=== PATIENT | female | born 1940 | race Caucasian/White ===

== ENCOUNTER 2018-01-23 18:17 | Emergency (ER) | payer MEDICARE, SELFPAY ==
[2018-01-23 18:18] VITALS: BP 194/76; PULSE 96; RESP 20; TEMP 37; O2SAT 97; BMI 32.9
--- NOTE | 2018-01-23 19:03 | CT_ITS ---
STUDY: CT ABDOMEN AND PELVIS WITH CONTRAST REASON FOR EXAM: Female, 77 years old. Right lower quadrant pain, previous appendectomy and right inguinal hernia repair. RADIATION DOSAGE (If Supplied By Facility): CTDIvol = ( 19.92 ) mGy, DLP = ( 1127.44 ) mGycm TECHNIQUE: Transaxial images were obtained from the dome of the diaphragm to the symphysis pubis without oral contrast. 100ml ml of Isovue 300 contrast was administered. Sagittal and coronal images were reconstructed. Individualized dose optimization techniques were used for this CT. COMPARISON: None. FINDINGS: The visualized lung bases are unremarkable. The visualized portions of the heart are within normal limits. Normal liver. Normal gallbladder and extrahepatic biliary system. Normal spleen. Normal pancreas. Normal bilateral adrenal glands. Normal right kidney. Normal left kidney. There is a large hiatal hernia composed mostly of the fundus of the stomach. Paracentral to right quadrant areas of bowel dilatation with overall hyperemic appearance. Findings are most concerning for ileus Clinical setting with early small bowel obstruction not completely excluded. Normal colon. There is non-visualization of the appendix. There is diffuse atherosclerotic calcification of the abdominal aorta, without a demonstrated aneurysm. Normal inferior vena cava. Normal retroperitoneum. Normal urinary bladder. There is atrophy of the uterus. There is a small anterior lower abdominal wall defect containing mesenteric fat with small fluid collection with defect measuring approximately 11 mm as seen on series 2 image 86. Normal osseous structures. CT/Abdomen/Pelvis W IV Cont ONLY IMPRESSION: 1. Lower mid to right abdominal small bowel areas of dilated fluid-filled lumen most concerning for ileus in the appropriate clinical setting. Early small bowel obstruction is not completely excluded recommend continued clinical follow-up with serial abdominal exam as clinically warranted. No evidence of fluid collection or abscess. 2. Small lower midline abdominal wall hernia containing mesenteric fat with small fluid collection as above. 3. Large hiatal hernia. Electronically Signed: Elvis Gonzalez DO at 20:59 EDT , Service support ,
--- NOTE | 2018-01-23 19:09 | ED.DCSUM_ITS ---
- ER Visit Summary Date of Service: 01/23/18 Chief Complaint: Right lower quadrant abdominal pain History of Present Illness: The patient is a 77 F history of hypertension. Prior appendectomy to prior right ankle. She also had a tubal ligation years ago. He states about 2 hours ago around 4 PM she started having upper and right lower quadrant abdominal pain. Since moderate pain. And now is resolved. She is associated nausea. Denies any vomiting. No diarrhea. No fever. No dysuria. States she has not had pain like this before. When the pain came on she did not notice any bulge or hernia in her right lower quadrant. She has had no trouble urinating. Or moving her bowels. She has been eating and drinking normally. She denies any recent abdominal trauma. She has never had a kidney stone. Currently states she is pain-free. She denies any back pain. Physical Examination: Well appearing older female. Vital signs are stable afebrile. She is accompanied by her . H EENT exam unremarkable. Neck nontender. Lungs clear to auscultation bilaterally. Heart regular rhythm no murmur. Abdomen is soft and nontender. Nondistended normal bowel sounds. She has absolutely no upper quadrant abdominal tenderness currently she has no right lower quadrant tenderness. She is well-healed prior surgical incisions one being a prior appendectomy. I do not appreciate any hernia or masses. I do not appreciate a pulsatile mass. She is a strong right femoral pulse. She is moving all 4 extremities. Neurovascular intact. Without edema or cords. Neurologically she is awake and alert. Back exam is nontender. Test Results: CBC normal with a white count 8. Normal H&H no bands. BMP normal. Liver enzymes normal. Lipase normal. UA positive nitrites, 5-10 white cells and 3+ bacteria for that reason a urine culture was sent and she will be treated for UTI. Multiple repeat abdominal exams her abdomen remains completely benign. She has no right lower quadrant tenderness and no peritoneal signs. Emergency Department Course and Treatment: Patient will undergo examination for abdominal pain. Including a CT of her abdomen and pelvis with IV contrast. Treatment Plan: Patient will be treated for possible UTI. She was started on Keflex 500 4 times daily for 7 days. A urine culture was sent. Her primary care physician Dr. Resendiz in follow-up the urine culture results and determine if she needs to continue the antibiotics or not at that time. This was all discussed with the patient and her at bedside. Her repeat exam at 2148 she is doing well abdomen is completely benign and nontender. Disposition: dc Impression: Acute right lower quadrant abdominal pain of uncertain etiology UTI with urine culture pending This note was generated with [employer] dictation software. It may contain incorrect words, spelling, and punctuation that were not noted in review of the chart prior to signing ED Disposition - Plan for ED Patient: Chief Complaint: Abd Pain Referrals: Maria Elena Resendiz MD [Primary Care Provider] -
[2018-01-23 19:36] LABS: Basophil# 0.02 X10^3/uL; Basophil% 0.2 % (0-1); Eosinophil# 0.24 X10^3/uL; Eosinophils% 2.8 % (0-5); Hemoglobin 13.7 g/dl (12.0-15.0); Lymphocyte % 17.2 % (19-41); Mean Corp Hgb Conc 33.4 g/gl (32-36); Mean Corpuscular Hgb 31.2 pg (27.0-32.0); Mean Corpuscular Volume 93.4 fL (81-99); Mean Platelet Vol. 9.5 fl (6.2-12.0); Monocyte% 10.3 % (0-10); Neutrophil # 6.03 X10^3/uL (2.7-7.7); Neutrophil % 69.3 % (47-70); Platelet Count 251 K/mm3 (150-450); RBC Distribution Width CV 13.3 % (11.6-14.6); RBC Distribution Width SD 45.2 fl (35.1-43.9); Red Blood Count 4.39 M/mm3 (4.2-5.4); White Blood Count 8.7 K/mm3 (4.4-11.0)
[2018-01-23 19:39] LABS: POSITIVE COUNT NO; POSITIVE DIFFERENTIAL NO; POSITIVE MORPHOLOGY NO
[2018-01-23 19:59] LABS: AST(SGOT) 43 U/L (15-37); Alanine Aminotransfer ALT/SGPT 31 U/L (13-56); Albumin, Serum 3.7 g/dL (3.2-5.0); Alkaline Phosphatase 89 U/L (45-117); Anion Gap 9 (5-15); BUN 13 mg/dL (7-18); BUN/Creat Ratio 18.8 RATIO (10-20); Bilirubin, Direct 0.09 mg/dL (0.00-0.30); Calcium,Total 8.8 mg/dL (8.5-10.1); Chloride 105 mmol/L (98-107); Creatinine, Serum 0.69 mg/dL (0.55-1.02); EST Glomerular Filtration Rate 88 mL/min (>60); Est Glom Filt Rate - Afr Amer 106 mL/min (>60); Estimated Creatinine Clearance 39.59 ml/min; Globulin 3.5 g/dL (2.2-4.2); Glucose 88 mg/dL (74-106); Lipase 184 U/L (73-393); Potassium 4.7 mmol/L (3.5-5.1); Protein, Total 7.2 g/dL (6.4-8.2); Sodium Level 138 mmol/L (136-145)
[2018-01-23 20:17] VITALS: BP 168/114; PULSE 80; RESP 18; O2SAT 100
[2018-01-23 20:34] LABS: Mucous, Urine 0 SEEN /hpf (<or=2+); Squamous Epithelial Cells - UA 0 SEEN /hpf (5-10)
[2018-01-23 20:44] LABS: Color, Urine Yellow (Yellow); Glucose, Dipstick Normal (Normal); Ketone-Dipstick Negative (Negative); Leukocyte Esterase-Dipstick 100 /ul (Negative); Nitrite-Dipstick Positive (Negative); Occult Blood-Urine 10 /ul (Negative); Protein-Dipstick Negative (Negative); Specific Gravity, Urine 1.015 (1.002-1.030); Urine Bilirubin Dipstick Negative (Negative); Urine Clarity Cloudy (Clear); Urine Urobilinogen Normal (Normal)
[2018-01-23 21:02] LABS: Bacteria 3+ /hpf (None Seen); White Blood Cells 5-10 SEEN /hpf (0-5)
[2018-01-23 21:03] LABS: Red Blood Cells-Urine 0-5 SEEN /hpf (0-5)
--- NOTE | 2018-01-23 21:52 | ED.DEP ---
ED Disposition - Plan for ED Patient: Disposition: Home or Assisted Living Chief Complaint: Abd Pain Instructions: ED Abdominal Pain Unkn Cause, ED UTI Cystitis Female Prescriptions: Cephalexin [Keflex] 500 mg PO Q6 #30 cap Referrals: Maria Elena Resendiz MD [Primary Care Provider] - As soon as possible Additional Instructions: Stop the Zithromax antibiotic. Next Start the Keflex 1 pill 4 times a day. We will treat you for a possible urinary tract infection. We sent a urine culture today and that will be back Thursday. If the urine culture is negative antibiotics can be stopped. Follow-up your primary care physician and get these results.
[2018-01-23] MEDS: Cephalexin 250 MG Capsule 500 MG PO (22:08)
[2018-01-23 22:13] VITALS: RESP 18
== END 2018-01-23 22:13 | disposition home or self-care (01) ==
PROVIDERS: Emergency Provider Emergency Medicine; Family Provider Internal Medicine; PCP Internal Medicine
DX: N39.0 Urinary tract infection, site not specified (principal); R10.31 Right lower quadrant pain; I10 Essential (primary) hypertension; Z79.899 Other long term (current) drug therapy
CPT/HCPCS: 74177; 80048; 80076; 81001; 83690; 85025; 87086; 87088; 87186; 99285; Q9967; A4216

== ENCOUNTER 2019-01-27 16:35 | Emergency (ER) | payer MEDICARE, SELFPAY ==
[2018-12-17 09:36] VITALS: BMI 33.1
[2019-01-27 16:37] VITALS: BP 168/102; PULSE 97; RESP 15; TEMP 35.7; O2SAT 100; BMI 37.0
--- NOTE | 2019-01-27 16:54 | EKG12_ITS ---
Test Reason : ABDOMINAL PAIN Blood Pressure : / mmHG Vent. Rate : 086 BPM Atrial Rate : 086 BPM P-R Int : 168 ms QRS Dur : 088 ms QT Int : 402 ms P-R-T Axes : 055 029 033 degrees QTc Int : 481 ms Poor data quality, interpretation may be adversely affected Normal sinus rhythm Normal ECG Confirmed by LEI CORREA, OLLIE ([id number]), magazine editor STEPHANY GLOVER ([id number]) on 01/31/2019 1:39:41 PM Referred By: WERNER Confirmed By:OLLIE ODOM MD
--- NOTE | 2019-01-27 16:55 | ED.DCSUM_ITS ---
- ER Visit Summary Date of Service: 01/27/19 Chief Complaint: Abdominal pain History of Present Illness: The patient is a 78 F who presents with abdominal pain that began approximately 6 hours prior to arrival. Patient states the pain is over the diaphragm area. Patient describes the pain as sharp. Patient states pain is worse when she lays down. Patient admits to some nausea and vomiting. Patient states her emesis is stomach contents. Patient denies any hematemesis or coffee-ground emesis. Patient denies any diarrhea, melena, or hematochezia. Patient denies any radiation of the pain. She denies any urinary complaints. Physical Examination: Vital signs are stable. Patient is afebrile. Patient is in no acute distress. Oral mucosa is pink and moist. Neck is supple. Trachea is midline. There is no JVD noted. Heart was regular rate and rhythm. Lungs are clear and equal bilaterally. Abdomen is soft. Bowel sounds are normal. There is epigastric tenderness. There is no rebound or guarding noted. Cranial nerves II through XII are intact. There are no focal motor or sensory deficits noted. Test Results: EKG showed normal sinus rhythm with a rate of 86. There are no acute ST or T wave changes. This was unchanged compared to previous EKG dated 12/09/2017. CBC and comprehensive metabolic profile were obtained and were essentially within normal limits. Urinalysis does not show any evidence of urinary tract infection. Troponin was normal. Emergency Department Course and Treatment: Patient was given IV fluids, Zofran, and morphine. Patient felt better on reevaluation. Patient was advised of her test results. Patient states she is unable to tolerate Prilosec because it gives her diarrhea. Patient states her primary care physician also tried another acid medication which also cause diarrhea. Patient was instructed to follow-up with her primary care physician in 3 to 5 days. Patient understood and was agreeable with the plan. All questions were answered. Disposition: Discharge home Impression: Epigastric abdominal pain This note was generated with [employer] dictation software. It may contain incorrect words, spelling, and punctuation that were not noted in review of the chart prior to signing ED Disposition - Plan for ED Patient: Disposition: Home or Assisted Living Diagnosis: Epigastric abdominal pain of unknown etiology Instructions: ABDOMINAL PAIN, Unknown Cause, (Female) Referrals: Maria Elena Resendiz MD [Primary Care Provider] - 3-5 Days
[2019-01-27] MEDS: Morphine 4 MG/ML Syringe IV (17:04)
[2019-01-27] MEDS: Ondansetron 4 MG/2 ML Vial IV (17:05)
[2019-01-27 17:20] LABS: Absolute Lymphocyte Count 1.28 X10^3/ul (0.83-4.51); Absolute Neutrophil Count 8.3 X10^3/uL (2.0-7.7); Basophil# 0.02 X10^3/uL; Basophil% 0.2 % (0-1); Eosinophil# 0.03 X10^3/uL; Eosinophils% 0.3 % (0-5); Hematocrit 42.2 % (37-47); Hemoglobin 14.4 g/dl (12.0-15.0); Lymphocyte # 1.28 X10^3/ul (4.0); Lymphocyte % 12.4 % (19-41); Mean Corp Hgb Conc 34.1 g/gl (32-36); Mean Corpuscular Hgb 31.5 pg (27.0-32.0); Mean Corpuscular Volume 92.3 fL (81-99); Mean Platelet Vol. 9.3 fl (6.2-12.0); Monocyte# 0.67 X10^3/uL; Monocyte% 6.5 % (0-10); Neutrophil % 80.4 % (47-70); Platelet Count 291 K/mm3 (150-450); RBC Distribution Width SD 43.6 fl (35.1-43.9); Red Blood Count 4.57 M/mm3 (4.2-5.4); White Blood Count 10.3 K/mm3 (4.4-11.0)
[2019-01-27 17:25] LABS: POSITIVE COUNT NO; POSITIVE DIFFERENTIAL NO; POSITIVE MORPHOLOGY NO
[2019-01-27 17:35] LABS: ALB/GLOB Ratio 1.1 RATIO (0.9-2.4); AST(SGOT) 16 U/L (15-37); Alanine Aminotransfer ALT/SGPT 21 U/L (13-56); Albumin, Serum 3.9 g/dL (3.2-5.0); Alkaline Phosphatase 98 U/L (45-117); Anion Gap 6 (5-15); BUN 8 mg/dL (7-18); BUN/Creat Ratio 12.4 RATIO (10-20); Calcium,Total 9.2 mg/dL (8.5-10.1); Chloride 105 mmol/L (98-107); Creatinine, Serum 0.65 mg/dL (0.55-1.02); EST Glomerular Filtration Rate 94 mL/min (>60); Est Glom Filt Rate - Afr Amer 114 mL/min (>60); Estimated Creatinine Clearance 33.84 ml/min; Globulin 3.4 g/dL (2.2-4.2); Glucose 121 mg/dL (74-106); Lipase 93 U/L (73-393); Potassium 3.7 mmol/L (3.5-5.1); Protein, Total 7.3 g/dL (6.4-8.2); Sodium Level 135 mmol/L (136-145)
[2019-01-27 18:16] VITALS: BP 148/82; PULSE 79; RESP 15
[2019-01-27 18:19] LABS: Bacteria 0 SEEN /hpf (None Seen); Mucous, Urine 0 SEEN /hpf (<or=2+); Squamous Epithelial Cells - UA 0 SEEN /hpf (5-10); White Blood Cells 0 SEEN /hpf (0-5)
[2019-01-27 18:20] LABS: Color, Urine Yellow (Yellow); Glucose, Dipstick Normal (Normal); Ketone-Dipstick 50 mg/dl (Negative); Leukocyte Esterase-Dipstick Negative /ul (Negative); Nitrite-Dipstick Negative (Negative); Occult Blood-Urine 10 /ul (Negative); Protein-Dipstick Negative (Negative); Specific Gravity, Urine 1.015 (1.002-1.030); Urine Bilirubin Dipstick Negative (Negative); Urine Clarity Sl. Cloudy (Clear); Urine Urobilinogen Normal (Normal)
[2019-01-27 18:57] LABS: Amorphous Sediment 1+; Red Blood Cells-Urine 0-5 SEEN /hpf (0-5)
[2019-01-27 20:05] VITALS: BP 148/77; PULSE 78; RESP 18; O2SAT 94
== END 2019-01-27 20:06 | disposition home or self-care (01) ==
PROVIDERS: Emergency Provider Emergency Medicine; Family Provider Internal Medicine; PCP Internal Medicine
DX: R10.13 Epigastric pain (principal); E03.9 Hypothyroidism, unspecified; Z79.899 Other long term (current) drug therapy
CPT/HCPCS: 80053; 81001; 83690; 84484; 85025; 93005; 96374; 96375; 99283; A4216; J2405

== ENCOUNTER → 2019-06-08 | Outpatient (CLI) | payer MEDICARE, SELFPAY ==
[2019-05-23 11:53] VITALS: BMI 37.0
--- NOTE | 2019-06-08 06:51 | CT_ITS ---
STUDY: CT ABDOMEN AND PELVIS WITH CONTRAST REASON FOR EXAM: Female, 79 years old. Evaluate for left lower quadrant hernia. RADIATION DOSAGE (If Supplied By Facility): CTDIvol = ( 16.51 ) mGy, DLP = ( 1125.38 ) mGycm TECHNIQUE: Transaxial images were obtained from the dome of the diaphragm to the symphysis pubis with oral contrast. 100 ml of Isovue 300 contrast was administered. Sagittal and coronal images were reconstructed. Individualized dose optimization techniques were used for this CT. COMPARISON: 01/23/2018 FINDINGS: The visualized lung bases are clear. The visualized portions of the heart and pericardium are within normal limits. There are no calcified gallstones present. The liver is within normal limits. There are no suspicious hepatic lesions. The spleen is normal in size. The pancreas is within normal limits. The adrenal glands are within normal limits. There are no renal or ureteral stones. There is no hydronephrosis. There are no focal renal lesions. There is a stable large hiatal hernia. There is no bowel obstruction or inflammation. The appendix is not visualized, but there are no findings to suggest acute appendicitis. There is a new small right inguinal hernia which contains nonobstructed bowel. There are stable postsurgical changes from a left inguinal hernia repair. There is a stable small fat and fluid hernia in the pelvis to the left of midline. The aorta is normal in caliber. There are stable atherosclerotic calcifications in the aorta. There is no abdominal or pelvic free air, free fluid, fluid collection or lymphadenopathy. There are no destructive osseous lesions. CT/Abdomen/Pelvis WITH Contrast IMPRESSION: Stable postsurgical changes from a left inguinal hernia repair. Stable small fat and fluid hernia in the pelvis to the left of midline. New small right inguinal hernia which contains nonobstructed bowel. No bowel obstruction or inflammation. Stable large hiatal hernia. Electronically Signed: Jose Diggs, at 17:03 EST Tel , Service support ,
[2019-06-08 07:06] LABS: CREATININE FINGERSTICK 0.7 mg/dL (0.55-1.02); EGFR FINGERSTICK > 60.0000 mL/min (>60)
== END | disposition home or self-care (01) ==
LOC: CT 06:49
PROVIDERS: Family Provider Internal Medicine; PCP Internal Medicine; Referring Provider Obstetrics & Gynecology; Visit Provider Obstetrics & Gynecology
DX: K46.9 Unspecified abdominal hernia without obstruction or gangrene (principal)
CPT/HCPCS: 74177; Q9967

== ENCOUNTER → 2020-03-22 | Outpatient (CLI) | payer MEDICARE, SELFPAY ==
[2019-12-20 07:42] VITALS: BMI 35.2
--- NOTE | 2020-03-22 08:52 | STRESSREP ---
Stress Test Report Pharmacologic myocardial perfusion stress test. 79-year-old lady with a history of heart murmur. Myocardial perfusion protocol. Resting EKG demonstrates sinus bradycardia with a rate of 56 bpm normal intervals are noted resting blood pressure 142/80 mmHg. 0.4 mg of regadenoson was infused per usual protocol followed by Intravenous saline flush injection continuous EKG monitoring was performed. The maximum heart rate attained was 103 bpm which was 72% of maximum predicted heart rate the maximum workload was 1 metabolic equivalent. At rest there were no ST or T wave changes noted to suggest abnormal flow reserve at peak infusion nonspecific ST-T wave changes were noted. The resting blood pressure was 142/80 with a final blood pressure 126/74. Myocardial perfusion protocol. 11.8 mCi of technetium 99m sestamibi was injected at rest. 0.4 mg of regadenoson was infused per usual protocol. At peak infusion 34.3 mCi of technetium 99m sestamibi was injected stress images were obtained stress and rest images were reconstructed and compared in the short axis vertical long horizontal long axis. Gated images were also obtained Perfusion SPECT analysis: Review of the stress images demonstrate normal uptake of tracer noted in all areas of the myocardium the resting images similar demonstrate normal uptake of tracer noted in all areas of the myocardium. No areas of reversibility are noted suggest ischemia no previous infarct is noted. Gated SPECT analysis: The gated ejection fraction is 85%. Conclusion: Normal pharmacologic myocardial perfusion stress test. Preserved ejection fraction.
== END | disposition home or self-care (01) ==
LOC: CVS 06:35
PROVIDERS: PCP Internal Medicine; Referring Provider Internal Medicine; Visit Provider Internal Medicine
DX: R07.89 Other chest pain (principal)
CPT/HCPCS: 78452; 93017; A9500; A4216; J2785

== ENCOUNTER → 2020-07-05 10:56 | Outpatient (CLI) | payer MEDICARE, SELFPAY ==
[2020-06-27 09:44] VITALS: BMI 31.6
--- NOTE | 2020-07-05 10:57 | ECHOD_ITS ---
Reason For Study: MURMUR Procedure This was a 2D Doppler, Color Flow transthoracic echocardiogram. The study was technically difficult. Exam performed in department. Left Ventricle Normal LV size. Mild concentric left ventricular hypertrophy. Left ventricular systolic function is normal. The estimated ejection fraction is 65 %. Stage 1 diastolic dysfunction. No regional wall motion abnormalities noted. Right Ventricle Normal RV size. Normal systolic function. Atria Normal left atrium. Normal right atrium. Mitral Valve There is mild mitral annular calcification. Mild (1+) eccentric mitral valve insufficiency. Tricuspid Valve Normal tricuspid valve. Mild tricuspid valve insufficiency. Pulmonary artery systolic pressure is 20 mmHg. Aortic Valve Trisinus/trileaflet aortic valve. Mild focal aortic valve calcification. Peak aortic valve gradient 30 mmHg. Mean aortic valve gradient 18 mmHg. Mild aortic stenosis. Calculated aortic valve area (continuity equation) is 1.6 cm2. Mild (1+) aortic valve insufficiency. Pulmonic Valve Normal pulmonic valve. Great Vessels Normal aortic root. The pulmonary artery is normal size. Inferior vena cava collapse with respiration. Pericardium/Pleural No pericardial effusion. MMode/2D Measurements & Calculations LVIDd: 4.3 cm IVSd: 1.2 cm LVOT diam: 2.0 cm LVIDs: 2.8 cm LVPWd: 1.2 cm LVOT area: 3.0 cm2 FS: 34.2 % Ao root diam: 3.4 cm LAV(MOD-bp): 37.0 ml Aortic Valve Planimetry: 1.8 cm2 LAV(MOD-bp) Indexed: 19.8 ml/m2 LAV(MOD-sp2): 40.1 ml LAV(MOD-sp4): 29.7 ml LA dimension(2D): 3.5 cm LA A4 area: 13.1 cm2 RA A4 area: 9.8 cm2 Time Measurements MV dec time: 0.27 sec Doppler Measurements & Calculations MV E max ryland: 103.5 cm/sec Lat Peak E' Ryland: 3.2 cm/sec Med Peak E' Ryland: 3.2 cm/sec MV A max ryland: 123.5 cm/sec E/E' lat: 32.1 E/E' med: 32.1 MV E/A: 0.84 MV V2 max: 126.9 cm/sec Ao V2 max: 273.3 cm/sec AI max ryland: 292.7 cm/sec MV max P.4 mmHg Ao max P.9 mmHg AI max P.1 mmHg MV V2 mean: 71.9 cm/sec Ao V2 mean: 199.4 cm/sec AI dec slope: 214.3 cm/sec2 MV mean P.4 mmHg Ao mean P.4 mmHg AI P1/2t: 400.1 msec MV V2 VTI: 34.4 cm Ao V2 VTI: 60.5 cm MVA(VTI): 3.2 cm2 LES(I,D): 1.8 cm2 LES(V,D): 1.6 cm2 LV V1 max: 145.1 cm/sec SV(LVOT): 109.1 ml TR max ryland: 210.7 cm/sec LV V1 max P.9 mmHg TR max P.8 mmHg LV V1 mean P.7 mmHg LV V1 mean: 114.9 cm/sec LV V1 VTI: 35.9 cm MV P1/2t-pr_phl: 66.8 msec Interpretation Summary Normal LV size. Mild concentric left ventricular hypertrophy. Left ventricular systolic function is normal. The estimated ejection fraction is 65 %. Stage 1 diastolic dysfunction. Mild aortic stenosis. Mild (1+) aortic valve insufficiency. Ordering Physician: Leanna oCoper Referring Physician: REAGAN ARELLANO Performed By: Lety Castro, LEXI, RVT
== END ==
PROVIDERS: PCP Internal Medicine; Referring Provider Physician Assistant Medical; Visit Provider Physician Assistant Medical
DX: I35.0 Nonrheumatic aortic (valve) stenosis (principal)
CPT/HCPCS: 93306

== ENCOUNTER 2021-09-14 11:19 | Emergency (ER) | payer MEDICARE, SELFPAY ==
[2021-09-14 11:20] VITALS: BP 183/93; PULSE 84; RESP 18; TEMP 35.9; O2SAT 99
--- NOTE | 2021-09-14 11:56 | RAD_ITS ---
STUDY: X-RAY - UNILATERAL RIBS ( LEFT ) WITH CHEST REASON FOR EXAM: Female, 81 years old. Left hip pain. TECHNIQUE - RIBS: 4 view(s) of the ribs. TECHNIQUE - CHEST: Single frontal view of the chest. COMPARISON: None. FINDINGS - RIBS: No demonstrated acute rib fracture. FINDINGS - CHEST: No focal infiltrate is seen. There is no demonstrated pleural abnormality. Normal size heart. Normal mediastinum and corwin. Normal visualized pulmonary arteries. There are slightly calcifications of the aortic arch. No demonstrated acute osseous changes. There is no demonstrated abnormality of the visualized soft tissue structures of the upper abdomen. RAD/Ribs Uni Min 3V w/PA Chest IMPRESSION: RIBS: No demonstrated acute rib fracture. CHEST: No active pulmonary disease. Electronically Signed: Shekhar Sampson, at 12:34 EST ,
--- NOTE | 2021-09-14 11:58 | EKG12_ITS ---
Test Reason : FLANK PAIN Blood Pressure : / mmHG Vent. Rate : 071 BPM Atrial Rate : 071 BPM P-R Int : 174 ms QRS Dur : 078 ms QT Int : 404 ms P-R-T Axes : 037 022 050 degrees QTc Int : 439 ms Normal sinus rhythm Normal ECG Confirmed by DORIS CORREA, CLIFFORD ([id number]), story editor STEPHANY GLOVER ([id number]) on 09/18/2021 12:35:15 P M Referred By: ELEAZAR Confirmed By:DEBORAH GEORGE MD
--- NOTE | 2021-09-14 11:58 | CT_ITS ---
STUDY: CT ABDOMEN AND PELVIS WITHOUT CONTRAST REASON FOR EXAM: Female, 81 years old. Flank pain RADIATION DOSAGE (If Supplied By Facility): CTDIvol = ( 13.20 ) mGy, DLP = ( 587.69 ) mGycm TECHNIQUE: Transaxial images were obtained from the dome of the diaphragm to the symphysis pubis without oral contrast, and without intravenous contrast. Sagittal and coronal images were reconstructed. Individualized dose optimization techniques were used for this CT. COMPARISON: 06/08/2019 FINDINGS: The visualized lung bases are unremarkable. Normal heart size. Calcifications of the aortic root and Borderline liver size. Normal gallbladder and extrahepatic biliary system. Normal spleen. Normal pancreas. Normal bilateral adrenal glands. Normal right kidney. Normal left kidney. Large hiatal hernia which could be paraesophageal. Normal small intestine. Fecal retention. Colonic diverticulosis without evidence of acute diverticulitis. The appendix is visualized and appears normal. Normal abdominal aorta. Normal inferior vena cava. Normal retroperitoneum. Normal urinary bladder. Normal abdominal wall. There are diffuse degenerative changes of the visualized lumbar spine. CT/Abdomen/Pelvis without Cont IMPRESSION: 1. Large hiatal hernia which could be paraesophageal unchanged prior exam. 2. No evidence of urinary tract stones or hydronephrosis. 3. Diverticulosis without evidence for acute diverticulitis. 4. No focal acute inflammatory process. Electronically Signed: Shekhar Sampson, at 13:04 [facility] ,
--- NOTE | 2021-09-14 12:18 | EX.ED.DYSGE1 ---
HPI History of Present Illness Chief Complaint: Flank Pain Informant: patient Narrative Narrative: Patient is an 81-year-old female with history of hyperlipidemia, hypertension and aortic stenosis presenting with left back and flank pain. It radiates around to her abdomen. She is never anything like this before. She noticed it last night and tried taking aspirin with no relief. She states it is worse when she moves or rolled over on her side. When she woke up initially she did not have any pain but then she started moving again and had pain again. Denies any associated nausea or vomiting. Denies any issues with her bowels or symptoms. Denies any new trauma. Denies any rash. No new physical activities. Denies any history of kidney stones. No fever or chills reported. [facility] Medical History (Updated 09/14/21 @ 14:[address] Destiny Forte, ) Anemia Asymmetric septal hypertrophy Diverticulosis Essential hypertension Glaucoma Hyperlipidemia Hypothyroidism Lichen sclerosus Non-rheumatic aortic stenosis Obesity Osteopenia Home Medications cholecalciferol (vitamin D3) 125 mcg (5,000 unit) capsule 125 mcg PO DAILY 12/20/19 [History Last Taken Unknown] fluticasone propionate 50 mcg/actuation nasal spray,suspension spray INTRANASAL 12/20/19 [History Last Taken Unknown] latanoprost 0.005 % eye drops OPHTHALMIC 12/20/19 [History Last Taken Unknown] pravastatin 40 mg tablet 40 mg PO QHS #90 tab 06/27/20 [Rx Last Taken Unknown] bupropion HCl 75 mg tablet tablet PO 04/18/21 [History Last Taken Unknown] levothyroxine 25 mcg tablet 75 mcg PO .QOD tab 04/18/21 [History Last Taken Unknown] levothyroxine 50 mcg tablet 50 mcg PO .qod tab 04/18/21 [History Last Taken Unknown] irbesartan 150 mg tablet 150 mg PO DAILY #90 tab 08/06/21 [Rx Last Taken Unknown] cephalexin 500 mg PO Q6 #28 cap 09/14/21 [Rx Last Taken Unknown] Allergy/AdvReac Type Severity Reaction Status Date / Time codeine Allergy PT UNSURE Verified 09/14/21 12:30 OF REACTION losartan AdvReac Unknown Verified 09/14/21 11:22 quinapril [From Accupril] AdvReac Unknown Verified 09/14/21 11:22 Sulfa (Sulfonamide AdvReac unknown Verified 09/14/21 11:22 Antibiotics) Family History Mother Heart disease Father Heart disease Myocardial infarction from [place] age 67 Other CVA (cerebral vascular accident) Surgical History History of appendectomy History of inguinal hernia repair History of tubal ligation left foot surgery Social History Smoking Status: Never smoker alcohol intake: current details: social substance use type: does not use caffeine: Yes what type of physical activity do you participate in: walking seatbelt use: always do you feel safe at home: Yes additional social history: Antwon Moran are retired ROS ROS ED Constitutional Constitutional ED: Denies chills or fever(s) ENT ENT ED: Denies sore throat Cardiovascular Cardiovascular: Denies chest pain Respiratory/Chest Respiratory/Chest: Denies cough or dyspnea Gastrointestinal Gastrointestinal: Reports abdominal pain; Denies constipation, diarrhea, nausea or vomiting Genitourinary Genitourinary ED: Denies dysuria, hematuria or urinary frequency Musculoskeletal Musculoskeletal: Reports back pain; Denies arthralgias or myalgias Integumentary Denies rash Neurologic Neurologic: Denies headache(s) or weakness Psychiatric Psychiatric: Denies depression EXAM Physical Exam Const Vital Signs: 09/14/21 11:20 09/14/21 13:43 Temperature 96.7 F L Temperature Source Temporal Pulse Rate 84 88 Respiratory Rate 18 17 Blood Pressure 183/93 H Blood Pressure Mean 123 Pulse Ox 99 98 Oxygen Delivery Method Room Air Room Air Positive well nourished and well developed General Appearance ED: well developed HEENT Reports moist mucous membranes Negative for tenderness Eyes PERRL and EOMs intact bilaterally Neck supple and no JVD Chest Wall inspection of chest normal and palpation of chest normal Chest Narrative: Mild tenderness in the area of the left lower ribs around the mid axillary line however it is not significantly reproducible. Resp normal respiratory effort and clear to auscultation bilaterally Cardio regular rate and regular rhythm Heart Sounds: murmur systolic GI normal to inspection, nondistended, normoactive bowel sounds and non-tender Palpation: soft Back/Spine no CVA tenderness Extremity normal to inspection General Extremety ED: Negative for edema or tenderness General Extremity: Negative for edema Neuro oriented x3 and CN's II-XII intact bilaterally Sensorium / Orientation: alert Motor Exam: strength 5/5 throughout Psych mental status grossly normal Skin no rashes or lesions noted and no wounds MDM MDM MDM Narrative Medical decision making narrative: Patient is evaluated with about 24 hours of left flank pain radiating around. Patient is hemodynamically stable. She is hypertensive. Differential includes renal pathology including renal colic, pleuritic pain, referred cardiac pain, rib injury and muscle skeletal pain. Work-up is remarkable for urinary tract infection with 25-50 white blood cells and 2+ bacteria. Kidney function is normal and her white blood cell count is normal. CT without contrast does not show any kidney stones. I am concerned that her pain is early pyelonephritis. Patient is started on Keflex and is given a dose of Toradol in the ER. She is counseled on return precautions. She verbalizes agreement understand this plan. Discharged home in stable condition. Lab Data Attestation: I reviewed the patient's lab results. Labs: Laboratory Results - last 24 hr 09/14/21 09/14/21 09/14/21 11:30 11:40 11:40 WBC 7.6 RBC 4.57 Hgb 14.4 Hct 43.7 MCV 95.6 MCH 31.5 MCHC 33.0 RDW Std Deviation 45.6 H RDW Coeff of Ezekiel 12.8 Plt Count 295 MPV 9.4 Immature Gran % (Auto) 0.400 Neut % (Auto) 65.2 Lymph % (Auto) 19.6 [place] % (Auto) 11.3 H Eos % (Auto) 3.0 Baso % (Auto) 0.5 Absolute Neuts (auto) 4.9 Absolute Lymphs (auto) 1.49 Nucleated RBC % 0 Sodium 139 Potassium 3.8 Chloride 106 Carbon Dioxide 27.0 Anion Gap 6 BUN 11 Creatinine 0.60 Estim Creat Clear Calc 38.75 Est GFR (MDRD) Af Amer 123 Est GFR (MDRD) Non-Af 102 BUN/Creatinine Ratio 18.3 Glucose 78 Calcium 8.6 Total Bilirubin 0.60 AST 19 ALT 21 Alkaline Phosphatase 105 Troponin I High Sens 4 Total Protein 7.2 Albumin 3.7 Globulin 3.5 Albumin/Globulin Ratio 1.1 Lipase 164 Urine Color Yellow Urine Clarity Clear Urine pH 5.0 Ur Specific [place] 1.010 Urine Protein Negative Urine Glucose (UA) Normal Urine Ketones Negative Urine Occult Blood 10 H Urine Nitrite Negative Urine Bilirubin Negative Urine Urobilinogen Normal Ur Leukocyte Esterase 500 H Urine RBC 0 SEEN Urine WBC 25-50 SEEN Ur Squamous Epith Cells 0 SEEN Urine Bacteria 2+ Urine Mucus 0 SEEN Radiography Diagnostic Testing: Clinical Impression(s) from Imaging Studies Ribs w/Chest X-Ray 09/14/21 11:56 IMPRESSION: RIBS: No demonstrated acute rib fracture. CHEST: No active pulmonary disease. Electronically Signed: Shekhar Sampson, at 12:34 EST , Abdomen/Pelvis CT 09/14/21 11:58 IMPRESSION: 1. Large hiatal hernia which could be paraesophageal unchanged prior exam. 2. No evidence of urinary tract stones or hydronephrosis. 3. Diverticulosis without evidence for acute diverticulitis. 4. No focal acute inflammatory process. Electronically Signed: Shekhar Sampson, at 13:04 EST , Rhythm Strip Rhythm Strip: Sinus Rhythm Rate: 71 Ectopy: None EKG Initial EKG: Attestation: I personally reviewed and interpreted this EKG as follows: Interpretation: Sinus Rhythm Comments: Normal sinus rhythm at a rate of 71 Normal axis Normal intervals Normal ST segments Discharge Plan Triage Chief Complaint: Flank Pain ED Provider: eDstiny Forte Dx/Rx/DC Orders Clinical Impression: Pyelonephritis of left kidney, Acute left flank pain Instructions: ED Pyelonephritis, Female (Adult) Prescriptions: New cephalexin 500 mg capsule 500 mg PO Q6 Qty: 28 RF: 0 No Action levothyroxine [Synthroid] 50 mcg tablet 50 mcg PO .qod RF: 0 cholecalciferol (vitamin D3) 125 mcg (5,000 unit) capsule 125 mcg PO DAILY RF: 0 fluticasone propionate 50 mcg/actuation spray,suspension INTRANASAL RF: 0 latanoprost 0.005 % drops OPHTHALMIC RF: 0 pravastatin 40 mg tablet 40 mg PO QHS Qty: 90 RF: 3 bupropion HCl 75 mg tablet PO RF: 0 levothyroxine 25 mcg tablet 75 mcg PO .QOD RF: 0 irbesartan 150 mg tablet 150 mg PO DAILY Qty: 90 RF: 3 Primary Care Provider: Maria Elena Resendiz Referrals: Maria Elena Resendiz MD [Primary Care Provider] - Activity Restrictions/Additional Instructions: Return to the emergency room if you develop worsening pain, fever or nausea or vomiting. Return if you are not getting better especially after 48 hours. Disposition Disposition: Home, Self Care Discharge Date/Time: 09/14/21 14:09
[2021-09-14 12:24] LABS: ALB/GLOB Ratio 1.1 RATIO (0.9-2.4); AST(SGOT) 19 U/L (15-37); Alanine Aminotransfer ALT/SGPT 21 U/L (13-56); Albumin, Serum 3.7 g/dL (3.2-5.0); Alkaline Phosphatase 105 U/L (45-117); Anion Gap 6 (5-15); BUN 11 mg/dL (7-18); BUN/Creat Ratio 18.3 RATIO (10-20); Calcium,Total 8.6 mg/dL (8.5-10.1); Chloride 106 mmol/L (98-107); EST Glomerular Filtration Rate 102 mL/min (>60); Est Glom Filt Rate - Afr Amer 123 mL/min (>60); Estimated Creatinine Clearance 38.75 ml/min; Globulin 3.5 g/dL (2.2-4.2); Glucose 78 mg/dL (74-106); Lipase 164 U/L (73-393); Potassium 3.8 mmol/L (3.5-5.1); Protein, Total 7.2 g/dL (6.4-8.2); Sodium Level 139 mmol/L (136-145); Troponin-I HS 4 pg/mL (3.0-54.0)
[2021-09-14] MEDS: Ketorolac 15 MG/ML Vial IV (12:30)
[2021-09-14 12:40] LABS: Mucous, Urine 0 SEEN /hpf (<or=2+); Red Blood Cells-Urine 0 SEEN /hpf (0-5); Squamous Epithelial Cells - UA 0 SEEN /hpf (5-10)
[2021-09-14 12:41] LABS: Color, Urine Yellow (Yellow); Glucose, Dipstick Normal (Normal); Ketone-Dipstick Negative (Negative); Leukocyte Esterase-Dipstick 500 /ul (Negative); Nitrite-Dipstick Negative (Negative); Occult Blood-Urine 10 /ul (Negative); Protein-Dipstick Negative (Negative); Urine Bilirubin Dipstick Negative (Negative); Urine Clarity Clear (Clear); Urine Urobilinogen Normal (Normal)
[2021-09-14 12:59] LABS: Bacteria 2+ /hpf (None Seen); White Blood Cells 25-50 SEEN /hpf (0-5)
[2021-09-14 13:12] LABS: Absolute Lymphocyte Count 1.49 X10^3/uL (0.83-4.51); Absolute Neutrophil Count 4.9 X10^3/uL (2.0-7.7); Basophil# 0.04 X10^3/uL; Basophil% 0.5 % (0-1); Eosinophil# 0.23 X10^3/uL; Hematocrit 43.7 % (37-47); Hemoglobin 14.4 g/dL (12.0-15.0); Lymphocyte # 1.49 X10^3/ul (0.83-4.51); Lymphocyte % 19.6 % (19-41); Mean Corpuscular Hgb 31.5 pg (27.0-32.0); Mean Corpuscular Volume 95.6 fL (81-99); Mean Platelet Vol. 9.4 fl (6.2-12.0); Monocyte# 0.86 X10^3/uL; Monocyte% 11.3 % (0-10); NRBC Flagged by Analyzer 0 % (0-5); Neutrophil # 4.94 X10^3/uL (2.7-7.7); Neutrophil % 65.2 % (47-70); Platelet Count 295 K/mm3 (150-450); RBC Distribution Width CV 12.8 % (11.6-14.6); RBC Distribution Width SD 45.6 fl (35.1-43.9); Red Blood Count 4.57 M/mm3 (4.2-5.4); White Blood Count 7.6 K/mm3 (4.4-11.0)
[2021-09-14] MEDS: Cephalexin 250 MG Capsule 500 MG PO (13:42)
[2021-09-14 13:43] VITALS: PULSE 88; RESP 17; O2SAT 98
== END 2021-09-14 14:09 | disposition home or self-care (01) ==
PROVIDERS: Emergency Provider Emergency Medicine; PCP Internal Medicine; Visit Provider Emergency Medicine
DX: N12 Tubulo-interstitial nephritis, not specified as acute or chronic (principal); R10.9 Unspecified abdominal pain; I10 Essential (primary) hypertension; E78.5 Hyperlipidemia, unspecified; D64.9 Anemia, unspecified; Z79.899 Other long term (current) drug therapy
CPT/HCPCS: 71101; 74176; 80048; 80053; 81001; 83690; 84484; 85025; 87077; 87086; 87088; 87186; 93005; 96374; 99285; A4216

== ENCOUNTER → 2022-04-14 | Outpatient (CLI) | payer MEDICARE, SELFPAY ==
--- NOTE | 2022-04-14 13:35 | ECHOCS_ITS ---
Version 2 Reason For Study: MURMUR Procedure This was a 2D Doppler, Color Flow transthoracic echocardiogram. The study was technically limited. Contrast injection was performed. Exam performed in department. Left Ventricle Normal LV size. Moderate eccentric left ventricular hypertrophy. Left ventricular systolic function is normal. The estimated ejection fraction is 65 %. No regional wall motion abnormalities noted. Right Ventricle Normal RV size. Normal systolic function. Atria Normal left atrium. Normal right atrium. Mitral Valve Normal mitral valve. Tricuspid Valve Normal tricuspid valve. Mild tricuspid valve insufficiency. Aortic Valve Trisinus/trileaflet aortic valve. Mild focal aortic valve calcification. Pulmonic Valve The pulmonic valve is not well visualized. Great Vessels Normal aortic root. The pulmonary artery is normal size. Normal inferior vena cava. Pericardium/Pleural No pericardial effusion. Medication 22 gauge I.V. with prn adaptor inserted into left arm. Diluted definity 1ml given slow IV push to enhance endocardial definition. MMode/2D Measurements & Calculations LVIDd: 4.1 cm IVSd: 1.2 cm LVOT diam: 2.0 cm LVIDs: 2.1 cm LVPWd: 1.5 cm RVDd: 2.7 cm FS: 49.5 % LVOT area: 3.3 cm2 Ao root diam: 3.1 cm LAV(MOD-sp4): 82.2 ml LVAd ap4: 24.6 cm2 LVLd ap4: 7.4 cm EDV(MOD-sp4): 65.2 ml EDV(sp4-el): 69.4 ml LVAs ap4: 11.0 cm2 LVLs ap4: 5.4 cm ESV(MOD-sp4): 20.9 ml ESV(sp4-el): 19.0 ml EF(MOD-sp4): 67.9 % EF(sp4-el): 72.6 % SV(MOD-sp4): 44.3 ml SV(sp4-el): 50.4 ml LA A4 area: 23.7 cm2 LA dimension(2D): 4.1 cm RA A4 area: 15.0 cm2 Time Measurements MV dec time: 0.23 sec Doppler Measurements & Calculations MV E max ryland: 93.2 cm/sec Lat Peak E' Ryland: 3.9 cm/sec Med Peak E' Ryland: 3.2 cm/sec MV A max ryland: 116.6 cm/sec E/E' lat: 24.0 E/E' med: 29.1 MV E/A: 0.80 MV V2 max: 119.6 cm/sec MV dec slope: 412.6 cm/sec2 Ao V2 max: 305.1 cm/sec MV max P.7 mmHg Ao max P.4 mmHg MV V2 mean: 69.0 cm/sec Ao V2 mean: 223.7 cm/sec MV mean P.2 mmHg Ao mean P.0 mmHg MV V2 VTI: 37.9 cm Ao V2 VTI: 71.8 cm MVA(VTI): 3.1 cm2 LES(I,D): 1.6 cm2 LES(V,D): 1.5 cm2 AI max ryland: 387.2 cm/sec LV V1 max: 141.7 cm/sec SV(LVOT): 117.0 ml AI max P.0 mmHg LV V1 max P.0 mmHg LV V1 mean P.0 mmHg AI dec slope: 338.9 cm/sec2 LV V1 mean: 104.2 cm/sec AI P1/2t: 334.6 msec LV V1 VTI: 35.6 cm PA V2 max: 131.5 cm/sec TR max ryland: 213.1 cm/sec PA V2 mean: 78.3 cm/sec TR max P.2 mmHg ECHO/Echo Complete W/ Contrast Interpretation Summary Normal LV size. Left ventricular systolic function is normal. The estimated ejection fraction is 65 %. Mild tricuspid valve insufficiency. Moderate eccentric left ventricular hypertrophy. Contrast injection was performed. Ordering Physician: Lazaro Campos Referring Physician: Lazaro Campos Performed By: Ilana Villarreal RCS
== END | disposition home or self-care (01) ==
LOC: CVS 13:35
PROVIDERS: PCP Internal Medicine; Referring Provider Internal Medicine Cardiovascular Disease; Visit Provider Internal Medicine Cardiovascular Disease
DX: R01.1 Cardiac murmur, unspecified (principal); I42.2 Other hypertrophic cardiomyopathy
CPT/HCPCS: 93306; Q9957; C8929

== ENCOUNTER 2022-08-21 17:56 | Emergency (ER) | payer MEDICARE, SELFPAY ==
[2022-08-21 17:58] VITALS: PULSE 91; RESP 16; TEMP 35.9; O2SAT 98; BMI 26.4
--- NOTE | 2022-08-21 18:56 | ED.VIS.GI ---
HPI HPI - GI History of Present Illness Chief Complaint: Abd Pain Informant: patient Abdominal Pain/Flank Pain Onset: Today and Hours (4-5) Context: Gradual Onset Timing: Continuous Quality: Sharp Location: Diffuse Worsened by: Nothing Relieved by: Nothing Nausea/Vomiting/Emesis GI Symptom: Negative for Nausea or Vomiting Diarrhea/Melena/Hematochezia GI Symptom: Negative for Diarrhea, Melena or Hematochezia Associated Symptoms Associated Symptoms: Negative for Dysuria, Frequency or Hematuria Narrative Narrative: Patient presents with abdominal pain that is being getting worse over the last 4 to 5 hours. Patient states it came on gradually. Patient states the pain started over the epigastric area but is now diffuse across her abdomen. Patient states it is starting to ease up since she arrived here in the emergency department. Patient describes her pain as sharp. Patient states nothing makes it worse and nothing makes it better. Patient denies any nausea or vomiting. Patient denies any diarrhea, melena, or hematochezia. Patient denies any dysuria or hematuria. Patient denies any fevers or chills. Prior similar symptoms: Yes (With prior urinary tract infection) PFSH PFSH Medical History Anemia Asymmetric septal hypertrophy Diverticulosis Essential hypertension Glaucoma Hyperlipidemia Hypothyroidism Lichen sclerosus LVH (left ventricular hypertrophy) Non-rheumatic aortic stenosis Obesity Osteopenia Home Medications cholecalciferol (vitamin D3) 125 mcg (5,000 unit) capsule 125 mcg PO DAILY 12/20/19 [History Last Taken Unknown] fluticasone propionate 50 mcg/actuation nasal spray,suspension spray intranasal 12/20/19 [History Last Taken Unknown] latanoprost 0.005 % eye drops ophthalmic (eye) 12/20/19 [History Last Taken Unknown] pravastatin 40 mg tablet 40 mg PO QHS #90 tabs 06/27/20 [Rx Last Taken Unknown] bupropion HCl 75 mg tablet tablet PO 04/18/21 [History Last Taken Unknown] irbesartan 150 mg tablet 150 mg PO DAILY #90 tabs 08/06/21 [Rx Last Taken Unknown] spironolactone 25 mg tablet 25 mg PO DAILY 02/03/22 [History Last Taken Unknown] clobetasol 0.05 % topical ointment 1 applic topical QHS #30 grams 07/10/22 [Rx Last Taken Unknown] levothyroxine 50 mcg tablet 50 mcg PO DAILY 07/10/22 [History Last Taken Unknown] cephalexin 500 mg capsule 500 mg PO Q6 #12 CAPSULES 08/21/22 [Rx Last Taken Unknown] Allergy/AdvReac Type Severity Reaction Status Date / Time codeine Allergy PT UNSURE Verified 08/21/22 17:58 OF REACTION losartan AdvReac Unknown Verified 08/21/22 17:58 quinapril [From Accupril] AdvReac Unknown Verified 08/21/22 17:58 Sulfa (Sulfonamide AdvReac unknown Verified 08/21/22 17:58 Antibiotics) Family History Mother Heart disease Father Heart disease Myocardial infarction from [place] age 67 Other CVA (cerebral vascular accident) Surgical History History of appendectomy History of inguinal hernia repair History of tubal ligation left foot surgery Social History Smoking Status: Never smoker alcohol intake: current details: social substance use type: does not use caffeine: Yes what type of physical activity do you participate in: walking seatbelt use: always do you feel safe at home: Yes additional social history: Derek- Luisa are retired ROS ROS ED Constitutional Constitutional ED: Denies chills or fever(s) Eyes Eyes: Denies blurry vision or change in vision ENT ENT ED: Reports rhinorrhea; Denies sore throat Cardiovascular Cardiovascular: Denies chest pain or palpitations Respiratory/Chest Respiratory/Chest: Denies cough or dyspnea Gastrointestinal Gastrointestinal: Reports abdominal pain; Denies nausea or vomiting Genitourinary Genitourinary ED: Denies dysuria or hematuria Musculoskeletal Musculoskeletal: Reports neck pain; Denies back pain Integumentary Denies abscess or rash Neurologic Neurologic: Denies headache(s) or weakness Allergic/Immunologic Allergic/Immunologic ED: Denies mouth swelling or urticaria EXAM Physical Exam Const Vital Signs: 08/21/22 17:58 Temperature 96.6 F L Temperature Source Temporal Pulse Rate 91 Respiratory Rate 16 Pulse Ox 98 Oxygen Delivery Method Room Air Positive well nourished and well developed General Appearance ED: well developed and NAD HEENT Reports moist mucous membranes Neck supple and no JVD Resp normal respiratory effort and clear to auscultation bilaterally Cardio regular rate, regular rhythm and no murmurs GI normal to inspection, nondistended, normoactive bowel sounds Palpation: soft and tender epigastric, LLQ, RLQ, LUQ, RUQ, periumbilical and suprapubic; Negative for guarding or rebound tenderness present Extremity normal to inspection General Extremety ED: Negative for edema or tenderness General Extremity: Negative for edema Neuro oriented x3, CN's II-XII intact bilaterally and no sensory deficits noted Sensorium / Orientation: alert Motor Exam: strength 5/5 throughout Psych mental status grossly normal Skin no rashes or lesions noted MDM MDM MDM Narrative Medical decision making narrative: Patient was given IV fluids, morphine, and Zofran. Differential diagnosis includes gastroenteritis, pancreatitis, peptic ulcer disease, gastritis, enteritis, bowel obstruction, bowel perforation, and urinary tract infection. CT scan of the abdomen pelvis will be obtained to assess for bowel obstruction, enteritis, pancreatitis, and bowel perforation. CBC will be obtained to assess for leukocytosis and anemia. Comprehensive metabolic profile will be obtained to assess for electrolyte abnormality, renal function, hepatic function. Urinalysis will be obtained to assess for urinary tract infection and hematuria. Lipase will be obtained to assess for pancreatitis. Lab Data Attestation: I reviewed the patient's lab results. Lab results narrative: CBC was reviewed and was within normal limits. Comprehensive metabolic profile was reviewed and was within normal limits. Lipase was reviewed and was normal. Urinalysis was reviewed and showed a leukocyte esterases of 500 with greater than 100 white blood cells and 3+ bacteria. Urine culture was ordered. Labs: Laboratory Results - last 24 hr 08/21/22 08/21/22 08/21/22 19:10 19:10 20:00 WBC 8.5 RBC 4.16 L Hgb 13.1 Hct 39.6 MCV 95.2 MCH 31.5 MCHC 33.1 RDW Std Deviation 46.0 H RDW Coeff of Ezekiel 13.1 Plt Count 285 MPV 9.0 Immature Gran % (Auto) 0.400 Neut % (Auto) 65.6 Lymph % (Auto) 19.3 [place] % (Auto) 11.2 H Eos % (Auto) 3.1 Baso % (Auto) 0.4 Absolute Neuts (auto) 5.6 Absolute Lymphs (auto) 1.64 Nucleated RBC % 0 Sodium 140 Potassium 4.0 Chloride 104 Carbon Dioxide 28.0 Anion Gap 8 BUN 13 Creatinine 0.66 Estim Creat Clear Calc 38.10 Est GFR (MDRD) Af Amer 111 Est GFR (MDRD) Non-Af 92 BUN/Creatinine Ratio 19.8 Glucose 115 H Calcium 8.8 Total Bilirubin 0.50 AST 19 ALT 23 Alkaline Phosphatase 105 Total Protein 6.9 Albumin 3.6 Globulin 3.3 Albumin/Globulin Ratio 1.1 Lipase 198 Urine Color Yellow Urine Clarity Cloudy Urine pH 7.0 Ur Specific [place] 1.010 Urine Protein 15 H Urine Glucose (UA) NEGATIVE Urine Ketones Negative Urine Occult Blood 10 Urine Nitrite Negative Urine Bilirubin Negative Urine Urobilinogen Normal Ur Leukocyte Esterase 500 H Urine RBC 0 SEEN Urine WBC >100 SEEN Ur Squamous Epith Cells 0 SEEN Urine Bacteria 3+ Urine Mucus 0 SEEN Radiography Diagnostic Testing: Clinical Impression(s) from Imaging Studies Abdomen/Pelvis CT 08/21/22 19:01 IMPRESSION: Findings suspicious for cystitis. Right inguinal hernia containing small bowel loops without strangulation or obstruction. Electronically Signed: Amador Stevens MD at 21:26 EST Reading Location ID and State: [facility] / [place] Tel , Service support , CT scan of the abdomen and pelvis was reviewed. On my independent review, there is no evidence of obstruction or perforation. There are no masses. There is no acute abnormality. Radiologist also interpreted the CT scan and noted findings suspicious for cystitis. There is also a right inguinal hernia containing small bowel loops but no strangulation or obstruction. Treatment and Re-Evaluation Narrative: Patient is feeling better on reevaluation. Patient was advised of her findings. Patient has no right inguinal pain. Patient states she has had 2 right inguinal herniorrhaphies in the past. Patient was given a dose of Keflex here. Patient was given a prescription for Keflex. Patient was instructed to drink plenty of fluids. Patient was instructed to follow-up with her primary care physician in 5 to 7 days. Patient understood and was agreeable with the plan. All questions were answered. Discharge Plan Triage Chief Complaint: Abd Pain ED Provider: Christiano Medley Dx/Rx/DC Orders Clinical Impression: Urinary tract infection, Abdominal pain, Inguinal hernia, right Instructions: ED Cystitis Female Adult Prescriptions: New cephalexin [cephalexin] 500 mg capsule 500 mg PO Q6 Qty: 12 0RF No Action cholecalciferol (vitamin D3) 125 mcg (5,000 unit) capsule 125 mcg PO DAILY fluticasone propionate 50 mcg/actuation spray,suspension INTRANASAL latanoprost 0.005 % drops OPHTHALMIC pravastatin 40 mg tablet 40 mg PO QHS Qty: 90 3RF bupropion HCl 75 mg tablet PO levothyroxine 50 mcg tablet 50 mcg PO DAILY clobetasol 0.05 % ointment 1 applic topical QHS Qty: 30 3RF Rx Instructions: apply thin layer; massage gently into affected area nightly x 6 weeks then 1-2x weekly irbesartan 150 mg tablet 150 mg PO DAILY Qty: 90 3RF spironolactone 25 mg tablet 25 mg PO DAILY Primary Care Provider: Maria Elena Resendiz Referrals: Maria Elena Resendiz MD [Primary Care Provider] - 5-7 Days Disposition Disposition: Home, Self Care
--- NOTE | 2022-08-21 19:01 | CT_ITS ---
INDICATION: Abdominal pain, history of appendectomy and hernia repair EXAMINATION: CT ABDOMEN AND PELVIS WITH CONTRAST - CT Abdomen And Pelvis W/ Contrast Injection TECHNIQUE: Helically acquired images were obtained of the abdomen and pelvis following IV contrast. A radiation dose optimization technique was used for this scan. IV Contrast dosage and agent: 100 cc [id number] Oral contrast: None. COMPARISON: 09/14/2021 FINDINGS: LOWER CHEST: Lung bases are clear. No cardiomegaly or pericardial effusion. Moderate retrocardiac hiatal hernia. LIVER: Homogeneous. No focal mass. GALLBLADDER AND BILIARY TREE: No calcified gallstones. No gallbladder distension or wall edema. No intra- or extrahepatic biliary ductal dilation. PANCREAS: No focal cystic or solid mass. SPLEEN: Normal size without focal cystic or solid mass. ADRENAL GLANDS: No nodules. KIDNEYS AND URETERS: Normal renal size and position. No hydronephrosis. PERITONEUM: No ascites or free air. BOWEL: No evidence of acute appendicitis. No stomach or bowel distension. No focal inflammatory change. LYMPH NODES: No enlarged mesenteric or retroperitoneal lymph nodes. VESSELS: Aorta is non-dilated. URINARY BLADDER: Mild wall thickening with adjacent fat stranding. REPRODUCTIVE ORGANS: No pelvic masses. ABDOMINAL WALL: Right inguinal hernia containing small bowel loops without strangulation or proximal obstruction. BONES: No acute or aggressive abnormality. CT/Abdomen/Pelvis WITH Contrast IMPRESSION: Findings suspicious for cystitis. Right inguinal hernia containing small bowel loops without strangulation or obstruction. Electronically Signed: Amador Stevens MD at 21:26 EST ,
[2022-08-21] MEDS: Morphine 4 MG/ML Syringe IV (19:10)
[2022-08-21] MEDS: Ondansetron 4 MG/2 ML Vial IV (19:10)
[2022-08-21] MEDS: 0.9% Normal Saline 1,000 ML 1000 ML IV (19:11)
[2022-08-21 19:22] LABS: Absolute Lymphocyte Count 1.64 X10^3/uL (0.83-4.51); Absolute Neutrophil Count 5.6 X10^3/uL (2.0-7.7); Basophil# 0.03 X10^3/uL; Basophil% 0.4 % (0-1); Eosinophil# 0.26 X10^3/uL; Eosinophils% 3.1 % (0-5); Hematocrit 39.6 % (37-47); Hemoglobin 13.1 g/dL (12.0-15.0); Lymphocyte # 1.64 X10^3/ul (0.83-4.51); Lymphocyte % 19.3 % (19-41); Mean Corp Hgb Conc 33.1 g/dL (32-36); Mean Corpuscular Hgb 31.5 pg (27.0-32.0); Mean Corpuscular Volume 95.2 fL (81-99); Monocyte# 0.95 X10^3/uL; Monocyte% 11.2 % (0-10); NRBC Flagged by Analyzer 0 % (0-5); Neutrophil % 65.6 % (47-70); Platelet Count 285 K/mm3 (150-450); RBC Distribution Width CV 13.1 % (11.6-14.6); Red Blood Count 4.16 M/mm3 (4.2-5.4); White Blood Count 8.5 K/mm3 (4.4-11.0)
[2022-08-21 19:46] LABS: ALB/GLOB Ratio 1.1 RATIO (0.9-2.4); AST(SGOT) 19 U/L (15-37); Alanine Aminotransfer ALT/SGPT 23 U/L (13-56); Albumin, Serum 3.6 g/dL (3.2-5.0); Alkaline Phosphatase 105 U/L (45-117); Anion Gap 8 (5-15); BUN 13 mg/dL (7-18); BUN/Creat Ratio 19.8 RATIO (10-20); Calcium,Total 8.8 mg/dL (8.5-10.1); Chloride 104 mmol/L (98-107); Creatinine, Serum 0.66 mg/dL (0.55-1.02); EST Glomerular Filtration Rate 92 mL/min (>60); Est Glom Filt Rate - Afr Amer 111 mL/min (>60); Globulin 3.3 g/dL (2.2-4.2); Glucose 115 mg/dL (74-106); Lipase 198 U/L (73-393); Protein, Total 6.9 g/dL (6.4-8.2); Sodium Level 140 mmol/L (136-145)
[2022-08-21 20:05] LABS: Mucous, Urine 0 SEEN /hpf (<or=2+); Red Blood Cells-Urine 0 SEEN /hpf (0-5); Squamous Epithelial Cells - UA 0 SEEN /hpf (5-10)
[2022-08-21 20:20] LABS: Bacteria 3+ /hpf (None Seen); White Blood Cells >100 SEEN /hpf (0-5)
[2022-08-21 20:21] LABS: Color, Urine Yellow (Yellow); Urine Clarity Cloudy (Clear)
[2022-08-21 20:22] LABS: Glucose, Dipstick NEGATIVE (Normal); Ketone-Dipstick Negative (Negative); Leukocyte Esterase-Dipstick 500 /ul (Negative); Nitrite-Dipstick Negative (Negative); Occult Blood-Urine 10 /ul (Negative); Protein-Dipstick 15 mg/dl (Negative); Urine Bilirubin Dipstick Negative (Negative); Urine Urobilinogen Normal (Normal)
[2022-08-21] MEDS: Cephalexin 500 MG Capsule PO (21:54)
== END 2022-08-21 22:01 | disposition home or self-care (01) ==
PROVIDERS: Emergency Provider Emergency Medicine; PCP Internal Medicine; Visit Provider Emergency Medicine
DX: N39.0 Urinary tract infection, site not specified (principal); I10 Essential (primary) hypertension; E78.5 Hyperlipidemia, unspecified; K40.90 Unilateral inguinal hernia, without obstruction or gangrene, not specified as recurrent; R10.9 Unspecified abdominal pain
CPT/HCPCS: 74177; 80053; 81001; 83690; 85025; 87077; 87086; 87088; 87186; 96361; 96374; 96375; 99283; J7030; Q9967; A4216; J2405

== ENCOUNTER 2022-12-15 12:00 | Outpatient (RCR) | payer MEDICARE, SELFPAY ==
--- NOTE | 2022-10-07 09:23 | HP.PTEVAL_ITS ---
Patient's Visit Information FRANCIS CROFT is a 82 year old F referred to Physical Therapy by Dr. Yadi Barr MD with a diagnosis of MIXED INCONTINENCE. Date of Evaluation: 10/07/22 Physical Therapist: Carol Grullon PT, Cert MDT - Visit Plan Frequency: 1x/Week Duration: 8-10 WKS Plan: PELVIC FLOOR, HIP AND CORE STRENGTHENING. HIP FLEXABILITY. EDUCATION IN PELVIC FLOOR ANATOMY AND PHYSIOLOGY. INSTRUCTION IN URGE AND FREQUENCEY INCONTINENCE BEHAVIORAL MODIFICATIONS. HEP. 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 Disability: NO. Present symptoms: I LEAK CONSTANTLY. PATIENT REPORTS NEEDING TO CHANGE HER PAD EVERY 2 TO 2.5 HOURS. STATES SHE DOES MAKE IT TO THE BATHROOM IN TIME SOMETIMES. Present since: YEARS. Pain Scale: WORST 7/10, LEAST 0/10. PRESSURE TYPE PAIN IN THE PELVIC AREA INTERMITTENTLY. SOMETIMES DAILY. Currently: 0/10. Is it getting better, worse or staying the same: STAYING THE SAME. Commenced as a result of: NO APPARENT REASON. Symptoms at onset: ABLE TO USE LIGHT PADS AND JUST WITH COUGHING/SNEEZING. Worse: NO KNOWN CAUSES. Better: NOTHING. Disturbed sleep: GETTING UP TO URINATE AT NIGHT 1-2 TIMES. Previous history/Previous treatment: UNREMARKABLE. Treatment this episode: PRESCRIBED GEMTESA BUT HASN'T STARTED IT YET. STATES HER FELL YESTERDAY AND SHE HAD TO CALL THE [facility] TO HELP GET HIM UP. Coughing/sneezing/straining: POSITIVE FOR URINE LEAKING. Gait: R HIP JOINT STIFFNESS CAUSES LIMP. How long can you delay the need to urinate: 1-2 MINUTES. Prolapse (Falling out feeling): NO. Frequency of Urination: EVERY 45 MINUTES TO 2.5 HOURS TO CHANGE PAD AND URINATE. Ability to stop urine flow: UNSURE. Ability to initiate urine stream: YES. Dyspareunia: N/A. Bowel Incontinence: YES - PATIENT REPORTS IT DEPENDS ON WHAT SHE EATS. STATES IT OCCURES ONCE EVERY TWO WEEKS OR LESS AND THAT DR. BARR IS AWARE. Accidents: NO. Unexplained weight loss: NO. Imaging: US AT HOSPITAL ABOUT 2-3 WKS AGO AND DX'D WITH UTI. TOOK ANTIBIOTICS AND ABDOMINAL PAIN RESOLVED. PMH/Recent major surgery: HYPOTHYROIDISM. HTN. OTHER: PATIENT DRIVES AND DROVE HERSELF HERE TODAY. 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 - Objective Sitting/Standing Posture: INCREASED KYPHOSIS. DECREASED LORDOSIS. VERY FORWARD HEAD. ROUNDED SHOULDERS. SCOLIOSIS. Active Correction of posture: NE - ONLY ABLE TO MINIMALLY CORRECT. Other Observations: INDEP GAIT INTO PT WITHOUT ANY ASSISTIVE DEVICES OR LOSS OF BALANCE BUT EXCESSIVE TRUNK FLEXION, HEAD DOWN AND SLOW CADANCE. Sensory deficit: JLUIS LE LIGHT TOUCH SENSATION GROSSLY INTACT AND SYMMETRICAL. ROM deficit: TIGHT JLUIS HIPS ALL PLANES. Motor deficit: JLUIS LE'S GROSSLY 5/5 WITH MMT'ING EXCEPT HIPS 4-/5. Dural Signs: NEGATIVE JLUIS LE'S. Lumbar mvmt loss: flex - NIL. ext - KATHRIN. R SG - KATHRIN. L SG - KATHRIN. PATIENT DENIES PAIN WITH LUMBAR ROM TESTING ALL PLANES. Core strength: POOR. Palpation: NO INTERNAL PELVIC EXAM DUE TO RECENT INFECTION. FUNCTIONAL SCREEN: Incontinence Impact Questionnaire Score: 4. Urogenital Distress Inventory Score: 12. TREATMENT: PELVIC FLOOR ANATOMY EDUCATION. INITIATED HEP WITH KEGEL QUICK FLICKS X 5, 3 TIMES A DAY. PATIENT COMMUNICATED A GOOD UNDERSTANDING OF INSTRUCTIONS AFTER GIVEN. - Goals Goal 1:: DECREASE TYPE OF PAD OR PROTECTION FROM HEAVY TO LIGHT Goal Time Frame: 8-12 Weeks Goal 2:: DECREASE PAD USAGE TO 3X/DAY Goal Time Frame: 8-12 Weeks Goal 3:: PATIENT WILL SUCCESSFULLY DELAY VOIDING FOR 10 MINUTES WHEN URGENCY OCCURS Goal Time Frame: 8-12 Weeks Goal 4:: NORMALIZE VOIDING FREQUENCEY TO EVERY 2.5 TO 3 HOURS. Goal Time Frame: 8-12 Weeks Goal 5:: DECREASE C/O PELVIC PAIN Goal Time Frame: 8-12 Weeks Goal 6:: PATIENT WILL BE INDEP WITH A HEP/HOME INSTRUCTIONS FOR CONTINUED IMPROVEMENT ONCE FORMAL PHYSICAL THERAPY CONCLUDES. - Anticipated Interventions Patient/Client Instruction: Educate patient on: Condition, Plan of Care, Risk Factors For the Purpose of:: To improve self management Therapeutic Exercise to Include: Strength training, Endurance training, Body mechanics, Postural training, Flexibilty training, Neuromotor development For the Purpose of:: To decrease pain, To increase ROM, To improve muscle performance and motor function, To increase tolerance to activity/condition/position, To improve ability of physical actions for home/community/work/leisure Thank you for the opportunity to evaluate your patient. For Medicare and Medicare HMO plans, please review the plan of care and approve it. It will need to be FAXED BACK to us at [phone] for Medicare purposes. For Medicare only, by signing this I certify the plan of care. Please let me know if there are questions or concerns regarding this plan of care. Physician Signature: Date:
--- NOTE | 2023-02-23 15:21 | HP.PT.NRP ---
Patient Information Patient Information: FRANCIS CROFT was seen in my office for initial evaluation on 10/07/22. The following Plan of Care was established for this patient: POC Established Initial Frequency: 1x/Week Initial Duration: 8-10 WKS Anticipated Interventions Patient/Client Instruction: Educate patient on: Condition, Plan of Care and Risk Factors For the Purpose of:: To improve self management Therapeutic Exercise to Include: Strength training, Endurance training, Body mechanics, Postural training, Flexibilty training and Neuromotor development For the Purpose of:: To decrease pain, To increase ROM, To improve muscle performance and motor function, To increase tolerance to activity/condition/position and To improve ability of physical actions for home/community/work/leisure Last Seen Last Seen: This patient was last seen in our office 12/15/22. Pertinent comments regarding their Physical therapy will appear below: This patient has not returned to Physical Therapy and is appropriate to return to MD for further follow-up as needed. At this point I will be discontinuing this patient from physical therapy. I would be happy to see this patient again in the future if found appropriate by the physician. Thank you! Carol Grullon, PT, Cert MDT
== END 2022-12-15 19:00 | disposition home or self-care (01) ==
LOC: PT 12:00
PROVIDERS: PCP Internal Medicine; Visit Provider Urology
DX: N39.46 Mixed incontinence (principal)
CPT/HCPCS: 97162; 97530; J2405

== ENCOUNTER 2022-12-28 18:54 | Inpatient (IN) | payer MEDICARE, SELFPAY ==
[2022-12-28 18:55] VITALS: BP 149/102; PULSE 96; RESP 16; TEMP 36.6; O2SAT 100; BMI 30.5
[2022-12-28 19:30] LABS: Bacteria 0 SEEN /hpf (None Seen); Mucous, Urine 0 SEEN /hpf (<or=2+); Red Blood Cells-Urine 0 SEEN /hpf (0-5); White Blood Cells 0 SEEN /hpf (0-5)
[2022-12-28 19:54] LABS: Color, Urine Yellow (Yellow); Glucose, Dipstick Normal (Normal); Ketone-Dipstick Negative (Negative); Leukocyte Esterase-Dipstick 25 /ul (Negative); Nitrite-Dipstick Negative (Negative); Occult Blood-Urine 10 /ul (Negative); Protein-Dipstick Negative (Negative); Urine Bilirubin Dipstick Negative (Negative); Urine Clarity Clear (Clear); Urine Urobilinogen Normal (Normal)
[2022-12-28 20:07] LABS: Squamous Epithelial Cells - UA 0-5 SEEN /hpf (5-10)
--- NOTE | 2022-12-28 20:22 | EKG12_ITS ---
Test Reason : DYSRHYTMIA Blood Pressure : / mmHG Vent. Rate : 089 BPM Atrial Rate : 089 BPM P-R Int : 180 ms QRS Dur : 072 ms QT Int : 372 ms P-R-T Axes : 045 003 026 degrees QTc Int : 452 ms Normal sinus rhythm Normal ECG Confirmed by SAV CORREA, SAIMA ([id number]), videotape editor STEPHANY GLOVER ([id number]) on 12/30/2022 8:50:18 AM Referred By: ELEAZAR Confirmed By:SAIMA ANG MD
--- NOTE | 2022-12-28 20:23 | CT_ITS ---
STUDY: CT ABDOMEN AND PELVIS WITH CONTRAST REASON FOR EXAM: Female, 82 years old. abd pain, acute RADIATION DOSAGE (If Supplied By Facility): CTDIvol = ( 14.62 ) mGy, DLP = ( 1139.92 ) mGycm low TECHNIQUE: Transaxial images were obtained from the dome of the diaphragm to the symphysis pubis without oral contrast. IV 100mL Isovue-300 was administered. Sagittal and coronal images were reconstructed. Individualized dose optimization techniques were used for this CT. COMPARISON: 08/21/2022 FINDINGS: The visualized lung bases are unremarkable. The visualized portions of the heart are within normal limits. Normal liver. Normal gallbladder and extrahepatic biliary system. Normal spleen. Normal pancreas. Normal bilateral adrenal glands. Normal right kidney. Normal left kidney. Evaluation of the GI tract is limited by absence of oral contrast. There is a moderate fluid-filled hiatal hernia Cannot exclude distal stomach wall thickening. Fluid distended small bowel are seen down to the right lower quadrant small bowel obstruction. The cause of obstruction appears to be a right inguinal hernia which has increased in size since previous exam and now contains several loops of bowel and fluid. Large bowel shows fecal retention and diverticulosis but normal caliber. Diverticulosis without definite diverticulitis. Appendix is not clearly seen. There is diffuse atherosclerotic calcification of the abdominal aorta, without a demonstrated aneurysm. Normal inferior vena cava. Normal retroperitoneum. Normal urinary bladder. There is atrophy of the uterus. Moderate right inguinal hernia containing bowel loops and fluid as above. No changes in the left lower quadrant related to previous inguinal hernia repair. There are diffuse degenerative changes of the visualized lumbar spine. CT/Abdomen/Pelvis W IV Cont ONLY IMPRESSION: Small bowel obstruction related to moderate size right inguinal hernia. Moderate sized fluid-filled hiatal hernia. Electronically Signed: Vidal Saleem MD at 21:54 EDT ,
[2022-12-28] MEDS: Morphine 4 MG/ML Syringe IV (20:38)
[2022-12-28] MEDS: Ondansetron 4 MG/2 ML Vial IV (20:38)
[2022-12-28] MEDS: 0.9% Normal Saline 1,000 ML 125 ML IV (20:38)
[2022-12-28 20:43] LABS: Absolute Lymphocyte Count 1.25 X10^3/uL (0.83-4.51); Absolute Neutrophil Count 9.6 X10^3/uL (2.0-7.7); Basophil# 0.04 X10^3/uL; Basophil% 0.3 % (0-1); Eosinophil# 0.17 X10^3/uL; Eosinophils% 1.4 % (0-5); Hematocrit 41.1 % (37-47); Hemoglobin 13.8 g/dL (12.0-15.0); Lymphocyte # 1.25 X10^3/ul (0.83-4.51); Lymphocyte % 10.3 % (19-41); Mean Corp Hgb Conc 33.6 g/dL (32-36); Mean Corpuscular Hgb 32.1 pg (27.0-32.0); Mean Corpuscular Volume 95.6 fL (81-99); Mean Platelet Vol. 9.1 fl (6.2-12.0); Monocyte# 0.99 X10^3/uL; Monocyte% 8.2 % (0-10); NRBC Flagged by Analyzer 0 % (0-5); Neutrophil % 79.2 % (47-70); Platelet Count 288 K/mm3 (150-450); RBC Distribution Width CV 13.2 % (11.6-14.6); RBC Distribution Width SD 46.6 fl (35.1-43.9); White Blood Count 12.1 K/mm3 (4.4-11.0)
[2022-12-28 21:02] LABS: ALB/GLOB Ratio 1.2 RATIO (0.9-2.4); AST(SGOT) 17 U/L (15-37); Alanine Aminotransfer ALT/SGPT 20 U/L (13-56); Albumin, Serum 3.7 g/dL (3.2-5.0); Alkaline Phosphatase 90 U/L (45-117); Anion Gap 7 (5-15); BUN 11 mg/dL (7-18); BUN/Creat Ratio 19.1 RATIO (10-20); Calcium,Total 9.2 mg/dL (8.5-10.1); Chloride 105 mmol/L (98-107); Creatinine, Serum 0.58 mg/dL (0.55-1.02); EST Glomerular Filtration Rate 107 mL/min (>60); Est Glom Filt Rate - Afr Amer 129 mL/min (>60); Globulin 3.2 g/dL (2.2-4.2); Glucose 115 mg/dL (74-106); Lipase 39 U/L (13-75); Potassium 3.7 mmol/L (3.5-5.1); Protein, Total 6.9 g/dL (6.4-8.2); Sodium Level 138 mmol/L (136-145)
[2022-12-28 21:07] LABS: Lactic Acid 1.1 mmol/L (0.4-1.9)
[2022-12-28 21:35] VITALS: BP 157/63; PULSE 88; RESP 18; O2SAT 98
[2022-12-28 23:03] VITALS: BP 140/55; PULSE 97; RESP 18; TEMP 36.7; O2SAT 97
[2022-12-29] MEDS: 0.9% Normal Saline 1,000 ML 75 ML IV ×2 (00:10→13:32)
[2022-12-29 00:11] VITALS: BP 150/70; PULSE 90; RESP 18; TEMP 36.8; O2SAT 99
--- NOTE | 2022-12-29 01:55 | EX.ED.DYSGE1 ---
HPI History of Present Illness Chief Complaint: Complaint Informant: patient Narrative Narrative: Patient is a 82-year-old female with history of prior appendectomy, ventral hernia repair, hypertension, hyperlipidemia and UTIs presenting for concern of urinary tract infection. Patient states earlier today she developed what she describes as a [id number] sensation of her diaphragm. She initially she thought it was indigestion but the pain was intermittent. She ate tea and toast and the pain worsened around 3 PM. It became more severe at 5:30 PM and patient was going to go to an urgent care but they were all closed for the day. She started to have some worsening lower abdominal pain. She states the last time she felt like this was a urinary tract infection. Patient is not wanting any other work-up besides urinalysis stating it is always just a UTI. She denies any dysuria or hematuria but notes she has had some increased urge incontinence over the past few days. She is currently in pelvic floor physical therapy and sees Dr. Juárez for urge continence. Patient does have some associated nausea but no vomiting. She has had dry heaves. No report of any fevers. No other complaints at this time. [facility] Medical History Anemia Asymmetric septal hypertrophy Diverticulosis Essential hypertension Glaucoma Hyperlipidemia Hypothyroidism Lichen sclerosus LVH (left ventricular hypertrophy) Non-rheumatic aortic stenosis Obesity Osteopenia Home Medications cholecalciferol (vitamin D3) 125 mcg (5,000 unit) capsule 125 mcg PO DAILY 12/20/19 [History Last Taken Unknown] fluticasone propionate 50 mcg/actuation nasal spray,suspension 1 spray intranasal DAILY 12/20/19 [History Last Taken Unknown] latanoprost 0.005 % eye drops 1 drp ophthalmic (eye) QHS 12/20/19 [History Last Taken Unknown] pravastatin 40 mg tablet 40 mg PO QHS #90 tabs 06/27/20 [Rx Last Taken Unknown] bupropion HCl 75 mg tablet 1 tablet PO DAILY 04/18/21 [History Last Taken Unknown] spironolactone 25 mg tablet 25 mg PO DAILY 02/03/22 [History Last Taken Unknown] levothyroxine 50 mcg tablet 88 mcg PO DAILY 07/10/22 [History Last Taken Unknown] irbesartan 150 mg tablet 150 mg PO DAILY #90 tabs 11/27/22 [Rx Last Taken Unknown] fesoterodine 4 mg tablet,extended release 24 hr 4 mg PO DAILY 12/28/22 [History Last Taken Unknown] Allergy/AdvReac Type Severity Reaction Status Date / Time codeine Allergy PT UNSURE Verified 12/28/22 18:57 OF REACTION losartan AdvReac Unknown Verified 12/28/22 18:57 quinapril [From Accupril] AdvReac Unknown Verified 12/28/22 18:57 Sulfa (Sulfonamide AdvReac unknown Verified 12/28/22 18:57 Antibiotics) Family History Mother Heart disease Father Heart disease Myocardial infarction from [place] age 67 Other CVA (cerebral vascular accident) Surgical History History of appendectomy History of inguinal hernia repair History of tubal ligation left foot surgery Social History Smoking Status: Former smoker quit date: 07/27/84 pack-years: 48 alcohol intake: current details: social substance use type: does not use caffeine: Yes what type of physical activity do you participate in: walking seatbelt use: always do you feel safe at home: Yes additional social history: Antwon Moran are retired ROS ROS ED Constitutional Constitutional ED: Denies chills or fever(s) Cardiovascular Cardiovascular: Denies chest pain or palpitations Respiratory/Chest Respiratory/Chest: Denies cough or dyspnea Gastrointestinal Gastrointestinal: Reports abdominal pain and nausea; Denies constipation, diarrhea or vomiting Genitourinary Genitourinary ED: Reports urinary frequency; Denies dysuria or hematuria Musculoskeletal Musculoskeletal: Denies arthralgias or myalgias Integumentary Denies rash Neurologic Neurologic: Denies headache(s) or weakness Psychiatric Psychiatric: Denies anxiety Hematologic/Lymphatic Hematologic/Lymphatic: Denies easy bleeding or easy bruising EXAM Physical Exam Const Vital Signs: 12/28/22 18:55 12/28/22 21:35 12/28/22 23:03 Temperature 98 F 98.0 F Temperature Source Temporal Oral Pulse Rate 96 88 97 Respiratory Rate 16 18 18 Blood Pressure 149/102 H 157/63 H 140/55 H Blood Pressure Mean 117 94 83 Pulse Ox 100 98 97 Oxygen Delivery Method Room Air Room Air Room Air Positive well nourished and well developed Constitutional Narrative: Uncomfortable appearing General Appearance ED: well developed HEENT Reports moist mucous membranes Eyes PERRL and EOMs intact bilaterally Neck supple Chest Wall inspection of chest normal and palpation of chest normal Resp normal respiratory effort and clear to auscultation bilaterally Cardio regular rate, regular rhythm and no murmurs GI GI Narrative: Tenderness palpation, most pronounced in the right lower quadrant. No CVA tenderness. Mild suprapubic tenderness. Mild fullness in the right lower quadrant. Palpation: soft; Negative for guarding Back/Spine no CVA tenderness Extremity normal to inspection Neuro oriented x3 Sensorium / Orientation: alert Motor Exam: Negative for general weakness Psych mental status grossly normal Skin no rashes or lesions noted and no wounds MDM MDM MDM Narrative Medical decision making narrative: Patient is evaluated for abdominal pain. She initially is quite insistent that is just a urinary tract infection however her physical exam is not terribly consistent with a benign UTI and she is a bit of pain out of proportion for a urinary tract infection. Physical exam not really consistent with pyelonephritis. Initial urinalysis is obtained alone because patient does not want further work-up. I did discuss with patient that urinalysis is not really consistent with urinary tract infection and her pain is worsening so she now is agreeable to further work-up. She is found to have a leukocytosis with a white blood cell count of 12.1, CMP is largely normal and her lactate is normal. CT of the abdomen and pelvis show small bowel obstruction related to moderate-sized right inguinal hernia and moderate-sized fluid-filled hiatal hernia. CT is reviewed by myself and I went in and reevaluated the patient. As she did receive IV morphine, Zofran and maintenance fluids in the ER and does have improvement of her symptoms. I cannot appreciate the hernia on physical exam which is her right lower quadrant where she previously was tender. There is no overlying erythema. Steady and firm pressure is applied and then there is an audible pop and the hernia reduces. On repeat exam patient's abdomen is soft and her tenderness has improved. I consulted surgery, Dr. Mason as a CT does show an obstruction associate with this hernia. As the hernia is now reduced I am concerned the patient requires further monitoring to make sure that the obstruction is also resolved. In addition she does have a leukocytosis. Its possible this is reactive so to the hernia we will defer antibiotics at this time. Patient will be admitted to the medicine service. 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 Lab Data Attestation: I reviewed the patient's lab results. Labs: Laboratory Results - last 24 hr 12/28/22 12/28/22 12/28/22 19:23 20:34 20:34 WBC 12.1 H RBC 4.30 Hgb 13.8 Hct 41.1 MCV 95.6 MCH 32.1 H MCHC 33.6 RDW Std Deviation 46.6 H RDW Coeff of Ezekiel 13.2 Plt Count 288 MPV 9.1 Immature Gran % (Auto) 0.600 Neut % (Auto) 79.2 H Lymph % (Auto) 10.3 L [place] % (Auto) 8.2 Eos % (Auto) 1.4 Baso % (Auto) 0.3 Absolute Neuts (auto) 9.6 H Absolute Lymphs (auto) 1.25 Nucleated RBC % 0 Sodium 138 Potassium 3.7 Chloride 105 Carbon Dioxide 26.0 Anion Gap 7 BUN 11 Creatinine 0.58 Estim Creat Clear Calc 34.90 Est GFR (MDRD) Af Amer 129 Est GFR (MDRD) Non-Af 107 BUN/Creatinine Ratio 19.1 Glucose 115 H Lactic Acid Calcium 9.2 Total Bilirubin 0.60 AST 17 ALT 20 Alkaline Phosphatase 90 Total Protein 6.9 Albumin 3.7 Globulin 3.2 Albumin/Globulin Ratio 1.2 Lipase 39 Urine Color Yellow Urine Clarity Clear Urine pH 5.0 Ur Specific [place] 1.020 Urine Protein Negative Urine Glucose (UA) Normal Urine Ketones Negative Urine Occult Blood 10 H Urine Nitrite Negative Urine Bilirubin Negative Urine Urobilinogen Normal Ur Leukocyte Esterase 25 H Urine RBC 0 SEEN Urine WBC 0 SEEN Ur Squamous Epith Cells 0-5 SEEN Urine Bacteria 0 SEEN Urine Mucus 0 SEEN 12/28/22 20:34 WBC RBC Hgb Hct MCV MCH MCHC RDW Std Deviation RDW Coeff of Ezekiel Plt Count MPV Immature Gran % (Auto) Neut % (Auto) Lymph % (Auto) [place] % (Auto) Eos % (Auto) Baso % (Auto) Absolute Neuts (auto) Absolute Lymphs (auto) Nucleated RBC % Sodium Potassium Chloride Carbon Dioxide Anion Gap BUN Creatinine Estim Creat Clear Calc Est GFR (MDRD) Af Amer Est GFR (MDRD) Non-Af BUN/Creatinine Ratio Glucose Lactic Acid 1.1 Calcium Total Bilirubin AST ALT Alkaline Phosphatase Total Protein Albumin Globulin Albumin/Globulin Ratio Lipase Urine Color Urine Clarity Urine pH Ur Specific [place] Urine Protein Urine Glucose (UA) Urine Ketones Urine Occult Blood Urine Nitrite Urine Bilirubin Urine Urobilinogen Ur Leukocyte Esterase Urine RBC Urine WBC Ur Squamous Epith Cells Urine Bacteria Urine Mucus Radiography Diagnostic Testing: Clinical Impression(s) from Imaging Studies Abdomen/Pelvis CT 12/28/22 20:23 IMPRESSION: Small bowel obstruction related to moderate size right inguinal hernia. Moderate sized fluid-filled hiatal hernia. Electronically Signed: Vidal Saleem MD at 21:54 EDT , Discharge Plan Dx/Rx/DC Orders Clinical Impression: Strangulated inguinal hernia, SBO (small bowel obstruction), Leukocytosis Disposition Disposition: Acute Care Hospital [facility] Discharge Date/Time: 12/28/22 23:53
--- NOTE | 2022-12-29 02:43 | PCM.HP.STD ---
HPI - General General Date of Admission: 12/28/22 Date of Service: 12/29/22 Chief Complaint: Acute onset abdominal pain and associated nausea HPI Narrative FRANCIS CROFT, is a 82 F, with past medical history of nonrheumatic aortic stenosis, septal hypertrophy, essential hypertension, and hyperlipidemia, who presents with complaints of acute onset abdominal pain associated nausea starting yesterday. Patient states that she began with upper abdominal discomfort that began moving inferiorly throughout the day and intensified in strength. It became localized to the right lower quadrant and was associated with dry heaves and inability to tolerate anything orally. She initially reported to emergency medicine that she was concern for urologic issue, but upon completion of CT imaging of the abdomen pelvis patient was found to have a right inguinal hernia containing bowel and this also was serving as a focus for a small bowel obstruction. Prior to this CT imaging even being read by radiology, emergency medicine was able to manually reduce patient's hernia which patient states was met with a audible pop. I was asked to advise on patient with these findings. I recommended admission to observation with p.o. challenge?recommendation which patient was amenable to. Patient states that since the reduction of her hernia she has had much less abdominal discomfort but states that the area is shot tube machine tender. She is not sure whether she has passed any flatus as of yet, but denies any nausea in response to trialing some apple juice earlier this evening. Patient has a history of open appendectomy at the age of 12 as well as left inguinal hernia repair x2 in or about . This procedure was done here by Dr. Hargrove. [facility] Medical History Anemia Asymmetric septal hypertrophy Diverticulosis Essential hypertension Glaucoma Hyperlipidemia Hypothyroidism Lichen sclerosus LVH (left ventricular hypertrophy) Non-rheumatic aortic stenosis Obesity Osteopenia Home Medications cholecalciferol (vitamin D3) 125 mcg (5,000 unit) capsule 125 mcg PO DAILY 12/20/19 [History Last Taken Unknown] fluticasone propionate 50 mcg/actuation nasal spray,suspension 1 spray intranasal DAILY 12/20/19 [History Last Taken Unknown] latanoprost 0.005 % eye drops 1 drp ophthalmic (eye) QHS 12/20/19 [History Last Taken Unknown] pravastatin 40 mg tablet 40 mg PO QHS #90 tabs 06/27/20 [Rx Last Taken Unknown] bupropion HCl 75 mg tablet 1 tablet PO DAILY 04/18/21 [History Last Taken Unknown] spironolactone 25 mg tablet 25 mg PO DAILY 02/03/22 [History Last Taken Unknown] levothyroxine 50 mcg tablet 88 mcg PO DAILY 07/10/22 [History Last Taken Unknown] irbesartan 150 mg tablet 150 mg PO DAILY #90 tabs 11/27/22 [Rx Last Taken Unknown] fesoterodine 4 mg tablet,extended release 24 hr 4 mg PO DAILY 12/28/22 [History Last Taken Unknown] Allergy/AdvReac Type Severity Reaction Status Date / Time codeine Allergy PT UNSURE Verified 12/28/22 18:57 OF REACTION losartan AdvReac Unknown Verified 12/28/22 18:57 quinapril [From Accupril] AdvReac Unknown Verified 12/28/22 18:57 Sulfa (Sulfonamide AdvReac unknown Verified 12/28/22 18:57 Antibiotics) Family History Mother Heart disease Father Heart disease Myocardial infarction from [place] age 67 Other CVA (cerebral vascular accident) Surgical History History of appendectomy History of inguinal hernia repair History of tubal ligation left foot surgery Social History Smoking Status: Former smoker quit date: 07/27/84 pack-years: 48 alcohol intake: current details: social substance use type: does not use caffeine: Yes what type of physical activity do you participate in: walking seatbelt use: always do you feel safe at home: Yes additional social history: Antwon Moran are retired ROS Gastrointestinal Gastrointestinal: Reports abdominal pain and nausea Vital Signs Vital Signs Vital Signs: 12/28/22 18:55 12/28/22 21:35 12/28/22 23:03 Temperature 98 F 98.0 F Temperature Source Temporal Oral Pulse Rate 96 88 97 Respiratory Rate 16 18 18 Respiratory Effort Respiratory Depth Respiratory Pattern Blood Pressure 149/102 H 157/63 H 140/55 H Blood Pressure Mean 117 94 83 Blood Pressure Source Blood Pressure Position Blood Pressure Location Pulse Ox 100 98 97 Oxygen Delivery Method Room Air Room Air Room Air 12/29/22 00:11 12/29/22 00:10 Temperature 98.3 F Temperature Source Oral Pulse Rate 90 Respiratory Rate 18 Respiratory Effort Normal Non-Labored Respiratory Depth Normal Respiratory Pattern Normal Blood Pressure 150/70 H Blood Pressure Mean 96 Blood Pressure Source Monitor Blood Pressure Position Semi-Fowlers Blood Pressure Location Left Arm Pulse Ox 99 Oxygen Delivery Method Room Air Room Air Weight Weight: 164 lb 7.437 oz Body Mass Index (BMI) 30.0 Physical Exam Const alert, oriented x3, no apparent distress and well nourished General Appearance: cooperative Resp normal respiratory effort GI GI Narrative: Nondistended, soft, tender to palpation in right lower quadrant. Unable to palpate the patient's hernia defect I do not find any herniated bowel with concentrated exam in this area. Skin Skin Narrative: No overlying erythema to the right lower quadrant Results Lab / Micro Data Result Diagrams: 12/28/22 20:34 12/28/22 20:34 Labs: Laboratory Results - last 24 hr 12/28/22 19:23: Urine Color Yellow, Urine Clarity Clear, Urine pH 5.0, Ur Specific [place] 1.020, Urine Protein Negative, Urine Glucose (UA) Normal, Urine Ketones Negative, Urine Occult Blood 10 H, Urine Nitrite Negative, Urine Bilirubin Negative, Urine Urobilinogen Normal, Ur Leukocyte Esterase 25 H, Urine RBC 0 SEEN, Urine WBC 0 SEEN, Ur Squamous Epith Cells 0-5 SEEN, Urine Bacteria 0 SEEN, Urine Mucus 0 SEEN 12/28/22 20:34: WBC 12.1 H, RBC 4.30, Hgb 13.8, Hct 41.1, MCV 95.6, MCH 32.1 H, MCHC 33.6, RDW Std Deviation 46.6 H, RDW Coeff of Ezekiel 13.2, Plt Count 288, MPV 9.1, Immature Gran % (Auto) 0.600, Neut % (Auto) 79.2 H, Lymph % (Auto) 10.3 L, [place] % (Auto) 8.2, Eos % (Auto) 1.4, Baso % (Auto) 0.3, Absolute Neuts (auto) 9.6 H, Absolute Lymphs (auto) 1.25, Nucleated RBC % 0 12/28/22 20:34: Sodium 138, Potassium 3.7, Chloride 105, Carbon Dioxide 26.0, Anion Gap 7, BUN 11, Creatinine 0.58, Estim Creat Clear Calc 34.90, Est GFR (MDRD) Af Amer 129, Est GFR (MDRD) Non-Af 107, BUN/Creatinine Ratio 19.1, Glucose 115 H, Calcium 9.2, Total Bilirubin 0.60, AST 17, ALT 20, Alkaline Phosphatase 90, Total Protein 6.9, Albumin 3.7, Globulin 3.2, Albumin/Globulin Ratio 1.2, Lipase 39 12/28/22 20:34: Lactic Acid 1.1 Radiology Impression Abdomen/Pelvis CT 12/28/22 20:23 IMPRESSION: Small bowel obstruction related to moderate size right inguinal hernia. Moderate sized fluid-filled hiatal hernia. Electronically Signed: Vidal Saleem MD at 21:54 EDT , Assessment & Plan Assessment/Plan (1) Incarcerated right inguinal hernia: PLAN: This is an 82-year-old female, with past medical history as given in her HPI, who presents with less than 24-hour history of acute onset abdominal pain that localized to the right lower quadrant and was associated with nausea. ED work-up consistent with incarcerated right inguinal hernia also serving as a focus of a small bowel obstruction. Emergency medicine was successful with hernia reduction on exam, however, I advised that patient should be admitted for observation to prove tolerance of oral intake given her concurrent small bowel obstruction. Patient is seen on the floor and doing better. She denies any significant abdominal discomfort and reports tolerance of liquids. However, she denies any clear passage of flatus. I do not feel any bowel contents with her exam. Therefore, I recommend ongoing observation and reevaluation later today. If she is having bowel function at that time I would consider discharge to home with quick turnaround follow-up as an outpatient to schedule right inguinal hernia repair. 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 (2) SBO (small bowel obstruction): Charges/Coding Visit Charges Inpatient E&M: 55924 Init Hosp L2
[2022-12-29] MEDS: Levothyroxine 88 MCG Tablet PO (04:02)
[2022-12-29] MEDS: Ondansetron 4 MG/2 ML Vial IV (04:02)
[2022-12-29] MEDS: 0.9% Saline Lock 10 ML Syringe IV (04:02)
[2022-12-29 04:04] VITALS: BP 147/60; PULSE 74; RESP 18; TEMP 36.5; O2SAT 95
[2022-12-29 06:33] LABS: Absolute Lymphocyte Count 1.68 X10^3/uL (0.83-4.51); Basophil# 0.03 X10^3/uL; Basophil% 0.4 % (0-1); Eosinophils% 2.6 % (0-5); Hematocrit 37.3 % (37-47); Hemoglobin 12.3 g/dL (12.0-15.0); Lymphocyte # 1.68 X10^3/ul (0.83-4.51); Lymphocyte % 21.6 % (19-41); Mean Corpuscular Hgb 31.7 pg (27.0-32.0); Mean Corpuscular Volume 96.1 fL (81-99); Mean Platelet Vol. 9.1 fl (6.2-12.0); Monocyte# 0.88 X10^3/uL; Monocyte% 11.3 % (0-10); NRBC Flagged by Analyzer 0 % (0-5); Neutrophil # 4.98 X10^3/uL (2.7-7.7); Neutrophil % 63.8 % (47-70); Platelet Count 240 K/mm3 (150-450); RBC Distribution Width CV 13.3 % (11.6-14.6); Red Blood Count 3.88 M/mm3 (4.2-5.4); White Blood Count 7.8 K/mm3 (4.4-11.0)
[2022-12-29 07:02] LABS: Anion Gap 3 (5-15); BUN 8 mg/dL (7-18); BUN/Creat Ratio 17.7 RATIO (10-20); Calcium,Total 8.1 mg/dL (8.5-10.1); Chloride 111 mmol/L (98-107); Creatinine, Serum 0.45 mg/dL (0.55-1.02); EST Glomerular Filtration Rate 141 mL/min (>60); Est Glom Filt Rate - Afr Amer 171 mL/min (>60); Glucose 92 mg/dL (74-106); Potassium 3.6 mmol/L (3.5-5.1); Sodium Level 138 mmol/L (136-145)
[2022-12-29 08:18] VITALS: BP 128/46; PULSE 69; RESP 16; TEMP 36.5; O2SAT 99
[2022-12-29] MEDS: Spironolactone 25 MG Tablet PO (09:49)
[2022-12-29] MEDS: Losartan Potassium 50 MG Tablet PO (09:49)
[2022-12-29] MEDS: Fluticasone 0.05% 1 SPRAY NASAL.SRY NASAL (09:50)
--- NOTE | 2022-12-29 11:10 | PCM.PN.SRG ---
Subjective Subjective Patient seen and examined during AM rounds. She is denying any nausea in response to her liquids and reports flatus. However, she still states that she has some abdominal discomfort and denies a bowel movement. Objective Data Objective Data Vital Signs: Vital Signs Temp Pulse Resp BP Pulse Ox O2 Del Method 97.7 F L 69 16 128/46 H 99 Room Air 12/29/22 08:18 12/29/22 08:18 12/29/22 08:18 12/29/22 08:18 12/29/22 08:18 12/29/22 08:18 Oxygen Delivery Method Room Air Weight: 164 lb 7.437 oz Body Mass Index (BMI) 30.0 Intake & Output: Intake and Output for Last 24 Hours 12/27/22 12/28/22 12/29/22 23:59 23:59 23:59 Intake Total 529.17 / 529.17 Balance 529.17 / 529.17 Lab / Micro Data Result Diagrams: 12/29/22 05:50 12/29/22 05:50 Labs: Laboratory Results - last 24 hr 12/28/22 19:23: Urine Color Yellow, Urine Clarity Clear, Urine pH 5.0, Ur Specific [place] 1.020, Urine Protein Negative, Urine Glucose (UA) Normal, Urine Ketones Negative, Urine Occult Blood 10 H, Urine Nitrite Negative, Urine Bilirubin Negative, Urine Urobilinogen Normal, Ur Leukocyte Esterase 25 H, Urine RBC 0 SEEN, Urine WBC 0 SEEN, Ur Squamous Epith Cells 0-5 SEEN, Urine Bacteria 0 SEEN, Urine Mucus 0 SEEN 12/28/22 20:34: WBC 12.1 H, RBC 4.30, Hgb 13.8, Hct 41.1, MCV 95.6, MCH 32.1 H, MCHC 33.6, RDW Std Deviation 46.6 H, RDW Coeff of Ezekiel 13.2, Plt Count 288, MPV 9.1, Immature Gran % (Auto) 0.600, Neut % (Auto) 79.2 H, Lymph % (Auto) 10.3 L, [place] % (Auto) 8.2, Eos % (Auto) 1.4, Baso % (Auto) 0.3, Absolute Neuts (auto) 9.6 H, Absolute Lymphs (auto) 1.25, Nucleated RBC % 0 12/28/22 20:34: Sodium 138, Potassium 3.7, Chloride 105, Carbon Dioxide 26.0, Anion Gap 7, BUN 11, Creatinine 0.58, Estim Creat Clear Calc 34.90, Est GFR (MDRD) Af Amer 129, Est GFR (MDRD) Non-Af 107, BUN/Creatinine Ratio 19.1, Glucose 115 H, Calcium 9.2, Total Bilirubin 0.60, AST 17, ALT 20, Alkaline Phosphatase 90, Total Protein 6.9, Albumin 3.7, Globulin 3.2, Albumin/Globulin Ratio 1.2, Lipase 39 12/28/22 20:34: Lactic Acid 1.1 12/29/22 05:50: WBC 7.8, RBC 3.88 L, Hgb 12.3, Hct 37.3, MCV 96.1, MCH 31.7, MCHC 33.0, RDW Std Deviation 47.0 H, RDW Coeff of Ezekiel 13.3, Plt Count 240, MPV 9.1, Immature Gran % (Auto) 0.300, Neut % (Auto) 63.8, Lymph % (Auto) 21.6, [place] % (Auto) 11.3 H, Eos % (Auto) 2.6, Baso % (Auto) 0.4, Absolute Neuts (auto) 5.0, Absolute Lymphs (auto) 1.68, Nucleated RBC % 0 12/29/22 05:50: Sodium 138, Potassium 3.6, Chloride 111 H, Carbon Dioxide 24.0, Anion Gap 3 L, BUN 8, Creatinine 0.45 L, Estim Creat Clear Calc 34.90, Est GFR (MDRD) Af Amer 171, Est GFR (MDRD) Non-Af 141, BUN/Creatinine Ratio 17.7, Glucose 92, Calcium 8.1 L Micro: Microbiology 12/28/22 19:23 Urine, Clean Catch Urine Culture - Preliminary Mixed Gram Positive Organisms Radiography Diagnostic Testing: Radiology Impression Abdomen/Pelvis CT 12/28/22 20:23 IMPRESSION: Small bowel obstruction related to moderate size right inguinal hernia. Moderate sized fluid-filled hiatal hernia. Electronically Signed: Vidal Saleem MD at 21:54 EDT , Physical Exam Const oriented x3 and no apparent distress Resp normal respiratory effort GI GI Narrative: Minimally distended, tender to palpation particularly of the right upper and lower abdominal quadrants. I do not feel any hernia contents at this time. Assessment & Plan Assessment/Plan (1) Incarcerated right inguinal hernia: PLAN: This is an 82year-old female who was admitted via the emergency department yesterday for incarcerated right inguinal hernia that was the source of the small bowel obstruction. She reports return of bowel function with flatus today. She also reports some improvement in her abdominal tenderness and denies any nausea in response to her diet. Given these positive improvements we will continue her on a liquid diet until she is able to have a bowel movement. I have also discussed with her the need to plan for an urgent repair of her right inguinal hernia to mitigate her risk for future problems. She states that she is prepared to have a hernia repair this admission and, therefore, arrangements have been made to complete this repair on 12/31/2022. ? Decrease IV fluid support ? Continue liquid diet until patient having bowel movement ? Consent for surgery Charges/Coding Visit Charges Inpatient E&M: 40223 Subs Hosp L2
--- NOTE | 2022-12-29 12:47 | CASEMGMT ---
Social work SW received message that pt would like to speak to SW. Sw met with pt and introduced self and role of SW. Pt states she will be staying in the hospital for surgery and is concerned for her at home alone. Pt inquiring about short term respite stay at [facility]. SW explained that insurance does not pay for this and pt will need orders from PCP and be private pay at facility. Pt then declining further information stating her sons were out of town and are returning today and they can care for pt. Pts grandson and neighbor are currently providing assistance to spouse and pt feels he is safe. No further SW needs at this time. NISREEN Carter
--- NOTE | 2022-12-29 13:05 | CASEMGMT ---
BASIL BAKER Assessment: Face to Face with pt for initial transition planning/care coordination assessment. RN SAMUEL introduced self and role at [facility], pt voices understanding and consents to assessment. Pt is A/O x4 and answers all questions appropriately at this time. Pt sitting on edge of bed in no distress. Care providers, pharmacy, and demographics verified/updated. Admitting Dx: small bowel obstruction PCP:Astrid Specialists: Andres, cardio; matthew Juárez [facility]erred [facility]acy: [facility] Insurance: [employer] Prescription Benefit: yes LNOK: Derek Vitael, ; Derek Vitale Jr, son Living Arrangements: Pt lives with in a split level home with 3 steps to enter through the garage with no rail. Pt reports she is I in ADL's and denies concerns at home. Transportation: Pt drives self and denies concerns with transportation. DME/HHC/SNF: Pt has grab bars in the bathroom for her , states she doesn't need them. Does not use AD. Pt denies hx of HHC or SNF stays. Pt states no concerns with going home at time of dc. Pt states no further concerns/needs. CM to follow. Advised pt to ask CM if any further question/concerns/needs arise, voices understanding. Pt Goal: Home Plan: Home
[2022-12-29 13:36] VITALS: BP 154/78; PULSE 88; RESP 16; TEMP 36.4; O2SAT 98
--- NOTE | 2022-12-29 14:51 | CHAPLAIN ---
Type of Pastoral Visit _x__ Initial Visit ___ Follow-up Visit ___ On-call Visit ___ General Patient Visit ___ Spiritual Assessment ___ Family Conference ___ Bereavement ___ Rapid Response ___ Code Blue ___ Other (describe below) Pastoral Care Referral From _x__ Patient ___ Family ___ Nurse ___ Physician ___ Collet Gluer ___ Solar [employer] Practitioner ___ Other (describe below) Sacrament/Intervention _x__ Active listening ___ Anointing ___ Jain ___ Bereavement ___ Communion ___ Deborah exploration ___ ___ Life review _x__ Prayer ___ Reconciliation ___ Sacrament of Sick ___ Supportive presence ___ Wedding ___ Other (describe below) Pastoral Comments patient and a family member were in room and offered support; both welcomed the same; prayer and time to listen given; pt concern is for her who is chronically ill at home
[2022-12-29 20:52] VITALS: BP 148/52; PULSE 71; RESP 18; TEMP 36.6; O2SAT 96
[2022-12-29] MEDS: 0.9% Normal Saline 1,000 ML 50 ML IV (21:01)
[2022-12-29] MEDS: Latanoprost 0.005% 1 Bottle 1 DRP OPHTHALMIC (21:01)
[2022-12-29] MEDS: Pravastatin 40 MG Tablet PO (21:01)
[2022-12-29] MEDS: Acetaminophen 325 MG Tablet 650 MG PO (21:03)
[2022-12-30 03:30] VITALS: BP 143/48; PULSE 70; RESP 18; TEMP 36.4; O2SAT 94
[2022-12-30] MEDS: Levothyroxine 88 MCG Tablet PO (04:01)
--- NOTE | 2022-12-30 06:22 | RAD_ITS ---
INDICATION: SBO EXAMINATION/TECHNIQUE: X-RAY - XR Abdomen 1 View COMPARISON: CT abdomen and pelvis 12/28/2022. FINDINGS: Portable supine view. The bowel gas pattern is nonspecific. Stool and air in the colon to the rectum. No dilated air filled small bowel. Sensitivity for free air limited on supine view. Minimal opacity in the left lung base. RAD/Abdomen Single View (Portable) IMPRESSION: Nonspecific bowel gas pattern. Minimal left basilar opacity possibly atelectasis or infiltrate. Follow-up with chest x-ray may be helpful. Electronically Signed: Lety Orr MD at 7:39 EDT ,
[2022-12-30 06:50] LABS: Absolute Lymphocyte Count 1.55 X10^3/uL (0.83-4.51); Absolute Neutrophil Count 2.9 X10^3/uL (2.0-7.7); Basophil# 0.04 X10^3/uL; Basophil% 0.7 % (0-1); Eosinophil# 0.36 X10^3/uL; Eosinophils% 6.7 % (0-5); Hematocrit 41.9 % (37-47); Hemoglobin 13.6 g/dL (12.0-15.0); Lymphocyte # 1.55 X10^3/ul (0.83-4.51); Mean Corp Hgb Conc 32.5 g/dL (32-36); Mean Corpuscular Hgb 31.9 pg (27.0-32.0); Mean Corpuscular Volume 98.4 fL (81-99); Mean Platelet Vol. 9.4 fl (6.2-12.0); Monocyte% 9.3 % (0-10); NRBC Flagged by Analyzer 0 % (0-5); Neutrophil # 2.89 X10^3/uL (2.7-7.7); Neutrophil % 54.1 % (47-70); Platelet Count 267 K/mm3 (150-450); RBC Distribution Width CV 13.3 % (11.6-14.6); RBC Distribution Width SD 48.7 fl (35.1-43.9); Red Blood Count 4.26 M/mm3 (4.2-5.4); White Blood Count 5.4 K/mm3 (4.4-11.0)
[2022-12-30] MEDS: Ceftriaxone 1 GM/50 ML BAG IV (06:59)
[2022-12-30 07:29] LABS: Anion Gap 4 (5-15); BUN 6 mg/dL (7-18); BUN/Creat Ratio 11.9 RATIO (10-20); Calcium,Total 8.7 mg/dL (8.5-10.1); Chloride 111 mmol/L (98-107); EST Glomerular Filtration Rate 125 mL/min (>60); Est Glom Filt Rate - Afr Amer 151 mL/min (>60); Glucose 86 mg/dL (74-106); Magnesium 2.2 mg/dL (1.6-2.6); Potassium 3.8 mmol/L (3.5-5.1); Sodium Level 140 mmol/L (136-145)
[2022-12-30 07:35] LABS: Phosphorus 3.5 mg/dL (2.5-4.9)
[2022-12-30] MEDS: Losartan Potassium 50 MG Tablet PO (09:19)
[2022-12-30] MEDS: Fluticasone 0.05% 1 SPRAY NASAL.SRY NASAL (09:19)
[2022-12-30] MEDS: Spironolactone 25 MG Tablet PO (09:20)
--- NOTE | 2022-12-30 09:42 | PCM.PN.SRG ---
Subjective Subjective Seen and examined during AM rounds. She is found sitting on the bed in a chair. She states that she is still feeling better but has some persistent abdominal tenderness. She confirms that she is still passing flatus and has not been belching as much. She has not yet had a bowel movement. She expresses that she is starving. Nursing notified me early this morning that patient had multiple organisms show in her urine culture on intake. Antibiotics were ordered given her plans for mesh placement tomorrow during operation. Objective Data Objective Data Vital Signs: Vital Signs Temp Pulse Resp BP Pulse Ox O2 Del Method 97.5 F L 70 18 143/48 H 94 Room Air 12/30/22 03:30 12/30/22 03:30 12/30/22 03:30 12/30/22 03:30 12/30/22 03:30 12/30/22 03:30 Oxygen Delivery Method Room Air Weight: 164 lb 7.437 oz Body Mass Index (BMI) 30.0 Intake & Output: Intake and Output for Last 24 Hours 12/28/22 12/29/22 12/30/22 23:59 23:59 23:59 Intake Total 2090.42 / 2090.42 50 / 50 Balance 2090.42 / 2090.42 50 / 50 Lab / Micro Data Result Diagrams: 12/30/22 06:05 12/30/22 06:05 Labs: Laboratory Results - last 24 hr 12/30/22 06:05: WBC 5.4, RBC 4.26, Hgb 13.6, Hct 41.9, MCV 98.4, MCH 31.9, MCHC 32.5, RDW Std Deviation 48.7 H, RDW Coeff of Ezekiel 13.3, Plt Count 267, MPV 9.4, Immature Gran % (Auto) 0.200, Neut % (Auto) 54.1, Lymph % (Auto) 29.0, [place] % (Auto) 9.3, Eos % (Auto) 6.7 H, Baso % (Auto) 0.7, Absolute Neuts (auto) 2.9, Absolute Lymphs (auto) 1.55, Nucleated RBC % 0 12/30/22 06:05: Sodium 140, Potassium 3.8, Chloride 111 H, Carbon Dioxide 25.0, Anion Gap 4 L, BUN 6 L, Creatinine 0.50 L, Estim Creat Clear Calc 34.90, Est GFR (MDRD) Af Amer 151, Est GFR (MDRD) Non-Af 125, BUN/Creatinine Ratio 11.9, Glucose 86, Calcium 8.7, Magnesium 2.2 12/30/22 06:05: Phosphorus 3.5 Micro: Microbiology 12/28/22 19:23 Urine, Clean Catch Urine Culture - Final Mixed Gram Positive Organisms Radiography Diagnostic Testing: Radiology Impression KUB X-Ray 12/30/22 06:22 IMPRESSION: Nonspecific bowel gas pattern. Minimal left basilar opacity possibly atelectasis or infiltrate. Follow-up with chest x-ray may be helpful. Electronically Signed: Lety Orr MD at 7:39 EDT , Physical Exam Const oriented x3 and no apparent distress Resp normal respiratory effort GI GI Narrative: Nondistended, mild tenderness to palpation in the epigastrium and right upper quadrant, however, patient's abdomen is soft Assessment & Plan Assessment/Plan (1) Incarcerated right inguinal hernia: PLAN: This is an 82year-old female who was admitted via the emergency department 12/28/2022 for incarcerated right inguinal hernia that was the source of the small bowel obstruction. She continues to report return of bowel function with flatus but no bowel movement. She also reports further improvement in her abdominal tenderness and denies any nausea in response to her liquid diet. KUB was ordered given some reports from nursing of patient belching, but she has a nonobstructive bowel gas pattern with this imaging. Given these positive improvements and patient's reports of a strong appetite we will advance to a regular diet today then revert to n.p.o. status at midnight in anticipation of surgery. Details of the operation were reviewed and patient denies any further questions. Surgery is scheduled for tomorrow, 12/31/2022 at noon. ? Advance to regular diet ? N.p.o. at midnight ? Consent for surgery Charges/Coding Visit Charges Inpatient E&M: 10697 Subs Hosp L2
[2022-12-30 10:43] VITALS: BP 148/84; PULSE 92; RESP 16; TEMP 36.6; O2SAT 98
[2022-12-30 14:37] VITALS: BP 127/46; PULSE 75; RESP 16; TEMP 36.8; O2SAT 97
[2022-12-30] MEDS: 0.9% Normal Saline 1,000 ML 50 ML IV (16:15)
[2022-12-30 21:15] VITALS: BP 122/61; PULSE 77; RESP 18; TEMP 36.5; O2SAT 97
[2022-12-30] MEDS: Pravastatin 40 MG Tablet PO (21:40)
[2022-12-30] MEDS: Latanoprost 0.005% 1 Bottle 1 DRP OPHTHALMIC (21:40)
[2022-12-31] VITALS (14 sets, daily range): BP systolic 99–147; BP diastolic 43–79; PULSE 52–88; RESP 12–18; TEMP 36–37.1; O2SAT 91–97
--- NOTE | 2022-12-31 05:00 | RAD_ITS ---
EXAM: XR CHEST, 1 VIEW CLINICAL INDICATION: preop TECHNIQUE: Frontal view of the chest. COMPARISON: September 14, [address] including the lung bases. 2022 showing moderate hiatal hernia and mild atelectasis in the lung bases. There was small bowel obstruction and intrapelvic ascites on CT due to right inguinal hernia containing bowel. FINDINGS: LUNGS AND PLEURAL SPACES: Mild streaky left retrocardiac opacities are similar to prior exam, possibly minimal scarring or atelectasis. Mildly prominent interstitial markings appear largely chronic. Slight chronic blunting of the left lateral costophrenic angle. No pneumothorax. No effusion. HEART: Unremarkable. Cardiac silhouette not enlarged. MEDIASTINUM: Central airways and mediastinal contour are unremarkable. BONES/JOINTS: Mild dextroscoliosis of the midthoracic spine. SOFT TISSUES: Unremarkable. VASCULATURE: Mild peripheral calcification of the aortic arch is again noted. RAD/Chest 1 View (Portable) IMPRESSION: Stable chest. Mild atelectasis in the lung bases and chronic lung changes. Moderate hiatal hernia, better seen on prior exam. Electronically Signed: Holly Talbert MD at 6:04 EDT ,
--- NOTE | 2022-12-31 05:00 | EKG12_ITS ---
Test Reason : PRE OP Blood Pressure : / mmHG Vent. Rate : 071 BPM Atrial Rate : 071 BPM P-R Int : 194 ms QRS Dur : 076 ms QT Int : 410 ms P-R-T Axes : 050 021 035 degrees QTc Int : 445 ms Normal sinus rhythm Normal ECG When compared with ECG of 28-DEC-2022 20:29, No significant change was found Confirmed by SAV CORREA, SAIMA ([id number]), story editor STEPHANY GLOVER ([id number]) on 01/02/2023 8:15:22 AM Referred By: ARMANDO Confirmed By:SAIMA ANG MD
[2022-12-31 06:08] LABS: Absolute Lymphocyte Count 1.56 X10^3/uL (0.83-4.51); Absolute Neutrophil Count 3.3 X10^3/uL (2.0-7.7); Basophil# 0.03 X10^3/uL; Basophil% 0.5 % (0-1); Eosinophils% 5.1 % (0-5); Hematocrit 35.5 % (37-47); Hemoglobin 11.7 g/dL (12.0-15.0); Lymphocyte # 1.56 X10^3/ul (0.83-4.51); Lymphocyte % 26.4 % (19-41); Mean Corpuscular Hgb 31.6 pg (27.0-32.0); Mean Corpuscular Volume 95.9 fL (81-99); Mean Platelet Vol. 9.2 fl (6.2-12.0); Monocyte% 11.8 % (0-10); NRBC Flagged by Analyzer 0 % (0-5); Neutrophil % 55.9 % (47-70); Platelet Count 234 K/mm3 (150-450); White Blood Count 5.9 K/mm3 (4.4-11.0)
[2022-12-31 06:49] LABS: Anion Gap 5 (5-15); BUN 9 mg/dL (7-18); BUN/Creat Ratio 18.1 RATIO (10-20); Calcium,Total 8.4 mg/dL (8.5-10.1); Chloride 111 mmol/L (98-107); EST Glomerular Filtration Rate 126 mL/min (>60); Est Glom Filt Rate - Afr Amer 153 mL/min (>60); Glucose 90 mg/dL (74-106); Potassium 3.5 mmol/L (3.5-5.1); Sodium Level 140 mmol/L (136-145)
--- NOTE | 2022-12-31 10:10 | PCM.PN.SRG ---
Subjective Subjective Patient seen and examined during AM rounds. She is found sitting out of bed in a chair. She denies any acute events overnight and reports ongoing improvements of her abdominal discomfort. She confirms tolerance of her diet through yesterday with ongoing flatus but no bowel movements. She also confirms that she has remained n.p.o. since midnight in anticipation of today's surgery. Objective Data Objective Data Vital Signs: Vital Signs Temp Pulse Resp BP Pulse Ox O2 Del Method 98 F 69 18 101/47 L 97 Room Air 12/31/22 09:30 12/31/22 09:30 12/31/22 09:30 12/31/22 09:30 12/31/22 09:30 12/31/22 09:30 Oxygen Delivery Method Room Air Weight: 164 lb 7.437 oz Body Mass Index (BMI) 30.0 Intake & Output: Intake and Output for Last 24 Hours 12/29/22 12/30/22 12/31/22 23:59 23:59 23:59 Intake Total 2090.42 / 2090.42 1011.67 / 1011.67 Balance 209.42 / 0.42 1011.67 / 1011.67 Lab / Micro Data Result Diagrams: 12/31/22 05:40 12/31/22 05:40 Labs: Laboratory Results - last 24 hr 12/31/22 05:40: WBC 5.9, RBC 3.70 L, Hgb 11.7 L, Hct 35.5 L, MCV 95.9, MCH 31.6, MCHC 33.0, RDW Std Deviation 46.0 H, RDW Coeff of Ezekiel 13.0, Plt Count 234, MPV 9.2, Immature Gran % (Auto) 0.300, Neut % (Auto) 55.9, Lymph % (Auto) 26.4, Warren % (Auto) 11.8 H, Eos % (Auto) 5.1 H, Baso % (Auto) 0.5, Absolute Neuts (auto) 3.3, Absolute Lymphs (auto) 1.56, Nucleated RBC % 0 12/31/22 05:40: Sodium 140, Potassium 3.5, Chloride 111 H, Carbon Dioxide 24.0, Anion Gap 5, BUN 9, Creatinine 0.50 L, Estim Creat Clear Calc 34.90, Est GFR (MDRD) Af Amer 153, Est GFR (MDRD) Non-Af 126, BUN/Creatinine Ratio 18.1, Glucose 90, Calcium 8.4 L, TSH 4.10 H Micro: Microbiology 12/28/22 19:23 Urine, Clean Catch Urine Culture - Final Mixed Gram Positive Organisms Radiography Diagnostic Testing: Radiology Impression Chest X-Ray 12/31/22 05:00 IMPRESSION: Stable chest. Mild atelectasis in the lung bases and chronic lung changes. Moderate hiatal hernia, better seen on prior exam. Electronically Signed: Holly Talbert MD at 6:04 EDT , Physical Exam Const oriented x3 and no apparent distress Resp normal respiratory effort GI GI Narrative: Mild distention, soft, largely nontender to palpation x4 quadrants Assessment & Plan Assessment/Plan (1) Incarcerated right inguinal hernia: PLAN: This is an 82year-old female who was admitted via the emergency department 12/28/2022 for incarcerated right inguinal hernia that was the source of the small bowel obstruction. She continues to report return of bowel function with flatus but no bowel movement. She also reports further improvement in her abdominal tenderness and denies any intolerance of her regular diet yesterday. She has remained n.p.o. in anticipation of surgery today. Procedure and post procedure expectations were reviewed. Patient has no further questions. ? Proceed to the OR for right inguinal hernia repair with mesh via robot assisted approach
[2022-12-31] MEDS: Lactated Ringers 1,000 ML 15 ML IV ×2 (11:08→16:43)
[2022-12-31] MEDS: Cefazolin 2 GM in 0.9% Normal Saline 100 ML IV (12:15)
[2022-12-31] MEDS: Bupivacaine Mpf 0.5% 30 ML VIAL (15:00)
--- NOTE | 2022-12-31 15:04 | OP.PCM_ITS ---
Report of Operation Date of Procedure: 12/31/22 Pre-Operative Diagnosis: Previously incarcerated right inguinal hernia with bow el causing small bowel obstruction Post-Operative Diagnosis: Right indirect inguinal hernia containing bowel Surgery/Procedure Performed:: Robot-assisted transabdominal preperitoneal inguinal hernia repair with mesh Description of Surgical Findings:: Right indirect inguinal hernia containing bowel Surgeon: Fred Mason Type of Anesthesia: General/Supplemental Anesthesiologist: Etienne Cabrera Specimen's removed: None Estimated Blood Loss (mL): 20 Description of Procedure: After appropriate identification the preoperative holding area the patient was brought to the operating room where she was positioned supine on the operating table. Preoperative antibiotics were completed and the patient was administered a general anesthetic. Patient's abdomen was then prepped and draped in usual sterile fashion. Formal timeout followed to confirm patient and procedure. Procedure was begun with open Salgado entry patient's prior epigastric port site scar. A finger sweep confirmed peritoneal entry and no adhesions, however, I was able to feel a ventral mesh just inferiorly curled against the anterior abdominal wall. A Salgado trocar was inserted and pneumoperitoneum was established at a set point pressure of 15 mmHg. From this vantage point a right paramedian incision was made through patient's prior right upper quadrant scar and a 8 mm robotic trocar was placed under laparoscopic visualization. Follow- up laparoscopic investigation revealed no inadvertent injury to the viscera below. A second port was placed a hand's breath left of our index port under laparoscopic visualization in the left upper quadrant. Then a robotic port was nested within the Salgado port. The anterior abdominal wall was visualized and we could see a loop of small bowel entering the patient's anterior abdominal wall. With slight pressures externally this bowel reduced back into the peritoneum. Patient was positioned in slight Trendelenburg and I performed a local block of the ilioinguinal nerve using 7 mL local anesthetic under laparoscopic visualization. The robot was docked in standard fashion. In this positioning I could visualize a indirect abdominal wall defect. Robotically, a peritoneal flap was created on the right extending from the medial umbilical ligament to the level of the ASIS (external) and was bluntly dissected to expose the medial parietal compartment and lateral visceral compartments. Medially I could visualize the pubic tubercle and James's ligament while laterally I extended the flap dissection down to the level of the ASIS and internally down to the level of the psoas muscle. The hernia sac was identified and from the cord structures deeply with selective use of monopolar energy. A medium cord lipoma was identified and removed with monopolar energy. Beyond this, I did not visualize a direct or femoral defect. It was apparent that the patient's round ligament would put the mesh at risk for curling inferiorly so this was divided after placement of Weck clips proximally and distally outside of the inguinal canal. The peritoneal flap was inspected to ensure that cord was appropriately parietalized and there was no pulling of the cord structures or the viscera deeply over the psoas using the pull test. Once satisfied, a Bard 3D max, size large, mid weight mesh was placed into the ab domen along with suture. It was positioned within the preperitoneal pocket so that there was good medial and inferior overlap. It was then tacked to the James's ligament, the adminiculum of the linea alba just superior to the pubic tubercle, and laterally in a partial-thickness bite of the abdominal wall using a 3-0 Vicryl suture. The peritoneal flap was then closed with a running 3-0 V- Loc suture taking care to conceal the barbs of the suture beneath the peritoneum. As this closure proceeded, I hung the hernia sac vertically in front of several inadvertent peritoneal rents. Once the flap closure was complete, I undertook repair of peritoneal defects with 3-0 Vicryl. With the peritoneal defects closed, sutures were systematically removed from the peritoneum and the pneumoperitoneum was evacuated before removing the trocars. The port sites were closed at the skin with running 4-0 Monocryl in a subcuticular fashion. Steri-Strips and OpSite's were used as dressings. Patient was then awoken from anesthetic and transferred to PACU for ongoing recovery. Grafts/Implants Used: 3D max MID anatomic mesh lot [id number] reference [id number] Complications None Admit VTE Documentation VTE Mechan Device Prophylaxis: SCD's
[2022-12-31 15:50] LABS: Allen Test Positive; Base Excess -3 mmol/L (-2 to +2); Bicarbonate 22.9 mmol/L (22-26); Blood Gas Specimen Type ART; O2 Delivery Device Cannula; PO2 63 mmHG (75-100); SITE L Radial; SO2 91 % (95-99); Total Carbon Dioxide 24 mmol/L; pCO2 41.1 mmHg (35-45); pH 7.36 (7.35-7.45)
[2022-12-31] MEDS: Ipratropium/Albuterol Sulfate 3 ML AMPUL.NEB INHALATION (15:54)
[2022-12-31 16:18] LABS: Bedside Glucose 118 mg/dL (74-106)
[2022-12-31] MEDS: Latanoprost 0.005% 1 Bottle 1 DRP OPHTHALMIC (20:43)
[2022-12-31] MEDS: traMADol 50 MG Tablet PO (21:25)
[2022-12-31] MEDS: Ondansetron 4 MG/2 ML Vial IV (21:25)
[2022-12-31] MEDS: 0.9% Normal Saline 1,000 ML 50 ML IV (22:28)
[2023-01-01] VITALS (8 sets, daily range): BP systolic 117–144; BP diastolic 58–71; PULSE 73–88; RESP 14–20; TEMP 36.5–37.2; O2SAT 85–95
[2023-01-01] MEDS: Levothyroxine 88 MCG Tablet PO (05:39)
[2023-01-01] MEDS: traMADol 50 MG Tablet PO (07:52)
[2023-01-01] MEDS: Polyethylene Glycol 3350 17 GM PACKET PO (09:38)
[2023-01-01] MEDS: Losartan Potassium 50 MG Tablet PO (09:38)
[2023-01-01] MEDS: Spironolactone 25 MG Tablet PO (09:39)
[2023-01-01] MEDS: Fluticasone 0.05% 1 SPRAY NASAL.SRY NASAL (09:40)
--- NOTE | 2023-01-01 10:47 | DCINST_ITS ---
Discharge Instructions Diet Discharge Diet: No restrictions Activity Discharge Activity: May Not Drive (May not drive while taking narcotic pain medications) and May Shower (May begin showering 48hours postop. Please avoid baths or submerging surgical incisions before skin is completely healed.) May shower in (days): 2 May resume sexual activity in: 2 weeks Ice area for (Minutes): 20 Lifting Restrictions: Limit lifting to <10lbs for 5 weeks following surgery Dressing / Incision Call your doctor if your incision/area has: Sudden Increased Bleeding, Increased Pain/ Swelling, Increased Redness, Foul Smelling Discharge and Swelling at the incision site Call your doctor if you observe: Fever of 101 or Higher, Inability to urinate, Inability to have a bowel movement and Uncontrolled pain Suture Line Care: Avoid Pulling/Pushing Remove Dressing in: 2 days (Please leave steri strips (medical tape) in place until they fall off spontaneously or are removed at your follow-up appointment) Cleanse incision/area with: Keep Dressing Clean & Dry Follow Up Care Please Follow Up With: Fred Mason MD When: 2 weeks postop Test Results: Test results from this visit will be discussed in further detail at your follow- up appointment, if applicable. Discharge Plan Admission Admit Date/Time: 12/29/22 12:40 Primary Reason for Your Visit: Bowel obstruction and Incarcerated hernia Attending Provider: Fred Mason Primary Care Provider: Maria Elena Resendiz Discharge Orders/Prescriptions Prescriptions: New tramadol 50 mg Tablet 50 mg PO Q6H PRN PRN (Reason: Pain Score 4-10) 3 Days Qty: 10 0RF Continued cholecalciferol (vitamin D3) 125 mcg (5,000 unit) capsule 125 mcg PO DAILY fluticasone propionate 50 mcg/actuation spray,suspension 1 spray INTRANASAL DAILY latanoprost 0.005 % drops 1 drp OPHTHALMIC QHS pravastatin 40 mg tablet 40 mg PO QHS Qty: 90 3RF bupropion HCl 75 mg tablet 1 tablet PO DAILY levothyroxine 50 mcg tablet 88 mcg PO DAILY fesoterodine 4 mg tablet extended release 24 hr 4 mg PO DAILY Label Comments: TAKE 1 TABLET BY MOUTH ONCE DAILY spironolactone 25 mg tablet 25 mg PO DAILY irbesartan 150 mg tablet 150 mg PO DAILY Qty: 90 3RF Referrals / Follow Up: Maria Elena Resendiz MD [Primary Care Provider] - Disposition Disposition (needs filled in before D/C Order can be placed): Home, Self Care
--- NOTE | 2023-01-01 10:55 | PCM.DC.SUM ---
Providers Date of Admission: 12/29/22 Primary Care Physician: Dr. Maria Elena Resendiz MD Reason For Visit: SMALL BOWEL OBSTRUCTION Diagnosis Discharge Diagnosis (1) Incarcerated right inguinal hernia: Status: Acute Code(s): K40.30 - Unilateral inguinal hernia, with obstruction, without gangrene, not specified as recurrent Plan: This is an 82year-old female who was admitted via the emergency department 12/28/2022 for incarcerated right inguinal hernia that was the source of the small bowel obstruction. She continues to report return of bowel function with flatus but no bowel movement. She also reports further improvement in her abdominal tenderness and denies any intolerance of her regular diet yesterday. She has remained n.p.o. in anticipation of surgery today. Procedure and post procedure expectations were reviewed. Patient has no further questions. ? Proceed to the OR for right inguinal hernia repair with mesh via robot assisted approach Medications at Discharge Home Medications cholecalciferol (vitamin D3) 125 mcg (5,000 unit) capsule 125 mcg PO DAILY 12/20/19 fluticasone propionate 50 mcg/actuation nasal spray,suspension 1 spray intranasal DAILY 12/20/19 latanoprost 0.005 % eye drops 1 drp ophthalmic (eye) QHS 12/20/19 pravastatin 40 mg tablet 40 mg PO QHS #90 tabs 06/27/20 bupropion HCl 75 mg tablet 1 tablet PO DAILY 04/18/21 spironolactone 25 mg tablet 25 mg PO DAILY 02/03/22 levothyroxine 50 mcg tablet 88 mcg PO DAILY 07/10/22 irbesartan 150 mg tablet 150 mg PO DAILY #90 tabs 11/27/22 fesoterodine 4 mg tablet,extended release 24 hr 4 mg PO DAILY 12/28/22 tramadol 50 mg tablet 50 mg PO Q6H PRN PRN Pain Score 4-10 3 days #10 tabs 01/01/23 Hospital Course Operations - (Robot-assisted right inguinal hernia repair with mesh) Summary of Care Provided Hospital Course: Patient is an 82-year-old female who presented to [facility] ER on the evening of 12/28/2022 with signs and symptoms of a small bowel obstruction. CT imaging obtained during this visit showed small bowel within a right inguinal hernia. Emergency medicine was able to reduce patient's small bowel and she had some relief of her discomfort, but had not shown any evidence of return of bowel function to that point. Therefore, she was admitted to the general surgery service for observation. Given her previously incarcerated small bowel I discussed same admission hernia repair with patient and she accepted this recommendation. Therefore, she was taken for robot-assisted right inguinal hernia repair with mesh placement on 12/31/2022. This procedure proceeded in uncomplicated fashion and patient was returned to the floor for ongoing monitoring. Postoperative day 1 patient appeared relatively comfortable, but when working with therapy was found to be mildly unsteady and also exhibited a need for supplemental oxygenation. Admission to the transitional care unit was briefly explored, but we opted to hold patient's discharge postoperative day 1 and reevaluate morning of postoperative day 2. Patient did experience significant improvement in her wellbeing and no longer required her supplemental oxygen by postoperative day 2. With these improvements, she stated she was comfortable with discharge to home and confirmed that there was familial support once discharged. Therefore discharge was granted after reviewing postoperative lifting restrictions and expectations for outpatient follow-up. It is noted that patient did not have a bowel movement during her stay, but had daily flatus and tolerance of a diet. She was kept on prokinetic agents throughout her stay and was encouraged to continue these upon discharge home. Physical Exam Const alert, oriented x3 and no apparent distress Resp normal respiratory effort GI GI Narrative: Mildly distended, operative dressings discontinued and beneath these Steri-Strips remain intact with well approximated wounds and no signs of erythema or drainage. Patient has minimal but appropriate tenderness to palpation both across her upper abdomen and in the right lower quadrant. Weight / BMI Weight Weight: 164 lb 7.437 oz Body Mass Index (BMI) 30.0 ABG / Lab / Microbiology Data Result Diagrams: 12/31/22 05:40 12/31/22 05:40 Laboratory: Laboratory Results - last 24 hr 12/31/22 16:00: POC Glucose 118 H Microbiology: Microbiology 12/28/22 19:23 Urine, Clean Catch Urine Culture - Final Mixed Gram Positive Organisms ABG: ABG 12/31/22 15:46 Specimen Type ART Sample Site L Radial pH 7.36 Bicarbonate Actual 22.9 Total CO2 24 Base Excess -3 L O2 Saturation 91 L ABG pCO2 41.1 ABG pO2 63 L Maxim Test Positive O2 Delivery Device Cannula Liter Flow 5.0 D/C Instructions Discharge Diet: No restrictions May shower in (days): 2 May resume sexual activity in: 2 weeks Ice area for (Minutes): 20 Call your doctor if your incision/area has: Sudden Increased Bleeding, Increased Pain/ Swelling, Increased Redness, Foul Smelling Discharge and Swelling at the incision site Call your doctor if you observe: Fever of 101 or Higher, Inability to urinate, Inability to have a bowel movement and Uncontrolled pain Suture Line Care: Avoid Pulling/Pushing Cleanse incision/area with: Keep Dressing Clean & Dry Please Follow Up With: Fred Mason MD When: 2 weeks postop Meaningful Use Info Meaningful Use Diagnoses (Choose all that apply): None applicable Discharge Plan Admission Admit Date/Time: 12/29/22 12:40 Primary Reason for Your Visit: Bowel obstruction and Incarcerated hernia Attending Provider: Fred Mason Primary Care Provider: Maria Elena Resendiz Discharge Orders/Prescriptions Prescriptions: New tramadol 50 mg Tablet 50 mg PO Q6H PRN PRN (Reason: Pain Score 4-10) 3 Days Qty: 10 0RF Continued cholecalciferol (vitamin D3) 125 mcg (5,000 unit) capsule 125 mcg PO DAILY fluticasone propionate 50 mcg/actuation spray,suspension 1 spray INTRANASAL DAILY latanoprost 0.005 % drops 1 drp OPHTHALMIC QHS pravastatin 40 mg tablet 40 mg PO QHS Qty: 90 3RF bupropion HCl 75 mg tablet 1 tablet PO DAILY levothyroxine 50 mcg tablet 88 mcg PO DAILY fesoterodine 4 mg tablet extended release 24 hr 4 mg PO DAILY Label Comments: TAKE 1 TABLET BY MOUTH ONCE DAILY spironolactone 25 mg tablet 25 mg PO DAILY irbesartan 150 mg tablet 150 mg PO DAILY Qty: 90 3RF Referrals / Follow Up: Maria Elena Resendiz MD [Primary Care Provider] - Disposition Disposition (needs filled in before D/C Order can be placed): Home, Self Care Charges/Coding Visit Charges Inpatient E&M: 28149 Disch Hosp
--- NOTE | 2023-01-01 11:20 | CASEMGMT ---
Addendum entered by Milka Lopez 01/01/23 14:55: BASIL BAKER notified that pt may be denied for SNF. BASIL BAKER into pt room to make aware that this is a possibility and pt states she will call the insurance herself. Pt aware should this happen, we will re evaluate her plan and see how she is doing at that time. Pt and brother agreeable. Addendum entered by Milka Lopez 01/01/23 14:41: BASIL BAKER back into pt room, pt states my family is chewing me out for going home. Pt states she feels now she would like to go to a SNF. Patient was provided a list of SNF providers including quality and resource use data and consistent with the patient?s preferred geographic region, medical needs, and insurance network were [facility]. Updated [facility] and . Addendum entered by Milka Lopez 01/01/23 14:10: Spoke with therapy who does not feel pt should return home to her split level. BASIL BAKER into pt room, discussed the dc plan. Pt states her son Fred is caring for her currently and she can go there which is less steps. Pt declined information regarding SNF. Pt is in need of a FWW. Provided pt with a verbal local in network list of DME companies, pt chose [employer]. Discussed having therapy for pt. She states she goes to [facility] for therapy for urinary incontinence. She declines the need for therapy at this time. She wants to see how she does at home prior to agreeing to further therapy. She is aware that should she change her mind, she can notify her PCP. Pt gave her son's phone number and permission to speak with him. TC to pt son Fred, he confirms that pt can stay with him and her is also staying there. He states pt will not be caring for her even though she is staying there. He is aware that a FWW will be obtained for pt. He is also aware that pt declined therapy but should she change her mind, she can contact her PCP. Pt son verbalizes understanding. Original Note: BASIL BAKER into pt room, pt sitting up in chair. Pt states she feels wobbly and weak. Pt is unsure if she will need therapy at home but is willing to work with therapy here for recommendations.
--- NOTE | 2023-01-01 15:52 | CASEMGMT ---
Addendum entered by Jasmin Willett 01/02/23 13:41: Social work SW canceled referral to TCU. JENNIFER Florentino Original Note: Social Work Referral was made to TCU, precert will be started and Adriana will let SW know if precert is attained. JENNIFER Florentino
--- NOTE | 2023-01-01 19:23 | PN.SURG_ITS ---
Subjective Subjective Patient was seen and examined during AM rounds. She reported some expected postoperative discomfort. She also reported an appetite despite ongoing reports of no bowel movement. She states her last bowel movement was Thursday. Later on in the day I heard from case management that patient would require a walker f or discharge home and then yet later worried that patient had requested possible evaluation for transitional care unit admission. Objective Data Objective Data Vital Signs: Vital Signs Temp Pulse Resp BP Pulse Ox O2 Del Method O2 Flow Rate 98.5 F 88 16 133/70 H 92 Room Air 2 01/01/23 15:50 01/01/23 15:50 01/01/23 15:50 01/01/23 15:50 01/01/23 15:50 01/01/23 15:50 01/01/23 07:10 Oxygen Flow Rate (L/min) 2 Oxygen Delivery Method Room Air Weight: 164 lb 7.437 oz Body Mass Index (BMI) 30.0 Intake & Output: Intake and Output for Last 24 Hours 12/30/22 12/31/22 01/01/23 23:59 23:59 23:59 Intake Total 1011.67 / 1011.67 2061.67 / 2061.67 1312.67 / 1312.67 Output Total 500 / 500 Balance 1011.67 / 1011.67 2061.67 / 1961.67 812.67 / 812.67 Lab / Micro Data Result Diagrams: 12/31/22 05:40 12/31/22 05:40 Micro: Microbiology 12/28/22 19:23 Urine, Clean Catch Urine Culture - Final Mixed Gram Positive Organisms Physical Exam Const oriented x3 Constitutional Narrative: Mild distress from abdominal discomfort Resp Resp Narrative: Mildly shallow respirations GI GI Narrative: Mildly distended, operative dressings with minimal strikethrough across the upper abdomen. Tenderness primarily present in the right lower quadrant over the site of patient's prior hernia. Patient's abdomen is otherwise soft. Assessment & Plan Assessment/Plan (1) Incarcerated right inguinal hernia: PLAN: This is an 82year-old female who was admitted via the emergency department 12/28/2022 for incarcerated right inguinal hernia that was the source of the small bowel obstruction. She is now postoperative day 1 from robot-assisted right inguinal hernia repair with mesh. Overall she is recovering as expected with some postoperative discomfort. She continues to report return of bowel function with flatus but no bowel movement. Patient has been on scheduled MiraLAX since yesterday but we will add lactulose x1. Originally sought to discharge patient to family members home, however, discharge was held on the account of hesitancy from patient and family and wanting to consider possible TCU admission. Based on PT evaluation and my own observation, I am not sure this is indicated. We have resolved to reevaluate the situation tomorrow. Charges/Coding Visit Charges Inpatient E&M: 43034 Subs Hosp L2
[2023-01-01] MEDS: Lactulose 20 GM/30 ML UDC 10 GM PO (20:49)
[2023-01-01] MEDS: Latanoprost 0.005% 1 Bottle 1 DRP OPHTHALMIC (20:50)
[2023-01-01] MEDS: Pravastatin 40 MG Tablet PO (20:50)
[2023-01-01] MEDS: Ondansetron 4 MG/2 ML Vial IV (20:53)
[2023-01-01] MEDS: Acetaminophen 325 MG Tablet 650 MG PO (20:53)
[2023-01-02 03:15] VITALS: BP 153/71; PULSE 75; RESP 17; TEMP 36.7; O2SAT 95
[2023-01-02] MEDS: Levothyroxine 88 MCG Tablet PO (06:18)
[2023-01-02 07:23] VITALS: O2SAT 95
--- NOTE | 2023-01-02 08:53 | CASEMGMT ---
Spoke with who states pt would like to go home. RN CM into pt room, pt states that she is going to go to her home alone with help from her brothers. Pt states she feels much better today and feels she can do the steps at home and she will stay on the lower level. Pt denies need for therapy. Provided FWW to her and she signed consignment form. Faxed referral to [facility] at this time via [facility]. Pt denies further needs.
[2023-01-02] MEDS: Losartan Potassium 50 MG Tablet PO (09:44)
[2023-01-02] MEDS: Spironolactone 25 MG Tablet PO (09:44)
[2023-01-02] MEDS: Polyethylene Glycol 3350 17 GM PACKET PO (09:44)
[2023-01-02] MEDS: Fluticasone 0.05% 1 SPRAY NASAL.SRY NASAL (09:44)
[2023-01-02 09:57] VITALS: BP 113/57; PULSE 87; RESP 18; TEMP 36.3; O2SAT 99
[2023-01-02 10:02] VITALS: O2SAT 94
[2023-01-02] MEDS: Furosemide 20 MG/2 ML VIAL IV (12:04)
[2023-01-02] MEDS: 0.9% Saline Lock 10 ML Syringe IV (12:04)
[2023-01-02 14:56] VITALS: BP 104/48; PULSE 93; RESP 18; TEMP 36.2; O2SAT 95
--- NOTE | 2023-01-02 15:09 | PHA.DC.MC ---
Pharmacy Service has performed discharge medication reconciliation and counseling for this patient. 1. TRAMADOL 50MG PO Q6H PRN PAIN The patient's discharge medication list was reviewed for discrepancies and discrepancies were resolved. Home Medications cholecalciferol (vitamin D3) 125 mcg (5,000 unit) capsule 125 mcg PO DAILY 12/20/19 fluticasone propionate 50 mcg/actuation nasal spray,suspension 1 spray intranasal DAILY 12/20/19 latanoprost 0.005 % eye drops 1 drp ophthalmic (eye) QHS 12/20/19 pravastatin 40 mg tablet 40 mg PO QHS #90 tabs 06/27/20 bupropion HCl 75 mg tablet 1 tablet PO DAILY 04/18/21 spironolactone 25 mg tablet 25 mg PO DAILY 02/03/22 levothyroxine 50 mcg tablet 88 mcg PO DAILY 07/10/22 irbesartan 150 mg tablet 150 mg PO DAILY #90 tabs 11/27/22 fesoterodine 4 mg tablet,extended release 24 hr 4 mg PO DAILY 12/28/22 tramadol 50 mg tablet 50 mg PO Q6H PRN PRN Pain Score 4-10 3 days #10 tabs 01/01/23 The patient was counseled on the following discharge medications and changes in medications for homegoing were reviewed. The Reason for Use, instructions for use, and potential side effects were reviewed for all new medications. The patient's questions regarding all of their medications were answered. The patient was able to verbally demonstrate an understanding of their discharge medications. Patient counseled by endless belt finisherTheron.
--- NOTE | 2023-01-02 15:24 | NURSING ---
Pt was on 2l NC all morning, this RN noticed that when I entered the room she was on RA from her previous walk to the bathroom. So I decided to check her oxygen, at rest on room air she was 96%. Walking on room air she was 93%. CM informed pt was taken off of her O2.
== END 2023-01-02 15:36 | disposition home or self-care (01) | DRG 352 ==
LOC: ED 19:28 → MS3 12-29 03:21
PROVIDERS: Anesthesiology; Admitting Provider Surgery; Emergency Provider Emergency Medicine; PCP Internal Medicine; Visit Provider Surgery
PROC: 0YU54JZ Supplement Right Inguinal Region with Synthetic Substitute, Percutaneous Endoscopic Approach (ICD-10-PCS; principal; 2022-12-31 11:40)
DX: K40.30 Unilateral inguinal hernia, with obstruction, without gangrene, not specified as recurrent (principal); E03.9 Hypothyroidism, unspecified; I10 Essential (primary) hypertension; E78.5 Hyperlipidemia, unspecified; N39.41 Urge incontinence; Z87.891 Personal history of nicotine dependence; Z79.890 Hormone replacement therapy; Z79.899 Other long term (current) drug therapy
CPT/HCPCS: 36415; 36600; 71045; 74018; 74177; 80048; 80053; 81001; 82803; 82962; 83605; 83690; 83735; 84100; 84443; 85025; 87086; 87088; 93005; 94640; 97112; 97162; 97166; 97535; 97802; 99284; J7030; J7120; Q9967; A4216; J1940; J2405

== ENCOUNTER 2023-08-04 18:23 | Emergency (ER) | payer MEDICARE, SELFPAY ==
[2023-08-04 18:23] VITALS: BP 142/65; PULSE 86; RESP 15; TEMP 36.4; O2SAT 98; BMI 32.4
--- NOTE | 2023-08-04 19:16 | EKG12_ITS ---
Test Reason : CP Blood Pressure : / mmHG Vent. Rate : 085 BPM Atrial Rate : 085 BPM P-R Int : 182 ms QRS Dur : 076 ms QT Int : 380 ms P-R-T Axes : 051 025 038 degrees QTc Int : 452 ms Normal sinus rhythm Possible Left atrial enlargement Septal infarct , age undetermined Abnormal ECG Confirmed by SAV CORREA, SAIMA ([id number]), assistant production editor GEOFFREY CORTES ([id number]) on 08/05/2023 9:14:03 AM Referred By: WERNER Confirmed By:SAIMA ANG MD
--- NOTE | 2023-08-04 19:25 | EDS_ITS ---
HPI <CONCHIS Tobias - Last Filed: 08/04/23 21:02> History of Present Illness Chief Complaint: Chest Pain Narrative Narrative: Patient presenting today with chest tightness that radiated across her chest that started around 1230 this afternoon. She reports that the pain subsided about 1/2-hour before arriving to the emergency department. She reports that she had a few episodes of nausea and vomiting today, but that has resolved. She reports that she did feel slightly short of breath during that time as well, but no longer feels short of breath. She was that she has had a slight cough over the past few days. She denies any fever, chills, abdominal pain, history of blood clots, recent surgery/procedures/travel/immobilization. She denies history of any cardiac conditions. She was at [facility]H of hypertension, hyperlipidemia, aortic stenosis. PFSH <CONCHIS Tobias - Last Filed: 08/04/23 21:02> [facility] Medical History Anemia Asymmetric septal hypertrophy Diverticulosis Essential hypertension Glaucoma Hyperlipidemia Hypothyroidism Lichen sclerosus LVH (left ventricular hypertrophy) Non-rheumatic aortic stenosis Obesity Osteopenia Home Medications cholecalciferol (vitamin D3) 125 mcg (5,000 unit) capsule 125 mcg PO DAILY 11/25 01/13 [History Last Taken Unknown] fluticasone propionate 50 mcg/actuation nasal spray,suspension 1 spray intranasal DAILY 12/20/19 [History Last Taken Unknown] latanoprost 0.005 % eye drops 1 drp ophthalmic (eye) QHS 12/20/19 [History Last Taken Unknown] pravastatin 40 mg tablet 40 mg PO QHS #90 tabs 06/27/20 [Rx Last Taken Unknown] bupropion HCl 75 mg tablet 1 tablet PO DAILY 04/18/21 [History Last Taken Unknown] spironolactone 25 mg tablet 25 mg PO DAILY 02/03/22 [History Last Taken Unknown] levothyroxine 50 mcg tablet 88 mcg PO DAILY 07/10/22 [History Last Taken Unknown] fesoterodine 4 mg tablet,extended release 24 hr 4 mg PO DAILY 12/28/22 [History Last Taken Unknown] tramadol 50 mg tablet 50 mg PO Q6H PRN PRN Pain Score 4-10 3 days #10 tabs 01/01/23 [Rx Last Taken Unknown] irbesartan 150 mg tablet 75 mg (1/2 x 150 mg) PO DAILY #90 tabs 01/28/23 [Rx Last Taken Unknown] Allergy/AdvReac Type Severity Reaction Status Date / Time codeine Allergy PT UNSURE Verified 12/28/22 18:57 OF REACTION losartan AdvReac Unknown Verified 12/28/22 18:57 quinapril [From Accupril] AdvReac Unknown Verified 12/28/22 18:57 Sulfa (Sulfonamide AdvReac unknown Verified 12/28/22 18:57 Antibiotics) Family History Mother Heart disease Father Heart disease Myocardial infarction from [place] age 67 Other CVA (cerebral vascular accident) Surgical History History of appendectomy History of inguinal hernia repair History of tubal ligation left foot surgery Social History Smoking Status: Former smoker quit date: 07/27/84 pack-years: 48 alcohol intake: current details: social substance use type: does not use caffeine: Yes what type of physical activity do you participate in: walking seatbelt use: always do you feel safe at home: Yes additional social history: Derek- Both are retired ROS <CONCHIS Tobias - Last Filed: 08/04/23 21:02> ROS ED Constitutional Constitutional ED: Denies chills or fever(s) Cardiovascular Cardiovascular: Reports other Details: Chest tightness Respiratory/Chest Respiratory/Chest: Denies cough or dyspnea Gastrointestinal Gastrointestinal: Reports nausea and vomiting; Denies abdominal pain Musculoskeletal Musculoskeletal: Denies arthralgias or myalgias Integumentary Denies rash Neurologic Neurologic: Denies weakness EXAM <CONCHIS Tobias - Last Filed: 08/04/23 21:02> Physical Exam Const Vital Signs: 08/04/23 18:23 08/04/23 18:44 08/04/23 20:23 Temperature 97.5 F L Temperature Source Temporal Pulse Rate 86 79 Respiratory Rate 15 12 Respiratory Pattern Normal Blood Pressure 142/65 H 114/64 Blood Pressure Mean 90 80 Pulse Ox 98 94 Oxygen Delivery Method Room Air Room Air Positive well nourished, well developed and no apparent distress General Appearance ED: well developed HEENT Reports normocephalic and head/scalp atraumatic Mouth ED: Yes moist mucous membranes normal Eyes PERRL and EOMs intact bilaterally Neck full ROM and supple Chest Wall inspection of chest normal Resp normal respiratory effort and clear to auscultation bilaterally Cardio regular rate and regular rhythm GI soft to palpation, non-tender, non-distended and no masses Back/Spine normal ROM and normal to inspection Extremity normal to inspection and full ROM Neuro oriented x3, CN's II-XII intact bilaterally, moves all extremities, no focal motor deficits and no sensory deficits noted Sensorium / Orientation: awake and alert Psych mental status grossly normal and thought process normal Skin no rashes or lesions noted and no wounds <Dr. Christiano Medley DO - Last Filed: 08/04/23 21:18> Physical Exam Const Vital Signs: 08/04/23 18:23 08/04/23 18:44 08/04/23 20:23 Temperature 97.5 F L Temperature Source Temporal Pulse Rate 86 79 Respiratory Rate 15 12 Respiratory Pattern Normal Blood Pressure 142/65 H 114/64 Blood Pressure Mean 90 80 Pulse Ox 98 94 Oxygen Delivery Method Room Air Room Air MDM <CONCHIS Tobias - Last Filed: 08/04/23 21:02> [facility] Narrative Medical decision making narrative: Patient presenting today due to chest tightness that radiated across her chest that she had this afternoon. It subsided about 1/2-hour before arriving to the ED. She is well-appearing and in no acute distress, vitals are unremarkable. She has a Wells score of 0, low suspicion for PE. Labs will be obtained to rule out leukocytosis, anemia, electrolyte abnormality, CHI, and ACS. Chest x-ray will be obtained to rule out infiltrate and other cardiopulmonary abnormality. Labs overall are unremarkable, troponin is 5. Chest x-ray does show a 8 mm nodule in the right lung. Patient has been made aware of this finding, I have encouraged her to follow-up with her PCP on this for CT imaging. She will be discharged home in stable condition and is comfortable with plan. Lab Data Attestation: I reviewed the patient's lab results. Labs: Laboratory Results - last 24 hr 08/04/23 18:45 WBC 8.7 RBC 4.19 L Hgb 13.4 Hct 39.7 MCV 94.7 MCH 32.0 MCHC 33.8 RDW Std Deviation 44.9 H RDW Coeff of Ezekiel 13.0 Plt Count 341 MPV 9.1 Immature Gran % (Auto) 0.600 Neut % (Auto) 73.3 H Lymph % (Auto) 15.5 L [place] % (Auto) 7.0 Eos % (Auto) 3.0 Baso % (Auto) 0.6 Absolute Neuts (auto) 6.4 Absolute Lymphs (auto) 1.35 Nucleated RBC % 0 Sodium 136 Potassium 4.0 Chloride 106 Carbon Dioxide 27.0 Anion Gap 3 L BUN 9 Creatinine 0.60 Estim Creat Clear Calc 49.14 Est GFR (MDRD) Af Amer 124 Est GFR (MDRD) Non-Af 103 BUN/Creatinine Ratio 15.1 Glucose 153 H Calcium 9.2 Troponin I High Sens 5 Radiography Chest X-Ray - ED: Read by ED Physician and Read by Radiologist Diagnostic Testing: Clinical Impression(s) from Imaging Studies Chest X-Ray 08/04/23 19:30 IMPRESSION: Left basilar atelectasis, otherwise no acute cardiopulmonary disease. Right apical lung nodule measuring 8 mm, recommend follow-up with CT chest for further characterization. Electronically Signed: Antonette Mead MD at 19:48 EST , EKG Initial EKG: Comments: 85 bpm, normal sinus rhythm, no ST elevation, reviewed and interpreted by attending ED physician. <Dr. Christiano Medley, DO - Last Filed: 08/04/23 21:18> [facility] Lab Data Labs: Laboratory Results - last 24 hr 08/04/23 18:45 WBC 8.7 RBC 4.19 L Hgb 13.4 Hct 39.7 MCV 94.7 MCH 32.0 MCHC 33.8 RDW Std Deviation 44.9 H RDW Coeff of Ezekiel 13.0 Plt Count 341 MPV 9.1 Immature Gran % (Auto) 0.600 Neut % (Auto) 73.3 H Lymph % (Auto) 15.5 L [place] % (Auto) 7.0 Eos % (Auto) 3.0 Baso % (Auto) 0.6 Absolute Neuts (auto) 6.4 Absolute Lymphs (auto) 1.35 Nucleated RBC % 0 Sodium 136 Potassium 4.0 Chloride 106 Carbon Dioxide 27.0 Anion Gap 3 L BUN 9 Creatinine 0.60 Estim Creat Clear Calc 49.14 Est GFR (MDRD) Af Amer 124 Est GFR (MDRD) Non-Af 103 BUN/Creatinine Ratio 15.1 Glucose 153 H Calcium 9.2 Troponin I High Sens 5 Radiography Diagnostic Testing: Clinical Impression(s) from Imaging Studies Chest X-Ray 08/04/23 19:30 IMPRESSION: Left basilar atelectasis, otherwise no acute cardiopulmonary disease. Right apical lung nodule measuring 8 mm, recommend follow-up with CT chest for further characterization. Electronically Signed: Antonette Mead MD at 19:48 EST , Treatment and Re-Evaluation :: I have personally performed a face to face assessment of the patient and have reviewed the CHARISSE Note. I performed a substantive portion of the visit including all aspects of the following. My mondragon findings include: History: Patient presents with chest pain that began today. Patient states it began rather suddenly. Patient states she was eating lunch when it began. Patient states has been constant until she arrived in the emergency department today. Patient states it lasted approximately 4 and half hours. Patient describes a tightness and pressure. Patient states it is over her entire chest. Patient states nothing makes it better nothing makes it worse. Patient admits to some nausea and vomiting with this pain. Patient admits to some shortness of breath with the pain. Exam: Vital signs are stable. Patient is afebrile. Patient is in no acute distress. Oral mucosa is pink and moist. Neck is supple. Trachea is midline. There is no JVD. Heart was regular rate and rhythm. Lungs are clear and equal bilaterally. Abdomen is soft. Bowel sounds are normal. There is no tenderness. There is no rebound or guarding noted. Cranial nerves II through XII are intact. There are no focal motor or sensory deficits noted. Medical Decision Making: Differential diagnosis includes cardiac dysrhythmia, cardiac ischemia, pneumonia, electrolyte abnormality, pneumothorax, and anxiety. EKG will be obtained to assess for cardiac dysrhythmia and cardiac ischemia. Chest x-ray will be obtained to assess for pneumonia and pneumothorax. CBC will be obtained to assess for leukocytosis and anemia. Basic metabolic profile will be obtained to assess for electrolyte abnormality and renal function. High- sensitivity troponin will be obtained to assess for cardiac ischemia. EKG was obtained. On my independent interpretation, it showed normal sinus rhythm with a rate of 85. VA interval, QRS interval, and QTc intervals were within normal limits. There are nonspecific ST-T wave changes noted. PA and lateral chest x-ray was obtained. There are 2 views. On my independent interpretation, lung green showed left basilar atelectasis and a right apical lung nodule measuring 8 mm. There is normal cardiac silhouette. Bony thorax is normal. There is no acute process noted. Radiologist also interpreted the x- ray and agrees. CBC was reviewed and was essentially within normal limits. Basic metabolic profile was reviewed and was essentially within normal limits. High-sensitivity troponin was reviewed and was normal at 5. Patient was advised of her findings. Patient has a HEART score of 4. Patient was instructed to follow-up with her primary care physician in 5 to 7 days for further evaluation. Patient and family understood and was agreeable with the plan. All questions were answered. Discharge Plan Triage Chief Complaint: Chest Pain ED Midlevel Provider: Argenis Gao ED Provider: Christiano Medley Dx/Rx/DC Orders Clinical Impression: Lung nodule, Chest tightness Instructions: ED Chest Pain, Uncertain Cause Prescriptions: No Action cholecalciferol (vitamin D3) 125 mcg (5,000 unit) capsule 125 mcg PO DAILY fluticasone propionate 50 mcg/actuation spray,suspension 1 spray INTRANASAL DAILY latanoprost 0.005 % drops 1 drp OPHTHALMIC QHS pravastatin 40 mg tablet 40 mg PO QHS Qty: 90 3RF bupropion HCl 75 mg tablet 1 tablet PO DAILY levothyroxine 50 mcg tablet 88 mcg PO DAILY fesoterodine 4 mg tablet extended release 24 hr 4 mg PO DAILY Patient Comments: TAKE 1 TABLET BY MOUTH ONCE DAILY tramadol 50 mg Tablet 50 mg PO Q6H PRN PRN (Reason: Pain Score 4-10) 3 Days Qty: 10 0RF spironolactone 25 mg tablet 25 mg PO DAILY irbesartan 150 mg tablet 75 mg PO DAILY Qty: 90 3RF Primary Care Provider: Maria Elena Resendiz Referrals: Maria Elena Resendiz MD [Primary Care Provider] - 3-5 Days Activity Restrictions/Additional Instructions: Your Chest x-ray shows a 8 mm right-sided lung nodule, recommend CT scan for further evaluation. Please follow-up with your PCP for this. Please return for any worsening of your symptoms. Disposition Disposition: Home, Self Care
--- NOTE | 2023-08-04 19:30 | RAD_ITS ---
STUDY: X-RAY CHEST REASON FOR EXAM: Female, 83 years old. chest pain TECHNIQUE: PA and lateral views of the chest. COMPARISON: 01/01/2020 3:00 PM FINDINGS: The lungs are underexpanded with mild vascular crowding. There is a right upper lung nodule measuring 8 mm. There is left basilar atelectasis. Remainder of the lung green are clear. There is no demonstrated pleural abnormality. There is borderline cardiomegaly. Normal mediastinum and corwin. Normal visualized pulmonary arteries. There is atherosclerotic calcification of the aortic arch with tortuosity. There is demineralization of the osseous structures. Degenerative disease of the shoulders and spine. Large hiatal hernia. RAD/Chest PA and Lateral IMPRESSION: Left basilar atelectasis, otherwise no acute cardiopulmonary disease. Right apical lung nodule measuring 8 mm, recommend follow-up with CT chest for further characterization. Electronically Signed: Antonette Mead MD at 19:48 EST ,
[2023-08-04 19:34] LABS: Absolute Lymphocyte Count 1.35 X10^3/uL (0.83-4.51); Absolute Neutrophil Count 6.4 X10^3/uL (2.0-7.7); Basophil# 0.05 X10^3/uL; Basophil% 0.6 % (0-1); Eosinophil# 0.26 X10^3/uL; Hematocrit 39.7 % (37-47); Hemoglobin 13.4 g/dL (12.0-15.0); Lymphocyte # 1.35 X10^3/ul (0.83-4.51); Lymphocyte % 15.5 % (19-41); Mean Corp Hgb Conc 33.8 g/dL (32-36); Mean Corpuscular Volume 94.7 fL (81-99); Mean Platelet Vol. 9.1 fl (6.2-12.0); Monocyte# 0.61 X10^3/uL; NRBC Flagged by Analyzer 0 % (0-5); Neutrophil # 6.39 X10^3/uL (2.7-7.7); Neutrophil % 73.3 % (47-70); Platelet Count 341 K/mm3 (150-450); RBC Distribution Width SD 44.9 fl (35.1-43.9); Red Blood Count 4.19 M/mm3 (4.2-5.4); White Blood Count 8.7 K/mm3 (4.4-11.0)
[2023-08-04 19:57] LABS: Anion Gap 3 (5-15); BUN 9 mg/dL (7-18); BUN/Creat Ratio 15.1 RATIO (10-20); Calcium,Total 9.2 mg/dL (8.5-10.1); Chloride 106 mmol/L (98-107); EST Glomerular Filtration Rate 103 mL/min (>60); Est Glom Filt Rate - Afr Amer 124 mL/min (>60); Estimated Creatinine Clearance 49.14 ml/min; Glucose 153 mg/dL (74-106); Sodium Level 136 mmol/L (136-145); Troponin-I HS 5 pg/mL (3.0-54.0)
--- OUTSIDE RECORDS SUMMARY | 2023-08-04 20:01 | XMS RPT_ITS | CCD ---
Author Name Unknown Address [id number] [place] [address] Organization [facility] Care Team Providers Care Cryptologic Technician Name Role Phone Brittnee Pelletier MD Unavailable [phone] Maria Elena Resendiz MD Primary Care Provider Maria Elena Resendiz MD Primary Care Provider Brittnee Pelletier MD Unavailable Maria Elena Resendiz MD Primary Care Provider GANTA, MARIA ELENA C Primary Care Unavailable GANTA, MARIA ELENA C Referring Unavailable GANTA, MARIA ELENA C Attending Unavailable GANTA, MARIA ELENA C Primary Care Unavailable Jesseta , Maria Elena Primary Care Provider Maria Elena Resendiz MD Primary Care Provider [phone] HERNESTO, ROSA Attending Unavailable GANTA, MARIA ELENA Primary Care Unavailable HERNESTO, JOE Referring Unavailable GANTA, MARIA ELENA Primary Care Unavailable HERNESTO, JOE Attending Unavailable GANTA, MARIA ELENA Primary Care Unavailable HERNESTO, JOE Referring Unavailable GANTA, MARIA ELENA Primary Care Unavailable GANTA, MARIA ELENA Primary Care Unavailable HERNESTO, JOE Attending Unavailable GANTA, MARIA ELENA Primary Care Unavailable GANTA, MARIA ELENA Primary Care Unavailable GANTA, MARIA ELENA Primary Care Unavailable [facility] Referring Unavailable GANTA, MARIA ELENA Attending Unavailable GANTA, MARIA ELENA Primary Care Unavailable GANTA, MARIA ELENA Referring Unavailable GANTA, MARIA ELENA Primary Care Unavailable GANTA, MARIA ELENA Primary Care Unavailable GANTA, MARIA ELENA Referring Unavailable GANTA, MARIA ELENA Primary Care Unavailable GANTA, MARIA ELENA Attending Unavailable GANTA, MARIA ELENA Primary Care Unavailable GANTA, MARIA ELENA Referring Unavailable GANTA, MARIA ELENA Primary Care Unavailable GANTA, MARIA ELENA Attending Unavailable GANTA, MARIA ELENA Referring Unavailable [facility] Primary [facility] Unavailable OLDERGENIE Attending Unavailable [facility] Unavailable OLDER, GENIE Referring Unavailable [facility] Primary Care Unavailable OLDER, GENIE Referring Unavailable [facility] Unavailable Allergies Allergy Classification Reported Allergen(s) Allergy Type Date of Onset Reaction(s) Facility (2 sources) sulfamethoxazole / trimethoprim drug allergy 03-27-20 17 [facility] (20 sources) Codeine; Translations: [CODEINE] Drug Allergy 08-22-19 06 Intolerance [facility] (20 sources) Losartan; Translations: [LOSARTAN] Drug Allergy 09-19-19 12 Other: See Comments [facility] Work Phone: (20 sources) Omeprazole; Translations: [OMEPRAZOLE] Drug Allergy 12-29-19 19 Diarrhea [facility] (20 sources) quinapril; Translations: [QUINAPRIL HCL] Drug Allergy 07-02-20 07 Cough [facility] Work Phone: (20 sources) Sulfonamides (Antibiotic); Translations: [SULFA (SULFONAMIDE ANTIBIOTICS)] Propensity to adverse reactions 06-12-20 05 Intolerance [facility] Work Phone: Medications Current Medications Medication Drug Class(es) Dates Sig (Normalized) Sig (Original) amoxicillin 875 mg / clavulanate 125 mg oral tablet (2 sources) Penicillin-class Antibacterial Start: 06-24-2023 End: 07-04-2023 take 1 tablet by mouth twice daily amoxicillin-clav ulanate potassium (AUGMENTIN) 875-125 mg per tablet Take 1 tablet by mouth two times a day for 10 days. 20 tablet 0 06/24/2023 07/04/2023 Active Completed/Discontinued Medications Medication Drug Class(es) Dates Sig (Normalized) Sig (Original) [id number] 200 actuat albuterol 0.09 mg/actuat metered dose inhaler (20 sources) beta2-Adrenergic Agonist Start: 12-07-2018 take 2 puff(s) by inhalation every six hours as needed albuterol HFA (PROAIR HFA) 90 mcg/actuation inhaler Indications: Pneumonia of left lower lobe due to infectious organism , Cough Inhale 2 Puffs as instructed every 6 hours as needed. 1 Inhaler 0 12/07/2018 Active Problems Active Problems Problem Classification Problem Date Documented Date Episodic/Chronic Abdominal pain (1 source) Indigestion; Translations: [Epigastric pain] Episodic Disorders of lipid metabolism (20 sources) Mixed hyperlipidemia; Translations: [Mixed hyperlipidemia] Onset: 02-02-2007 Chronic Essential hypertension (20 sources) Essential hypertension; Translations: [Essential (primary) hypertension] Onset: 11-13-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 Genitourinary symptoms and ill-defined conditions (2 sources) Mixed urinary incontinence; Translations: [Mixed incontinence] Onset: 03-27-2017 03-27-2017 Chronic Genitourinary symptoms and ill-defined conditions (1 source) Urinary symptoms ; Translations: [Unspecified symptoms and signs involving the genitourinary system] Episodic Glaucoma (20 sources) Glaucoma; Translations: [Unspecified glaucoma] Onset: 03-27-2014 07-22-2021 Chronic Heart valve disorders (20 sources) Aortic stenosis, non-rheumatic ; Translations: [Nonrheumatic aortic (valve) stenosis] Onset: 01-20-2022 Chronic Malaise and fatigue (1 source) Tired; Translations: [Other fatigue] Episodic Menopausal disorders (2 sources) Menopause present; Translations: [Menopausal and female climacteric states] Onset: 03-27-2017 03-27-2017 Chronic Mood disorders (2 sources) Mild major depression, single episode; Translations: [Major depressive disorder, single episode, mild] Chronic Nutritional deficiencies (1 source) Vitamin D deficiency; Translations: [Vitamin D deficiency, unspecified] Chronic Nutritional deficiencies (1 source) Iron deficiency; Translations: [Iron deficiency] Episodic Other and ill-defined heart disease (20 sources) Diastolic dysfunction; Translations: [Other ill-defined heart diseases] Onset: 01-20-2022 Chronic Other and ill-defined heart disease (20 sources) Left ventricular hypertrophy; Translations: [Cardiomegaly] Onset: 01-20-2022 Chronic Other connective tissue disease (2 sources) Pain in right lower limb; Translations: [Pain in right leg] 06-24-2023 Episodic Other connective tissue disease (1 source) Pain in right leg; Translations: [Pain of right lower extremity] Onset: 07-03-2023 Episodic Other lower respiratory disease (1 source) Cough; Translations: [Acute cough] Episodic Other nutritional; endocrine; and metabolic disorders (20 sources) Body mass index 30+ - obesity; Translations: [Body mass index (BMI) 36.0-36.9, adult] Onset: 06-16-2009 04-03-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 Other screening for suspected conditions (not mental disorders or infectious disease) (3 sources) Patient encounter status; Translations: [Encounter for screening mammogram for malignant neoplasm of breast] Onset: 04-17-2022 Episodic Other skin disorders (2 sources) Lichen sclerosus et atrophicus; Translations: [Lichen sclerosus et atrophicus] Onset: 03-27-2017 03-27-2017 Chronic Other skin disorders (20 sources) Lichen sclerosus et atrophicus; Translations: [Circumscribed scleroderma] 04-03-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 Residual codes; unclassified (1 source) Other specified personal risk factors, not elsewhere classified; Translations: [Other specified personal history presenting hazards to health] Episodic Residual codes; unclassified (1 source) Edema; Translations: [Edema, unspecified] 06-24-2023 Episodic Residual codes; unclassified (1 source) Edema, unspecified; Translations: [Edema, unspecified type] Onset: 06-24-2023 Episodic Skin and subcutaneous tissue infections (3 sources) Cellulitis of right lower limb; Translations: [Cellulitis of right lower limb] Onset: 06-24-2023 06-24-2023 Episodic Thyroid disorders (20 sources) Acquired hypothyroidism; Translations: [Hypothyroidism, unspecified] Onset: 09-15-2014 Chronic Unclassified (2 sources) Gynecologic examination ; Translations: [Encounter for gynecological examination (general) (routine) with abnormal findings] Onset: 03-27-2017 03-27-2017 Unclassified (1 source) No current problems or disability 03-11-2017 Unclassified (1 source) Recheck Onset: 07-31-2023 Urinary tract infections (2 sources) Urinary tract infectious disease; Translations: [Urinary tract infection, site not specified] Episodic Viral infection (1 source) Disease caused by 2019-nCoV; Translations: [COVID-19] Episodic Past or Other Problems Problem Classification Problem Date Documented Da te Episodic/Chronic Other bone disease and musculoskeletal deformities (2 sources) Osteopenia; Translations: [Other specified disorders of bone density and structure, unspecified site] Onset: 03-27-2017 03-27-2017 Episodic Results Test Name Value Interpretation Reference Range Facil ity Vital Signs Date Time Vital Sign Value Performing Clinician Sara almazan 07-03-2023 14:30-0500 Body weight 75.66 kg Joe Hernesto SAFETY [employer]POS[employer]OX[employer] CUSTODIAN.ACCOUNTANT AUDITOR Work Phone: [facility] 07-03-2023 14:30-0500 Diastolic blood pressure 72 mm[Hg] Joe Hernesto SAFETY [employer]POS[employer] BOXES CUSTODIAN.ACCOUNTANT AUDITOR Work Phone: [facility] 07-03-2023 14:30-0500 Heart rate 78 /min Joe Hernesto SAFETY [employer]POS[employer]OXES CUSTODIAN.ACCOUNTANT AUDITOR Work Phone: [facility] 07-03-2023 14:30-0500 Respiratory rate 16 /min Joe Hernesto [employer]AFETY [employer]POS[employer]OX[employer] CUSTODIAN.ACCOUNTANT AUDITOR Work Phone: [facility] 07-03-2023 14:30-0500 SaO2% (BldA) [Mass fraction] 98 % Joe Hernesto SAFET[employer]OX[employer] CUSTODIAN.ACCOUNTANT AUDITOR Work Phone: [facility] 07-03-2023 14:30-0500 Systolic blood pressure 124 mm[Hg] Joe Hernesto SAFETY DEPOS[employer] BOXES CUSTODIAN.ACCOUNTANT AUDITOR Work Phone: [facility] 06-24-2023 15:53-0500 Body height 152.4 cm Genie Older SAFETY DEPOS[employer]OXES CUSTODIAN.ACCOUNTANT AUDITOR Work Phone: [facility] 06-24-2023 15:53-0500 Body weight 75.3 kg Genie Older SAFETY [employer]POS[employer] BOXES CUSTODIAN.ACCOUNTANT AUDITOR Work Phone: [facility] 06-24-2023 15:53-0500 Diastolic blood pressure 60 mm[Hg] Genie Older SAFETY [employer]POS[employer]OXES CUSTODIAN.ACCOUNTANT AUDITOR Work Phone: [facility] 06-24-2023 15:53-0500 Heart rate 79 /min Genie Older [employer]AFETY [employer]POS[employer]OXES CUSTODIAN.ACCOUNTANT AUDITOR Work Phone: [facility] 06-24-2023 15:53-0500 Respiratory rate 12 /min Genie Older SAFETY [employer]OX[employer] CUSTODIAN.ACCOUNTANT AUDITOR Work Phone: [facility] 06-24-2023 15:53-0500 SaO2% (BldA) [Mass fraction] 93 % Genie Older [employer]ET[employer] CUSTODIAN.ACCOUNTANT AUDITOR Work Phone: [facility] 06-24-2023 15:53-0500 Systolic blood pressure 140 mm[Hg] Genie Mcdaniel [employer]AFETY [employer]OXES CUSTODIAN.ACCOUNTANT AUDITOR Work Phone: [facility] 04-04-2023 11:38-0400 Body temperature 97.81 [degF] Lindsey De Jesus SAFETY [employer]OX[employer] CUSTODIAN.ACCOUNTANT AUDITOR Work Phone: [facility] 04-04-2023 11:38-0400 Body weight 74.84 kg Lindsey De Jesus SAFETY DEPOS[employer] BOXES CUSTODIAN.ACCOUNTANT AUDITOR Work Phone: [facility] 04-04-2023 11:38-0400 Diastolic blood pressure 60 mm[Hg] Lindsey De Jesus SAFETY [employer]POS[employer] BOXES CUSTODIAN.ACCOUNTANT AUDITOR Work Phone: [facility] 04-04-2023 11:38-0400 Heart rate 82 /min Lindsey De Jesus SAFETY [employer]POS[employer] BOXES CUSTODIAN.ACCOUNTANT AUDITOR Work Phone: [facility] 04-04-2023 11:38-0400 Respiratory rate 16 /min Lindsey De Jesus SAFETY [employer]POS[employer]OXES CUSTODIAN.ACCOUNTANT AUDITOR Work Phone: [facility] 04-04-2023 11:38-0400 SaO2% (BldA) [Mass fraction] 97 % Lindsey De Jesus [employer]AFET[employer]OX[employer] CUSTODIAN.ACCOUNTANT AUDITOR Work Phone: [facility] 04-04-2023 11:38-0400 Systolic blood pressure 112 mm[Hg] Lindsey De Jesus SAFETY [employer]OX[employer] CUSTODIAN.ACCOUNTANT AUDITOR Work Phone: [facility] 01-12-2023 15:29-0400 Body weight 70.76 kg Maria Elena Resendiz MD Work Phone: [facility] 01-12-2023 15:29-0400 Diastolic blood pressure 50 mm[Hg] Maria Elena Resendiz MD Work Phone: [facility] 01-12-2023 15:29-0400 Heart rate 93 /min Maria Elena Resendiz MD Work Phone: [facility] 01-12-2023 15:29-0400 SaO2% (BldA) [Mass fraction] 98 % Maria Elena Resendiz MD Work Phone: [facility] 01-12-2023 15:29-0400 Systolic blood pressure 110 mm[Hg] Maria Elena Resendiz MD Work Phone: [facility] 10-27-2022 14:31-0400 Body temperature 97.9 [degF] Jet Vargas MD Work Phone: [facility] 10-27-2022 14:31-0400 Body weight 73.03 kg Jet Vargas MD Work Phone: [facility] 10-27-2022 14:31-0400 Diastolic blood pressure 68 mm[Hg] Jet Vargas MD Work Phone: [facility] 10-27-2022 14:31-0400 Heart rate 99 /min Jet Vargas MD Work Phone: [facility] 10-27-2022 14:31-0400 Respiratory rate 16 /min Jet Vargas MD Work Phone: [facility] 10-27-2022 14:31-0400 SaO2% (BldA) [Mass fraction] 66 % Jet Vargas MD Work Phone: [facility] 10-27-2022 14:31-0400 Systolic blood pressure 142 mm[Hg] Jet Vargas MD Work Phone: [facility] 10-20-2022 09:25-0400 Body height 152.4 cm Maria Elena Resendiz MD Work Phone: [facility] 10-20-2022 09:25-0400 Body temperature 97.9 [degF] Maria Elena Resendiz MD Work Phone: [facility] 10-20-2022 09:25-0400 Body weight 73.03 kg Maria Elena Resendiz MD Work Phone: [facility] 10-20-2022 09:25-0400 Diastolic blood pressure 78 mm[Hg] Maria Elena Resendiz MD Work Phone: [facility] 10-20-2022 09:25-0400 Heart rate 56 /min Maria Elena Resendiz MD Work Phone: [facility] 10-20-2022 09:25-0400 Respiratory rate 14 /min Maria Elena Resendiz MD Work Phone: [facility] 10-20-2022 09:25-0400 SaO2% (BldA) [Mass fraction] 94 % Maria Elena Resendiz MD Work Phone: [facility] 10-20-2022 09:25-0400 Systolic blood pressure 134 mm[Hg] Maria Elena Resendiz MD Work Phone: [facility] 08-27-2022 11:46-0500 Body height 152.4 cm Maria Elena Resendiz MD Work Phone: [facility] 08-27-2022 11:46-0500 Body temperature 97.39 [degF] Maria Elena Resendiz MD Work Phone: [facility] 08-27-2022 11:46-0500 Body weight 73.03 kg Maria Elena Resendiz MD Work Phone: [facility] 08-27-2022 11:46-0500 Diastolic blood pressure 60 mm[Hg] Maria Elena Resendiz MD Work Phone: [facility] 08-27-2022 11:46-0500 Heart rate 78 /min Maria Elena Resendiz MD Work Phone: [facility] 08-27-2022 11:46-0500 Respiratory rate 16 /min Maria Elena Resendiz MD Work Phone: [facility] 08-27-2022 11:46-0500 SaO2% (BldA) [Mass fraction] 99 % Maria Elena Resendiz MD Work Phone: [facility] 08-27-2022 11:46-0500 Systolic blood pressure 126 mm[Hg] Maria Elena Resendiz MD Work Phone: [facility] 06-20-2022 17:42-0500 Body temperature 100.9 [degF] Gertrude Stewart APRN.CNP Work Phone: [facility] 06-20-2022 17:42-0500 Body weight 74.3 kg Gertrude Stewart APRN.ACCOUNTANT AUDITOR Work Phone: [facility] 06-20-2022 17:42-0500 Diastolic blood pressure 82 mm[Hg] Gertrude Stewart APRN.ACCOUNTANT AUDITOR Work Phone: [facility] 06-20-2022 17:42-0500 Heart rate 104 /min Gertrudemigdalia Stewart APRN.ACCOUNTANT AUDITOR Work Phone: [facility] 06-20-2022 17:42-0500 Respiratory rate 20 /min Gertrudemigdalia Stewart APRN.ACCOUNTANT AUDITOR Work Phone: [facility] 06-20-2022 17:42-0500 SaO2% (BldA) [Mass fraction] 98 % Gertrude Stewart APRN.ACCOUNTANT AUDITOR Work Phone: [facility] 06-20-2022 17:42-0500 Systolic blood pressure 146 mm[Hg] Gertrude Stewart APRN.ACCOUNTANT AUDITOR Work Phone: [facility] 04-22-2022 09:25-0400 Body height 152.4 cm Maria Elena Resendiz MD Work Phone: [facility] 04-22-2022 09:25-0400 Body temperature 97.5 [degF] Maria Elena Resendiz MD Work Phone: [facility] 04-22-2022 09:25-0400 Body weight 72.12 kg Maria Elena Resendiz MD Work Phone: [facility] 04-22-2022 09:25-0400 Diastolic blood pressure 70 mm[Hg] Maria Elena Resendiz MD Work Phone: [facility] 04-22-2022 09:25-0400 Heart rate 82 /min Maria Elena Resendiz MD Work Phone: [facility] 04-22-2022 09:25-0400 Respiratory rate 14 /min Maria Elena Resendiz MD Work Phone: [facility] 04-22-2022 09:25-0400 SaO2% (BldA) [Mass fraction] 98 % Maria Elena Resendiz MD Work Phone: [facility] 04-22-2022 09:25-0400 Systolic blood pressure 128 mm[Hg] Maria Elena Resendiz MD Work Phone: [facility] 01-20-2022 09:32-0400 Body weight 75.75 kg Maria Elena Resendiz MD Work Phone: [facility] 01-20-2022 09:32-0400 Diastolic blood pressure 82 mm[Hg] Maria Elena Resendiz MD Work Phone: [facility] 01-20-2022 09:32-0400 Heart rate 82 /min Maria Elena Resendiz MD Work Phone: [facility] 01-20-2022 09:32-0400 Respiratory rate 16 /min Maria Elena Resendiz MD Work Phone: [facility] 01-20-2022 09:32-0400 SaO2% (BldA) [Mass fraction] 99 % Maria Elena Resendiz MD Work Phone: [facility] 01-20-2022 09:32-0400 Systolic blood pressure 136 mm[Hg] Maria Elena Resendiz MD Work Phone: [facility] 03-27-2017 11:03-0400 BMI (Body Mass Index) 34.29 kg/m2 Brittnee Pelletier MD [facility] 03-27-2017 11:03-0400 Body Temperature 98.3 [degF] Brittnee Pelletier MD [facility] 03-27-2017 11:03-0400 Body Temperature 98.29 [degF] Brittnee Pelletier MD [facility] 03-27-2017 11:03-0400 BP Diastolic 76 mm[Hg] Brittnee Pelletier MD [facility] 03-27-2017 11:03-0400 BP Systolic 144 mm[Hg] Brittnee Pelletier MD [facility] 03-27-2017 11:03-0400 Height 160.02 cm Brittnee Pelletier MD [facility] 03-27-2017 11:03-0400 Pulse (Heart Rate) 82 /min Brittnee Pelletier MD [facility] 03-27-2017 11:03-0400 Respiratory Rate 16 /min Brittnee Pelletier MD [facility] 03-27-2017 11:03-0400 Weight 87.82 kg Britt[facility] Encounters Encounter Date Encounter Type Care Provider Facility Start: 07-31-2023 End: 07-31-2023 ambulatory JOE ERIC Facility:[facility] Start: 07-26-2023 Telephone encounter Jasmin obando PA-C Work Phone: [facility] Procedures Date Procedure Procedure Detail Performing Clinician Start: 04-04-2023 Urnls dip stick/tabl et rgnt auto w/o microscopy Jasmin Marx PA-C Work Phone: Start: 10-27-2022 Urnls dip stick/tabl et rgnt auto w/o microscopy [facility] Provider Start: 05-11-2018 Adult depression screening assessment Maria Elena Resendiz MD Work Phone: Plan of Treatment Date Care Activity Detail Author Start: 06-24-2026 Diabetes Screening Diabetes Screenin [facility] Start: 10-14-2025 DIABETES SCREEN DIABETES SCREEN [facility] Start: 10-14-2025 [facility] Start: 01-16-2025 DIABETES SCREEN DIABETES SCREEN [facility] Start: 07-06-2023 DIABETES SCREEN DIABETES SCREEN [facility] Start: 06-24-2023 End: 09-23-2023 Basic metabolic 2000 panel - Serum or Plasma [facility] Work Phone: Immunizations Immunization Date Immunization Notes Care Provider Ever dong 06-27-2023 COVID-19 vaccine, ag e 12+ yr, season (PFIZER-BIONTECH) Joe Eric SAFETY [employer]POS[employer]OXES CUSTODIAN.ACCOUNTANT AUDITOR Work Phone: [facility] 06-27-2023 influenza, high dose seasonal, preservative-free Joe Eric SAFETY DEPOS[employer] BOXES CUSTODIAN.ACCOUNTANT AUDITOR Work Phone: [facility] 06-12-2022 influenza, high-dose , quadrivalent vaccine (FLUZONE HIGH DOSE QUADRIVALENT) Gertrude Stewart SAFETY DEPOSIT BOXES CUSTODIAN.ACCOUNTANT AUDITOR Work Phone: [facility] 06-12-2022 influenza virus vacc ine, unspecified formulation Genie Jonas KENNEDY Work Phone: [facility] 07-24-2021 zoster vaccine recombinant Maria Elena Resendiz MD Work Phone: [facility] Work Phone: 04-29-2021 influenza, high dose seasonal, preservative-free Maria Elena Resendiz MD Work Phone: [facility] 04-29-2021 influenza, high-dose , quadrivalent vaccine (FLUZONE HIGH DOSE QUADRIVALENT) Maria Elena Resendiz MD Work Phone: [facility] 04-29-2021 influenza virus vacc ine, unspecified formulation Maria Elena Resendiz MD Work Phone: [facility] 09-21-2020 COVID-19 vaccine, fu ll dose (MODERNA) Maria Elena Resendiz MD Work Phone: [facility] Work Phone: 08-24-2020 COVID-19 vaccine, fu ll dose (MODERNA) Maria Elena Resendiz MD Work Phone: [facility] Work Phone: 04-17-2020 influenza, high dose seasonal, preservative-free Maria Elena Resendiz MD Work Phone: [facility] Work Phone: 04-17-2020 influenza, high-dose , quadrivalent vaccine (FLUZONE HIGH DOSE QUADRIVALENT) Maria Elena Resendiz MD Work Phone: [facility] 05-06-2019 influenza, high dose seasonal, preservative-free Maria Elena Resendiz MD Work Phone: [facility] 04-11-2019 influenza, high dose seasonal, preservative-free Maria Elena Resendiz MD Work Phone: [facility] 07-31-2018 influenza, high dose seasonal, preservative-free Maria Elena Resendiz MD Work Phone: [facility] 10-15-2015 tetanus and diphther ia toxoids, adsorbed, preservative free, for adult use (5 Lf of tetanus toxoid and 2 Lf of diphtheria toxoid) Maria Elena Resendiz MD Work Phone: [facility] 09-15-2014 pneumococcal conjuga te vaccine, 13 valent Maria Elena Resendiz MD Work Phone: [facility] 05-17-2014 influenza, seasonal, injectable Maria Elena Resendiz MD Work Phone: [facility] Work Phone: 04-26-2013 influenza virus vacc ine, unspecified formulation Maria Elena Resendiz MD Work Phone: [facility] 07-17-2011 influenza virus vacc ine, unspecified formulation Maria Elena Resendiz MD Work Phone: [facility] 01-23-2011 zoster vaccine, live Maria Elena Resendiz MD Work Phone: [facility] 05-10-2009 influenza virus vacc ine, unspecified formulation Maria Elena Resendiz MD Work Phone: [facility] 05-26-2008 influenza virus vacc ine, whole virus Maria Elena Resendiz MD Work Phone: [facility] 07-02-2007 influenza virus vacc ine, unspecified formulation Maria Elena Resendiz MD Work Phone: [facility] Work Phone: 07-02-2007 pneumococcal polysaccharide vaccine, 23 valent Maria Elena Resendiz MD Work Phone: [facility] Work Phone: 07-27-2005 TD(adult) unspecifie d formulation Maria Elena Resendiz MD Work Phone: [facility] 07-27-2005 tetanus and diphther ia toxoids, adsorbed, preservative free, for adult use (2 Lf of tetanus toxoid and 2 Lf of diphtheria toxoid) Maria Elena Resendiz MD Work Phone: [facility] Work Phone: Payers Date Payer Category Payer Medicare AETNA MEDICARE A ETNA MEDICARE PPO [id number] 2021-[facility] [phone] [address] [place] [address] [facility] [id number] 2015 Medicare [id number] 2015 Medicare [id number] 1940 Unknown [id number] 1940 Unknown [id number] Social History Date Type Detail Facility Start: 12-11-2016 End: 04-22-2022 Tobacco smoking status NHIS Ex-smoker [facility] Start: 07-27-1960 End: 07-27-1984 History of tobacco use Current smoker [facility] Start: 07-27-1960 End: 07-27-1984 History of tobacco use Cigarette Smoker [facility] Start: 10-16-2021 End: 07-24-2023 Alcohol intake Current drinker of alcohol (finding) [facility] Start: 03-10-2016 History SDOH Alcohol Comment Socially [facility] Start: 1940 Sex Assigned At Not on file [facility] Start: 01-10-2022 End: 06-20-2022 Exposure to SARS-CoV-2 (event) Not sure [facility] Start: 12-11-2016 End: 01-12-2023 Cigarettes smoked current (pack per day) - Reported 2 [facility] Work Phone: Start: 12-11-2016 End: 04-22-2022 Tobacco use and exposure Smokeless tobacco non-user [facility] Work Phone: Tobacco smoking stat us ALIS Tobacco smoking consumption unknown [facility] Start: 04-22-2022 Tobacco Comment quit about 23 yrs, a go [facility] Start: 08-27-2022 End: 01-12-2023 Tobacco use panel [facility] Work Phone: Adult Depression Screening Assessment 0 [facility] [facility] Work Phone: Clinical Notes 03-15-2014 to 07-31-2023 Telephone Encounter - Esa JEANIE Saunders - 07/26/2023 10:51 AM ESTTelephone Encounter - Jasmin Marx PA-C - 07/26/2023 10:24 AM ESTTelephone Encounter - Andrew Liaalejandra MACIEL - 07/07/2023 8:29 AM EST Note Date & Type Note Facility 07-31-2023 Note HNO ID: [id number] Author: JOE ERIC APRN.ACCOUNTANT AUDITOR Service: ? Author Type: Nurse Practitioner Type: Progress Notes Filed: 07/31/2023 14:49 Note Text: SUBJECTIVE Francis Vitale is a 83 year old female here today for a check up on her medical problems. Chief Complaint Patient presents with: Recheck: right leg pain HPI Francis Vitale is a 83 year old female. She has been seen on several occasions for a right lower leg swelling, tenderness, and increased warmth with redness. Treated for cellulitis with Augmentin and Doxycycline. Currently on Keflex for a UTI. Has had an ultrasound that was negative for DVT, labs negative for gout and xray negative for any significant issues. We tried diuresing her by increasing her diuretic short term. This really did not have much impact. Her medications were reviewed today and her list is now up to date. Medications Current Outpatient Medications Medication Sig fesoterodine (TOVIAZ) 4 mg Tb24 extended release tablet Take 1 tablet by mouth once daily. spironolactone (ALDACTONE) 25 mg tablet Take 1 tablet by mouth once daily. pravastatin (PRAVACHOL) 40 mg tablet Take 1 tablet by mouth once daily. fluticasone (FLONASE) 50 mcg/actuation nasal spray Use 2 Sprays in each nostril once daily. Rinse mouth after use. levothyroxine (LEVOXYL) 88 mcg tablet Take 1 tablet by mouth once daily. Take on empty stomach. For Thyroid irbesartan (AVAPRO) 150 mg tablet Take 0.5 tablets by mouth once daily. buPROPion (WELLBUTRIN) 75 mg tablet Take 1 tablet by mouth once daily. timoloL maleate (TIMOPTIC) 0.5 % drpd Use 1 Drop in the right eye once daily. clobetasol (TEMOVATE) 0.05 % ointment Apply to affected area twice daily. latanoprost (XALATAN) 0.005 % ophthalmic solution Use 1 Drop in the right eye daily at bedtime. vitamin b complex tab Take 1 tablet by mouth once daily. Cholecalciferol, Vitamin D3, 2,000 unit cap Take 1 tablet by mouth once daily. THERAPEUTIC MULTIVITAMIN TAB Take one(1) tablet daily. cephALEXin (KEFLEX) 500 mg capsule Take 1 capsule by mouth three times a day for 7 days. vibegron (GEMTESA) 75 mg tablet Take 1 tablet by mouth once daily. (Patient not taking: Reported on 07/13/2023) albuterol HFA (PROAIR HFA) 90 mcg/actuation inhaler Inhale 2 Puffs as instructed every 6 hours as needed. calcium phosphate-vitamin D3 250 mg-12.5 mcg (500 unit) chew Take by mouth. (Patient not taking: Reported on 07/31/2023) No current facility-administered medications for this visit. ALLERGIES Allergen Reactions Codeine Intolerance Accupril [Quinapril* Cough Losartan Other: See Comments dizziness Omeprazole Diarrhea Sulfa (Sulfonamide * Intolerance ACTIVE PROBLEM LIST Nonrheumatic Aortic Valve Stenosis - 01/20/2022 Concentric Left Ventricular Hypertrophy - 01/20/2022 Diastolic Dysfunction - 01/20/2022 Medicare Annual Wellness Visit, Subsequent - 04/03/2015 Comment: Completed 04/03/15 Lichen Sclerosus Hypothyroidism - 09/15/2014 Glaucoma - 03/27/2014 Comment: right eye Bmi 31.0-31.9,Adult - 06/16/2009 Mixed Hyperlipidemia - 02/02/2007 Essential Hypertension Social History Tobacco Use Smoking status: Former Packs/day: 2.00 Years: 24.00 Additional pack years: 0.00 Total pack years: 48.00 Types: Cigarettes Start date: 07/27/1960 Quit date: 07/27/1984 Years since quittin.0 Smokeless tobacco: Never Tobacco comments: quit about 23 yrs, ago Substance Use Topics Alcohol use: Yes Comment: Socially Drug use: No Review of Systems Respiratory: Negative. Cardiovascular: Positive for leg swelling. Negative for chest pain and palpitations. OBJECTIVE BP 94/70 Pulse 94 Wt 165 lb (74.8kg) SpO2 95% Physical Exam Vitals and nursing note reviewed. Constitutional: General: She is awake. She is not in acute distress. Appearance: Normal appearance. She is well-developed and well-groomed. She is not ill-appearing, toxic-appearing or diaphoretic. HENT: Head: Normocephalic. Right Ear: External ear normal. Left Ear: External ear normal. Nose: Nose normal. Eyes: General: Vision grossly intact. Conjunctiva/sclera: Conjunctivae normal. Pupils: Pupils are equal, round, and reactive to light. Neck: Vascular: No JVD. Trachea: Trachea normal. Cardiovascular: Pulses: Normal pulses. Pulmonary: Effort: Pulmonary effort is normal. No accessory muscle usage, prolonged expiration or respiratory distress. Musculoskeletal: Cervical back: Neck supple. Right lower leg: Edema present. Skin: General: Skin is warm and dry. Capillary Refill: Capillary refill takes less than 2 seconds. Neurological: General: No focal deficit present. Mental Status: She is alert and oriented to person, place, and time. Mental status is at baseline. Psychiatric: Attention and Perception: Attention and perception normal. Mood and Affect: Mood and affect normal. Speech: Speech normal. Behavior: Behav (more content not included)... [facility] 07-26-2023 Miscellaneous Notes Pt was notified of the results. Pt verbalized understanding. Nicky See MA Please call and let patient know her urine culture showed she was resistant to the Keflex that she is on. I called in Macrobid. She should stop the Keflex and start Macrobid today. documented in this encounter [facility] 07-24-2023 Note HNO ID: [id number] Author: Gertrude Stewart APRN.ACCOUNTANT AUDITOR Service: ? Author Type: Nurse Practitioner Type: Progress Notes Filed: 07/24/2023 12:58 PM Note Text: CC: Patient presents with: Urinary Frequency: Frequency, urgency and burning x 1 day HPI Francis Vitale is a 83 year old female who presents with complaint of possible UTI. These symptoms have been present for 1 days. Associated symptoms: burning and pressure Denies: fever, chills, sweats, abdominal pain, and flank pain Treatments: nothing The ROS was otherwise negative. PMH, Medications, labs, allergies, and recent past visits with PCP were reviewed and updated as able. PHYSICAL EXAM: BP 126/76 Pulse 100 Temp 36.8 ?C (98.2 ?F) (Tympanic) Resp 18 Wt 74.9 kg (165 lb 3.2 oz) SpO2 99% BMI 32.26 kg/m? General: Well appearing and alert CV: Regular rate and rhythm without obvious murmur Lungs: clear to auscultation bilaterally Back: straight and symmetric Abdomen: soft, nontender, nondistended PAST MEDICAL HISTORY Diagnosis Date Anemia, unspecified Asymmetric septal hypertrophy (HCC) 12/09/2017 Benign neoplasm of colon Diarrhea Diverticulosis of colon (without mention of hemorrhage) Glaucoma 03/2014 right eye Hernia, incisional Hernia, ventral Incisional hernia without mention of obstruction or gangrene 06/16/2009 Lichen sclerosus Non-rheumatic aortic stenosis 12/09/2017 Osteopenia Other hammer toe (acquired) 06/12/2005 Tendonitis of foot Unspecified essential hypertension PAST SURGICAL HISTORY Procedure Laterality Date APPENDECTOMY COLONOSCOPY FLX DX W/COLLJ SPEC WHEN PFRMD 11/16/2006 Colonoscopy ESOPHAGOGASTRODUODENOSCOPY TRANSORAL DIAGNOSTIC 09/06/2001 EGD LAPS RPR RECURRENT INCAL HRNA NCRC8/STRANGULATED 08/28/2009 LLQ LIG/TRNSXJ FLP TUBE ABDL/VAG APPR UNI/BI Tubal ligation NEEDLE BIOPSY 08/2008 right breast,benign PAST SURGICAL HISTORY OF 02-25-06 repair left 2, 3, and 4 hammer toe deformity REPAIR FIRST ABDOMINAL WALL HERNIA 08/28/2009 With Mesh RPR 1ST INGUN HRNA AGE 5 YRS/> REDUCIBLE 05 Hernia repair, inguinal ALLERGIES Codeine, Accupril [Quinapril Hcl], Losartan, Omeprazole, and Sulfa (Sulfonamide Antibiotics) MEDICATIONS fesoterodine (TOVIAZ) 4 mg Tb24 extended release tablet Take 1 tablet by mouth once daily. spironolactone (ALDACTONE) 25 mg tablet Take 1 tablet by mouth once daily. pravastatin (PRAVACHOL) 40 mg tablet Take 1 tablet by mouth once daily. fluticasone (FLONASE) 50 mcg/actuation nasal spray Use 2 Sprays in each nostril once daily. Rinse mouth after use. levothyroxine (LEVOXYL) 88 mcg tablet Take 1 tablet by mouth once daily. Take on empty stomach. For Thyroid irbesartan (AVAPRO) 150 mg tablet Take 0.5 tablets by mouth once daily. buPROPion (WELLBUTRIN) 75 mg tablet Take 1 tablet by mouth once daily. timoloL maleate (TIMOPTIC) 0.5 % drpd Use 1 Drop in the right eye once daily. clobetasol (TEMOVATE) 0.05 % ointment Apply to affected area twice daily. calcium phosphate-vitamin D3 250 mg-12.5 mcg (500 unit) chew Take by mouth. latanoprost (XALATAN) 0.005 % ophthalmic solution Use 1 Drop in the right eye daily at bedtime. vitamin b complex tab Take 1 tablet by mouth once daily. Cholecalciferol, Vitamin D3, 2,000 unit cap Take 1 tablet by mouth once daily. THERAPEUTIC MULTIVITAMIN TAB Take one(1) tablet daily. cephALEXin (KEFLEX) 500 mg capsule Take 1 capsule by mouth two times a day for 7 days. vibegron (GEMTESA) 75 mg tablet Take 1 tablet by mouth once daily. (Patient not taking: Reported on 07/13/2023) albuterol HFA (PROAIR HFA) 90 mcg/actuation inhaler Inhale 2 Puffs as instructed every 6 hours as needed. FAMILY HISTORY Problem Relation Age of Onset Arthritis Mother Heart Mother Stroke Mother Osteoporosis Mother severe Heart Father mi Osteoporosis Maternal Aunt x2 Cancer Maternal Grandfather throat-- OF EMBOLUS POST SURGERY Colon Cancer Other 2 first cousins with colon cancer Colon Cancer Other Social History Tobacco Use Smoking status: Former Packs/day: 2.00 Years: 24.00 Additional pack years: 0.00 Total pack years: 48.00 Types: Cigarettes Start date: 07/27/1960 Quit date: 07/27/1984 Years since quittin.0 Smokeless tobacco: Never Tobacco comments: quit about 23 yrs, ago Substance Use Topics Alcohol use: Yes Comment: Socially Drug use: No ASSESSMENT/PLAN: 1. Urinary frequency - ICD9: 788.41, ICD10: R35.0 - UA DIP, URINE (POC) - URINE CULTURE - CEPHALEXIN 500 MG CAPSULE Prescription instructions reviewed with patient as applicable. Potential red flag symptoms discussed with the patient. Reviewed appropriate action plan to take if red flag symptoms occur. Patient agreeable to treatment plan. Gertrude Stewart APRN.AB [facility] 07-13-2023 Note HNO ID: [id number] Author: Ana Laura Hoang RT(R) Service: Radiology Author Type: Technologist Type: Progress Notes Filed: 07/13/2023 2:42 PM Note Text: Radiology Service Progress Note PATIENT NAME: Francis Vitale DATE OF SERVICE: July 13, 2023 TIME: 2:40 PM PATIENT IDENTITY VERIFICATION COMPLETED USING TWO (2) IDENTIFIERS: Name and Date of confirmed by patient verbally. FALL SCREENING: Has the patient had 2 falls in the last year or 1 fall with injury or currently using an Ambulatory Assistive Device (Walker, Cane, Wheelchair, Crutches, etc.)? Yes, Patient High Risk for Falls What interventions were put in place to prevent falls during this visit? Instructed Patient to Call for Help if Needed, Offered Assistance with Transfers/Clothing, and Increased Observations by Caregivers PATIENT GENDER DATA: Female. status: : No status: NO. PATIENT RELEVANT IMPLANT DATA REVIEWED: Yes RADIOLOGY DEPARTMENT: General X-ray: Exam(s) Completed: Lower Extremity X-Ray(s): Ankle, Right PERIPHERAL IV DATA: Not applicable SIGNED BY: RT Chidi(R) July 13, 2023 2:40 PM [facility] 07-13-2023 Note HNO ID: [id number] Author: Joe rEic APRN.ACCOUNTANT AUDITOR Service: ? Author Type: Nurse Practitioner Type: Progress Notes Filed: 07/14/2023 7:44 AM Note Text: SUBJECTIVE Francis Vitale is a 83 year old female here today for a check up on her medical problems. Chief Complaint Patient presents with: Recheck: right leg swelling HPI Francis Vitale is a 83 year old female. Here today for a recheck on the right leg. She has had persistent issues with some increased edema, pain, redness in the right lower leg, around the ankle. Redness is improving, still with some edema and with pain. No injury that she knows of. Work up with ultrasound was negative for DVT, uric acid level was normal. She had some improvements with treatments for cellulitis. Avoids salt, elevates when able. Her medications were reviewed today and her list is now up to date. Medications Current Outpatient Medications Medication Sig fesoterodine (TOVIAZ) 4 mg Tb24 extended release tablet Take 1 tablet by mouth once daily. pravastatin (PRAVACHOL) 40 mg tablet Take 1 tablet by mouth once daily. fluticasone (FLONASE) 50 mcg/actuation nasal spray Use 2 Sprays in each nostril once daily. Rinse mouth after use. levothyroxine (LEVOXYL) 88 mcg tablet Take 1 tablet by mouth once daily. Take on empty stomach. For Thyroid irbesartan (AVAPRO) 150 mg tablet Take 0.5 tablets by mouth once daily. buPROPion (WELLBUTRIN) 75 mg tablet Take 1 tablet by mouth once daily. timoloL maleate (TIMOPTIC) 0.5 % drpd Use 1 Drop in the right eye once daily. clobetasol (TEMOVATE) 0.05 % ointment Apply to affected area twice daily. calcium phosphate-vitamin D3 250 mg-12.5 mcg (500 unit) chew Take by mouth. latanoprost (XALATAN) 0.005 % ophthalmic solution Use 1 Drop in the right eye daily at bedtime. vitamin b complex tab Take 1 tablet by mouth once daily. Cholecalciferol, Vitamin D3, 2,000 unit cap Take 1 tablet by mouth once daily. THERAPEUTIC MULTIVITAMIN TAB Take one(1) tablet daily. spironolactone (ALDACTONE) 25 mg tablet Take 1 tablet by mouth once daily. vibegron (GEMTESA) 75 mg tablet Take 1 tablet by mouth once daily. (Patient not taking: Reported on 07/13/2023) albuterol HFA (PROAIR HFA) 90 mcg/actuation inhaler Inhale 2 Puffs as instructed every 6 hours as needed. No current facility-administered medications for this visit. ALLERGIES Allergen Reactions Codeine Intolerance Accupril [Quinapril* Cough Losartan Other: See Comments dizziness Omeprazole Diarrhea Sulfa (Sulfonamide * Intolerance ACTIVE PROBLEM LIST Nonrheumatic Aortic Valve Stenosis - 01/20/2022 Concentric Left Ventricular Hypertrophy - 01/20/2022 Diastolic Dysfunction - 01/20/2022 Medicare Annual Wellness Visit, Subsequent - 04/03/2015 Comment: Completed 04/03/15 Lichen Sclerosus Hypothyroidism - 09/15/2014 Glaucoma - 03/27/2014 Comment: right eye Bmi 31.0-31.9,Adult - 06/16/2009 Mixed Hyperlipidemia - 02/02/2007 Essential Hypertension Social History Tobacco Use Smoking status: Former Packs/day: 2.00 Years: 24.00 Additional pack years: 0.00 Total pack years: 48.00 Types: Cigarettes Start date: 07/27/1960 Quit date: 07/27/1984 Years since quittin.9 Smokeless tobacco: Never Tobacco comments: quit about 23 yrs, ago Substance Use Topics Alcohol use: Yes Comment: Socially Drug use: No Review of Systems Respiratory: Negative. Cardiovascular: Positive for leg swelling. Negative for chest pain and palpitations. OBJECTIVE BP 118/68 Pulse 94 Wt 164 lb (74.4kg) SpO2 98% Physical Exam Vitals and nursing note reviewed. Constitutional: General: She is awake. She is not in acute distress. Appearance: Normal appearance. She is well-developed and well-groomed. She is not ill-appearing, toxic-appearing or diaphoretic. HENT: Head: Normocephalic. Right Ear: External ear normal. Left Ear: External ear normal. Nose: Nose normal. Eyes: General: Vision grossly intact. Conjunctiva/sclera: Conjunctivae normal. Pupils: Pupils are equal, round, and reactive to light. Neck: Vascular: No JVD. Trachea: Trachea normal. Cardiovascular: Rate and Rhythm: Normal rate and regular rhythm. Pulses: Normal pulses. Heart sounds: Normal heart sounds. No murmur heard. Pulmonary: Effort: Pulmonary effort is normal. No accessory muscle usage, prolonged expiration or respiratory distress. Breath sounds: Normal breath sounds. Musculoskeletal: Cervical back: Neck supple. Right lower leg: Edema present. Skin: General: Skin is warm and dry. Capillary Refill: Capillary refill takes less than 2 seconds. Neurological: General: No focal deficit present. Mental Status: She is alert and oriented to person, place, and time. Mental status is at baseline. Psychiatric: Attention and Perception: Attention and perception normal. Mood and Affect: Mood and affect normal. Speech: Speech normal. Behav (more content not included)... [facility] 07-07-2023 Miscellaneous Notes Patient calling back can not come to appt on Thursday only Thursday. Scheduled for 07/13 with Joe Eric at 120 pm. PATIENT NOTIFIED OF SAME. Will call back to schedule follow up for 07/13/2023. Please encourage her to be propping up the foot/leg as much as she can. Since pain and redness is taking a while to improve can we see if she can schedule to come in for a recheck either on Thursday or Thursday? Thanks! Spoke with Pat and she states that the swelling has improved. No improvement in the redness and did mention that the pain is worse at 4-5:10 on the pain scale. Please call Pat and let her know that her uric acid level came back as normal so gout is an unlikely cause for her issues. Can we get an update on how her leg swelling, redness and pain is doing since changing her antibiotic? Thanks! documented in this encounter [facility] 07-03-2023 Note HNO ID: [id number] Author: Joe Eric APRN.CNP Service: ? Author Type: Nurse Practitioner Type: Progress Notes Filed: 07/03/2023 4:24 PM Note Text: SUBJECTIVE Francis Vitale is a 83 year old female here today for a check up on her medical problems. Chief Complaint Patient presents with: Follow Up Tests Results HPI Francis Vitale is a 83 year old female. She is an established patient of Dr. Resendiz. Here for a 1 week follow up. She saw Genie Mcdaniel last week. Discussed lower extremity edema. Worse to RLE. She started treatment for cellulitis and had an ultrasound done for DVT. Ultrasound was negative for any clots. She feels the swelling has improved just a little and the redness is about the same. Still having pain and some tenderness. Her medications were reviewed today and her list is now up to date. Medications Current Outpatient Medications Medication Sig pravastatin (PRAVACHOL) 40 mg tablet Take 1 tablet by mouth once daily. fluticasone (FLONASE) 50 mcg/actuation nasal spray Use 2 Sprays in each nostril once daily. Rinse mouth after use. amoxicillin-clavulanate potassium (AUGMENTIN) 875-125 mg per tablet Take 1 tablet by mouth two times a day for 10 days. levothyroxine (LEVOXYL) 88 mcg tablet Take 1 tablet by mouth once daily. Take on empty stomach. For Thyroid irbesartan (AVAPRO) 150 mg tablet Take 0.5 tablets by mouth once daily. buPROPion (WELLBUTRIN) 75 mg tablet Take 1 tablet by mouth once daily. vibegron (GEMTESA) 75 mg tablet Take 1 tablet by mouth once daily. spironolactone (ALDACTONE) 25 mg tablet Take 1 tablet by mouth once daily. timoloL maleate (TIMOPTIC) 0.5 % drpd Use 1 Drop in the right eye once daily. clobetasol (TEMOVATE) 0.05 % ointment Apply to affected area twice daily. albuterol HFA (PROAIR HFA) 90 mcg/actuation inhaler Inhale 2 Puffs as instructed every 6 hours as needed. calcium phosphate-vitamin D3 250 mg-12.5 mcg (500 unit) chew Take by mouth. latanoprost (XALATAN) 0.005 % ophthalmic solution Use 1 Drop in the right eye daily at bedtime. vitamin b complex tab Take 1 tablet by mouth once daily. Cholecalciferol, Vitamin D3, 2,000 unit cap Take 1 tablet by mouth once daily. THERAPEUTIC MULTIVITAMIN TAB Take one(1) tablet daily. doxycycline (VIBRA-TABS) 100 mg tablet Take 1 tablet by mouth two times a day for 10 days. No current facility-administered medications for this visit. ALLERGIES Allergen Reactions Codeine Intolerance Accupril [Quinapril* Cough Losartan Other: See Comments dizziness Omeprazole Diarrhea Sulfa (Sulfonamide * Intolerance ACTIVE PROBLEM LIST Nonrheumatic Aortic Valve Stenosis - 01/20/2022 Concentric Left Ventricular Hypertrophy - 01/20/2022 Diastolic Dysfunction - 01/20/2022 Medicare Annual Wellness Visit, Subsequent - 04/03/2015 Comment: Completed 04/03/15 Lichen Sclerosus Hypothyroidism - 09/15/2014 Glaucoma - 03/27/2014 Comment: right eye Bmi 31.0-31.9,Adult - 06/16/2009 Mixed Hyperlipidemia - 02/02/2007 Essential Hypertension Social History Tobacco Use Smoking status: Former Packs/day: 2.00 Years: 24.00 Additional pack years: 0.00 Total pack years: 48.00 Types: Cigarettes Start date: 07/27/1960 Quit date: 07/27/1984 Years since quittin.9 Smokeless tobacco: Never Tobacco comments: quit about 23 yrs, ago Substance Use Topics Alcohol use: Yes Comment: Socially Drug use: No Review of Systems Respiratory: Negative. Cardiovascular: Positive for leg swelling. Negative for chest pain and palpitations. OBJECTIVE BP 124/72 Pulse 78 Resp 16 Wt 166 lb 12.8 oz (75.7kg) SpO2 98% Physical Exam Vitals and nursing note reviewed. Constitutional: General: She is awake. She is not in acute distress. Appearance: Normal appearance. She is well-developed and well-groomed. She is not ill-appearing, toxic-appearing or diaphoretic. HENT: Head: Normocephalic. Right Ear: External ear normal. Left Ear: External ear normal. Nose: Nose normal. Eyes: General: Vision grossly intact. Conjunctiva/sclera: Conjunctivae normal. Pupils: Pupils are equal, round, and reactive to light. Neck: Vascular: No JVD. Trachea: Trachea normal. Cardiovascular: Pulses: Normal pulses. Pulmonary: Effort: Pulmonary effort is normal. No accessory muscle usage, prolonged expiration or respiratory distress. Musculoskeletal: Cervical back: Neck supple. Right lower leg: Edema (slight ankle edema) present. Skin: General: Skin is warm and dry. Capillary Refill: Capillary refill takes less than 2 seconds. Comments: Slight erythema around the ankle, does not extend past prior line drawn by provider last week Neurological: General: No focal deficit present. Mental Status: She is alert and oriented to person, place, and time. Mental status is at baseline. Psychiatric: Attention and Perception: Attention and perception normal. Mood and Affect: Mood an (more content not included)... [facility] 07-03-2023 History of Presen t illness Narrative Images from the original note were not included. SUBJECTIVE Francis Vitale is a 83 year old female here today for a check up on her medical problems. Chief Complaint Patient presents with: Follow Up Tests Results HPI Francis Vitale is a 83 year old female. She is an established patient of Dr. Resendiz. Here for a 1 week follow up. She saw Genie Mcdaniel last week. Discussed lower extremity edema. Worse to RLE. She started treatment for cellulitis and had an ultrasound done for DVT. Ultrasound was negative for any clots. She feels the swelling has improved just a little and the redness is about the same. Still having pain and some tenderness. Her medications were reviewed today and her list is now up to date. Medications Current Outpatient Medications Medication Sig pravastatin (PRAVACHOL) 40 mg tablet Take 1 tablet by mouth once daily. fluticasone (FLONASE) 50 mcg/actuation nasal spray Use 2 Sprays in each nostril once daily. Rinse mouth after use. amoxicillin-clavulanate potassium (AUGMENTIN) 875-125 mg per tablet Take 1 tablet by mouth two times a day for 10 days. levothyroxine (LEVOXYL) 88 mcg tablet Take 1 tablet by mouth once daily. Take on empty stomach. For Thyroid irbesartan (AVAPRO) 150 mg tablet Take 0.5 tablets by mouth once daily. buPROPion (WELLBUTRIN) 75 mg tablet Take 1 tablet by mouth once daily. vibegron (GEMTESA) 75 mg tablet Take 1 tablet by mouth once daily. spironolactone (ALDACTONE) 25 mg tablet Take 1 tablet by mouth once daily. timoloL maleate (TIMOPTIC) 0.5 % drpd Use 1 Drop in the right eye once daily. clobetasol (TEMOVATE) 0.05 % ointment Apply to affected area twice daily. albuterol HFA (PROAIR HFA) 90 mcg/actuation inhaler Inhale 2 Puffs as instructed every 6 hours as needed. calcium phosphate-vitamin D3 250 mg-12.5 mcg (500 unit) chew Take by mouth. latanoprost (XALATAN) 0.005 % ophthalmic solution Use 1 Drop in the right eye daily at bedtime. vitamin b complex tab Take 1 tablet by mouth once daily. Cholecalciferol, Vitamin D3, 2,000 unit cap Take 1 tablet by mouth once daily. THERAPEUTIC MULTIVITAMIN TAB Take one(1) tablet daily. doxycycline (VIBRA-TABS) 100 mg tablet Take 1 tablet by mouth two times a day for 10 days. No current facility-administered medications for this visit. ALLERGIES Allergen Reactions Codeine Intolerance Accupril [Quinapril* Cough Losartan Other: See Comments dizziness Omeprazole Diarrhea Sulfa (Sulfonamide * Intolerance ACTIVE PROBLEM LIST Nonrheumatic Aortic Valve Stenosis - 01/20/2022 Concentric Left Ventricular Hypertrophy - 01/20/2022 Diastolic Dysfunction - 01/20/2022 Medicare Annual Wellness Visit, Subsequent - 04/03/2015 Comment: Completed 04/03/15 Lichen Sclerosus Hypothyroidism - 09/15/2014 Glaucoma - 03/27/2014 Comment: right eye Bmi 31.0-31.9,Adult - 06/16/2009 Mixed Hyperlipidemia - 02/02/2007 Essential Hypertension Social History Tobacco Use Smoking status: Former Packs/day: 2.00 Years: 24.00 Additional pack years: 0.00 Total pack years: 48.00 Types: Cigarettes Start date: 07/27/1960 Quit date: 07/27/1984 Years since quittin.9 Smokeless tobacco: Never Tobacco comments: quit about 23 yrs, ago Substance Use Topics Alcohol use: Yes Comment: Socially Drug use: No Review of Systems Respiratory: Negative. Cardiovascular: Positive for leg swelling. Negative for chest pain and palpitations. OBJECTIVE BP 124/72 Pulse 78 Resp 16 Wt 166 lb 12.8 oz (75.7kg) SpO2 98% Physical Exam Vitals and nursing note reviewed. Constitutional: General: She is awake. She is not in acute distress. Appearance: Normal appearance. She is well-developed and well-groomed. She is not ill-appearing, toxic-appearing or diaphoretic. HENT: Head: Normocephalic. Right Ear: External ear normal. Left Ear: External ear normal. Nose: Nose normal. Eyes: General: Vision grossly intact. Conjunctiva/sclera: Conjunctivae normal. Pupils: Pupils are equal, round, and reactive to light. Neck: Vascular: No JVD. Trachea: Trachea normal. Cardiovascular: Pulses: Normal pulses. Pulmonary: Effort: Pulmonary effort is normal. No accessory muscle usage, prolonged expiration or respiratory distress. Musculoskeletal: Cervical back: Neck supple. Right lower leg: Edema (slight ankle edema) present. Skin: General: Skin is warm and dry. Capillary Refill: Capillary refill takes less than 2 seconds. Comments: Slight erythema around the ankle, does not extend past prior line drawn by provider last week Neurological: General: No focal deficit present. Mental Status: She is alert and oriented to person, place, and time. Mental status is at baseline. Psychiatric: Attention and Perception: Attention and perception normal. Mood and Affect: Mood and affect normal. Speech: Speech normal. Behavior: Behavior normal. Behavior is cooperative. Thought Content: Thought content normal. Cognition and Memory: Cognition and memory normal. Judgment: Judgment normal. ASSESSMENT/PLAN: 1. Cellulitis of right lower extremity - ICD9: 682.6, ICD10: L03.115 (primary diagnosis) Very little improvement, ultrasound negative for DVT. - Begin treatment with doxy, stop the Augmentin - No lymphangetic streaking, this was defined for patient to watch for and to seek medical care immediately if appears - Area of cellulitis defined with pen, seek further attention if this area continues to enlarge - DOXYCYCLINE HYCLATE 100 MG TABLET 2. Pain of right lower extremity - ICD9: 729.5, ICD10: M79.604 Rule out a gout as the cause for the pain - URIC ACID BLOOD Portions of this note have been entered by ancillary staff. I have reviewed and when necessary edited, so that they are an adequate record of my encounter with this patient Please note that parts of this document were created using voice recognition software and therefore may contain grammatical errors. Patient verbalizes understanding of instructions from today's visit and in agreement with treatment plan. Questions answered. Agrees to call the office if questions, concerns of issues with acute symptoms not improving or if they worsen. See diagnoses and orders for additional plan(s). Allergies and medications were reviewed, list was updated, and refills given if needed. Past medical, surgical, social, and family history reviewed and updated as appropriate. Encouraged proper diet & exercise as well as compliance with taking medications. Age-appropriate health preventative measures were discussed. Return if symptoms worsen or fail to improve, for Keep next scheduled appointment.. JOZEF Painting documented in this encounter [facility] 06-24-2023 Note HNO ID: [id number] Author: Genie Mcdaniel APRN.CNP Service: ? Author Type: Nurse Practitioner Type: Progress Notes Filed: 06/24/2023 7:07 PM Note Text: CC: Patient presents with: Same Day Appointment: c/o right leg pain worse than left leg, swelling, tingling and burning HPI Francis Vitale is a 83 year old female who presents today for right leg pain Edema to RLE and burning pain to RLE for the past few weeks. Also noticed a pink wound and redness to RLE at the same time. Has not gone away or gotten worse. Does have small amount of swelling to LLE but much smaller than the RLE and has no redness or pain. No history of DVTs, recent illnesses, injuries, or recent surgeries. Is caring for her . Denies fever, chills, drainage, shortness of breath, palpitations, or chest pressure. Is on spironolactone without change. REVIEW OF SYSTEMS General: no fevers, no chills, no night sweats, no recurrent infections, no change in appetite, no change in energy, and no significant changes in weight Respiratory: no cough, no wheezing, no shortness of breath, no hemoptysis Cardiovascular: no chest pain, no chest pressure, no palpitations, Neurologic: No headache, weakness, numbness, tingling, dizziness, memory loss, syncope. PAST MEDICAL HISTORY Diagnosis Date Anemia, unspecified Asymmetric septal hypertrophy (HCC) 12/09/2017 Benign neoplasm of colon Diarrhea Diverticulosis of colon (without mention of hemorrhage) Glaucoma 03/2014 right eye Hernia, incisional Hernia, ventral Incisional hernia without mention of obstruction or gangrene 06/16/2009 Lichen sclerosus Non-rheumatic aortic stenosis 12/09/2017 Osteopenia Other hammer toe (acquired) 06/12/2005 Tendonitis of foot Unspecified essential hypertension PAST SURGICAL HISTORY Procedure Laterality Date APPENDECTOMY COLONOSCOPY FLX DX W/COLLJ SPEC WHEN PFRMD 11/16/2006 Colonoscopy ESOPHAGOGASTRODUODENOSCOPY TRANSORAL DIAGNOSTIC 09/06/2001 EGD LAPS RPR RECURRENT INCAL HRNA NCRC8/STRANGULATED 08/28/2009 LLQ LIG/TRNSXJ FLP TUBE ABDL/VAG APPR UNI/BI Tubal ligation NEEDLE BIOPSY 08/2008 right breast,benign PAST SURGICAL HISTORY OF 02-25-06 repair left 2, 3, and 4 hammer toe deformity REPAIR FIRST ABDOMINAL WALL HERNIA 08/28/2009 With Mesh RPR 1ST INGUN HRNA AGE 5 YRS/> REDUCIBLE 05 Hernia repair, inguinal ALLERGIES Codeine, Accupril [Quinapril Hcl], Losartan, Omeprazole, and Sulfa (Sulfonamide Antibiotics) MEDICATIONS levothyroxine (LEVOXYL) 88 mcg tablet Take 1 tablet by mouth once daily. Take on empty stomach. For Thyroid sucralfate (CARAFATE) 1 gram tablet Take 1 tablet by mouth twice daily. irbesartan (AVAPRO) 150 mg tablet Take 0.5 tablets by mouth once daily. buPROPion (WELLBUTRIN) 75 mg tablet Take 1 tablet by mouth once daily. vibegron (GEMTESA) 75 mg tablet Take 1 tablet by mouth once daily. spironolactone (ALDACTONE) 25 mg tablet Take 1 tablet by mouth once daily. timoloL maleate (TIMOPTIC) 0.5 % drpd Use 1 Drop in the right eye once daily. (Patient not taking: Reported on 01/12/2023) pravastatin (PRAVACHOL) 40 mg tablet Take 1 tablet by mouth once daily. clobetasol (TEMOVATE) 0.05 % ointment Apply to affected area twice daily. fluticasone (FLONASE) 50 mcg/actuation nasal spray Use 2 Sprays in each nostril once daily. Rinse mouth after use. albuterol HFA (PROAIR HFA) 90 mcg/actuation inhaler Inhale 2 Puffs as instructed every 6 hours as needed. calcium phosphate-vitamin D3 250 mg-12.5 mcg (500 unit) chew Take by mouth. (Patient not taking: No sig reported) latanoprost (XALATAN) 0.005 % ophthalmic solution Use 1 Drop in the right eye daily at bedtime. vitamin b complex tab Take 1 tablet by mouth once daily. Cholecalciferol, Vitamin D3, 2,000 unit cap Take 1 tablet by mouth once daily. THERAPEUTIC MULTIVITAMIN TAB Take one(1) tablet daily. FAMILY HISTORY Problem Relation Age of Onset Arthritis Mother Heart Mother Stroke Mother Osteoporosis Mother severe Heart Father mi Osteoporosis Maternal Aunt x2 Cancer Maternal Grandfather throat-- OF EMBOLUS POST SURGERY Colon Cancer Other 2 first cousins with colon cancer Colon Cancer Other Social History Tobacco Use Smoking status: Former Packs/day: 2.00 Years: 24.00 Additional pack years: 0.00 Total pack years: 48.00 Types: Cigarettes Start date: 07/27/1960 Quit date: 07/27/1984 Years since quittin.9 Smokeless tobacco: Never Tobacco comments: quit about 23 yrs, ago Substance Use Topics Alcohol use: Yes Comment: Socially Drug use: No PHYSICAL EXAM BP 140/60 (BP Site: Left Arm, BP Position: Sitting, BP Cuff Size: Regular Adult) Pulse 79 Resp 12 Ht 152.4 cm (5') Wt 75.3 kg (166 lb) SpO2 93% BMI 32.42 kg/m? General Appearance: well appearing, in no acute distress, alert Eyes: conjunctiva pink and moist, no icterus, sclera white, non-injected Lungs: Lungs clear (more content not included)... [facility] 06-24-2023 History of Presen t illness Narrative CC: Patient presents with: Same Day Appointment: c/o right leg pain worse than left leg, swelling, tingling and burning HPI Francis Vitale is a 83 year old female who presents today for right leg pain Edema to RLE and burning pain to RLE for the past few weeks. Also noticed a pink wound and redness to RLE at the same time. Has not gone away or gotten worse. Does have small amount of swelling to LLE but much smaller than the RLE and has no redness or pain. No history of DVTs, recent illnesses, injuries, or recent surgeries. Is caring for her . Denies fever, chills, drainage, shortness of breath, palpitations, or chest pressure. Is on spironolactone without change. REVIEW OF SYSTEMS General: no fevers, no chills, no night sweats, no recurrent infections, no change in appetite, no change in energy, and no significant changes in weight Respiratory: no cough, no wheezing, no shortness of breath, no hemoptysis Cardiovascular: no chest pain, no chest pressure, no palpitations, Neurologic: No headache, weakness, numbness, tingling, dizziness, memory loss, syncope. PAST MEDICAL HISTORY Diagnosis Date Anemia, unspecified Asymmetric septal hypertrophy (HCC) 12/09/2017 Benign neoplasm of colon Diarrhea Diverticulosis of colon (without mention of hemorrhage) Glaucoma 03/2014 right eye Hernia, incisional Hernia, ventral Incisional hernia without mention of obstruction or gangrene 06/16/2009 Lichen sclerosus Non-rheumatic aortic stenosis 12/09/2017 Osteopenia Other hammer toe (acquired) 06/12/2005 Tendonitis of foot Unspecified essential hypertension PAST SURGICAL HISTORY Procedure Laterality Date APPENDECTOMY COLONOSCOPY FLX DX W/COLLJ SPEC WHEN PFRMD 11/16/2006 Colonoscopy ESOPHAGOGASTRODUODENOSCOPY TRANSORAL DIAGNOSTIC 09/06/2001 EGD LAPS RPR RECURRENT INCAL HRNA NCRC8/STRANGULATED 08/28/2009 LLQ LIG/TRNSXJ FLP TUBE ABDL/VAG APPR UNI/BI Tubal ligation NEEDLE BIOPSY 08/2008 right breast,benign PAST SURGICAL HISTORY OF 02-25-06 repair left 2, 3, and 4 hammer toe deformity REPAIR FIRST ABDOMINAL WALL HERNIA 08/28/2009 With Mesh RPR 1ST INGUN HRNA AGE 5 YRS/> REDUCIBLE 05 Hernia repair, inguinal ALLERGIES Codeine, Accupril [Quinapril Hcl], Losartan, Omeprazole, and Sulfa (Sulfonamide Antibiotics) MEDICATIONS levothyroxine (LEVOXYL) 88 mcg tablet Take 1 tablet by mouth once daily. Take on empty stomach. For Thyroid sucralfate (CARAFATE) 1 gram tablet Take 1 tablet by mouth twice daily. irbesartan (AVAPRO) 150 mg tablet Take 0.5 tablets by mouth once daily. buPROPion (WELLBUTRIN) 75 mg tablet Take 1 tablet by mouth once daily. vibegron (GEMTESA) 75 mg tablet Take 1 tablet by mouth once daily. spironolactone (ALDACTONE) 25 mg tablet Take 1 tablet by mouth once daily. timoloL maleate (TIMOPTIC) 0.5 % drpd Use 1 Drop in the right eye once daily. (Patient not taking: Reported on 01/12/2023) pravastatin (PRAVACHOL) 40 mg tablet Take 1 tablet by mouth once daily. clobetasol (TEMOVATE) 0.05 % ointment Apply to affected area twice daily. fluticasone (FLONASE) 50 mcg/actuation nasal spray Use 2 Sprays in each nostril once daily. Rinse mouth after use. albuterol HFA (PROAIR HFA) 90 mcg/actuation inhaler Inhale 2 Puffs as instructed every 6 hours as needed. calcium phosphate-vitamin D3 250 mg-12.5 mcg (500 unit) chew Take by mouth. (Patient not taking: No sig reported) latanoprost (XALATAN) 0.005 % ophthalmic solution Use 1 Drop in the right eye daily at bedtime. vitamin b complex tab Take 1 tablet by mouth once daily. Cholecalciferol, Vitamin D3, 2,000 unit cap Take 1 tablet by mouth once daily. THERAPEUTIC MULTIVITAMIN TAB Take one(1) tablet daily. FAMILY HISTORY Problem Relation Age of Onset Arthritis Mother Heart Mother Stroke Mother Osteoporosis Mother severe Heart Father mi Osteoporosis Maternal Aunt x2 Cancer Maternal Grandfather throat-- OF EMBOLUS POST SURGERY Colon Cancer Other 2 first cousins with colon cancer Colon Cancer Other Social History Tobacco Use Smoking status: Former Packs/day: 2.00 Years: 24.00 Additional pack years: 0.00 Total pack years: 48.00 Types: Cigarettes Start date: 07/27/1960 Quit date: 07/27/1984 Years since quittin.9 Smokeless tobacco: Never Tobacco comments: quit about 23 yrs, ago Substance Use Topics Alcohol use: Yes Comment: Socially Drug use: No PHYSICAL EXAM BP 140/60 (BP Site: Left Arm, BP Position: Sitting, BP Cuff Size: Regular Adult) Pulse 79 Resp 12 Ht 152.4 cm (5') Wt 75.3 kg (166 lb) SpO2 93% BMI 32.42 kg/m General Appearance: well appearing, in no acute distress, alert Eyes: conjunctiva pink and moist, no icterus, sclera white, non-injected Lungs: Lungs clear to auscultation. No wheezing, rhonchi, rales. Heart: RRR without murmur, gallop, or rubs. No ectopy RLE Extremities: No deformities, erythema noted from ankle extending up in to polanco and calf. Small pink healed wound noted to medial side above right ankle. No drainage. Tenderness to calf and 1-2+ pitting edema noted LLE Extremities: No deformities or clubbing . Only trace edema Both extremities with dusky appearance to bilateral feet with legs bent. Color returns and normalizes to bilateral feet with feet elevated. Health maintenance reviewed with patient: RSV Vaccine(1 - 1-dose 60+ series) Never done DTaP,Tdap,Td Vaccine(1 - Tdap) due on 10/16/2015 Advance Directive Discussion due on 07/27/2022 Influenza Vaccine(1) due on 03/27/2023 Covid-19 Vaccine( season) due on 03/27/2023 Diabetes Screening due on 10/14/2025 Bone Density Screening Completed Depression Assessment Completed Shingrix Vaccine Completed Pneumococcal Vaccine: 65+ Completed Colorectal Cancer Screening Discontinued DATA REVIEWED: No new labs ASSESSMENT/PLAN: 1. Pain of right lower extremity - ICD9: 729.5, ICD10: M79.604 (primary diagnosis) - possible DVT versus cellulitis versus both. - elevate legs throughout the day - follow up next week - US LEG VEIN DVT UNL VAS LAB - BASIC METABOLIC PNL - CBC + DIFF 2. Edema, unspecified type - ICD9: 782.3, ICD10: R60.9 See #1 - US LEG VEIN DVT UNL VAS LAB - BASIC METABOLIC PNL - CBC + DIFF 3. Cellulitis of right lower extremity - ICD9: 682.6, ICD10: L03.115 - Begin treatment with augmentin - No lymphangetic streaking, this was defined for patient to watch for and to seek medical care immediately if appears - Area of cellulitis defined with pen, seek further attention if this area continues to enlarge - Follow up for recheck on Thursday or earlier if no improvement in the next few days or for worsening symptoms. - BASIC METABOLIC PNL - CBC + DIFF Prescription instructions reviewed with patient as applicable. Potential red flag symptoms discussed with the patient. Reviewed appropriate action plan to take if red flag symptoms occur. Patient agreeable to treatment plan. Genie Mcdaniel APRN.CNP documented in this encounter [facility] 04-06-2023 Miscellaneous Notes Patient given results and verbalized understanding of instructions given. Blanca Willoughby\ Urine culture reveals bacterial growth. The antibiotic selected appropriate. Continue the full antibiotic, follow up with PCP. documented in this encounter [facility] 04-04-2023 Note HNO ID: [id number] Author: Lindsey De Jesus APRN.AB Service: ? Author Type: Nurse Practitioner Type: Progress Notes Filed: 04/04/2023 12:10 PM Note Text: This note was created using [employer]. Subjective Francis Vitale is a 82 year old female. 82 year old female with PMH HTN, hyperlipidemia, thyroid presents for possible UTI. Acute onset 3 days ago +frequency +urgency +dysuria +suprapubic pain Denies fever or chills Denies vaginal bleeding Denies vaginal discharge. States sx worsened yesterday evening The history is provided by the patient. No speech/language therapist was used. UTI This is a new problem. The current episode started more than 2 days ago. The problem occurs every urination. The problem has been gradually worsening. The quality of the pain is described as burning. The pain is at a severity of 5/10. The pain is moderate. There has been no fever. She is Not sexually active. There is No history of pyelonephritis. Associated symptoms include frequency and urgency. Pertinent negatives include no chills, no sweats, no nausea, no vomiting, no discharge, no hematuria, no hesitancy, no possible and no flank pain. She has tried nothing for the symptoms. Her past medical history does not include kidney stones, single kidney, urological procedure, recurrent UTIs, urinary stasis or catheterization. PAST MEDICAL HISTORY Diagnosis Date Anemia, unspecified Asymmetric septal hypertrophy (HCC) 12/09/2017 Benign neoplasm of colon Diarrhea Diverticulosis of colon (without mention of hemorrhage) Glaucoma 03/2014 right eye Hernia, incisional Hernia, ventral Incisional hernia without mention of obstruction or gangrene 06/16/2009 Lichen sclerosus Non-rheumatic aortic stenosis 12/09/2017 Osteopenia Other hammer toe (acquired) 06/12/2005 Tendonitis of foot Unspecified essential hypertension PAST SURGICAL HISTORY Procedure Laterality Date APPENDECTOMY COLONOSCOPY FLX DX W/COLLJ SPEC WHEN PFRMD 11/16/2006 Colonoscopy ESOPHAGOGASTRODUODENOSCOPY TRANSORAL DIAGNOSTIC 09/06/2001 EGD LAPS RPR RECURRENT INCAL HRNA NCRC8/STRANGULATED 08/28/2009 LLQ LIG/TRNSXJ FLP TUBE ABDL/VAG APPR UNI/BI Tubal ligation NEEDLE BIOPSY 08/2008 right breast,benign PAST SURGICAL HISTORY OF 8-09-01 repair left 2, 3, and 4 hammer toe deformity REPAIR FIRST ABDOMINAL WALL HERNIA 08/28/2009 With Mesh RPR 1ST INGUN HRNA AGE 5 YRS/> REDUCIBLE 05 Hernia repair, inguinal ALLERGIES Codeine, Accupril [Quinapril Hcl], Losartan, Omeprazole, and Sulfa (Sulfonamide Antibiotics) MEDICATIONS sucralfate (CARAFATE) 1 gram tablet Take 1 tablet by mouth twice daily. irbesartan (AVAPRO) 150 mg tablet Take 0.5 tablets by mouth once daily. buPROPion (WELLBUTRIN) 75 mg tablet Take 1 tablet by mouth once daily. vibegron (GEMTESA) 75 mg tablet Take 1 tablet by mouth once daily. levothyroxine (LEVOXYL) 88 mcg tablet Take 1 tablet by mouth once daily. Take on empty stomach. For Thyroid spironolactone (ALDACTONE) 25 mg tablet Take 1 tablet by mouth once daily. pravastatin (PRAVACHOL) 40 mg tablet Take 1 tablet by mouth once daily. clobetasol (TEMOVATE) 0.05 % ointment Apply to affected area twice daily. fluticasone (FLONASE) 50 mcg/actuation nasal spray Use 2 Sprays in each nostril once daily. Rinse mouth after use. albuterol HFA (PROAIR HFA) 90 mcg/actuation inhaler Inhale 2 Puffs as instructed every 6 hours as needed. latanoprost (XALATAN) 0.005 % ophthalmic solution Use 1 Drop in the right eye daily at bedtime. vitamin b complex tab Take 1 tablet by mouth once daily. Cholecalciferol, Vitamin D3, 2,000 unit cap Take 1 tablet by mouth once daily. THERAPEUTIC MULTIVITAMIN TAB Take one(1) tablet daily. cephALEXin (KEFLEX) 500 mg capsule Take 1 capsule by mouth twice daily for 7 days. timoloL maleate (TIMOPTIC) 0.5 % drpd Use 1 Drop in the right eye once daily. (Patient not taking: Reported on 01/12/2023) calcium phosphate-vitamin D3 250 mg-12.5 mcg (500 unit) chew Take by mouth. (Patient not taking: No sig reported) FAMILY HISTORY Problem Relation Age of Onset Arthritis Mother Heart Mother Stroke Mother Osteoporosis Mother severe Heart Father mi Osteoporosis Maternal Aunt x2 Cancer Maternal Grandfather throat-- OF EMBOLUS POST SURGERY Colon Cancer Other 2 first cousins with colon cancer Colon Cancer Other Social History Tobacco Use Smoking status: Former Packs/day: 2.00 Years: 24.00 Additional pack years: 0.00 Total pack years: 48.00 Types: Cigarettes Start date: 07/27/1960 Quit date: 07/27/1984 Years since quittin.7 Smokeless tobacco: Never Tobacco comments: quit about 23 yrs, ago Substance Use Topics Alcohol use: Yes Comment: Socially Drug use: No Review of Systems Constitutional: Negative for chills. Eyes: Negative for pain, discharge, redness and itching. Respiratory: Negative for apnea, cough, cho (more content not included)... [facility] 04-04-2023 History of Presen t illness Narrative This note was created using [employer]. Subjective Francis Vitale is a 82 year old female. 82 year old female with PMH HTN, hyperlipidemia, thyroid presents for possible UTI. Acute onset 3 days ago +frequency +urgency +dysuria +suprapubic pain Denies fever or chills Denies vaginal bleeding Denies vaginal discharge. States sx worsened yesterday evening The history is provided by the patient. No speech/language therapist was used. UTI This is a new problem. The current episode started more than 2 days ago. The problem occurs every urination. The problem has been gradually worsening. The quality of the pain is described as burning. The pain is at a severity of 5/10. The pain is moderate. There has been no fever. She is Not sexually active. There is No history of pyelonephritis. Associated symptoms include frequency and urgency. Pertinent negatives include no chills, no sweats, no nausea, no vomiting, no discharge, no hematuria, no hesitancy, no possible and no flank pain. She has tried nothing for the symptoms. Her past medical history does not include kidney stones, single kidney, urological procedure, recurrent UTIs, urinary stasis or catheterization. PAST MEDICAL HISTORY Diagnosis Date Anemia, unspecified Asymmetric septal hypertrophy (HCC) 12/09/2017 Benign neoplasm of colon Diarrhea Diverticulosis of colon (without mention of hemorrhage) Glaucoma 03/2014 right eye Hernia, incisional Hernia, ventral Incisional hernia without mention of obstruction or gangrene 06/16/2009 Lichen sclerosus Non-rheumatic aortic stenosis 12/09/2017 Osteopenia Other hammer toe (acquired) 06/12/2005 Tendonitis of foot Unspecified essential hypertension PAST SURGICAL HISTORY Procedure Laterality Date APPENDECTOMY COLONOSCOPY FLX DX W/COLLJ SPEC WHEN PFRMD 11/16/2006 Colonoscopy ESOPHAGOGASTRODUODENOSCOPY TRANSORAL DIAGNOSTIC 09/06/2001 EGD LAPS RPR RECURRENT INCAL HRNA NCRC8/STRANGULATED 08/28/2009 LLQ LIG/TRNSXJ FLP TUBE ABDL/VAG APPR UNI/BI Tubal ligation NEEDLE BIOPSY 08/2008 right breast,benign PAST SURGICAL HISTORY OF 8 repair left 2, 3, and 4 hammer toe deformity REPAIR FIRST ABDOMINAL WALL HERNIA 08/28/2009 With Mesh RPR 1ST INGUN HRNA AGE 5 YRS/> REDUCIBLE 05 Hernia repair, inguinal ALLERGIES Codeine, Accupril [Quinapril Hcl], Losartan, Omeprazole, and Sulfa (Sulfonamide Antibiotics) MEDICATIONS sucralfate (CARAFATE) 1 gram tablet Take 1 tablet by mouth twice daily. irbesartan (AVAPRO) 150 mg tablet Take 0.5 tablets by mouth once daily. buPROPion (WELLBUTRIN) 75 mg tablet Take 1 tablet by mouth once daily. vibegron (GEMTESA) 75 mg tablet Take 1 tablet by mouth once daily. levothyroxine (LEVOXYL) 88 mcg tablet Take 1 tablet by mouth once daily. Take on empty stomach. For Thyroid spironolactone (ALDACTONE) 25 mg tablet Take 1 tablet by mouth once daily. pravastatin (PRAVACHOL) 40 mg tablet Take 1 tablet by mouth once daily. clobetasol (TEMOVATE) 0.05 % ointment Apply to affected area twice daily. fluticasone (FLONASE) 50 mcg/actuation nasal spray Use 2 Sprays in each nostril once daily. Rinse mouth after use. albuterol HFA (PROAIR HFA) 90 mcg/actuation inhaler Inhale 2 Puffs as instructed every 6 hours as needed. latanoprost (XALATAN) 0.005 % ophthalmic solution Use 1 Drop in the right eye daily at bedtime. vitamin b complex tab Take 1 tablet by mouth once daily. Cholecalciferol, Vitamin D3, 2,000 unit cap Take 1 tablet by mouth once daily. THERAPEUTIC MULTIVITAMIN TAB Take one(1) tablet daily. cephALEXin (KEFLEX) 500 mg capsule Take 1 capsule by mouth twice daily for 7 days. timoloL maleate (TIMOPTIC) 0.5 % drpd Use 1 Drop in the right eye once daily. (Patient not taking: Reported on 01/12/2023) calcium phosphate-vitamin D3 250 mg-12.5 mcg (500 unit) chew Take by mouth. (Patient not taking: No sig reported) FAMILY HISTORY Problem Relation Age of Onset Arthritis Mother Heart Mother Stroke Mother Osteoporosis Mother severe Heart Father mi Osteoporosis Maternal Aunt x2 Cancer Maternal Grandfather throat-- OF EMBOLUS POST SURGERY Colon Cancer Other 2 first cousins with colon cancer Colon Cancer Other Social History Tobacco Use Smoking status: Former Packs/day: 2.00 Years: 24.00 Additional pack years: 0.00 Total pack years: 48.00 Types: Cigarettes Start date: 07/27/1960 Quit date: 07/27/1984 Years since quittin.7 Smokeless tobacco: Never Tobacco comments: quit about 23 yrs, ago Substance Use Topics Alcohol use: Yes Comment: Socially Drug use: No Review of Systems Constitutional: Negative for chills. Eyes: Negative for pain, discharge, redness and itching. Respiratory: Negative for apnea, cough, choking and chest tightness. Cardiovascular: Negative for chest pain, palpitations and leg swelling. Gastrointestinal: Negative for nausea and vomiting. Genitourinary: Positive for dysuria, frequency and urgency. Negative for flank pain, hematuria and hesitancy. Skin: Negative for color change, pallor, rash and wound. Allergic/Immunologic: Negative for environmental allergies, food allergies and immunocompromised state. Neurological: Negative for dizziness, facial asymmetry and headaches. Hematological: Negative for adenopathy. Does not bruise/bleed easily. Psychiatric/Behavioral: Negative for agitation and behavioral problems. Objective BP 112/60 Pulse 82 Temp 36.6 C (97.8 F) Resp 16 Wt 74.8 kg (165 lb) SpO2 97% BMI 32.22 kg/m Physical Exam Vitals and nursing note reviewed. Constitutional: General: She is not in acute distress. Appearance: Normal appearance. She is normal weight. She is not ill-appearing, toxic-appearing or diaphoretic. HENT: Head: Normocephalic and atraumatic. Right Ear: Ear canal and external ear normal. Left Ear: Ear canal and external ear normal. Nose: Nose normal. No congestion or rhinorrhea. Mouth/Throat: Mouth: Mucous membranes are moist. Pharynx: No oropharyngeal exudate or posterior oropharyngeal erythema. Eyes: General: Right eye: No discharge. Left eye: No discharge. Extraocular Movements: Extraocular movements intact. Conjunctiva/sclera: Conjunctivae normal. Pupils: Pupils are equal, round, and reactive to light. Cardiovascular: Rate and Rhythm: Normal rate and regular rhythm. Pulses: Normal pulses. Heart sounds: Normal heart sounds. No murmur heard. No friction rub. Pulmonary: Effort: Pulmonary effort is normal. No respiratory distress. Breath sounds: Normal breath sounds. No stridor. No wheezing, rhonchi or rales. Chest: Chest wall: No tenderness. Abdominal: General: Abdomen is flat. There is no distension. Palpations: Abdomen is soft. There is no mass. Tenderness: There is no abdominal tenderness. There is no right CVA tenderness, left CVA tenderness, guarding or rebound. Hernia: No hernia is present. Musculoskeletal: General: No swelling, tenderness, deformity or signs of injury. Normal range of motion. Cervical back: Normal range of motion and neck supple. No rigidity. Right lower leg: No edema. Left lower leg: No edema. Lymphadenopathy: Cervical: No cervical adenopathy. Skin: General: Skin is warm and dry. Capillary Refill: Capillary refill takes less than 2 seconds. Coloration: Skin is not jaundiced or pale. Findings: No bruising, erythema, lesion or rash. Neurological: General: No focal deficit present. Mental Status: She is alert and oriented to person, place, and time. Cranial Nerves: No cranial nerve deficit. Sensory: No sensory deficit. Motor: No weakness. Coordination: Coordination normal. Gait: Gait normal. Psychiatric: Mood and Affect: Mood normal. Behavior: Behavior normal. Thought Content: Thought content normal. Judgment: Judgment normal. Assessment and Plan ASSESSMENT/PLAN: 1. Cystitis with hematuria - ICD9: 595.9, ICD10: N30.91 acute - UA positive for alice esterase, hematuria, and nitrates - Send urine for culture - Begin treatment with Keflex - Patient education for prevention given - UA DIP, URINE (POC) - URINE CULTURE Lindsey De Jesus APRN.CNP documented in this encounter [facility] 03-09-2023 Miscellaneous Notes Pt home phone just rings fast busy. Message left on pt mobile number to call office back for results. Malissa Smith Ma Please call patient and let her know that thyroid labs ordered by Dr. Resendiz are back and everything is in range and stable. Continue current dose of medication. Joe Eric APRN.CNP documented in this encounter [facility] 02-04-2023 Miscellaneous Notes Pt called in and reports she had an appointment with Dr Resendiz on 01/12/23. She was told only to take a 1/2 a pill of her Avapro daily. She said she just realized 2 days ago that it was her irbesartan. She states she will be in 2 weeks from now to get her lab work drawn. documented in this encounter [facility] 01-13-2023 Miscellaneous Notes Patient has been identified by name and date of : No Patient phones for refill(s): Requested Prescriptions Pending Prescriptions Disp Refills sucralfate (CARAFATE) 1 gram tablet 60 tablet 5 Sig: Take 1 tablet by mouth twice daily. Date of last office visit in primary care: 6/19/23 Last 2 Encounter Wt Readings: Date: Wt: 01/12/2023 70.8 kg (156 lb) 10/27/2022 73 kg (161 lb) Previous labs/tests for medication: Not applicable Please advise. Thank you. Clary Scott LPN Patient has been identified by name and date of : Yes Requested Prescriptions Pending Prescriptions Disp Refills sucralfate (CARAFATE) 1 gram tablet 60 tablet 5 Sig: Take 1 tablet by mouth twice daily. RX INSTRUCTIONS: Patient aware RX will be sent to pharmacy. No need to notify patient. [employer] documented in this encounter [facility] 01-12-2023 Note HNO ID: [id number] Author: Maria Elena Resendiz MD Service: ? Author Type: Physician Type: Progress Notes Filed: 01/12/2023 5:36 PM Note Text: Reason for Visit Patient presents with: Results: discuss thyroid labs Francis Vitale is a 82 year old female who presents here today for Above Complaints.. Health Maintenance DTAP,TDAP,TD(1 - Tdap) COVID-19 VACCINE(4 - Booster for Moderna series) SHINGRIX VACCINE(3 of 3) ADVANCE DIRECTIVE DISCUSSION HPI Patient had a hernia surgery 2/3 weeks , for inguinal hernia repair. It was done laparoscopically, she is doing fine since. Has a follow up coming in a couple weeks for the same. She has lost around 4 pounds after surgery. In the hospital she was told her thyroid is not doing well, so she is here follow up. Patient is eating and drinking well. She is drinking tea, water or coffee. She is very tired likely from surgery, her bp is on the lower side and she may benefit from having her avapro cut to half of what she is taking. No problem-specific Assessment AND Plan notes found for this encounter. PAST MEDICAL HISTORY Diagnosis Date Anemia, unspecified Asymmetric septal hypertrophy (HCC) 12/09/2017 Benign neoplasm of colon Diarrhea Diverticulosis of colon (without mention of hemorrhage) Glaucoma 03/2014 right eye Hernia, incisional Hernia, ventral Incisional hernia without mention of obstruction or gangrene 06/16/2009 Lichen sclerosus Non-rheumatic aortic stenosis 12/09/2017 Osteopenia Other hammer toe (acquired) 06/12/2005 Tendonitis of foot Unspecified essential hypertension PAST SURGICAL HISTORY Procedure Laterality Date APPENDECTOMY COLONOSCOPY FLX DX W/COLLJ SPEC WHEN PFRMD 11/16/2006 Colonoscopy ESOPHAGOGASTRODUODENOSCOPY TRANSORAL DIAGNOSTIC 09/06/2001 EGD LAPS RPR RECURRENT INCAL HRNA NCRC8/STRANGULATED 08/28/2009 LLQ LIG/TRNSXJ FLP TUBE ABDL/VAG APPR UNI/BI Tubal ligation NEEDLE BIOPSY 08/2008 right breast,benign PAST SURGICAL HISTORY OF 8-09-01 repair left 2, 3, and 4 hammer toe deformity REPAIR FIRST ABDOMINAL WALL HERNIA 08/28/2009 With Mesh RPR 1ST INGUN HRNA AGE 6 YRS/> REDUCIBLE 05 Hernia repair, inguinal FAMILY HISTORY Problem Relation Age of Onset Arthritis Mother Heart Mother Stroke Mother Osteoporosis Mother severe Heart Father mi Osteoporosis Maternal Aunt x2 Cancer Maternal Grandfather throat-- OF EMBOLUS POST SURGERY Colon Cancer Other 2 first cousins with colon cancer Colon Cancer Other Social History Tobacco Use Smoking status: Former Packs/day: 2.00 Years: 24.00 Pack years: 48.00 Types: Cigarettes Start date: 07/27/1960 Quit date: 07/27/1984 Years since quittin.4 Smokeless tobacco: Never Tobacco comments: quit about 23 yrs, ago Substance Use Topics Alcohol use: Yes Comment: Socially Drug use: No Past medical history, appointments, medications, allergies reviewed. Pertinent Lab/Diagnostic Studies are reviewed and discussed today Current Outpatient Medications: buPROPion (WELLBUTRIN) 75 mg tablet vibegron (GEMTESA) 75 mg tablet levothyroxine (LEVOXYL) 88 mcg tablet spironolactone (ALDACTONE) 25 mg tablet pravastatin (PRAVACHOL) 40 mg tablet sucralfate (CARAFATE) 1 gram tablet irbesartan (AVAPRO) 150 mg tablet clobetasol (TEMOVATE) 0.05 % ointment fluticasone (FLONASE) 50 mcg/actuation nasal spray albuterol HFA (PROAIR HFA) 90 mcg/actuation inhaler latanoprost (XALATAN) 0.005 % ophthalmic solution vitamin b complex tab Cholecalciferol, Vitamin D3, 2,000 unit cap THERAPEUTIC MULTIVITAMIN TAB timoloL maleate (TIMOPTIC) 0.5 % drpd calcium phosphate-vitamin D3 250 mg-12.5 mcg (500 unit) chew Review of Systems CONSTITUTIONAL: No fevers, chills night sweats, unintended weight loss CARDIOVASCULAR: No chest pain, dyspnea, palpitations, orthopnea, PND, ankle edema. PULM: No dyspnea, unexplained cough. GI: No dysphagia/odynophagia, problematic reflux, constipation, diarrhea, changes in stool habits, hematochezia, melena. : No new urinary complaints, including dysuria, gross hematuria or pyuria. NEURO: No new balance problems, peripheral weakness/paresthesias or numbness of concern. Physical Exam BP 110/50 Pulse 93 Wt 70.8 kg (156 lb) SpO2 98% BMI 30.47 kg/m? General appearance: Well appearing, alert, in no acute distress, well nourished. Skin: she has steri strips in the abdomen. There is no signs of infection Head: Normocephalic, no masses, lesions, tenderness or abnormalities Eyes: Anicteric sclera. Pupils are equally round and reactive to light. Extraocular movements are intact. Lungs: Lungs clear to auscultation. No wheezing, rhonchi, rales Heart: RRR without murmur, gallop, or rubs. Extremities: No deformities, edema, skin discoloration, clubbing or cyanosis. Good capillary refill. ASSESSMENT/PLAN: 1. Essential hypertension - ICD9: 401.9, ICD10: I10 (primary diagnosis) (more content not included)... [facility] 01-12-2023 History of Presen t illness Narrative Reason for Visit Patient presents with: Results: discuss thyroid labs Francis Vitale is a 82 year old female who presents here today for Above Complaints.. Health Maintenance DTAP,TDAP,TD(1 - Tdap) COVID-19 VACCINE(4 - Booster for Moderna series) SHINGRIX VACCINE(3 of 3) ADVANCE DIRECTIVE DISCUSSION HPI Patient had a hernia surgery 2/3 weeks , for inguinal hernia repair. It was done laparoscopically, she is doing fine since. Has a follow up coming in a couple weeks for the same. She has lost around 4 pounds after surgery. In the hospital she was told her thyroid is not doing well, so she is here follow up. Patient is eating and drinking well. She is drinking tea, water or coffee. She is very tired likely from surgery, her bp is on the lower side and she may benefit from having her avapro cut to half of what she is taking. No problem-specific Assessment & Plan notes found for this encounter. PAST MEDICAL HISTORY Diagnosis Date Anemia, unspecified Asymmetric septal hypertrophy (HCC) 12/09/2017 Benign neoplasm of colon Diarrhea Diverticulosis of colon (without mention of hemorrhage) Glaucoma 03/2014 right eye Hernia, incisional Hernia, ventral Incisional hernia without mention of obstruction or gangrene 06/16/2009 Lichen sclerosus Non-rheumatic aortic stenosis 12/09/2017 Osteopenia Other hammer toe (acquired) 06/12/2005 Tendonitis of foot Unspecified essential hypertension PAST SURGICAL HISTORY Procedure Laterality Date APPENDECTOMY COLONOSCOPY FLX DX W/COLLJ SPEC WHEN PFRMD 11/16/2006 Colonoscopy ESOPHAGOGASTRODUODENOSCOPY TRANSORAL DIAGNOSTIC 09/06/2001 EGD LAPS RPR RECURRENT INCAL HRNA NCRC8/STRANGULATED 08/28/2009 LLQ LIG/TRNSXJ FLP TUBE ABDL/VAG APPR UNI/BI Tubal ligation NEEDLE BIOPSY 08/2008 right breast,benign PAST SURGICAL HISTORY OF 8-09-01 repair left 2, 3, and 4 hammer toe deformity REPAIR FIRST ABDOMINAL WALL HERNIA 08/28/2009 With Mesh RPR 1ST INGUN HRNA AGE 6 YRS/> REDUCIBLE 05 Hernia repair, inguinal FAMILY HISTORY Problem Relation Age of Onset Arthritis Mother Heart Mother Stroke Mother Osteoporosis Mother severe Heart Father mi Osteoporosis Maternal Aunt x2 Cancer Maternal Grandfather throat-- OF EMBOLUS POST SURGERY Colon Cancer Other 2 first cousins with colon cancer Colon Cancer Other Social History Tobacco Use Smoking status: Former Packs/day: 2.00 Years: 24.00 Pack years: 48.00 Types: Cigarettes Start date: 07/27/1960 Quit date: 07/27/1984 Years since quittin.4 Smokeless tobacco: Never Tobacco comments: quit about 23 yrs, ago Substance Use Topics Alcohol use: Yes Comment: Socially Drug use: No Past medical history, appointments, medications, allergies reviewed. Pertinent Lab/Diagnostic Studies are reviewed and discussed today Current Outpatient Medications: buPROPion (WELLBUTRIN) 75 mg tablet vibegron (GEMTESA) 75 mg tablet levothyroxine (LEVOXYL) 88 mcg tablet spironolactone (ALDACTONE) 25 mg tablet pravastatin (PRAVACHOL) 40 mg tablet sucralfate (CARAFATE) 1 gram tablet irbesartan (AVAPRO) 150 mg tablet clobetasol (TEMOVATE) 0.05 % ointment fluticasone (FLONASE) 50 mcg/actuation nasal spray albuterol HFA (PROAIR HFA) 90 mcg/actuation inhaler latanoprost (XALATAN) 0.005 % ophthalmic solution vitamin b complex tab Cholecalciferol, Vitamin D3, 2,000 unit cap THERAPEUTIC MULTIVITAMIN TAB timoloL maleate (TIMOPTIC) 0.5 % drpd calcium phosphate-vitamin D3 250 mg-12.5 mcg (500 unit) chew Review of Systems CONSTITUTIONAL: No fevers, chills night sweats, unintended weight loss CARDIOVASCULAR: No chest pain, dyspnea, palpitations, orthopnea, PND, ankle edema. PULM: No dyspnea, unexplained cough. GI: No dysphagia/odynophagia, problematic reflux, constipation, diarrhea, changes in stool habits, hematochezia, melena. : No new urinary complaints, including dysuria, gross hematuria or pyuria. NEURO: No new balance problems, peripheral weakness/paresthesias or numbness of concern. Physical Exam BP 110/50 Pulse 93 Wt 70.8 kg (156 lb) SpO2 98% BMI 30.47 kg/m General appearance: Well appearing, alert, in no acute distress, well nourished. Skin: she has steri strips in the abdomen. There is no signs of infection Head: Normocephalic, no masses, lesions, tenderness or abnormalities Eyes: Anicteric sclera. Pupils are equally round and reactive to light. Extraocular movements are intact. Lungs: Lungs clear to auscultation. No wheezing, rhonchi, rales Heart: RRR without murmur, gallop, or rubs. Extremities: No deformities, edema, skin discoloration, clubbing or cyanosis. Good capillary refill. ASSESSMENT/PLAN: 1. Essential hypertension - ICD9: 401.9, ICD10: I10 (primary diagnosis) On the lower side. - Recommend home blood pressure monitoring, to bring results to next visit - Encouraged sodium restriction, DASH or Mediterranean diet - Recommend regular aerobic exercise 2. Mixed hyperlipidemia - ICD9: 272.2, ICD10: E78.2 - Controlled - Counseled on healthy diet and regular exercise 3. Acquired hypothyroidism - ICD9: 244.9, ICD10: E03.9 - TSH BLD - T4 FREE/FREE THYROX - T3 FREE BLD 4. Tired - ICD9: 780.79, ICD10: R53.83 Bp has been on the lower side, today and since she is tired I asked her to cut the avapro pill to half She has a follow up coming up in a couple weeks with us and we can recheck the bp at that time to see if the dose she is taking is good enough or it has to be increased. Maria Elena Resendiz MD documented in this encounter [facility] 12-08-2022 Miscellaneous Notes Patient has been identified by name and date of : No Patient phones for refill(s): Requested Prescriptions Pending Prescriptions Disp Refills buPROPion (WELLBUTRIN) 75 mg tablet 90 tablet 3 Sig: Take 1 tablet by mouth once daily. Date of last office visit in primary care: 10/20/22 Last 2 Encounter Wt Readings: Date: Wt: 10/27/2022 73 kg (161 lb) 10/20/2022 73 kg (161 lb) Previous labs/tests for medication: Not applicable Please advise. Thank you. Clary Scott LPN Patient phones requesting refills as follows: Requested Prescriptions Pending Prescriptions Disp Refills buPROPion (WELLBUTRIN) 75 mg tablet 90 tablet 3 Sig: Take 1 tablet by mouth once daily. Please review and advise. Ju Rudd documented in this encounter [facility] 10-27-2022 Note HNO ID: [id number] Author: Jet Vargas MD Service: ? Author Type: Physician Type: Progress Notes Filed: 10/27/2022 5:19 PM Note Text: Patient presents with: Abdominal Pain: Possible uti HPI: abdominal pain: Duration: occurred 2 days ago, lasted 3 hours Location: started near the diaphragm, then moved down to the lower abdomen Character: severe - unable to walk, no pain currently Radiation: No. Aggravating: moving Relieving: Pain relievers: none Pertinent negatives: Denies diarrhea, constipation, blood in stool, vomiting Dysuria: No Frequency: Yes Hematuria: No Nausea: No Fever or chills: No Back pain: No Abdominal pain: Yes Prior UTI: Treated in ER in July for tingling sensation in her diaphragm which was diagnosed as UTI. Has been to the ER twice for similar symptoms and diagnosed with UTI Personal history of kidney stones: No Family history of kidney stones: son PAST MEDICAL HISTORY Diagnosis Date Anemia, unspecified Asymmetric septal hypertrophy (HCC) 12/09/2017 Benign neoplasm of colon Diarrhea Diverticulosis of colon (without mention of hemorrhage) Glaucoma 03/2014 right eye Hernia, incisional Hernia, ventral Incisional hernia without mention of obstruction or gangrene 06/16/2009 Lichen sclerosus Non-rheumatic aortic stenosis 12/09/2017 Osteopenia Other hammer toe (acquired) 06/12/2005 Tendonitis of foot Unspecified essential hypertension PAST SURGICAL HISTORY Procedure Laterality Date APPENDECTOMY COLONOSCOPY FLX DX W/COLLJ SPEC WHEN PFRMD 11/16/2006 Colonoscopy ESOPHAGOGASTRODUODENOSCOPY TRANSORAL DIAGNOSTIC 09/06/2001 EGD LAPS RPR RECURRENT INCAL HRNA NCRC8/STRANGULATED 08/28/2009 LLQ LIG/TRNSXJ FLP TUBE ABDL/VAG APPR UNI/BI Tubal ligation NEEDLE BIOPSY 08/2008 right breast,benign PAST SURGICAL HISTORY OF 02-25-06 repair left 2, 3, and 4 hammer toe deformity REPAIR FIRST ABDOMINAL WALL HERNIA 08/28/2009 With Mesh RPR 1ST INGUN HRNA AGE 6 YRS/> REDUCIBLE 05 Hernia repair, inguinal MEDICATIONS: Current Outpatient Medications Medication Sig vibegron (GEMTESA) 75 mg tablet Take 1 tablet by mouth once daily. levothyroxine (LEVOXYL) 88 mcg tablet Take 1 tablet by mouth once daily. Take on empty stomach. For Thyroid spironolactone (ALDACTONE) 25 mg tablet Take 1 tablet by mouth once daily. timoloL maleate (TIMOPTIC) 0.5 % drpd Use 1 Drop in the right eye once daily. pravastatin (PRAVACHOL) 40 mg tablet Take 1 tablet by mouth once daily. sucralfate (CARAFATE) 1 gram tablet Take 1 tablet by mouth twice daily. irbesartan (AVAPRO) 150 mg tablet Take 1 tablet by mouth once daily. clobetasol (TEMOVATE) 0.05 % ointment Apply to affected area twice daily. buPROPion (WELLBUTRIN) 75 mg tablet Take 1 tablet by mouth once daily. fluticasone (FLONASE) 50 mcg/actuation nasal spray Use 2 Sprays in each nostril once daily. Rinse mouth after use. albuterol HFA (PROAIR HFA) 90 mcg/actuation inhaler Inhale 2 Puffs as instructed every 6 hours as needed. latanoprost (XALATAN) 0.005 % ophthalmic solution Use 1 Drop in the right eye daily at bedtime. vitamin b complex tab Take 1 tablet by mouth once daily. Cholecalciferol, Vitamin D3, 2,000 unit cap Take 1 tablet by mouth once daily. THERAPEUTIC MULTIVITAMIN TAB Take one(1) tablet daily. calcium phosphate-vitamin D3 250 mg-12.5 mcg (500 unit) chew Take by mouth. (Patient not taking: No sig reported) No current facility-administered medications for this visit. ALLERGIES: ALLERGIES Allergen Reactions Codeine Intolerance Accupril [Quinapril* Cough Losartan Other: See Comments dizziness Omeprazole Diarrhea Sulfa (Sulfonamide * Intolerance VITALS: BP 142/68 Pulse 99 Temp 36.6 ?C (97.9 ?F) Resp 16 Wt 73 kg (161 lb) SpO2 (!) 66% BMI 31.44 kg/m? PHYSICAL EXAM: GEN: NAD HEENT: EOMI, conjunctiva clear, HEART: regular rate and rhythm, III/ systolic murmurs LUNGS: clear to auscultation, no wheezes or crackles, no increased WOB ABDOMEN: Soft, nondistended, no masses, no suprapubic tenderness BACK: No CVA tenderness Component Latest Ref Rng AND Units 10/14/2022 eGFR >=60 mL/min/1.73mA? 92 ASSESSMENT/PLAN: 1. UTI symptoms - ICD9: 788.99, ICD10: R39.9 - UA DIP B/O positive for blood, leukocyte esterase, nitrate. Probable UTI. Start - NITROFURANTOIN MONOHYDRATE AND MACROCRYSTAL 100 MG ORAL CAP - URINE CULTURE - will notify if no infection or resistance is present. CT abdomen from July reviewed and showed no renal calculi. She did have a right inguinal hernia with bowel but no signs of strangulation. Jet Vargas MD [facility] 10-27-2022 History of Presen t illness Narrative Patient presents with: Abdominal Pain: Possible uti HPI: abdominal pain: Duration: occurred 2 days ago, lasted 3 hours Location: started near the diaphragm, then moved down to the lower abdomen Character: severe - unable to walk, no pain currently Radiation: No. Aggravating: moving Relieving: Pain relievers: none Pertinent negatives: Denies diarrhea, constipation, blood in stool, vomiting Dysuria: No Frequency: Yes Hematuria: No Nausea: No Fever or chills: No Back pain: No Abdominal pain: Yes Prior UTI: Treated in ER in July for tingling sensation in her diaphragm which was diagnosed as UTI. Has been to the ER twice for similar symptoms and diagnosed with UTI Personal history of kidney stones: No Family history of kidney stones: son PAST MEDICAL HISTORY Diagnosis Date Anemia, unspecified Asymmetric septal hypertrophy (HCC) 12/09/2017 Benign neoplasm of colon Diarrhea Diverticulosis of colon (without mention of hemorrhage) Glaucoma 03/2014 right eye Hernia, incisional Hernia, ventral Incisional hernia without mention of obstruction or gangrene 06/16/2009 Lichen sclerosus Non-rheumatic aortic stenosis 12/09/2017 Osteopenia Other hammer toe (acquired) 06/12/2005 Tendonitis of foot Unspecified essential hypertension PAST SURGICAL HISTORY Procedure Laterality Date APPENDECTOMY COLONOSCOPY FLX DX W/COLLJ SPEC WHEN PFRMD 11/16/2006 Colonoscopy ESOPHAGOGASTRODUODENOSCOPY TRANSORAL DIAGNOSTIC 09/06/2001 EGD LAPS RPR RECURRENT INCAL HRNA NCRC8/STRANGULATED 08/28/2009 LLQ LIG/TRNSXJ FLP TUBE ABDL/VAG APPR UNI/BI Tubal ligation NEEDLE BIOPSY 08/2008 right breast,benign PAST SURGICAL HISTORY OF 8 repair left 2, 3, and 4 hammer toe deformity REPAIR FIRST ABDOMINAL WALL HERNIA 08/28/2009 With Mesh RPR 1ST INGUN HRNA AGE 6 YRS/> REDUCIBLE 05 Hernia repair, inguinal MEDICATIONS: Current Outpatient Medications Medication Sig vibegron (GEMTESA) 75 mg tablet Take 1 tablet by mouth once daily. levothyroxine (LEVOXYL) 88 mcg tablet Take 1 tablet by mouth once daily. Take on empty stomach. For Thyroid spironolactone (ALDACTONE) 25 mg tablet Take 1 tablet by mouth once daily. timoloL maleate (TIMOPTIC) 0.5 % drpd Use 1 Drop in the right eye once daily. pravastatin (PRAVACHOL) 40 mg tablet Take 1 tablet by mouth once daily. sucralfate (CARAFATE) 1 gram tablet Take 1 tablet by mouth twice daily. irbesartan (AVAPRO) 150 mg tablet Take 1 tablet by mouth once daily. clobetasol (TEMOVATE) 0.05 % ointment Apply to affected area twice daily. buPROPion (WELLBUTRIN) 75 mg tablet Take 1 tablet by mouth once daily. fluticasone (FLONASE) 50 mcg/actuation nasal spray Use 2 Sprays in each nostril once daily. Rinse mouth after use. albuterol HFA (PROAIR HFA) 90 mcg/actuation inhaler Inhale 2 Puffs as instructed every 6 hours as needed. latanoprost (XALATAN) 0.005 % ophthalmic solution Use 1 Drop in the right eye daily at bedtime. vitamin b complex tab Take 1 tablet by mouth once daily. Cholecalciferol, Vitamin D3, 2,000 unit cap Take 1 tablet by mouth once daily. THERAPEUTIC MULTIVITAMIN TAB Take one(1) tablet daily. calcium phosphate-vitamin D3 250 mg-12.5 mcg (500 unit) chew Take by mouth. (Patient not taking: No sig reported) No current facility-administered medications for this visit. ALLERGIES: ALLERGIES Allergen Reactions Codeine Intolerance Accupril [Quinapril* Cough Losartan Other: See Comments dizziness Omeprazole Diarrhea Sulfa (Sulfonamide * Intolerance VITALS: BP 142/68 Pulse 99 Temp 36.6 C (97.9 F) Resp 16 Wt 73 kg (161 lb) SpO2 (!) 66% BMI 31.44 kg/m PHYSICAL EXAM: GEN: NAD HEENT: EOMI, conjunctiva clear, HEART: regular rate and rhythm, III/ systolic murmurs LUNGS: clear to auscultation, no wheezes or crackles, no increased WOB ABDOMEN: Soft, nondistended, no masses, no suprapubic tenderness BACK: No CVA tenderness Component Latest Ref Rng & Units 10/14/2022 eGFR >=60 mL/min/1.73m 92 ASSESSMENT/PLAN: 1. UTI symptoms - ICD9: 788.99, ICD10: R39.9 - UA DIP B/O positive for blood, leukocyte esterase, nitrate. Probable UTI. Start - NITROFURANTOIN MONOHYDRATE & MACROCRYSTAL 100 MG ORAL CAP - URINE CULTURE - will notify if no infection or resistance is present. CT abdomen from July reviewed and showed no renal calculi. She did have a right inguinal hernia with bowel but no signs of strangulation. Jet Vargas MD documented in this encounter [facility] 10-27-2022 Miscellaneous Notes Agree, patient needs to be evaluated. Genie Mcdaniel APRN.AB Patient calling having lower abdominal pain, had this same pain a month ago and she had UTI. Patient said she never shows UTI symptoms. Advised to go to express care for evaluation, PCP is out of office and no appt available with [facility]. documented in this encounter [facility] 10-20-2022 Note HNO ID: [id number] Author: Maria Elena Resendiz MD Service: ? Author Type: Physician Type: Progress Notes Filed: 10/20/2022 10:09 AM Note Text: Reason for Visit Patient presents with: F/U 6 months Francis Vitale is a 82 year old female who presents here today for Above Complaints.. Health Maintenance DTAP,TDAP,TD(1 - Tdap) COVID-19 VACCINE(4 - Booster for Moderna series) SHINGRIX VACCINE(3 of 3) ADVANCE DIRECTIVE DISCUSSION HPI She has been cold , tired, sleepy, a little depressed lately, her tsh in the latest tests was high. She is on supplements on a daily basis and notes taking them regularly on empty stomach. Reviewed the rest of the blood work which is good- dbd , cmp and lipids HTN: BP controlled today. Checks BP at home. Compliant with medications. Denies any chest pain, palpitations, SOB, swelling in the feet. Careful with diet to avoid salt, trying to eat more fruits and vegetables, exercises regularly HPL: Reviewed test results with patient , takes medications regularly , does not report side effects. Conscious to avoid red meats, full fat dairy and its by products. Exercising 3 to 5 times a week. Patient notes she is on the wellbutrin and does well with it No problem-specific Assessment AND Plan notes found for this encounter. PAST MEDICAL HISTORY Diagnosis Date Anemia, unspecified Asymmetric septal hypertrophy (HCC) 12/09/2017 Benign neoplasm of colon Diarrhea Diverticulosis of colon (without mention of hemorrhage) Glaucoma 03/2014 right eye Hernia, incisional Hernia, ventral Incisional hernia without mention of obstruction or gangrene 06/16/2009 Lichen sclerosus Non-rheumatic aortic stenosis 12/09/2017 Osteopenia Other hammer toe (acquired) 06/12/2005 Tendonitis of foot Unspecified essential hypertension PAST SURGICAL HISTORY Procedure Laterality Date APPENDECTOMY COLONOSCOPY FLX DX W/COLLJ SPEC WHEN PFRMD 11/16/2006 Colonoscopy ESOPHAGOGASTRODUODENOSCOPY TRANSORAL DIAGNOSTIC 09/06/2001 EGD LAPS RPR RECURRENT INCAL HRNA NCRC8/STRANGULATED 08/28/2009 LLQ LIG/TRNSXJ FLP TUBE ABDL/VAG APPR UNI/BI Tubal ligation NEEDLE BIOPSY 08/2008 right breast,benign PAST SURGICAL HISTORY OF 02-25-06 repair left 2, 3, and 4 hammer toe deformity REPAIR FIRST ABDOMINAL WALL HERNIA 08/28/2009 With Mesh RPR 1ST INGUN HRNA AGE 6 YRS/> REDUCIBLE 05 Hernia repair, inguinal FAMILY HISTORY Problem Relation Age of Onset Arthritis Mother Heart Mother Stroke Mother Osteoporosis Mother severe Heart Father mi Osteoporosis Maternal Aunt x2 Cancer Maternal Grandfather throat-- OF EMBOLUS POST SURGERY Colon Cancer Other 2 first cousins with colon cancer Colon Cancer Other Social History Tobacco Use Smoking status: Former Packs/day: 2.00 Years: 24.00 Pack years: 48.00 Types: Cigarettes Start date: 07/27/1960 Quit date: 07/27/1984 Years since quittin.2 Smokeless tobacco: Never Tobacco comments: quit about 23 yrs, ago Substance Use Topics Alcohol use: Yes Comment: Socially Drug use: No Past medical history, appointments, medications, allergies reviewed. Pertinent Lab/Diagnostic Studies are reviewed and discussed today Current Outpatient Medications: levothyroxine (LEVOXYL) 25 mcg tablet timoloL maleate (TIMOPTIC) 0.5 % drpd spironolactone (ALDACTONE) 25 mg tablet pravastatin (PRAVACHOL) 40 mg tablet levothyroxine (SYNTHROID) 50 mcg tablet sucralfate (CARAFATE) 1 gram tablet irbesartan (AVAPRO) 150 mg tablet clobetasol (TEMOVATE) 0.05 % ointment buPROPion (WELLBUTRIN) 75 mg tablet fluticasone (FLONASE) 50 mcg/actuation nasal spray albuterol HFA (PROAIR HFA) 90 mcg/actuation inhaler calcium phosphate-vitamin D3 (CITRACAL + D3, CALCIUM PHOS,) 250 mg calcium- 500 unit chew latanoprost (XALATAN) 0.005 % ophthalmic solution vitamin b complex tab Cholecalciferol, Vitamin D3, 2,000 unit cap THERAPEUTIC MULTIVITAMIN TAB Review of Systems CONSTITUTIONAL: No fevers, chills night sweats, unintended weight loss CARDIOVASCULAR: No chest pain, dyspnea, palpitations, orthopnea, PND, ankle edema. PULM: No dyspnea, unexplained cough. GI: No dysphagia/odynophagia, problematic reflux, constipation, diarrhea, changes in stool habits, hematochezia, melena. : No new urinary complaints, including dysuria, gross hematuria or pyuria. NEURO: No new balance problems, peripheral weakness/paresthesias or numbness of concern. Physical Exam BP 134/78 (BP Site: Left Arm, BP Position: Sitting, BP Cuff Size: Large Adult) Pulse (!) 56 Temp 36.6 ?C (97.9 ?F) Resp 14 Ht 152.4 cm (5') Wt 73 kg (161 lb) SpO2 94% BMI 31.44 kg/m? General appearance: Well appearing, alert, in no acute distress, well nourished. Skin: Skin color, texture, turgor normal, no suspicious rashes or lesions Head: Normocephalic, no masses, lesions, tenderness or abnormalities Eyes: Anicteric sclera. Pupils are equa (more content not included)... [facility] 10-20-2022 History of Presen t illness Narrative Reason for Visit Patient presents with: F/U 6 months Francis Vitale is a 82 year old female who presents here today for Above Complaints.. Health Maintenance DTAP,TDAP,TD(1 - Tdap) COVID-19 VACCINE(4 - Booster for Moderna series) SHINGRIX VACCINE(3 of 3) ADVANCE DIRECTIVE DISCUSSION HPI She has been cold , tired, sleepy, a little depressed lately, her tsh in the latest tests was high. She is on supplements on a daily basis and notes taking them regularly on empty stomach. Reviewed the rest of the blood work which is good- dbd , cmp and lipids HTN: BP controlled today. Checks BP at home. Compliant with medications. Denies any chest pain, palpitations, SOB, swelling in the feet. Careful with diet to avoid salt, trying to eat more fruits and vegetables, exercises regularly HPL: Reviewed test results with patient , takes medications regularly , does not report side effects. Conscious to avoid red meats, full fat dairy and its by products. Exercising 3 to 5 times a week. Patient notes she is on the wellbutrin and does well with it No problem-specific Assessment & Plan notes found for this encounter. PAST MEDICAL HISTORY Diagnosis Date Anemia, unspecified Asymmetric septal hypertrophy (HCC) 12/09/2017 Benign neoplasm of colon Diarrhea Diverticulosis of colon (without mention of hemorrhage) Glaucoma 03/2014 right eye Hernia, incisional Hernia, ventral Incisional hernia without mention of obstruction or gangrene 06/16/2009 Lichen sclerosus Non-rheumatic aortic stenosis 12/09/2017 Osteopenia Other hammer toe (acquired) 06/12/2005 Tendonitis of foot Unspecified essential hypertension PAST SURGICAL HISTORY Procedure Laterality Date APPENDECTOMY COLONOSCOPY FLX DX W/COLLJ SPEC WHEN PFRMD 11/16/2006 Colonoscopy ESOPHAGOGASTRODUODENOSCOPY TRANSORAL DIAGNOSTIC 09/06/2001 EGD LAPS RPR RECURRENT INCAL HRNA NCRC8/STRANGULATED 08/28/2009 LLQ LIG/TRNSXJ FLP TUBE ABDL/VAG APPR UNI/BI Tubal ligation NEEDLE BIOPSY 08/2008 right breast,benign PAST SURGICAL HISTORY OF 8-09-01 repair left 2, 3, and 4 hammer toe deformity REPAIR FIRST ABDOMINAL WALL HERNIA 08/28/2009 With Mesh RPR 1ST INGUN HRNA AGE 6 YRS/> REDUCIBLE 05 Hernia repair, inguinal FAMILY HISTORY Problem Relation Age of Onset Arthritis Mother Heart Mother Stroke Mother Osteoporosis Mother severe Heart Father mi Osteoporosis Maternal Aunt x2 Cancer Maternal Grandfather throat-- OF EMBOLUS POST SURGERY Colon Cancer Other 2 first cousins with colon cancer Colon Cancer Other Social History Tobacco Use Smoking status: Former Packs/day: 2.00 Years: 24.00 Pack years: 48.00 Types: Cigarettes Start date: 07/27/1960 Quit date: 07/27/1984 Years since quittin.2 Smokeless tobacco: Never Tobacco comments: quit about 23 yrs, ago Substance Use Topics Alcohol use: Yes Comment: Socially Drug use: No Past medical history, appointments, medications, allergies reviewed. Pertinent Lab/Diagnostic Studies are reviewed and discussed today Current Outpatient Medications: levothyroxine (LEVOXYL) 25 mcg tablet timoloL maleate (TIMOPTIC) 0.5 % drpd spironolactone (ALDACTONE) 25 mg tablet pravastatin (PRAVACHOL) 40 mg tablet levothyroxine (SYNTHROID) 50 mcg tablet sucralfate (CARAFATE) 1 gram tablet irbesartan (AVAPRO) 150 mg tablet clobetasol (TEMOVATE) 0.05 % ointment buPROPion (WELLBUTRIN) 75 mg tablet fluticasone (FLONASE) 50 mcg/actuation nasal spray albuterol HFA (PROAIR HFA) 90 mcg/actuation inhaler calcium phosphate-vitamin D3 (CITRACAL + D3, CALCIUM PHOS,) 250 mg calcium- 500 unit chew latanoprost (XALATAN) 0.005 % ophthalmic solution vitamin b complex tab Cholecalciferol, Vitamin D3, 2,000 unit cap THERAPEUTIC MULTIVITAMIN TAB Review of Systems CONSTITUTIONAL: No fevers, chills night sweats, unintended weight loss CARDIOVASCULAR: No chest pain, dyspnea, palpitations, orthopnea, PND, ankle edema. PULM: No dyspnea, unexplained cough. GI: No dysphagia/odynophagia, problematic reflux, constipation, diarrhea, changes in stool habits, hematochezia, melena. : No new urinary complaints, including dysuria, gross hematuria or pyuria. NEURO: No new balance problems, peripheral weakness/paresthesias or numbness of concern. Physical Exam BP 134/78 (BP Site: Left Arm, BP Position: Sitting, BP Cuff Size: Large Adult) Pulse (!) 56 Temp 36.6 C (97.9 F) Resp 14 Ht 152.4 cm (5') Wt 73 kg (161 lb) SpO2 94% BMI 31.44 kg/m General appearance: Well appearing, alert, in no acute distress, well nourished. Skin: Skin color, texture, turgor normal, no suspicious rashes or lesions Head: Normocephalic, no masses, lesions, tenderness or abnormalities Eyes: Anicteric sclera. Pupils are equally round and reactive to light. Extraocular movements are intact. Lungs: Lungs clear to auscultation. No wheezing, rhonchi, rales Heart: RRR without murmur, gallop, or rubs. Extremities: No deformities, edema, skin discoloration, clubbing or cyanosis. Good capillary refill. ASSESSMENT/PLAN: 1. Essential hypertension - ICD9: 401.9, ICD10: I10 (primary diagnosis) - good control - Recommended regular aerobic exercise. - Recommend home blood pressure monitoring, to bring results in on next visit - Goal of BP <130/80 2. Acquired hypothyroidism - ICD9: 244.9, ICD10: E03.9 We increased the thyroid medication for the patient and hopeful that it will help her have greater energy - TSH BLD 3. Mixed hyperlipidemia - ICD9: 272.2, ICD10: E78.2 - good control - Continue current medication. Maria Elena Resendiz MD documented in this encounter [facility] 10-15-2022 Miscellaneous Notes Patient notified. T/C patient, all circuits are busy. Will try again. Please verify if patient has been on 75mcg daily for 6 days a week and 50mcg one day a week consistently. IF so, we need to increase to 75mcg daily and then recheck in 4-6 weeks. Does she need a refill? I can order the 75mcg tablets if needed. Other lab work was within acceptable ranges. Thank you Genie Mcdaniel APRN.AB documented in this encounter [facility] 08-27-2022 Note HNO ID: [id number] Author: Maria Elena Resendiz MD Service: ? Author Type: Physician Type: Progress Notes Filed: 08/27/2022 1:01 PM Note Text: Reason for Visit Patient presents with: ED Follow-up: UTI and still having pain Francis Vitale is a 82 year old female who presents here today for Above Complaints.. Health Maintenance DTAP,TDAP,TD(1 - Tdap) COVID-19 VACCINE(4 - Booster for Moderna series) SHINGRIX VACCINE(3 of 3) ADVANCE DIRECTIVE DISCUSSION DEPRESSION ASSESSMENT Hpi On August 01, 2022, which was around 6 days ago patient was in the ER for pains that began in her upper abdomen. She describes it as a tingling sensation in her diaphragm. It was so bad that she felt the need to go to the ER. There they did blood counts and CMP which were normal. She had urine that showed 500 esterase and bacteria. A culture was done. In the ER she was hemodynamically stable but she needed some fluids and was given fluids and something for nausea 2. She was really nauseous. I am reviewing her culture report which notes she is growing Klebsiella which is not sensitive to ampicillin. She was discharged on Keflex for 5 days. She is also not sensitive to Macrobid but is sensitive to Bactrim. No problem-specific Assessment AND Plan notes found for this encounter. PAST MEDICAL HISTORY Diagnosis Date Anemia, unspecified Asymmetric septal hypertrophy (HCC) 12/09/2017 Benign neoplasm of colon Diarrhea Diverticulosis of colon (without mention of hemorrhage) Glaucoma 03/2014 right eye Hernia, incisional Hernia, ventral Incisional hernia without mention of obstruction or gangrene 06/16/2009 Lichen sclerosus Non-rheumatic aortic stenosis 12/09/2017 Osteopenia Other hammer toe (acquired) 06/12/2005 Tendonitis of foot Unspecified essential hypertension PAST SURGICAL HISTORY Procedure Laterality Date APPENDECTOMY COLONOSCOPY FLX DX W/COLLJ SPEC WHEN PFRMD 11/16/2006 Colonoscopy ESOPHAGOGASTRODUODENOSCOPY TRANSORAL DIAGNOSTIC 09/06/2001 EGD LAPS RPR RECURRENT INCAL HRNA NCRC8/STRANGULATED 08/28/2009 LLQ LIG/TRNSXJ FLP TUBE ABDL/VAG APPR UNI/BI Tubal ligation NEEDLE BIOPSY 08/2008 right breast,benign PAST SURGICAL HISTORY OF 8-09-01 repair left 2, 3, and 4 hammer toe deformity REPAIR FIRST ABDOMINAL WALL HERNIA 08/28/2009 With Mesh RPR 1ST INGUN HRNA AGE 6 YRS/> REDUCIBLE 05 Hernia repair, inguinal FAMILY HISTORY Problem Relation Age of Onset Arthritis Mother Heart Mother Stroke Mother Osteoporosis Mother severe Heart Father mi Osteoporosis Maternal Aunt x2 Cancer Maternal Grandfather throat-- OF EMBOLUS POST SURGERY Colon Cancer Other 2 first cousins with colon cancer Colon Cancer Other Social History Tobacco Use Smoking status: Former Packs/day: 2.00 Years: 24.00 Pack years: 48.00 Types: Cigarettes Start date: 07/27/1960 Quit date: 07/27/1984 Years since quittin.1 Smokeless tobacco: Never Tobacco comments: quit about 23 yrs, ago Substance Use Topics Alcohol use: Yes Comment: Socially Drug use: No Past medical history, appointments, medications, allergies reviewed. Pertinent Lab/Diagnostic Studies are reviewed and discussed today Current Outpatient Medications: levothyroxine (LEVOXYL) 25 mcg tablet timoloL maleate (TIMOPTIC) 0.5 % drpd spironolactone (ALDACTONE) 25 mg tablet pravastatin (PRAVACHOL) 40 mg tablet levothyroxine (SYNTHROID) 50 mcg tablet sucralfate (CARAFATE) 1 gram tablet irbesartan (AVAPRO) 150 mg tablet clobetasol (TEMOVATE) 0.05 % ointment buPROPion (WELLBUTRIN) 75 mg tablet fluticasone (FLONASE) 50 mcg/actuation nasal spray albuterol HFA (PROAIR HFA) 90 mcg/actuation inhaler calcium phosphate-vitamin D3 (CITRACAL + D3, CALCIUM PHOS,) 250 mg calcium- 500 unit chew latanoprost (XALATAN) 0.005 % ophthalmic solution vitamin b complex tab Cholecalciferol, Vitamin D3, 2,000 unit cap THERAPEUTIC MULTIVITAMIN TAB Review of Systems CONSTITUTIONAL: No fevers, chills night sweats, unintended weight loss CARDIOVASCULAR: No chest pain, dyspnea, palpitations, orthopnea, PND, ankle edema. PULM: No dyspnea, unexplained cough. GI: No dysphagia/odynophagia, problematic reflux, constipation, diarrhea, changes in stool habits, hematochezia, melena. : No new urinary complaints, including dysuria, gross hematuria or pyuria. NEURO: No new balance problems, peripheral weakness/paresthesias or numbness of concern. Physical Exam BP 126/60 (BP Site: Left Arm, BP Position: Sitting, BP Cuff Size: Large Adult) Pulse 78 Temp 36.3 ?C (97.4 ?F) Resp 16 Ht 152.4 cm (5') Wt 73 kg (161 lb) SpO2 99% BMI 31.44 kg/m? General appearance: Well appearing, alert, in no acute distress, well nourished. Skin: Skin color, texture, turgor normal, no suspicious rashes or lesions Head: Normocephalic, no masses, lesions, tenderness or abnormalities Eyes: Anicteric sclera. Pupils are equa (more content not included)... [facility] 08-27-2022 History of Presen t illness Narrative Reason for Visit Patient presents with: ED Follow-up: UTI and still having pain Francis Vitale is a 82 year old female who presents here today for Above Complaints.. Health Maintenance DTAP,TDAP,TD(1 - Tdap) COVID-19 VACCINE(4 - Booster for Moderna series) SHINGRIX VACCINE(3 of 3) ADVANCE DIRECTIVE DISCUSSION DEPRESSION ASSESSMENT Hpi On August 01, 2022, which was around 6 days ago patient was in the ER for pains that began in her upper abdomen. She describes it as a tingling sensation in her diaphragm. It was so bad that she felt the need to go to the ER. There they did blood counts and CMP which were normal. She had urine that showed 500 esterase and bacteria. A culture was done. In the ER she was hemodynamically stable but she needed some fluids and was given fluids and something for nausea 2. She was really nauseous. I am reviewing her culture report which notes she is growing Klebsiella which is not sensitive to ampicillin. She was discharged on Keflex for 5 days. She is also not sensitive to Macrobid but is sensitive to Bactrim. No problem-specific Assessment & Plan notes found for this encounter. PAST MEDICAL HISTORY Diagnosis Date Anemia, unspecified Asymmetric septal hypertrophy (HCC) 12/09/2017 Benign neoplasm of colon Diarrhea Diverticulosis of colon (without mention of hemorrhage) Glaucoma 03/2014 right eye Hernia, incisional Hernia, ventral Incisional hernia without mention of obstruction or gangrene 06/16/2009 Lichen sclerosus Non-rheumatic aortic stenosis 12/09/2017 Osteopenia Other hammer toe (acquired) 06/12/2005 Tendonitis of foot Unspecified essential hypertension PAST SURGICAL HISTORY Procedure Laterality Date APPENDECTOMY COLONOSCOPY FLX DX W/COLLJ SPEC WHEN PFRMD 11/16/2006 Colonoscopy ESOPHAGOGASTRODUODENOSCOPY TRANSORAL DIAGNOSTIC 09/06/2001 EGD LAPS RPR RECURRENT INCAL HRNA NCRC8/STRANGULATED 08/28/2009 LLQ LIG/TRNSXJ FLP TUBE ABDL/VAG APPR UNI/BI Tubal ligation NEEDLE BIOPSY 08/2008 right breast,benign PAST SURGICAL HISTORY OF 8 repair left 2, 3, and 4 hammer toe deformity REPAIR FIRST ABDOMINAL WALL HERNIA 08/28/2009 With Mesh RPR 1ST INGUN HRNA AGE 6 YRS/> REDUCIBLE 05 Hernia repair, inguinal FAMILY HISTORY Problem Relation Age of Onset Arthritis Mother Heart Mother Stroke Mother Osteoporosis Mother severe Heart Father mi Osteoporosis Maternal Aunt x2 Cancer Maternal Grandfather throat-- OF EMBOLUS POST SURGERY Colon Cancer Other 2 first cousins with colon cancer Colon Cancer Other Social History Tobacco Use Smoking status: Former Packs/day: 2.00 Years: 24.00 Pack years: 48.00 Types: Cigarettes Start date: 07/27/1960 Quit date: 07/27/1984 Years since quittin.1 Smokeless tobacco: Never Tobacco comments: quit about 23 yrs, ago Substance Use Topics Alcohol use: Yes Comment: Socially Drug use: No Past medical history, appointments, medications, allergies reviewed. Pertinent Lab/Diagnostic Studies are reviewed and discussed today Current Outpatient Medications: levothyroxine (LEVOXYL) 25 mcg tablet timoloL maleate (TIMOPTIC) 0.5 % drpd spironolactone (ALDACTONE) 25 mg tablet pravastatin (PRAVACHOL) 40 mg tablet levothyroxine (SYNTHROID) 50 mcg tablet sucralfate (CARAFATE) 1 gram tablet irbesartan (AVAPRO) 150 mg tablet clobetasol (TEMOVATE) 0.05 % ointment buPROPion (WELLBUTRIN) 75 mg tablet fluticasone (FLONASE) 50 mcg/actuation nasal spray albuterol HFA (PROAIR HFA) 90 mcg/actuation inhaler calcium phosphate-vitamin D3 (CITRACAL + D3, CALCIUM PHOS,) 250 mg calcium- 500 unit chew latanoprost (XALATAN) 0.005 % ophthalmic solution vitamin b complex tab Cholecalciferol, Vitamin D3, 2,000 unit cap THERAPEUTIC MULTIVITAMIN TAB Review of Systems CONSTITUTIONAL: No fevers, chills night sweats, unintended weight loss CARDIOVASCULAR: No chest pain, dyspnea, palpitations, orthopnea, PND, ankle edema. PULM: No dyspnea, unexplained cough. GI: No dysphagia/odynophagia, problematic reflux, constipation, diarrhea, changes in stool habits, hematochezia, melena. : No new urinary complaints, including dysuria, gross hematuria or pyuria. NEURO: No new balance problems, peripheral weakness/paresthesias or numbness of concern. Physical Exam BP 126/60 (BP Site: Left Arm, BP Position: Sitting, BP Cuff Size: Large Adult) Pulse 78 Temp 36.3 C (97.4 F) Resp 16 Ht 152.4 cm (5') Wt 73 kg (161 lb) SpO2 99% BMI 31.44 kg/m General appearance: Well appearing, alert, in no acute distress, well nourished. Skin: Skin color, texture, turgor normal, no suspicious rashes or lesions Head: Normocephalic, no masses, lesions, tenderness or abnormalities Eyes: Anicteric sclera. Pupils are equally round and reactive to light. Extraocular movements are intact. Lungs: Lungs clear to auscultation. No wheezing, rhonchi, rales Heart: RRR without murmur, gallop, or rubs. Extremities: No deformities, edema, skin discoloration, clubbing or cyanosis. Good capillary refill. ASSESSMENT/PLAN: 1. Urinary tract infection without hematuria, site unspecified - ICD9: 599.0, ICD10: N39.0 Gave her some cipro for the same. As she has symptoms recuring Went over the side effect profile for the drug with the patient, mentioned every one of it , discussed appropriate concerns , alternatives and benefits of the drug, - Patient education for prevention given - DEPRESSION SCREENING/ASSESSMENT - CIPROFLOXACIN 250 MG TABLET Maria Elena Resendiz MD documented in this encounter [facility] 06-25-2022 History of Presen t illness Narrative AMBULATORY TELEPHONE VISIT Francis Vitale has consented to this telephone encounter. Persons Present: patient Chief Complaint/Reason: stressed with husbands covid illness. HPI: Had covid recently, got it from her who was pretty ill and had to go to the hospital. patient was tested positive for Thursday or Thursday. Was stressed at that time and wanted to be seen. Things are a little calmer right now, patient notes she was tired and upset a lot, but feels a little better right now. is getting rehab inpatient and [facility]. Personally she is doing better from covid and mentally does not need assistance today Data Reviewed: Most recent labs and imaging results. Assessment: (U07.1) COVID-19 virus infection (primary encounter diagnosis) Plan: Stable Total Time Spent: 5 minutes Maria Elena Resendiz MD documented in this encounter [facility] 06-21-2022 Miscellaneous Notes Patient has been scheduled for 06/22. COVID POSITIVE. Endorses that she is feeling better. Discussed that she qualifies for antiviral. She is interested. Will have PSS reach out and schedule patient. Spoke with PSS Shakila Lyons and she will assist in getting patient virtual (Onset was 06/18/22, so she needs to be seen within the 5 days) documented in this encounter [facility] 06-20-2022 History of Presen t illness Narrative CC: Patient presents with: Covid19 Concern: Cough, ST, fever x3 days HPI: Francis Vitale is a 82 year old female who presents to the office with complaint of head congestion, cough, nonproductive, sore throat, and feverfor a few days. Symptoms are staying the same. Associated symptoms includes wheezing. Denies ear pain, nausea, vomiting , and diarrhea. Treatments tried include nothing so far. with no relief of symptoms. Sick contacts: yes has covid. History of asthma, frequent episodes of bronchitis, chronic bronchitis, bronchiectasis or COPD: No Smoker: No Seasonal/environmental allergies: No The ROS is otherwise negative. The patient's pmh, medications, allergies, and past visits are reviewed. PHYSICAL EXAM: BP 146/82 Pulse 104 Temp (!) 38.3 C (100.9 F) Resp 20 Wt 74.3 kg (163 lb 12.8 oz) SpO2 98% BMI 31.99 kg/m General appearance: alert,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 (statuses as of 12/09/2022) [facility] History of Past illness Narrative* Problem Noted Date Resolved Date Medicare annual wellness visit, initial 03/15/20 14 11/10/2018 Umbilical hernia without mention of obstruction or gangrene 06/16/2009 04/03/2015 Diarrhea 11/16/2006 04/03/2015 Hypertensive heart and kidney disease, benign 04/03/2015 Anemia, unspecified 04/03/2015 documented as of this encounter (statuses as of 01/13/2023) [facility] History of Past illness Narrative* Problem Noted Date Resolved Date Medicare annual wellness visit, initial 03/15/20 14 11/10/2018 Umbilical hernia without mention of obstruction or gangrene 06/16/2009 04/03/2015 Diarrhea 11/16/2006 04/03/2015 Hypertensive heart and kidney disease, benign 04/03/2015 Anemia, unspecified 04/03/2015 documented as of this encounter (statuses as of 01/14/2023) [facility] History of Past illness Narrative* Problem Noted Date Diagnosed Date Resolved Date Medicare annual wellness visit, initial 03/15/2014 11/10/2018 Umbilical hernia without men tion of obstruction or gangrene 06/16/2009 04/03/2015 Diarrhea 11/16/2006 04/03/2015 Hypertensive heart and kidney disease, benign 04/03/2015 Anemia, unspecified 04/03/20 15 documented as of this encounter (statuses as of 02/04/2023) [facility] History of Past illness Narrative* Problem Noted Date Diagnosed Date Resolved Date Medicare annual wellness visit, initial 03/15/2014 11/10/2018 Umbilical hernia without men tion of obstruction or gangrene 06/16/2009 04/03/2015 Diarrhea 11/16/2006 04/03/2015 Hypertensive heart and kidney disease, benign 04/03/2015 Anemia, unspecified 04/03/20 15 documented as of this encounter (statuses as of 03/10/2023) [facility] History of Past illness Narrative* Problem Noted Date Diagnosed Date Resolved Date Medicare annual wellness visit, initial 03/15/2014 11/10/2018 Umbilical hernia without men tion of obstruction or gangrene 06/16/2009 04/03/2015 Diarrhea 11/16/2006 04/03/2015 Hypertensive heart and kidney disease, benign 04/03/2015 Anemia, unspecified 04/03/20 15 documented as of this encounter (statuses as of 04/04/2023) [facility] History of Past illness Narrative* Problem Noted Date Diagnosed Date Resolved Date Medicare annual wellness visit, initial 03/15/2014 11/10/2018 Umbilical hernia without men tion of obstruction or gangrene 06/16/2009 04/03/2015 Diarrhea 11/16/2006 04/03/2015 Hypertensive heart and kidney disease, benign 04/03/2015 Anemia, unspecified 04/03/20 15 documented as of this encounter (statuses as of 04/06/2023) [facility] History of Past illness Narrative* Problem Noted Date Diagnosed Date Resolved Date Medicare annual wellness visit, initial 03/15/2014 11/10/2018 Umbilical hernia without men tion of obstruction or gangrene 06/16/2009 04/03/2015 Diarrhea 11/16/2006 04/03/2015 Hypertensive heart and kidney disease, benign 04/03/2015 Anemia, unspecified 04/03/20 15 documented as of this encounter (statuses as of 06/25/2023) [facility] History of Past illness Narrative* Problem Noted Date Diagnosed Date Resolved Date Medicare annual wellness visit, initial 03/15/2014 11/10/2018 Umbilical hernia without men tion of obstruction or gangrene 06/16/2009 04/03/2015 Diarrhea 11/16/2006 04/03/2015 Hypertensive heart and kidney disease, benign 04/03/2015 Anemia, unspecified 04/03/20 15 documented as of this encounter (statuses as of 07/04/2023) [facility] History of Past illness Narrative* Problem Noted Date Diagnosed Date Resolved Date Medicare annual wellness visit, initial 03/15/2014 11/10/2018 Umbilical hernia without men tion of obstruction or gangrene 06/16/2009 04/03/2015 Diarrhea 11/16/2006 04/03/2015 Hypertensive heart and kidney disease, benign 04/03/2015 Anemia, unspecified 04/03/20 15 documented as of this encounter (statuses as of 07/07/2023) [facility] History of Past illness Narrative* Problem Noted Date Diagnosed Date Resolved Date Medicare annual wellness visit, initial 03/15/2014 11/10/2018 Umbilical hernia without men tion of obstruction or gangrene 06/16/2009 04/03/2015 Diarrhea 11/16/2006 04/03/2015 Hypertensive heart and kidney disease, benign 04/03/2015 Anemia, unspecified 04/03/20 15 documented as of this encounter (statuses as of 07/26/2023) [facility] note* Diagnosis Essential hypertension- Primary Unspecified essential hypertension Mixed hyperlipidemia Acquired hypothyroidism Unspecified hypothyroidism Vitamin D deficiency Unspecified vitamin D deficiency Iron deficiency Iron deficiency anemia, unspecified documented in this encounter [facility] note* Diagnosis Acquired hypothyroidism- Primary Unspecified hypothyroidism Essential hypertension Unspecified essential hypertension Mixed hyperlipidemia Diastolic dysfunction Heart disease, unspecified Concentric left ventricular hypertrophy Nonrheumatic aortic valve stenosis Aortic valve disorders documented in this encounter [facility] note* Diagnosis Acquired hypothyroidism- Primary Unspecified hypothyroidism documented in this encounter [facility] note* Diagnosis Visit for screening mammogram Other screening mammogram [facility] Diagnosis Essential hypertension- Primary Unspecified essential hypertension Mixed hyperlipidemia Acquired hypothyroidism Unspecified hypothyroidism documented in this encounter [facility] note* Diagnosis Acquired hypothyroidism Unspecified hypothyroidism documented in this encounter [facility] note* Diagnosis Acute cough- Primary At increased risk of exposure to COVID-19 virus documented in this encounter [facility] note* Diagnosis COVID-19 virus infection- Primary documented in this encounter [facility] note* Diagnosis Urinary tract infection without hematuria, site unspecified- Primary documented in this encounter [facility] note* Diagnosis Essential hypertension- Primary Unspecified essential hypertension Acquired hypothyroidism Unspecified hypothyroidism Mixed hyperlipidemia Major depressive disorder, single episode, mild (HCC) Major depressive disorder, single episode, mild documented in this encounter [facility] note* Diagnosis UTI symptoms- Primary Other symptoms involving urinary system documented in this encounter [facility] note* Diagnosis Mild depression Depressive disorder, not elsewhere classified documented in this encounter [facility] note* Diagnosis Essential hypertension- Primary Unspecified essential hypertension Mixed hyperlipidemia Acquired hypothyroidism Unspecified hypothyroidism Tired Other malaise and fatigue documented in this encounter [facility] note* Diagnosis Dyspepsia Dyspepsia and other specified disorders of function of stomach documented in this encounter [facility] note* Diagnosis Cystitis with hematuria- Primary Cystitis, unspecified documented in this encounter [facility] note* Diagnosis Pain of right lower extremity- Primary Edema, unspecified type Cellulitis of right lower extremity Cellulitis and abscess of leg, except foot documented in this encounter [facility] note* Diagnosis Cellulitis of right lower extremity- Primary Cellulitis and abscess of leg, except foot Pain of right lower extremity [facility] Outpatient Procedure (Urgent) - Pending Review Specialty Diagnoses / Procedures Referred By Glenny caballeor [facility] Diagnoses Pain of right lower extremity Edema, unspecified type Procedures US LEG VEIN DVT UNL VAS LAB DUP-SCAN XTR VEINS UNILATERAL/LIMITED STUDY Genie Mcdaniel APRN.CNP [address] [place] [address] [facility] [address] [place] [address] Referral ID Status Reason Start Date Expiration Date Visits Requested Visits Authorized [id number] Pending Review Auto-Generat ed Referral 3 06/23/2024 1 1 [facility] Advance Directives No Advanced Directives Records FoundDocuments on File Type Date Recorded Patient Infection Control Preventionist Expl anation Advance Directive(s) 01/16/2017 11:14 AM Summary Purpose Family History No Family History Records FoundNo Family History Records Found Health Concerns Infection Onset Date Last Indicated Resolved Time COVID-19 Rule-Out 06/20/2022 06/20/2022 Infection Onset Date Last Indicated Resolved Time COVID-19 Rule-Out 06/20/2022 06/20/2022 06/21/2022 5:39 AM EST COVID-19 Confirmed 06/20/2022 06/20/2022 Infection Onset Date Last Indicated Resolved Time COVID-19 Confirmed 06/20/2022 06/20/2022 Additional Source Comments Source Comments (unrecognize d section and content) In the event this informatio n is protected by the Federal Confidentiality of Alcohol and Drug Abuse Patient Records regulations: The Federal rules restrict any use of the information to criminally investigate or prosecute any alcohol or drug abuse patient.[facility] the event this information is protected by the Federal Confidentiality of Alcohol and Drug Abuse Patient Records regulations: The Federal rules restrict any use of the information to criminally investigate or prosecute any alcohol or drug abuse patient.[facility] the event this information is protected by the Federal Confidentiality of Alcohol and Drug Abuse Patient Records regulations: The Federal rules restrict any use of the information to criminally investigate or prosecute any alcohol or drug abuse patient.[facility] the event this information is protected by the Federal Confidentiality of Alcohol and Drug Abuse Patient Records regulations: The Federal rules restrict any use of the information to criminally investigate or prosecute any alcohol or drug abuse patient.[facility] the event this information is protected by the Federal Confidentiality of Alcohol and Drug Abuse Patient Records regulations: The Federal rules restrict any use of the information to criminally investigate or prosecute any alcohol or drug abuse patient.[facility] the event this information is protected by the Federal Confidentiality of Alcohol and Drug Abuse Patient Records regulations: The Federal rules restrict any use of the information to criminally investigate or prosecute any alcohol or drug abuse patient.[facility] the event this information is protected by the Federal Confidentiality of Alcohol and Drug Abuse Patient Records regulations: The Federal rules restrict any use of the information to criminally investigate or prosecute any alcohol or drug abuse patient.[facility] the event this information is protected by the Federal Confidentiality of Alcohol and Drug Abuse Patient Records regulations: The Federal rules restrict any use of the information to criminally investigate or prosecute any alcohol or drug abuse patient.[facility] the event this information is protected by the Federal Confidentiality of Alcohol and Drug Abuse Patient Records regulations: The Federal rules restrict any use of the information to criminally investigate or prosecute any alcohol or drug abuse patient.[facility] the event this information is protected by the Federal Confidentiality of Alcohol and Drug Abuse Patient Records regulations: The Federal rules restrict any use of the information to criminally investigate or prosecute any alcohol or drug abuse patient.[facility]In the event this information is protected by the Federal Confidentiality of Alcohol and Drug Abuse Patient Records regulations: The Federal rules restrict any use of the information to criminally investigate or prosecute any alcohol or drug abuse patient.[facility]In the event this information is protected by the Federal Confidentiality of Alcohol and Drug Abuse Patient Records regulations: The Federal rules restrict any use of the information to criminally investigate or prosecute any alcohol or drug abuse patient.[facility] the event this information is protected by the Federal Confidentiality of Alcohol and Drug Abuse Patient Records regulations: The Federal rules restrict any use of the information to criminally investigate or prosecute any alcohol or drug abuse patient.[facility]In the event this information is protected by the Federal Confidentiality of Alcohol and Drug Abuse Patient Records regulations: The Federal rules restrict any use of the information to criminally investigate or prosecute any alcohol or drug abuse patient.[facility]In the event this information is protected by the Federal Confidentiality of Alcohol and Drug Abuse Patient Records regulations: The Federal rules restrict any use of the information to criminally investigate or prosecute any alcohol or drug abuse patient.[facility]In the event this information is protected by the Federal Confidentiality of Alcohol and Drug Abuse Patient Records regulations: The Federal rules restrict any use of the information to criminally investigate or prosecute any alcohol or drug abuse patient.[facility]In the event this information is protected by the Federal Confidentiality of Alcohol and Drug Abuse Patient Records regulations: The Federal rules restrict any use of the information to criminally investigate or prosecute any alcohol or drug abuse patient.[facility]In the event this information is protected by the Federal Confidentiality of Alcohol and Drug Abuse Patient Records regulations: The Federal rules restrict any use of the information to criminally investigate or prosecute any alcohol or drug abuse patient.[facility]In the event this information is protected by the Federal Confidentiality of Alcohol and Drug Abuse Patient Records regulations: The Federal rules restrict any use of the information to criminally investigate or prosecute any alcohol or drug abuse patient.[facility]In the event this information is protected by the Federal Confidentiality of Alcohol and Drug Abuse Patient Records regulations: The Federal rules restrict any use of the information to criminally investigate or prosecute any alcohol or drug abuse patient.[facility]In the event this information is protected by the Federal Confidentiality of Alcohol and Drug Abuse Patient Records regulations: The Federal rules restrict any use of the information to criminally investigate or prosecute any alcohol or drug abuse patient.[facility]In the event this information is protected by the Federal Confidentiality of Alcohol and Drug Abuse Patient Records regulations: The Federal rules restrict any use of the information to criminally investigate or prosecute any alcohol or drug abuse patient.[facility]In the event this information is protected by the Federal Confidentiality of Alcohol and Drug Abuse Patient Records regulations: The Federal rules restrict any use of the information to criminally investigate or prosecute any alcohol or drug abuse patient.[facility]In the event this information is protected by the Federal Confidentiality of Alcohol and Drug Abuse Patient Records regulations: The Federal rules restrict any use of the information to criminally investigate or prosecute any alcohol or drug abuse patient.[facility]In the event this information is protected by the Federal Confidentiality of Alcohol and Drug Abuse Patient Records regulations: The Federal rules restrict any use of the information to criminally investigate or prosecute any alcohol or drug abuse patient.[facility] Reason for Visit (unrecogniz ed section and content) Reason Comments Follow Up 3 month Reason Comments Results Reason Comments Lab Orders Specialty Diagnoses / Procedures Referred By Contac t Referred To Contact Diagnoses Visit for screening mammogram Procedures MAMMO SCREENING WITH CARTER BILATERAL MAMMO SCREENING BILATERAL Mammography-Terry Self-Requested [address] [place] [address] Referral ID Status Reason Start Date Expiration Date V isits Requested Visits Authorized [id number] New Request 12/09/2021 01/03/2023 1 1 Reason Comments F/U HTN 3 Month refill thyroid med Reason Comments Patient Question Medication Update Reason Comments Covid19 Concern Cough, ST, fever x3 days Reason Comments Patient Update Reason Comments Viral Syndrome Reason Comments ED Follow-up UTI and still having pain Reason Comments F/U 6 months Reason Comments Abdominal Pain Possible uti Reason Onset Date Comments Refill Request 12/08/2022 Reason Comments Results discuss thyroid labs Reason Comments Refill Request Reason Comments Pelvic Pain frequent urination x 3 days Reason Comments Same Day Appointment c/o right leg pain worse than left leg, swelling, tingling and burning Reason Comments Follow Up Tests Results Care Teams (unrecognized sec tion and content) Cryptologic Technician Relationship Specialty Start Date End Date Maria Elena Resendiz MD [address] [place], [place] [id number] PCP - General Internal Medicine 12/16/16 Cryptologic Technician Relationship Specialty Start Date End Date Maria Elena Resendiz MD [address] [place], [place] [id number] PCP - General Internal Medicine 12/16/16 Cryptologic Technician Relationship Specialty Start Date End Date Maria Elena Resendiz MD [address] [place] [address] PCP - General Internal Medicine 11/26/18 Brittnee Pelletier MD [address] [place] [address] Zone Manager Obstetrics & Gynecology 04/01/17 Cryptologic Technician Relationship Specialty Start Date End Date Maria Elena Resendiz MD [address] [facility] [place] [address] PCP - General Internal Medicine 12/16/16 Cryptologic Technician Relationship Specialty Start Date End Date Maria Elena Resendiz MD [address] [facility] [place] [address] PCP - General Internal Medicine 12/16/16 Cryptologic Technician Relationship Specialty Start Date End Date Maria Elena Resendiz MD [address] [facility] [place] [address] PCP - General Internal Medicine 12/16/16 Cryptologic Technician Relationship Specialty Start Date End Date Maria Elena Resendiz MD [address] [facility] [place] [address] PCP - General Internal Medicine 12/16/16 Cryptologic Technician Relationship Specialty Start Date End Date Maria Elena Resendiz MD [address] [facility] [place] [address] PCP - General Internal Medicine 12/16/16 Cryptologic Technician Relationship Specialty Start Date End Date Maria Elena Resendiz MD [address] [facility] [place] [address] PCP - General Internal Medicine 12/16/16 Cryptologic Technician Relationship Specialty Start Date End Date Maria Elena Resendiz MD [address] [facility] [place] [address] PCP - General Internal Medicine 12/16/16 Cryptologic Technician Relationship Specialty Start Date End Date Maria Elena Resendiz MD [address] [facility] [place] [address] PCP - General Internal Medicine 12/16/16 Cryptologic Technician Relationship Specialty Start Date End Date Maria Elena Resendiz MD [address] [facility] [place] [address] PCP - General Internal Medicine 12/16/16 Cryptologic Technician Relationship Specialty Start Date End Date Maria Elena Resendiz MD [address] [facility] [place] [address] PCP - General Internal Medicine 12/16/16 Cryptologic Technician Relationship Specialty Start Date End Date Maria Elena Resendiz MD [address] [facility] [place] [id number] PCP - General Internal Medicine 12/16/16 Cryptologic Technician Relationship Specialty Start Date End Date Maria Elena Resendiz MD [address] [facility] [place], [place] [id number] PCP - General Internal Medicine 12/16/16 INFORMATION SOURCE (unrecogn ized section and content) DATE CREATED AUTHOR AUTHOR'S ORGANIZ ATION 08/02/2023 [facility] FOR RECORDS PERTAINING TO PATIENTS WHO ARE OR HAVE BEEN ENROLLED IN A CHEMICAL DEPENDENCY/SUBSTANCEABUSE PROGRAM, SOME INFORMATION MAY BE OMITTED. This clinical summary was aggregated from multiple sources. Caution should be exercised in using it in the provision of clinical care. This summary normalizes information from multiple sources, and as a consequence, information in this document may materially change the coding, format and clinical context of patient data. In addition, data may be omitted in some cases. CLINICAL DECISIONS SHOULD BE BASED ON THE PRIMARY CLINICAL RECORDS. [employer] [facility]. provides no warranty or guarantee of the accuracy or completeness of information in this document.
[2023-08-04 20:23] VITALS: BP 114/64; PULSE 79; RESP 12; O2SAT 94
[2023-08-04 21:22] VITALS: BP 110/78; PULSE 64; RESP 14; TEMP 36.4; O2SAT 99
== END 2023-08-04 21:23 | disposition home or self-care (01) ==
PROVIDERS: Physician Assistant; Emergency Provider Emergency Medicine; PCP Internal Medicine; Visit Provider Emergency Medicine
DX: R91.1 Solitary pulmonary nodule (principal); R07.89 Other chest pain; Z87.891 Personal history of nicotine dependence; I10 Essential (primary) hypertension; E78.5 Hyperlipidemia, unspecified; R11.2 Nausea with vomiting, unspecified
CPT/HCPCS: 71046; 80048; 84484; 85025; 93005; 99284; A4216

== ENCOUNTER → 2023-08-20 | Outpatient (CLI) | payer MEDICARE, SELFPAY | END | disposition home or self-care (01) | LOC: LABSPEC 14:19 | PROVIDERS: PCP Internal Medicine; Referring Provider Obstetrics & Gynecology; Visit Provider Obstetrics & Gynecology | DX: N39.46 Mixed incontinence (principal); R10.2 Pelvic and perineal pain | CPT/HCPCS: 87077; 87086; 87088; 87186 ==

== ENCOUNTER → 2023-09-15 | Outpatient (CLI) | payer MEDICARE, SELFPAY ==
[2023-09-15 10:43] LABS: Hematocrit 40.9 % (37-47); Hemoglobin 13.1 g/dL (12.0-15.0); Mean Corpuscular Hgb 31.1 pg (27.0-32.0); Mean Corpuscular Volume 97.1 fL (81-99); Mean Platelet Vol. 9.6 fl (6.2-12.0); Platelet Count 321 K/mm3 (150-450); RBC Distribution Width CV 12.7 % (11.6-14.6); RBC Distribution Width SD 45.6 fl (35.1-43.9); Red Blood Count 4.21 M/mm3 (4.2-5.4); White Blood Count 6.9 K/mm3 (4.4-11.0)
[2023-09-15 11:04] LABS: Prothrombin Time (Protime)PT. 13.4 SECONDS (11.7-14.9)
[2023-09-15 11:05] LABS: Partial Thromboplast Time 30.7 Seconds (24.1-36.2)
== END | disposition home or self-care (01) ==
LOC: LAB 10:09
PROVIDERS: PCP Internal Medicine; Referring Provider Internal Medicine Critical Care Medicine; Visit Provider Internal Medicine Critical Care Medicine
DX: Z01.818 Encounter for other preprocedural examination (principal); I42.9 Cardiomyopathy, unspecified; R91.1 Solitary pulmonary nodule
CPT/HCPCS: 36415; 85027; 85610; 85730

== ENCOUNTER → 2023-09-28 | Outpatient (CLI) | payer MEDICARE, SELFPAY | END | disposition home or self-care (01) | LOC: PSN 12:45 | PROVIDERS: PCP Internal Medicine; Referring Provider Internal Medicine Critical Care Medicine; Visit Provider Internal Medicine Critical Care Medicine | DX: R91.1 Solitary pulmonary nodule (principal) | CPT/HCPCS: 94060; 94726; 94729 ==

== ENCOUNTER → 2023-10-02 | Outpatient (CLI) | payer MEDICARE, SELFPAY ==
[2023-10-02] VITALS (18 sets, daily range): BP systolic 110–168; BP diastolic 35–133; PULSE 76–89; RESP 15–23; TEMP 36.8; O2SAT 92–99; BMI 29.1
--- NOTE | 2023-10-02 | IMM_PTH ---
PATIENT: FRANCIS CROFT LOC: CT U#:[id number] AGE/SX: 83/F ROOM: RE10/02/[address]: Dr. Alden Thornton MD : 1940 BED: DIS: 10/02/2023 SPEC #: [id number] RECD: 10/05/23 10:49 STATUS: SOUBalta REQ #: [id number] DURGA: 10/02/23 00:[address]: Alden Thornton DEPT: IMMUNOHISTOCHEMISTRY RECD BY: Jose Raza ENTERED: 10/05/23 10:52 SP TYPE: IMMUNO OTHR DR: Dr. Maria Elena Resendiz MD Tissues: Lung, NOS Procedures: RCC (add) NAPSIN A (add) Jose Martin Ret (add) CK20 (add) CK5-6 (add) CK7 (add) CK8 (add) HEP PAR (add) OK (add) TTF1 (add) Vimentin (add) 34BE12 (add) Pankeratin (add) P40 (add) ER (initial) PHYSICIAN & [address] [address] SPECIMEN INFORMATION: Tissue Source: right lung Clinical Info: RUL pulmonary nodule Specimen Number: [id number] CPT code: 03661,[id number] METHODOLOGY: Deparaffinized sections of prefer/formalin-fixed tissue or PAP/DQ stained slides are incubated with monoclonal/polyclonal antibodies/oligonucleotide probes. Localization is made via biotin free immunoperoxidase method. Appropriate controls are performed and reacted as expected. Results on target cell population are indicated in the following table: RESULTS: ANTIBODY / CLONE RESULT ER (6F11) negative OK (1E2) negative AE1-3 (AE1/AE3/PCK26) positive CK7 (OV-TL12/30) positive CK8 (38yotfG26) positive CK20 (KS20.8) negative TTF-1 (8G7G3/1) negative Napsin A (Rabbit Polyclonal) negative HepPar (OCh1E5) negative RCC (PN-15) negative CK5-6 (D5 & 1684) positive P40 (BC28) negative 34BE12 (34BE12) positive CALRET (polyclonal) negative Vimentin (V9) positive These tests were developed and their performance characteristics determined by [facility]. They may not have been cleared or approved by the U.S. Food and Drug Administration. The FDA has determined that such clearance or approval is not necessary. The above immunohistochemical/dualISH markers are ordered and reviewed by the Pathologist. INTERPRETATION: Right lung, CT-guided core biopsy: Poorly differentiated Non-small cell carcinoma, favor squamous cell carcinoma. See comment. SJ: 10/12/2023 Comment; The specimen is sent to [facility] for expert opinion, reviewed by Dr. Hubbard and the above diagnosis is rendered. The complete report is viewable in the patient's EMR. Case has been reviewed in consultation with Dr. Rios who concurs with the above diagnosis. IDC:AM
[2023-10-02] MEDS: Midazolam 2 MG/2 ML Syringe IV (10:19)
[2023-10-02] MEDS: 0.9% Normal Saline (250mL Bag) 250 ML 15 ML IV (10:19)
[2023-10-02] MEDS: fentaNYL 100 MCG/2 ML Ampul IV ×2 (10:22→10:32)
--- NOTE | 2023-10-02 10:30 | RAD_ITS ---
INDICATION: immediate post lung biopsy -- Immediately post lung biopsy EXAMINATION/TECHNIQUE: X-RAY - XR Chest 2 Views COMPARISON: Prior study dated: 08/04/2023 FINDINGS: LINES/DEVICES: None. LUNGS: Right upper lobe opacity/infiltrate. No evidence of pneumothorax. No pleural effusions are seen. MEDIASTINUM AND CARDIOVASCULAR STRUCTURES: Normal cardiac silhouette. Hiatal hernia is again seen. BONES AND SOFT TISSUES: Degenerative changes of the right shoulder. RAD/Chest Insp/Exp 2 View IMPRESSION: 1. Right upper lobe opacity/infiltrate. 2. No evidence of pneumothorax. Electronically Signed: Shekhar Sampson MD at 12:22 EST ,
--- NOTE | 2023-10-02 10:30 | ASPIGT_PTH ---
PATIENT: FRANCIS CROFT LOC: [place] U#:[id number] AGE/SX: 83/F ROOM: RE10/02/[address]: Dr. Alden Thornton MD : 1940 BED: DIS: 10/02/2023 SPEC #: [id number] RECD: 10/02/23 10:54 STATUS: LUISITO REManuel #: [id number] DURGA: 10/02/23 10:[address]: Alden Thornton DEPT: SURGICAL PATHOLOGY RECD BY: Rocio De La Rosa ENTERED: 10/02/23 10:55 SP TYPE: ASP RAD OTHR DR: Dr. Maria Elena Resendiz MD Tissues: Lung, NOS Procedures: FNA Specimen Adequacy [facility] Consultation (on slides) Special Stain Group II Surgery Specimen Level IV Imprint (control) HEADER OPERATION: Right lung, CT-guided core biopsy PRE-OP DIAGNOSIS: RUL pulmonary nodule TISSUE SUBMITTED: Right lung biopsy 20-gauge x5 MICROSCOPIC DIAGNOSIS Right lung, CT-guided core biopsy: Poorly differentiated Non-small cell carcinoma, favor squamous cell carcinoma. See comment. SJ: 10/12/2023 COMMENT The specimen is evaluated at the time of biopsy by Dr. Gil. Immediate Evaluation = Mildly atypical cells noted. The specimen is sent to [facility] for expert opinion, reviewed by Dr. Hubbard and the above diagnosis is rendered. The complete report is viewable in the patient's EMR. Immunohistochemistry ([id number]) and additional immunohistochemical stains performed at [facility] supports the above diagnosis. Molecular studies on the tumor can be performed if clinically indicated. Please notify the laboratory if they are needed. Case has been reviewed in consultation with Dr. Rios who concurs with the above diagnosis. IDC:AM MICROSCOPIC DESCRIPTION Slides are reviewed. GROSS DESCRIPTION Received in fixative is one container labeled with the patient's name and designated right lung. The specimen consists of multiple irregular fragments of st soft tissue that in aggregate measure 0.5 x 0.1 x <0.1 cm. The specimen is totally submitted in one cassette. Two touch imprints are prepared at the time of core biopsy. / SJ:rg 10/02/2023 TC:0 [facility]: [id number], [id number] ADDENDUM ADDENDUM ADDENDUM ADDENDUM ADDENDUM ADDENDUM ADDENDUM ADDENDUM ADDENDUM ADDENDUM ADDENDUM ADDENDUM ADDENDUM ADDENDUM ADDENDUM ADDENDUM ADDENDUM ADDENDUM ADDENDUM ADDENDUM ADDENDUM ADDENDUM ADDENDUM ADDENDUM ADDENDUM ADDENDUM ADDENDUM 07/08/2024 08:38 ADDENDUM 07/13/2024 08:29 ADDENDUM 09/09/2024 13:00 ADDENDUM 07/08/2024 08:38 ADDENDUM 07/08/2024 08:38 ADDENDUM 07/08/2024 08:38 ADDENDUM 07/08/2024 08:38 PD-L1 (KEYTRUDA) IMMUNOHISTOCHEMICAL ANALYSIS FROM [facility] RESULTS: Tumor proportion score: <1 % / NEGATIVE MISMATCH REPAIR (MMR) BY IHC WITH INTERPRETATION REPORT FROM [facility] INTERPRETATION: No loss of nuclear expression of MMR proteins: Low probability of MSI-H. NOTE: Background non-neoplastic tissue and/or internal control with intact nuclear expression. RESULTS: ANTIBODY CLONE DESCRIPTION RESULTS MLH1 M1 Mismatch repair protein Intact nuclear expression MSH2 [id number] Mismatch repair protein Intact nuclear expression MSH6 44 Mismatch repair protein Intact nuclear expression PMS2 [id number] Mismatch repair protein Intact nuclear expression COMMENT: A positive control for each antibody has been reviewed and accepted. Please see complete report in e-chart or EMR ONKOSIT NEXT GENERATION SEQUENCING GENE FUSION REPORT FROM [facility] TEST(S) NOT PERFORMED AND REASON: M338 Comprehensive Onk[employer] Advanced Lung Panel: Review of the specimen revealed that there was insufficient tumor present to meet the requirements for molecular testing. Please see complete report in e-chart or EMR This addendum is added to incorporate an outside pathology consultation report. The case was examined at [facility] (#[id number]) and the following diagnosis was rendered. A. Right lung, CT guided core biopsy: Poorly-differentiated non-small cell carcinoma. Please see complete above mentioned consultation report in EMR
[2023-10-02] MEDS: Lidocaine 2% (20 ml mdv) 20 ML Vial INFILT (10:33)
--- NOTE | 2023-10-02 11:01 | PCM.OP.PRO ---
Procedure Report Date of Procedure: 10/02/23 Assessment & Plan Assessment/Plan (1) Right upper lobe pulmonary nodule: PLAN: PROCEDURE: CT GUIDED CORE NEEDLE LUNG BIOPSY ORDERING PROVIDER: Dr. Alden Thornton INDICATION: Female, 83 years old. Right upper lobe pulmonary nodule. PROVIDER: JOZEF Snow CONSENT: Written informed consent was obtained having explained the risks, benefits and alternatives in detail with the patient who accepted the risks and agreed to proceed. Laboratory review and clinical assessment was performed. PRE-PROCEDURE SEDATION ASSESSMENT: Current history and physical dictated by referring physician and reviewed. No clinical changes since date of exam. Patient has an ASA Class of 2. PROCEDURAL SEDATION PROTOCOL: The Drugs used were: 2 mg Versed, IV, and 50 mcg Fentanyl, IV. The sedation time was: 24 minutes, starting at 1019 and terminated at 1043. The procedural sedation protocol was independently monitored by the department nurse. RADIATION DOSAGE (If Supplied By Facility): CTDIvol = 18.77 mGy, DLP = 442.57 mGycm Individualized dose optimization techniques were used for this CT. TECHNIQUE: The patient was placed in a supine position. A noncontrast CT was performed to localize the lesion in the right upper lobe. The skin surface was prepped and draped in a sterile fashion. 2% lidocaine was used for local anesthesia. Using CT guidance, a 20-gauge coaxial biopsy device was advanced to the periphery of the lesion. A total of 5 core specimens were obtained. Specimens were microscopically reviewed by pathology in the CT suite and placed in formalin solution. BioSentry tract sealant system was deployed at the biopsy site, and the biopsy needle was removed. A sterile occlusive dressing was applied to the biopsy site. The patient tolerated the procedure well. An immediate chest xray was ordered, per protocol. A negative biopsy does not exclude malignancy. Further imaging or clinical followup based on patient condition and degree of clinical suspicion for malignancy. Suggest rebiopsy, if biopsy results do not match with clinical scenario. IMPRESSION: 1. CT directed core needle biopsy of right upper lobe pulmonary nodule using CT image guidance with image documentation as described. Pathology results are pending. 2. Procedural Sedation protocol utilized with independent monitoring by the department nurse. Procedures Radiology Radiology CT Procedures: 36961 Biopsy Lung
--- NOTE | 2023-10-02 12:30 | RAD_ITS ---
INDICATION: 2 hour post lung biopsy -- 2 hours post lung biopsy EXAMINATION/TECHNIQUE: X-RAY - XR Chest 2 Views COMPARISON: Prior study dated: 10/02/2023, 10:50 AM. FINDINGS: LINES/DEVICES: None. LUNGS: Focal opacity/infiltrate in right upper lobe is again seen. No evidence of pneumothorax or pleural effusions. MEDIASTINUM AND CARDIOVASCULAR STRUCTURES: Stable cardiomediastinal silhouette. BONES AND SOFT TISSUES: Unchanged. RAD/Chest Insp/Exp 2 View IMPRESSION: No evidence of pneumothorax. Electronically Signed: Shekhar Sampson MD at 13:17 EST ,
== END | disposition home or self-care (01) ==
LOC: CT 08:56
PROVIDERS: PCP Internal Medicine; Referring Provider Internal Medicine Critical Care Medicine; Visit Provider Internal Medicine Critical Care Medicine
DX: C34.91 Malignant neoplasm of unspecified part of right bronchus or lung (principal)
CPT/HCPCS: 32408; 71046; 77012; 88172; 88305; 88313; 88325; 88341; 88342; 99156; J7050; C2613

== ENCOUNTER → 2023-10-08 | Outpatient (CLI) | payer MEDICARE, SELFPAY ==
--- NOTE | 2023-10-08 14:33 | BD_ITS ---
STUDY: DUAL ENERGY X-RAY ABSORPTIOMETRY / DXA REASON FOR EXAM: Female, 83 years old. Postmenopausal TECHNIQUE: Bone Mineral Density (BMD) measurements of lumbar spine and bilateral hips were obtained. COMPARISON: Comparison is made with prior study dated May 20, 2017. FINDINGS: Lumbar Spine (L1-L4): g/cm2 (0.865) / T-score (-1.7) / Z-score (1.1) Findings are suggestive of osteopenia with a moderate fracture risk. Left Femur Total: g/cm2 (0.725) / T-score (-1.8) / Z-score (0.4) Left Femoral Neck: g/cm2 (0.5-0) / T-score (-3.0) / Z-score (-0.6) Right Femur Total: g/cm2 (0.739) / T-score (-1.7) / Z-score (0.5) Right Femoral Neck: g/cm2 (0.580) / T-score (-2.4) / Z-score (0.0) The T-Scores on the most recent prior examination were: Lumbar Spine (L1-L4): There has been worsening of bone density since the previous examination. Left Femur Total: which represents a worsening of 9.4%. Right Femur Total: which represents a worsening of 7.7%. BD/Dexa Bone Density Study IMPRESSION: The patient is considered osteoporotic as outlined below according to World Nikhil Organization (WHO) criteria with a high fracture risk. There has been worsening of bone density since the previous examination. Reference Information: The T-score is the number of standard deviations above or below the standard which is normal for young adults at their peak bone mineral density. The World Health Organization (WHO) interprets the T-scores as follows: Above -1 Normal bone density Between -1 and -2.5 Osteopenia Equal to / or below -2.5 Osteoporosis As a practical clinical guideline, osteopenia may be graded as follows: Mild -1 through -1.5 Moderate -1.6 through -2.0 Severe -2.1 through -2.4 The Z-score is the number of standard deviations above or below age-matched controls. A Z-score of less than -1.5 would be considered abnormal. References: 1. NIH Osteoporosis and Related Bone Diseases www osteo.org 2. International Society for Clinical Densitometry www iscd.org 3. National Osteoporosis Foundation www nof.org Electronically Signed: Seth Fournier MD at 11:16 EDT ,
== END | disposition home or self-care (01) ==
LOC: OPBD 14:33
PROVIDERS: PCP Internal Medicine; Referring Provider Obstetrics & Gynecology; Visit Provider Obstetrics & Gynecology
DX: Z78.0 Asymptomatic menopausal state (principal)
CPT/HCPCS: 77080

== ENCOUNTER → 2024-01-20 | Outpatient (CLI) | payer MEDICARE, SELFPAY ==
[2024-01-20 12:50] LABS: PTHIN 58.9 pg/mL (18.4-80.1)
[2024-01-20 12:54] LABS: Vitamin D,25 Hydroxy 37.9 ng/mL
== END | disposition home or self-care (01) ==
LOC: LAB 11:37
PROVIDERS: PCP Internal Medicine; Referring Provider Internal Medicine Endocrinology, Diabetes & Metabolism; Visit Provider Internal Medicine Endocrinology, Diabetes & Metabolism
DX: E55.9 Vitamin D deficiency, unspecified (principal); M81.0 Age-related osteoporosis without current pathological fracture
CPT/HCPCS: 36415; 82306; 83970

== ENCOUNTER → 2024-02-22 | Outpatient (CLI) | payer MEDICARE, SELFPAY ==
--- NOTE | 2024-02-22 07:31 | CT_ITS ---
INDICATION: follow up treated lung cancer -- please compare to prior EXAMINATION: CT CHEST WITHOUT CONTRAST - CT Chest W/O Contrast Injection TECHNIQUE: Helically acquired images were obtained of the chest. The protocol utilizes one or more of the following dose reduction techniques: automated exposure control, adjustment of mA and/or kV according to patient size,and/or use of iterative reconstruction technique. IV Contrast dosage and agent: None. RADIATION DOSAGE (If Supplied By Facility): CTDIvol = ( 13.33 ) mGy, DLP = ( 426.47 ) mGycm COMPARISON: Prior examinations are not available for comparison. FINDINGS: LUNGS, PLEURA AND LARGE AIRWAYS: 1.5 x 0.7 cm irregular right upper lobe nodule seen on image 20 series 4. Mild stranding in the medial aspect of the right upper lobe could be due to scarring. 3 mm right middle lobe nodule for which no further follow-up exam is needed. Linear atelectasis or scarring in the left lower lobe. No pleural effusion or thickening. No pneumothorax. THYROID: No thyroid lesions. HEART AND PERICARDIUM: Heart size is normal. No pericardial effusion. CORONARY ARTERIES: Coronary artery calcification is seen. VESSELS: Atherosclerotic calcifications of the thoracic aorta and the origin of the left subclavian artery and carotid arteries. MEDIASTINUM AND LAINEY: No mediastinal or hilar adenopathy. Esophagus is unremarkable. Moderate to large hiatal hernia which could be paraesophageal. UPPER ABDOMEN: No acute changes without contrast. BONES: No suspicious lytic or blastic abnormality. Increased kyphosis and multilevel degenerative changes. CT/Chest without Contrast IMPRESSION: 1. Focal irregular right upper lobe density could represent scarring or tumor. 2. Otherwise no evidence of metastatic disease or acute pulmonary infiltrate. 3. Atherosclerotic vascular calcifications. 4. Moderate to large hiatal hernia which could be paraesophageal. Electronically Signed: Shekhar Sampson MD at 14:03 EDT ,
== END | disposition home or self-care (01) ==
PROVIDERS: PCP Internal Medicine; Referring Provider Student in an Organized Health Care Education/Training Program; Visit Provider Student in an Organized Health Care Education/Training Program
DX: Z08 Encounter for follow-up examination after completed treatment for malignant neoplasm (principal); Z85.118 Personal history of other malignant neoplasm of bronchus and lung
CPT/HCPCS: 71250

== ENCOUNTER → 2024-03-22 | Outpatient (CLI) | payer MEDICARE, SELFPAY ==
--- NOTE | 2024-03-22 10:33 | ECHOD_ITS ---
Reason For Study: Aortic Stenosis Procedure This was a 2D Doppler, Color Flow transthoracic echocardiogram. Exam performed in department. Left Ventricle Normal LV size. Sigmoid septum. The left ventricular ejection fraction is 70 %. Stage 1 diastolic dysfunction. No regional wall motion abnormalities noted. Right Ventricle Normal RV size. Normal systolic function. Atria Normal left atrium. Normal right atrium. Mitral Valve There is mild mitral annular calcification. Mild (1+) eccentric mitral valve insufficiency. Tricuspid Valve Normal tricuspid valve. Mild tricuspid valve insufficiency. Pulmonary artery systolic pressure is 24 mmHg. Aortic Valve Trisinus/trileaflet aortic valve. Moderate focal aortic valve calcification. Peak aortic valve gradient 45 mmHg. Mean aortic valve gradient 27 mmHg. Mild to moderate aortic stenosis. Mild (1+) aortic valve insufficiency. Great Vessels Normal aortic root. The pulmonary artery is normal size. Normal inferior vena cava. MMode/2D Measurements & Calculations LVIDd: 3.4 cm IVSd: 1.5 cm LVOT diam: 2.0 cm LVIDs: 1.7 cm LVPWd: 1.1 cm LVOT area: 3.2 cm2 RVDd: 2.8 cm FS: 50.7 % Ao root diam: 3.2 cm LAV(MOD-bp): 48.3 ml LVAd ap4: 21.7 cm2 LAV(MOD-bp) Indexed: 27.7 ml/m2 LVLd ap4: 7.2 cm LAV(MOD-sp2): 38.1 ml EDV(MOD-sp4): 54.9 ml LAV(MOD-sp4): 51.5 ml EDV(sp4-el): 55.7 ml LVAs ap4: 8.7 cm2 LVLs ap4: 5.8 cm ESV(MOD-sp4): 11.8 ml ESV(sp4-el): 11.0 ml EF(MOD-sp4): 78.5 % EF(sp4-el): 80.3 % SV(MOD-sp4): 43.1 ml SV(MOD-sp2): 43.4 ml LVAd ap2: 22.1 cm2 LVLd ap2: 7.2 cm EDV(MOD-sp2): 57.6 ml EDV(sp2-el): 58.2 ml LVAs ap2: 9.8 cm2 LVLs ap2: 6.0 cm ESV(MOD-sp2): 14.2 ml ESV(sp2-el): 13.5 ml EF(MOD-sp2): 75.4 % SV(sp4-el): 44.7 ml LA A4 area: 17.4 cm2 LA dimension(2D): 2.8 cm TAPSE: 1.7 cm RA A4 area: 10.5 cm2 Time Measurements MV dec time: 0.27 sec Doppler Measurements & Calculations MV E max ryland: 107.6 cm/sec Lat Peak E' Ryland: 5.6 cm/sec Med Peak E' Ryland: 7.2 cm/sec MV A max ryland: 123.9 cm/sec E/E' lat: 19.1 E/E' med: 14.9 MV E/A: 0.87 MV dec slope: 402.7 cm/sec2 Ao V2 max: 333.9 cm/sec AI max ryland: 310.5 cm/sec Ao max P.6 mmHg AI max P.7 mmHg Ao V2 mean: 247.1 cm/sec AI dec slope: 202.4 cm/sec2 Ao mean P.7 mmHg AI P1/2t: 449.3 msec Ao V2 VTI: 80.7 cm AV (velocity ratio): 0.38 LES(I,D): 1.2 cm2 LES(V,D): 1.2 cm2 LV V1 max: 120.6 cm/sec SV(LVOT): 98.7 ml PA V2 max: 92.2 cm/sec LV V1 max P.8 mmHg LV V1 mean P.5 mmHg LV V1 mean: 89.1 cm/sec LV V1 VTI: 30.4 cm TR max ryland: 227.8 cm/sec TR max P.8 mmHg ECHO/Echo Complete Interpretation Summary Normal LV size. The left ventricular ejection fraction is 70 %. Mild (1+) eccentric mitral valve insufficiency. Pulmonary artery systolic pressure is 24 mmHg. Stage 1 diastolic dysfunction. Moderate focal aortic valve calcification. Mean aortic valve gradient 27 mmHg. Mild to moderate aortic stenosis. Ordering Physician: Leanna Cooper Referring Physician: Maria Elena Resendiz Performed By: Anny Stark RDCS
== END | disposition home or self-care (01) ==
LOC: CVS 10:28
PROVIDERS: PCP Internal Medicine; Referring Provider Physician Assistant Medical; Visit Provider Physician Assistant Medical
DX: I51.7 Cardiomegaly (principal); I35.0 Nonrheumatic aortic (valve) stenosis
CPT/HCPCS: 93306

== ENCOUNTER → 2024-04-06 | Outpatient (CLI) | payer MEDICARE, SELFPAY ==
--- NOTE | 2024-04-06 07:32 | CT_ITS ---
PROCEDURE: CT RIGHT KNEE WITHOUT CONTRAST REASON FOR EXAM: Female, 83 years old. Preoperative planning for the Mako[employer] Robotic knee surgery. Knee pain. TECHNIQUE: Transaxial CT of the hip, knee and ankle were obtained. Coronal and sagittal reconstruction images of the knee were provided. Individualized dose optimization techniques were used for this CT. COMPARISON: None. FINDINGS: Standard protocol for the preoperative planning for the MakoPlasty robotic knee surgery was performed. Osteopenia with mild arthrosis of the right hip, moderate to marked tricompartmental arthrosis of the right knee and moderate arthrosis of the tibiotalar and subtalar joints.. CT/Extremity Lower without Contra IMPRESSION: Preoperative Mako[employer] Robotic knee surgical CT evaluation with findings as described above. Electronically Signed: Angelo Muir MD at 9:29 EDT ,
== END | disposition home or self-care (01) ==
LOC: CT 07:26
PROVIDERS: PCP Internal Medicine; Referring Provider Specialist; Visit Provider Specialist
DX: M21.161 Varus deformity, not elsewhere classified, right knee (principal)
CPT/HCPCS: 73700

== ENCOUNTER 2024-04-11 07:21 | Observation (INO) | payer MEDICARE, SELFPAY ==
--- NOTE | 2024-04-06 07:32 | EKG12_ITS ---
Test Reason : PRE OP Blood Pressure : / mmHG Vent. Rate : 071 BPM Atrial Rate : 071 BPM P-R Int : 182 ms QRS Dur : 070 ms QT Int : 394 ms P-R-T Axes : 032 -01 029 degrees QTc Int : 428 ms Normal sinus rhythm Septal infarct (cited on or before 04-AUG-2023) Abnormal ECG Confirmed by SAV CORREA, SAIMA ([id number]), assistant editor GEOFFREY CORTES ([id number]) on 04/06/2024 1:27:46 PM Referred By: Jose Loaiza Confirmed By:SAIMA ANG MD
[2024-04-06 08:32] LABS: Absolute Lymphocyte Count 1.34 X10^3/uL (0.83-4.51); Absolute Neutrophil Count 3.5 X10^3/uL (2.0-7.7); Basophil# 0.05 X10^3/uL; Basophil% 0.9 % (0-1); Eosinophil# 0.23 X10^3/uL; Eosinophils% 3.9 % (0-5); Hematocrit 38.3 % (37-47); Hemoglobin 12.9 g/dL (12.0-15.0); Lymphocyte # 1.34 X10^3/ul (0.83-4.51); Lymphocyte % 22.8 % (19-41); Mean Corp Hgb Conc 33.7 g/dL (32-36); Mean Corpuscular Hgb 32.8 pg (27.0-32.0); Mean Corpuscular Volume 97.5 fL (81-99); Mean Platelet Vol. 8.9 fl (6.2-12.0); Monocyte# 0.75 X10^3/uL; Monocyte% 12.8 % (0-10); NRBC Flagged by Analyzer 0 % (0-5); Neutrophil # 3.49 X10^3/uL (2.7-7.7); Neutrophil % 59.3 % (47-70); Platelet Count 276 K/mm3 (150-450); RBC Distribution Width CV 12.9 % (11.6-14.6); RBC Distribution Width SD 46.1 fl (35.1-43.9); Red Blood Count 3.93 M/mm3 (4.2-5.4); White Blood Count 5.9 K/mm3 (4.4-11.0)
[2024-04-06 09:34] LABS: Albumin, Serum 3.8 g/dL (3.2-5.0); Anion Gap 6 (5-15); BUN 10 mg/dL (7-18); BUN/Creat Ratio 17.6 RATIO (10-20); Calcium,Total 8.9 mg/dL (8.5-10.1); Chloride 107 mmol/L (98-107); Creatinine, Serum 0.57 mg/dL (0.55-1.02); EST Glomerular Filtration Rate 108 mL/min (>60); Est Glom Filt Rate - Afr Amer 131 mL/min (>60); Glucose 98 mg/dL (74-106); Potassium 4.3 mmol/L (3.5-5.1); Sodium Level 137 mmol/L (136-145)
[2024-04-06 09:39] LABS: Magnesium 2.1 mg/dL (1.6-2.6)
[2024-04-08 08:13] LABS: Bacteria 0 SEEN /hpf (None Seen); Squamous Epithelial Cells - UA 0 SEEN /hpf (5-10)
[2024-04-08 08:50] LABS: Color, Urine Yellow (Yellow); Glucose, Dipstick Normal (Normal); Ketone-Dipstick Negative (Negative); Leukocyte Esterase-Dipstick 25 /ul (Negative); Nitrite-Dipstick Negative (Negative); Occult Blood-Urine 10 /ul (Negative); Protein-Dipstick Negative (Negative); Specific Gravity, Urine 1.015 (1.002-1.030); Urine Bilirubin Dipstick Negative (Negative); Urine Clarity Clear (Clear); Urine Urobilinogen Normal (Normal)
[2024-04-08 09:12] LABS: Mucous, Urine 1+ /hpf (<or=2+)
[2024-04-08 09:13] LABS: Red Blood Cells-Urine 0-5 SEEN /hpf (0-5); White Blood Cells 0-5 SEEN /hpf (0-5)
[2024-04-11] VITALS (14 sets, daily range): BP systolic 97–163; BP diastolic 45–85; PULSE 59–95; RESP 15–18; TEMP 36.1–36.7; O2SAT 93–100; BMI 31.3
--- NOTE | 2024-04-11 | KNEE_PTH ---
PATIENT: FRANCIS CROFT LOC: MS3 U#:[id number] AGE/SX: 83/F ROOM: SC320 RE04/11/[address]: Dr. Jose Loaiza MD : 1940 BED: 1 DIS: 04/15/2024 SPEC #: [id number] RECD: 04/11/24 13:28 STATUS: LUISITO CASE #: [id number] DURGA: 04/11/24 00:[address]: Jose Loaiza DEPT: SURGICAL PATHOLOGY RECD BY: Kenroy Salas ENTERED: 04/12/24 09:36 SP TYPE: TOTAL KNEE OTHR DR: DO Dr. Maria Elena Son MD Dr. Kathryn Lee, DO Tissues: Knee, NOS Procedures: Decalcification bone/plaque Surgery Specimen Level IV HEADER OPERATION: Total knee replacement robotic arm assist PRE-OP DIAGNOSIS: Severe right knee arthritis TISSUE SUBMITTED: Bone and soft tissue right knee MICROSCOPIC DIAGNOSIS Bone and tissue of right knee, total knee resection: Severe degenerative joint disease. Mild synovial hyperplasia. AM: 04/15/2024 MICROSCOPIC DESCRIPTION Slides are reviewed. GROSS DESCRIPTION Received is one container designated bone and soft tissue right knee. The specimen consists of multiple fragments of st-yellow bone measuring in aggregate 12.0 x 9.0 x 3.0 cm. Also present to one of the pieces of bone is a piece of soft tissue measuring in aggregate 3.5 x 1.5 x 1.0 cm. A number of bony fragments contain articular surfaces consistent with tibial plateau and femoral condyle and displaying prominent osteophyte formation, eburnation and bone erosion. [employer] sections are submitted in two cassettes as follows: 1 - soft tissue, 2 - bone after decalcification. / MARLON/ 04/12/2024 TC:5 CPT: 30298, 74555
--- NOTE | 2024-04-11 08:01 | PCM.PRE.AN2 ---
ASA Classification* ASA Classification ASA Classification: 3 Assessment & Plan Anesthesia* Anesthesia Assessment Anesthesia Assessment: Discussed sedation and/or anesthesia options, risks, benefits, and alternatives with patient/parents/legal guardian/POA. Questions invited. The patient/parents/legal guardian/POA seems to understand and agrees to proceed with anesthesia plan. Reviewed the physical assessment, medical history, allergy history and patient home medications list prior to surgery/procedure/anesthetic and documented any changes. Performed airway and anesthesia risk assessments. Anesthesia Type Anesthesia Type: Spinal (block consented) Anesthesia Focused Assessment* Airway Assessment Mouth opens: >3 cm Mallampati Score: II Focused Labs Anesthesia Preop lab: CBC WBC 5.9 K/mm3 (4.4-11.0) 04/06/24 08:05 RBC 3.93 M/mm3 (4.2-5.4) L 04/06/24 08:05 Hgb 12.9 g/dL (12.0-15.0) 04/06/24 08:05 Hct 38.3 % (37-47) 04/06/24 08:05 Plt Count 276 K/mm3 (150-450) 04/06/24 08:05 CHEMISTRY Potassium 4.3 mmol/L (3.5-5.1) 04/06/24 08:05 Sodium 137 mmol/L (136-145) 04/06/24 08:05 Magnesium 2.1 mg/dL (1.6-2.6) 04/06/24 08:05 Phosphorus 3.5 mg/dL (2.5-4.9) 12/30/22 06:05 BUN 10 mg/dL (7-18) 04/06/24 08:05 Creatinine 0.57 mg/dL (0.55-1.02) 04/06/24 08:05 Glucose 98 mg/dL (74-106) 04/06/24 08:05 POC Glucose 118 mg/dL (74-106) H 12/31/22 16:00 TSH 3.810 uIU/mL (0.358-3.740) H 04/06/24 08:05 COAG PT 13.4 SECONDS (11.7-14.9) 09/15/23 10:14 Pre-Assessment Diagnosis/Proposed Procedure Planned Operative Procedure(s): Total Knee Replacement Robotic Arm Assist Anesthesia History 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 When Was Last Pacemaker Check QUESTION #4 FULL TEXT: You/Your Family Experience fever (hyperthermia) with Anesthesia Last Oral Intake Last Oral intake: Last Oral Intake NPO since Meds taken in AM with sips of water? Meds patient instructed to take am of surgery PONV PONV - regional intermodal truck driver: PONV - regional intermodal truck driver Female Yes 03/23/24 08:25 HX of Motion Sickness No 03/23/24 08:25 HX of N/V After Surgery No 03/23/24 08:25 Non-Smoker Yes 03/23/24 08:25 Duration of Surgery greater Yes 03/23/24 08:25 than 60 minutes Number of Risk Factors 3 03/23/24 08:25 PONV Score Moderate Risk 03/23/24 08:25 Height & Weight Height & Weight: Anesthesia: Height & Weight Height 5 ft 2.5 in 02/25/24 09:21 Respiratory Assessment Respiratory Assessment - regional intermodal truck driver: Respiratory Tract Infection Hx - regional intermodal truck driver Hx Respiratory Tract Infection No 03/23/24 08:25 STOP Sleep Apnea STOP Sleep Apnea - regional intermodal truck driver: STOP Sleep Apnea - regional intermodal truck driver Hx Hypertension Yes 03/23/24 08:25 Hx Sleep Apnea No 03/23/24 08:25 CPAP BIPAP Do you snore loudly (louder No 03/23/24 08:25 than talking or can be heard Do you often feel tired/ No 03/23/24 08:25 fatigued/ sleepy during daytime? Has anyone observed you stop No 03/23/24 08:25 breathing during sleep? STOP Results Negative 03/23/24 08:25 QUESTION #5 FULL TEXT : Do you snore loudly (louder than talking or can be heard through closed doors)? Tobacco Use History Tobacco Use History - regional intermodal truck driver: Tobacco Use History - regional intermodal truck driver Tobacco Use Smoking Status Former smoker 03/23/24 08:25 Hx Tobacco Use No 03/23/24 08:25 Years Smoking Packs Smoked per Day Smoking Cessation Date was No - quit smoking greater 03/23/24 08:25 within the last 15 years than 15 years ago Hx Smoking Cessation Date Hx Smoking Cessation Counseling Hematologic Medial History Hematologic Hx - regional intermodal truck driver: Hematologic Medical Hx - room maid Hx of Blood Transfusion No 03/23/24 08:25 Hx of Transfusion in last 3 No 03/23/24 08:25 Months Date of Last Transfusion (if within last 3 months) Ever experience any problems No 03/23/24 08:25 with transfusion(s)? Specify any problems Hx of Preganancy in last 3 No 03/23/24 08:25 Months Nurse Filling Out Transfusion [facility] 03/23/24 08:25 & Questions: Date: 03/23/24 03/23/24 08:25 Time: 08:36 03/23/24 08:25 Patient unable to answer at this time (ie. confused, unrespo /Reproduction History /Reproductive History - regional intermodal truck driver: /Reproductive Hx- regional intermodal truck driver Hx Now No 03/23/24 08:25 Gestational Age (in weeks): EDC: Hx Hx Para Hx Section SAB No 03/23/24 08:25 Active Medications Active Medications: Current Medications Generic Name Dose Route Start Last Admin Trade Name Freq PRN Reason Stop Dose Admin Acetaminophen 1,000 mg 04/11/24 08:45 Acetaminophen 500 Mg Tablet PO 04/11/24 08:46 X1 ONE Acetaminophen 1,000 mg 04/11/24 14:00 Acetaminophen 500 Mg Tablet PO Q8 BRANT Ascorbic Acid 500 mg 04/11/24 10:00 Ascorbic Acid 500 Mg Tablet PO DAILY BRANT Bupropion HCl 75 mg 04/11/24 10:00 Bupropion 75 Mg Tablet PO DAILY BRANT Calcium Carbonate 400 mg 04/11/24 07:19 Calcium Carbonate 500 Mg Tablet PO ONCE PRN INGESTION Cephalexin 250 mg 04/11/24 22:00 Cephalexin 250 Mg Capsule PO QHS BRANT Cholecalciferol 50 mcg 04/11/24 10:00 Cholecalciferol (Vit D3) 25 Mcg Tablet (1,000 Units) PO DAILY [facility] Tranexamic Acid 2,000 mg/ 0 mg 04/11/24 08:45 Sodium Chloride 100 ml OPERA.SITE 04/11/24 08:46 X1 ONE Sodium Chloride 77.4 ml/ 0 ml 04/11/24 08:45 Ropivacaine 200 mg/ OPERA.SITE 04/11/24 08:46 Epinephrine HCl 0.6 mg/ X1 ONE Ketorolac Tromethamine 30 mg/ Morphine Sulfate 5 mg Dexamethasone Sodium Phosphate 10 mg 04/11/24 08:45 Dexamethasone 10 Mg/Ml Vial IV 04/11/24 08:46 X1 ONE Dorzolamide/Timolol 1 drp 04/11/24 07:20 Dorzolamide Hcl/Timolol 10 Ml Bottle OPHTHALMIC Q12H [facility] Enteral Nutritional Formula 237 ml 04/11/24 08:00 Ensure Surgery 237 Ml Liquid PO TIDCM [facility] Famotidine 20 mg 04/11/24 10:00 Famotidine 20 Mg Tablet PO DAILY [facility] Gabapentin 600 mg 04/11/24 08:45 Gabapentin 600 Mg Tablet PO 04/11/24 08:46 X1 ONE Lactated Ringer's 1,000 mls @ 999 mls/hr 04/11/24 08:45 IV 04/11/24 09:45 .Q1H1M [facility] Cefazolin Sodium 2 gm/ Sodium 110 mls @ 150 mls/hr 04/11/24 08:45 Chloride IV 04/11/24 09:28 PREOP ONE Lactated Ringer's 1,000 mls @ 125 mls/hr 04/11/24 08:45 IV 04/11/24 16:44 .Q8H [facility] Magnesium Sulfate 1 gm/ 102 mls @ 408 mls/hr 04/11/24 08:45 Dextrose IV 04/11/24 08:59 X1 ONE Cefazolin Sodium 1 gm in 50 mls @ 150 mls/hr 04/11/24 14:00 IV 04/11/24 22:19 Q8 [facility] Insulin Human Lispro 1 - 6 unit 04/11/24 08:45 Insulin Lispro 100 Unit/Ml Insuln.Pen SC Q4H PRN PRN BG>/= 180, SEE PROTOCOL Protocol Isosorbide Mononitrate 60 mg 04/11/24 10:00 Isosorbide Mononitrate 60 Mg Tablet PO DAILY [facility] Protocol Ketorolac Tromethamine 15 mg 04/11/24 07:21 Ketorolac 15 Mg/Ml Vial IV 04/13/24 07:22 Q6H PRN PRN Pain Score 1-5 Latanoprost 1 drp 04/11/24 22:00 Latanoprost 0.005% 1 Bottle OPHTHALMIC QHS [facility] Levothyroxine Sodium 88 mcg 04/11/24 07:30 Levothyroxine 88 Mcg Tablet PO QDAY [facility] Morphine Sulfate 2 - 4 mg 04/11/24 07:21 Morphine 2 Mg/Ml Syringe IV Q2H PRN PRN Pain Score 6-10 Non-Formulary Medication 4 mg 04/11/24 10:00 Fesoterodine PO DAILY [facility] Non-Formulary Medication 150 mg 04/11/24 10:00 Irbesartan PO DAILY [facility] Non-Formulary Medication 20,000 mmu cells 04/11/24 10:00 Lactobacillus Acidophilus [Probiotic] PO DAILY [facility] Non-Formulary Medication 1,000 mcg 04/11/24 10:00 Mecobalamin (Vitamin B12) SL DAILY [facility] Non-Formulary Medication 1 drp 04/11/24 10:00 Ofloxacin RIGHT EYE 4X/DAY [facility] Non-Formulary Medication 1 drp 04/11/24 10:00 Prednisolone Acetate RIGHT EYE 4X/DAY [facility] Ondansetron HCl 4 mg 04/11/24 07:21 Ondansetron 4 Mg/2 Ml Vial IV Q8H PRN PRN NAUSEA Oxycodone HCl 5 - 10 mg 04/11/24 07:21 Oxycodone 5 Mg Tablet PO Q4H PRN PRN Pain Score 4-10 Pravastatin Sodium 40 mg 04/11/24 22:00 Pravastatin 40 Mg Tablet PO QHS [facility] Promethazine HCl 12.5 mg 04/11/24 07:21 Promethazine 25 Mg/Ml Syringe IM Q6H PRN PRN NAUSEA/VOMITING Protocol Pyridoxine HCl 100 mg 04/11/24 10:00 Pyridoxine Hcl 100 Mg Tablet PO DAILY [facility] Rivaroxaban 10 mg 04/12/24 06:00 Rivaroxaban 10 Mg Tablet PO DAILY@0600 [facility] Senna/Docusate Sodium 2 tablet 04/11/24 10:00 Senna/Docusate Sodium 1 Tablet PO BID [facility] Spironolactone 25 mg 04/11/24 10:00 Spironolactone 25 Mg Tablet PO DAILY [facility] Protocol [facility] Medical History Wears glasses Cancer Alcohol use Thyroid disease Ambulates with cane Bladder disease Low iron High cholesterol Gastric reflux Chronic cough Former smoker History of irregular heartbeat History of edema Cardiology follow-up encounter Hypertension History of stress test History of echocardiogram LVH (left ventricular hypertrophy) Obesity Essential hypertension Non-rheumatic aortic stenosis Asymmetric septal hypertrophy Osteopenia Diverticulosis Anemia Hyperlipidemia Glaucoma Hypothyroidism Lichen sclerosus Home Medications ?Medication ?Instructions ?Recorded ?Last Taken ?Type latanoprost 0.005 % eye drops 1 drp ophthalmic (eye) QHS 12/20/19 Unknown History pravastatin 40 mg tablet 40 mg PO QHS #90 tabs 06/27/20 Unknown Rx spironolactone 25 mg tablet 25 mg PO DAILY 02/03/22 Unknown History fesoterodine 4 mg tablet,extended 4 mg PO DAILY 12/28/22 Unknown History release 24 hr pyridoxine (vitamin B6) 100 mg 100 mg PO DAILY 09/09/23 Unknown History tablet mecobalamin (vitamin B12) 1,000 1,000 mcg sublingual DAILY 09/15/23 Unknown History mcg disintegrating tablet,sublingual cholecalciferol (vitamin D3) 50 50 mcg PO DAILY 10/20/23 Unknown History mcg (2,000 unit) capsule calcium carbonate (Tums) 400 mg PO ONCE PRN INGESTION 11/09/23 Unknown History bupropion HCl 75 mg tablet 75 mg PO DAILY 01/18/24 Unknown History dorzolamide 22.3 mg-timolol 6.8 1 drp ophthalmic (eye) Q12H 01/18/24 Unknown History mg/mL eye drops irbesartan 75 mg tablet 150 mg PO DAILY 01/18/24 Unknown History levothyroxine 88 mcg tablet 88 mcg PO QDAY 01/18/24 Unknown History romosozumab-aqqg 210 mg/2.34 210 mg (2.34 mL) subcut QMONTH 12 01/22/24 Unknown Rx mL(105 mg/1.17 mL x2)subcutaneous months #28.08 mL syringe (Evenity) Lactobacillus acidophilus 10 20,000 mmu cells PO DAILY 03/23/24 Unknown History billion cell capsule (Probiotic) ascorbic acid (vitamin C) 500 mg 500 mg PO DAILY 03/23/24 Unknown History chewable tablet (Acerola C) cephalexin 250 mg capsule 250 mg PO QHS 03/23/24 Unknown History isosorbide mononitrate 60 mg 60 mg PO DAILY 03/23/24 Unknown History tablet,extended release 24 hr ofloxacin 0.3 % eye drops 1 drp RIGHT EYE 4X/DAY 03/23/24 Unknown History prednisolone acetate 1 % eye 1 drp RIGHT EYE 4X/DAY 03/23/24 Unknown History drops,suspension Allergy/AdvReac Type Severity Reaction Status Date / Time codeine Allergy PT UNSURE Verified 04/11/24 07:55 OF REACTION losartan AdvReac Unknown Verified 04/11/24 07:55 quinapril (From Accupril) AdvReac Unknown Verified 04/11/24 07:55 Sulfa (Sulfonamide AdvReac unknown Verified 04/11/24 07:55 Antibiotics) Family History Mother Heart disease Hypoactive thyroid Father Heart disease Myocardial infarction from [place] age 67 Other CVA (cerebral vascular accident) Surgical History History of cataract surgery left foot surgery History of tubal ligation History of appendectomy History of inguinal hernia repair Social History Smoking Status: Former smoker quit date: 07/27/84 pack-years: 48 alcohol intake: current details: social substance use type: does not use caffeine: No what type of physical activity do you participate in: walking seatbelt use: always do you feel safe at home: Yes additional social history: Derek- Luisa are retired Review of Systems (Anesthesia) ROS Narrative System reviewed and no additional complaints, except as documented.
[2024-04-11] MEDS: Acetaminophen 500 MG Tablet 1000 MG PO ×3 (08:22→22:22)
[2024-04-11] MEDS: Gabapentin 600 MG Tablet PO (08:22)
[2024-04-11] MEDS: Magnesium 1 GM over 15 mins IV (08:22)
[2024-04-11] MEDS: Lactated Ringers 1,000 ML 999 ML IV ×2 (08:22→12:21)
[2024-04-11 08:46] LABS: Bedside Glucose 88 mg/dL (74-106)
[2024-04-11] MEDS: Cefazolin 2 GM in 0.9% Normal Saline (100mL Bag) 100 ML IV (10:12)
[2024-04-11] MEDS: dexAMETHasone 10 MG/ML Vial IV (10:35)
[2024-04-11] MEDS: TRANEXAMIC ACID 2,000 MG, 0.9% Normal Saline (100mL Bag) 100 ML OPERA.SITE (11:19)
[2024-04-11] MEDS: JPS (Morphine 10mg/ml) OPERA.SITE (11:19)
--- NOTE | 2024-04-11 11:21 | PCM.OPRPT ---
Report of Operation Date of Procedure: 04/11/24 Pre-Operative Diagnosis: Right knee primary osteoarthritis Post-Operative Diagnosis: Right knee primary osteoarthritis Surgery/Procedure Performed:: Right minimally invasive robotic total knee replacement Description of Surgical Findings:: Stable knee with good patella tracking Surgeon: Jose Loaiza communications supervisor: Zeeshan Bender Type of Anesthesia: General Anesthesiologist: Quinn Javed Special Medications: 2 g Ancef, 1 g TXA at incision, 1 g TXA closure, 10 mg Decadron, joint cocktail (5 mg Duramorph, 30 mL of 0.5% Ropivicaine, 1000 units of epinephrine, 30 mg of Toradol) Specimen's removed: Bony cuts Estimated Blood Loss (mL): 100 Fluids Replaced: 800 Description of Procedure: Implants used: 1. Arvin size 3 triathlon cruciate retaining distal femoral press-fit component 2. Arvin size 4 press-fit tritanium tibial baseplate 3. Whitestone X3 9 mm CS polyethylene 4. Whitestone X3 35 mm asymmetric patella Brief history operative indications: 83-year-old F with history of right knee osteoarthritis with radiographic findings with loss of joint space, osteophyte formation and subchondral sclerosis. Failed conservative measures as mentioned in the H&P. Discussion of total knee arthroplasty as well as risk and benefits were discussed the patient including but not limited to blood loss, DVTs, PEs, neurovascular damage, general risk of anesthesia including loss of life, and stiffness or instability were discussed with patient. Patient demonstrated understanding and was able to sign informed consent. Procedure: On the date of procedure patient's right lower extremity was marked in the preoperative area. The patient was then taken back to the operating room where the patient was placed on the table in the supine position. All bony prominences were identified a well-padded. Anesthesia assumed control of the C-spine and airway and remained controlled throughout the remainder of the procedure. A tourniquet was placed on the right upper thigh and the leg was prepped in a sterile fashion. The surgeon then scrubbed at this time .Upon reentering the room right lower extremity was draped in a standard orthopedic fashion. A timeout was then called and everyone agreed upon the side, the site, the procedure to be performed, patient's identity and antibiotics given. Esmarch bandage was used to exsanguinate the extremity and the tourniquet was placed up to 250 mmHg with the knee in flexion. A midline skin incision was made and sharp dissection was taken down through skin subcutaneous tissue and fat. The standard medial parapatellar incision was made and the patella was subluxed laterally. An Appropriate deep MCL release was done and the fat pad was resected. Our attention was then directed to the patella. The patella was everted and a flat resection was made. The knee was then flexed up in 2 femoral pins were placed inside the incision and 2 tibial pins were placed outside the incision in the medial tibia bicortically. Once this was completed the 2 checkpoints in the femur and tibia were placed. Knee was then flexed up and the bony landmarks were registered. Once this was completed knee was taken through range of motion and manually stressed allowing us to a plan for an appropriate tibial cut. The robotic arm was brought into the field sterilely and checkpoint and saw were registered. Based on the patient's deformity the tibial cut was made in 2 degrees of varus. At this time the tensioner was then placed in the joint and ligament tension was checked at 90 degrees and full extension. Based on the patient's ligamentous tension appropriate adjustments were made to the operative plan and ligament releases were done. Once we were happy with our operative plan with balanced flexion and extension gaps our attention was directed to the femur. The robot was brought into the field sterilely and registered. Posterior condylar cuts, anterior chamfer cuts and anterior cuts were appropriately made for a size 3 femur. When these were completed the saws were switched out in the distal femoral and posterior chamfer cuts were made. Protecting the soft tissue throughout this time. A size 4 tibial base plate was selected. the knee was flexed to 90 degrees and the soft tissues and posterior osteophytes were removed from the joint. 40 cc of the periarticular injection was injected into the posterior medial corner of the joint. The appropriate trials were then placed on the femur and tibia. A trial polyethylene was trialed to ensure proper balancing and stability of the knee. The appropriate tibial internal rotation was then marked with a bovie. Our attention was then directed to the patella. The lug holes were drilled and the patella trial was placed. Patellar tracking was checked and deemed appropriate. Once we were happy lug holes were drilled for the femur and trial components were removed. the tibia was subluxed and pinned into place and the keel was punched and drilled appropriately. Final components were verified and opened, and cement was mixed in a vacuum. Kofikafe Simplex cement was used. The wound was copiously irrigated with normal saline. When the cement was ready the components were impacted into place starting with the tibia, femur and finally the patella. The trial poly component was placed and the knee was placed in full extension. All excess cement was removed in the process. Once the cement had cured the tracking, alignment and balance were verified and a size 9 mm CS polyethylene component was placed. Once the final components were placed a 3-minute dilute Betadine lavage was performed followed by an Irrisept lavage was performed and the wound was copiously irrigated with normal saline solution and the periarticular injection was given. The wound was closed in a layer short fashion using #1 vicryl interrupted sutures for the arthrotomy, 2-0 interrupted Vicryl suture for the subcuticular layer and king for final skin closure. A sterile compressive dressing was then placed. The patient was then awakened from anesthesia, transferred to the [place] and transferred to the PACU for recovery. Post op plan DVT ppx: Xarelto 10 mg Daily for 2 weeks followed by aspirin 81 mg twice daily for 2 weeks, thigh high compression stockings due to active treatment for malignancy Follow up: in office in 2 weeks for wound check PT: to start POD #0 at hospital, outpatient PT should be arranged. My physician commercial real estate assistant was a vital part of this case. He was important in appropriate retraction during the case, and protection of soft tissues during bony cuts. His intimate knowledge of the case and my steps aided in safe and expedient completion of the procedure as well as appropriate position of the leg during the case. He was also vital in assisting with closure under my direct supervision. Due to the complexity of this case robotic arm was used to assist in the surgery to improve accuracy and clinical outcomes. Complications No intraoperative complications Admit VTE Documentation VTE Present on Admission: No VTE Mechan Device Prophylaxis: SCD's and Thigh High RADHA Hose VTE Pharm Prophylaxis ordered?: Yes
--- NOTE | 2024-04-11 12:28 | PCM.POST.ANE ---
Anesthesia: Postop Eval I Current Vital Signs Temperature: 97 F Pulse Rate: 71 Blood Pressure: 161/70 Respiratory Rate: 15 Pulse Ox: 93 Oxygen Delivery Method: Room Air Assessment Airway patent: Yes Spontaneous unlabored respirations: Yes Mental status: Awake and Calm nausea: No Vomiting: No Anesthesia Complication: No Fluid Hydration Crystalloid volume administer (ml): 800 Total IV fluid infused: 800 Progress Note Anesthesia document: Postop Eval 1 completed: Yes
--- NOTE | 2024-04-11 12:29 | RAD_ITS ---
STUDY: X-RAY - RIGHT KNEE REASON FOR EXAM: Female, 83 years old. Post op -- AP and Lateral xray of operative knee in PACU TECHNIQUE: 2 view(s) of the knee. COMPARISON: None. FINDINGS: Normal visualized distal femur. Normal visualized proximal tibia and fibula. Normal proximal tibiofibular articulation. The patient is status post total knee replacement. There is good alignment. Postoperative soft tissue changes. RAD/Knee 1 or 2 Views IMPRESSION: Status post right total knee replacement. There is good alignment. Postoperative soft tissue changes. Electronically Signed: Seth Fournier MD at 13:52 EDT ,
--- NOTE | 2024-04-11 12:40 | POSTOPAN2_ITS ---
Anesthesia Postop Eval I Sum Postop Eval Completion status Anesthesia document: Postop Eval 1 completed: Yes Anesthesia Postop Eval I Summary Anesthesia Postop Eval I Summary: Anesthesia Postop Eval I: Assessment Summary Airway patent Yes 04/11/24 12:29 PROFESSOR IN FAMILY STUDIES.[email or web address] Spontaneous unlabored Yes 04/11/24 12:29 PROFESSOR IN FAMILY STUDIES.[email or web address] respirations Mental status Awake,Calm 04/11/24 12:29 PROFESSOR IN FAMILY STUDIES.[email or web address] nausea No 04/11/24 12:29 PROFESSOR IN FAMILY STUDIES.[email or web address] Vomiting No 04/11/24 12:29 PROFESSOR IN FAMILY STUDIES.[email or web address] Anesthesia Postop Eval I: Fluid Summary Crystalloid volume administer 800 04/11/24 12:29 PROFESSOR IN FAMILY STUDIES.[email or web address] (ml) Colloids volume administered ( ml) Blood Product volume administered (ml) Total IV fluid infused 800 04/11/24 12:29 PROFESSOR IN FAMILY STUDIES.[email or web address] Anesthesia Postop Eval I: Summary Notes Anesthesia Complication No 04/11/24 12:29 PROFESSOR IN FAMILY STUDIES.[email or web address] Anesthesia Complication Comment: Post-operative progress note Anesthesia: Postop Eval II Evaluation Mental status: Awake and Calm Pain Level: 1 nausea: No Vomiting: No Complications Anesthesia Complication: No
--- NOTE | 2024-04-11 12:40 | PCM.POSTANE2 ---
Anesthesia Postop Eval I Sum Postop Eval Completion status Anesthesia document: Postop Eval 1 completed: Yes Anesthesia Postop Eval I Summary Anesthesia Postop Eval I Summary: Anesthesia Postop Eval I: Assessment Summary Airway patent Yes 04/11/24 12:29 COMBINING MACHINE OPERATOR.[email or web address] Spontaneous unlabored Yes 04/11/24 12:29 COMBINING MACHINE OPERATOR.[email or web address] respirations Mental status Awake,Calm 04/11/24 12:29 COMBINING MACHINE OPERATOR.[email or web address] nausea No 04/11/24 12:29 COMBINING MACHINE OPERATOR.[email or web address] Vomiting No 04/11/24 12:29 COMBINING MACHINE OPERATOR.[email or web address] Anesthesia Postop Eval I: Fluid Summary Crystalloid volume administer 800 04/11/24 12:29 COMBINING MACHINE OPERATOR.[email or web address] (ml) Colloids volume administered ( ml) Blood Product volume administered (ml) Total IV fluid infused 800 04/11/24 12:29 COMBINING MACHINE OPERATOR.[email or web address] Anesthesia Postop Eval I: Summary Notes Anesthesia Complication No 04/11/24 12:29 COMBINING MACHINE OPERATOR.[email or web address] Anesthesia Complication Comment: Post-operative progress note Anesthesia: Postop Eval II Evaluation Mental status: Awake and Calm Pain Level: 1 nausea: No Vomiting: No Complications Anesthesia Complication: No
[2024-04-11] MEDS: oxyCODONE 5 MG Tablet PO ×2 (14:44→20:14)
--- NOTE | 2024-04-11 17:14 | PCM.PN.HOSP ---
Reason for Visit Reason for Visit: Right knee pain Subjective Subjective Patient is an 83-year-old white female who presented to [facility] on 03/11/2024 electively for a right knee minimally invasive robotic assisted total arthroplasty due to ongoing issues with primary right knee osteoarthritis. She had failed outpatient conservative management and seen Dr. Loaiza in the outpatient setting at which time he recommended total knee arthroplasty. Patient presented for surgery today and we have been consulted postoperatively for medical management. Past medical history is notable for essential hypertension, aortic stenosis, chronic anemia, hypothyroidism, hyperlipidemia, glaucoma, and squamous cell carcinoma of the right lung. She was evaluated postoperatively on the medical floor. Her daughter is at the bedside and reported that she was doing well but slightly confused related medication. Plan at discharge is to group home facility. Objective Data Objective Data Vital Signs: Vital Signs Temp Pulse Resp BP Pulse Ox O2 Del Method O2 Flow Rate 97.3 F L 73 18 97/54 L 99 Room Air 4 04/11/24 16:54 04/11/24 16:54 04/11/24 16:54 04/11/24 16:54 04/11/24 16:54 04/11/24 16:54 04/11/24 12:45 Oxygen Flow Rate (L/min) 4 Oxygen Delivery Method Room Air Weight: 73.4 kg Body Mass Index (BMI) 31.3 Intake & Output: Intake and Output for Last 24 Hours 04/09/24 04/10/24 04/11/24 23:59 23:59 23:59 Intake Total 2212 / 2212 Balance 2212 / 2212 Lab / Micro Data 04/06/24 08:05 04/06/24 08:05 Labs: Laboratory Results - last 24 hr 04/11/24 08:27: POC Glucose 88 Micro: Microbiology 04/06/24 08:05 Swab (Method) Nasal Screen MRSA/MSSA - Final Radiography Diagnostic Testing: Radiology Impression Knee X-Ray 04/11/24 12:29 IMPRESSION: Status post right total knee replacement. There is good alignment. Postoperative soft tissue changes. Electronically Signed: Seth Fournier MD at 13:52 EDT , Physical Exam Const alert, oriented x3, no apparent distress, healthy appearing and well nourished; Negative for average body habitus Constitutional Narrative: Obese, elderly, white female, sitting up in bed, oriented x 3 but slightly confused with regards to details, daughter at bedside, appears comfortable and nontoxic HEENT head/scalp atraumatic and moist oral mucous membranes HEENT Narrative: Dentures in place, Mallampati 3, no thrush Head and Scalp: normocephalic Resp normal respiratory effort, no retractions, no use of accessory muscles and clear to auscultation bilaterally Auscultation: Negative for rales, rhonchi or wheezes Cardio regular rate, regular rhythm, S1 normal heart sound, no rub, no gallops and no clicks; Negative for S2 normal heart sound or no murmurs Cardio Narrative: Soft S2, 4 out of 6 systolic murmur loudest at right upper sternal border GI normal to inspection, nondistended, normoactive bowel sounds, soft to palpation and non-tender Extremity no clubbing, cyanosis or edema Extremity Narrative: Right lower extremity polar ice in place, bilateral lower extremity RADHA hose in place, pedal pulses are 2+ bilaterally Neuro oriented x3 and no focal motor deficits Speech: speech normal Psych affect normal Psych Narrative: Slightly confused but pleasant and appropriate Assessment & Plan Assessment/Plan (1) Osteoarthritis of right knee: PLAN: Plan Right knee osteoarthritis -Postop day 0 total knee arthroplasty -PT/OT -Pain management per primary -Patient requested that bowel regimen be changed from scheduled to as needed and I did change this -Patient reports and family confirms discharge plan is for skilled facility at discharge for ongoing rehab prior to discharge home Aortic valve stenosis -Avoid dramatic afterload reduction -Continue home medications -Ongoing outpatient follow-up with cardiology Essential hypertension -Continue home ARB -Continue home isosorbide mononitrate -Continue home Aldactone Hyperlipidemia -Continue home pravastatin Small cell lung carcinoma -Ongoing outpatient management Depression -Continue home Wellbutrin Glaucoma -Continue home eyedrops Obesity -BMI 31.3 -Complicates treatment, prognosis, outcomes -Recommend weight loss DVT prophylaxis -Rivaroxaban per primary service Charges/Coding Visit Charges Inpatient E&M: 81722 Subs Hosp L2
[2024-04-11] MEDS: Cefazolin 1 GM/50 ML BAG IV (18:16)
[2024-04-11] MEDS: prednisoLONE eye drops (5 mL) 1 DROP OPTH.BTL 1 DRP RIGHT EYE (22:21)
[2024-04-11] MEDS: Dorzolamide HCL/Timolol 10 ml Bottle 1 DRP OPHTHALMIC (22:22)
[2024-04-11] MEDS: Pravastatin 40 MG Tablet PO (22:22)
[2024-04-12] VITALS (7 sets, daily range): BP systolic 92–134; BP diastolic 33–67; PULSE 56–67; RESP 16–18; TEMP 36.3–36.8; O2SAT 95–99
[2024-04-12] MEDS: Cefazolin 1 GM/50 ML BAG IV (02:26)
[2024-04-12] MEDS: Ketorolac 15 MG/ML Vial IV (02:49)
[2024-04-12] MEDS: 0.9% Saline Lock 10 ML Syringe IV ×2 (02:49→10:06)
[2024-04-12] MEDS: Rivaroxaban 10 MG Tablet PO (06:09)
[2024-04-12] MEDS: Levothyroxine 88 MCG Tablet PO (06:10)
[2024-04-12] MEDS: Acetaminophen 500 MG Tablet 1000 MG PO ×3 (06:10→21:00)
[2024-04-12] MEDS: prednisoLONE eye drops (5 mL) 1 DROP OPTH.BTL 1 DRP RIGHT EYE ×3 (06:10→20:59)
--- NOTE | 2024-04-12 07:34 | PN.ORTHO_ITS ---
Subjective Subjective The patient was sitting in bed upon examination. Patient denies any chest pain, shortness of breath, nausea or vomiting, or calf pain. Pain is controlled on medications. No adverse overnight events. Patient did have some lower blood pressure reading this morning and is complaining of some slight dizziness when up. Patient does live home alone in a two-story house. She is concerned about discharge home and safety. fiber optic assembly worker is on board for appropriate discharge planning. Patient is currently using Xarelto postoperatively due to history of cancer. She denies past history of DVT or pulmonary embolism Objective Data Objective Data Vital Signs: Vital Signs Temp Pulse Resp BP Pulse Ox O2 Del Method O2 Flow Rate 97.4 F L 63 16 98/38 L 97 Room Air 4 04/12/24 06:21 04/12/24 06:21 04/12/24 06:21 04/12/24 06:21 04/12/24 06:21 04/12/24 06:21 04/11/24 12:45 Oxygen Flow Rate (L/min) 4 Oxygen Delivery Method Room Air Weight: 73.4 kg Body Mass Index (BMI) 31.3 Intake & Output: Intake and Output for Last 24 Hours 04/10/24 04/11/24 04/12/24 23:59 23:59 23:59 Intake Total 2862 / 2862 290 / 290 Balance 2862 / 2862 290 / 290 Lab / Micro Data 04/06/24 08:05 04/06/24 08:05 Labs: Laboratory Results - last 24 hr 04/11/24 08:27: POC Glucose 88 Micro: Microbiology 04/06/24 08:05 Swab (Method) Nasal Screen MRSA/MSSA - Final Radiography Diagnostic Testing: Radiology Impression Knee X-Ray 04/11/24 12:29 IMPRESSION: Status post right total knee replacement. There is good alignment. Postoperative soft tissue changes. Electronically Signed: Seth Fournier MD at 13:52 EDT , Physical Exam Narrative Vital signs stable and afebrile. SCDs and RADHA hose are in place bilaterally Patient is able to plantarflex and dorsiflex actively. Sensation is intact to light touch to saphenous, sural, superficial and deep peroneal, and tibial distribution. Main Mepilex dressing patient does have moderate drainage over the middle one third nearly contacting to borders. We will continue to monitor it. Distal dressing has moderate drainage as well. Case was discussed with nursing Negative Homans bilaterally, negative signs and symptoms of DVT. Const alert, oriented x3 and no apparent distress Assessment & Plan Assessment/Plan (1) Status post total right knee replacement: PLAN: 1. S/P robotic assisted right total knee arthroplasty POD #1 2. Continue Pain Medications: Tylenol and oxycodone 3. DVT Prophylaxis: Xarelto 10 mg once daily for 2 weeks postoperatively due to history of cancer. After 2 weeks she will then be placed on aspirin 81 mg twice daily for an additional 2 weeks. Patient denies any personal history of DVT or pulmonary embolism in the past 4. PT/OT: Weightbearing as tolerated. Appreciate recommendations from physical therapy. Patient does live home alone as well as in a two-story house. I am concerned for fall risk at home. 5. H & H: Awaiting lab work, asymptomatic. 6. Postoperative drainage: Patient does have some moderate drainage over the middle one third of the main Mepilex dressing. He will continue to monitor. I did discuss with the nursing staff if there is any further drainage we will place ABD and compressive Noe wrap. Will continue to monitor 7. Encouraged Incentive Spirometry 8. Patient is aware of postoperative constipation that can occur from 1-3 days postoperatively. Will continue with senna 2 tablets twice daily until first bowel movement. Patient was advised if not having a bowel movement after day 3 she is to contact orthopedics so appropriate change can be made. Patient voiced understanding. 9. Continue postoperative medical treatment per medicine: Once patient's lab work has been reviewed I did recommend nursing reach out to medicine with regards to her blood pressure. Most likely will require bolus of IV fluid. 10. Disposition: I would appreciate input and recommendations from physical therapy for discharge planning. fiber optic assembly worker will be on board for appropriate and safe discharge planning. Patient does live home alone and in a two-story house and I am concerned for safety and fall risk. I do feel patient would benefit from rehab versus retirement facility. I did discuss with the patient that social work coordinator will go over all of her options. Plan will be for possible discharge home tomorrow as long as patient is medically stable and pain is adequately controlled. Will also need recommendations from therapy and social work coordinator. We are awaiting lab work in which patient has seen some lower blood pressure reading this morning with some dizziness. Appreciate recommendations from medicine. I have reviewed the [place] Automated Rx Reporting System (OARRS) report for this patient for refill pattern and other prescriber involvement as part of the appropriate surveillance for the provision of acute and chronic controlled medications. The report was requested and reviewed on the date of this entry and was considered in the prescribing process. This dictation was created using voice recognition software. Phonetic and/or grammatical errors may exist.
[2024-04-12] MEDS: Ensure Surgery 237 ML LIQUID PO (08:03)
[2024-04-12 08:26] LABS: Anion Gap 6 (5-15); BUN 10 mg/dL (7-18); BUN/Creat Ratio 19.2 RATIO (10-20); Chloride 103 mmol/L (98-107); Creatinine, Serum 0.52 mg/dL (0.55-1.02); EST Glomerular Filtration Rate 120 mL/min (>60); Est Glom Filt Rate - Afr Amer 145 mL/min (>60); Glucose 103 mg/dL (74-106); Potassium 3.9 mmol/L (3.5-5.1); Sodium Level 134 mmol/L (136-145)
[2024-04-12 08:29] LABS: Hematocrit 28.4 % (37-47); Hemoglobin 9.4 g/dL (12.0-15.0); Mean Corp Hgb Conc 33.1 g/dL (32-36); Mean Corpuscular Hgb 32.8 pg (27.0-32.0); Mean Platelet Vol. 9.5 fl (6.2-12.0); Platelet Count 238 K/mm3 (150-450); RBC Distribution Width CV 12.9 % (11.6-14.6); RBC Distribution Width SD 46.4 fl (35.1-43.9); Red Blood Count 2.87 M/mm3 (4.2-5.4); White Blood Count 11.2 K/mm3 (4.4-11.0)
[2024-04-12] MEDS: LACTATED RINGERS 500 ML 999 ML IV (09:15)
[2024-04-12] MEDS: Lactobacillis Acidophilus 1 CAP PO (09:21)
[2024-04-12] MEDS: Pyridoxine HCl 100 MG Tablet PO (09:21)
[2024-04-12] MEDS: Ascorbic Acid 500 MG Tablet PO (09:21)
[2024-04-12] MEDS: Spironolactone 25 MG Tablet PO (09:21)
[2024-04-12] MEDS: Tolterodine Tartrate 2 MG CAP.SA PO (09:21)
[2024-04-12] MEDS: Cholecalciferol (VIT D3) 25 MCG TABLET (1,000 UNITS) 50 MCG PO (09:21)
[2024-04-12] MEDS: buPROPion 75 MG Tablet PO (09:22)
[2024-04-12] MEDS: Famotidine 20 MG Tablet PO (09:22)
[2024-04-12] MEDS: Dorzolamide HCL/Timolol 10 ml Bottle 1 DRP OPHTHALMIC ×2 (09:22→20:57)
--- NOTE | 2024-04-12 10:11 | CASEMGMT ---
Met with patient to complete MATHEW form. MATHEW form explained to patient who voiced understanding and signed form. Original form placed in pt?s chart and copy provided to patient. Twila Fernández, Discharge Planning Asst
--- NOTE | 2024-04-12 10:16 | CASEMGMT ---
Discharge Planning A list of?SNF?providers including quality and resource use data and consistent with the patient's preferred geographic region, medical needs, and insurance network was created in CarePort Guide.? This list was provided to the [facility]. NISREEN Ornelas
--- NOTE | 2024-04-12 10:30 | CASEMGMT ---
Addendum entered by Ju Marr 04/12/24 15:06: 12:30 BASIL BAKER called [facility] and spoke with Blessing. Schedule PT for at 2pm. Notified BASIL BAKER on floor. Original Note: BASIL BAKER Assessment: Face to Face with pt for initial transition planning/care coordination assessment. BASIL BAKER introduced self and role at [facility], pt voices understanding and consents to assessment. Pt is A&O x4 and answers all questions appropriately at this time. Pt sitting up in chair in no distress. Brother in room, pt agreeable to answering questions with family present. Care providers, pharmacy, and demographics verified/updated. Admitting Dx: Total Knee Replacement Strata Score: 1 PCP: Astrid Specialists: Josse, Ortho; Eliezer, ADVANCED PRACTICE NURSE; , Machine Design Engineer; Andres, Cardiologoist; Franco, Charge Weigher; Gege, Oncologist. Preferred Pharmacy: [email or web address] Insurance: [employer] Prescription Benefit: yes LNOK: Daughter, Elizabet, Sons Fred and Derek. Living Arrangements: Pt lives alone in a split level home with 3 steps to enter. Pt states I with ADLs and IADLs. Transportation: Pt drives self and denies concerns with transportation. DME: [facility] HHC/SNF: Denies Hx of. Discussed additional therapy options with pt. Pt preference to go to [facility] for therapy and utilize hospital transportation. Pt states family able to provide transportation for a couple of weeks if needed. Pt requested RN SAMUEL set up appointmetn with [facility] for physical therapy. Notified RN SAMUEL on floor of patient preference. Pt states no further concerns/needs. CM to follow. Advised pt to ask CM if any further question/concerns/needs arise, voices understanding. Pt Goal:Home Plan: Home with OP PT. BASIL Mancuso CM
--- NOTE | 2024-04-12 11:26 | PN.HOSP_ITS ---
Reason for Visit Reason for Visit: Diagnoses Unilateral primary osteoarthritis, right knee (04/11/24) Encounter for other preprocedural examination (04/11/24) Presence of right artificial knee joint (04/11/24) Subjective Subjective Saw patient at bedside this morning, present. Patient had good energy level and was sitting up fairly comfortably in bedside chair, conversing normally, in no acute distress. She did report mild to moderate knee pain with movement and weightbearing. Pain medications have been helpful for her. Does have some nausea this morning and did not want to eat much of her breakfast, but she has not had any episodes of vomiting. She otherwise is doing well, denies any other concerns this morning. Objective Data Objective Data Vital Signs: Vital Signs Temp Pulse Resp BP Pulse Ox O2 Del Method O2 Flow Rate 97.8 F 67 18 131/44 H 98 Room Air 4 04/12/24 10:11 04/12/24 10:11 04/12/24 10:11 04/12/24 10:11 04/12/24 10:11 04/12/24 10:11 04/11/24 12:45 Oxygen Flow Rate (L/min) 4 Oxygen Delivery Method Room Air Weight: 73.4 kg Body Mass Index (BMI) 31.3 Intake & Output: Intake and Output for Last 24 Hours 04/10/24 04/11/24 04/12/24 23:59 23:59 23:59 Intake Total 2862 / 2862 1150 / 1150 Balance 2862 / 2862 1150 / 1150 Lab / Micro Data 04/12/24 06:49 04/12/24 06:49 Labs: Laboratory Results - last 24 hr 04/12/24 06:49: WBC 11.2 H, RBC 2.87 L, Hgb 9.4 L, Hct 28.4 L, MCV 99.0, MCH 32.8 H, MCHC 33.1, RDW Std Deviation 46.4 H, RDW Coeff of Ezekiel 12.9, Plt Count 238, MPV 9.5, Sodium 134 L, Potassium 3.9, Chloride 103, Carbon Dioxide 25.0, Anion Gap 6, BUN 10, Creatinine 0.52 L, Estim Creat Clear Calc 48.50, Est GFR (MDRD) Af Amer 145, Est GFR (MDRD) Non-Af 120, BUN/Creatinine Ratio 19.2, Glucose 103, Calcium 8.0 L Micro: Microbiology 04/06/24 08:05 Swab (Method) Nasal Screen MRSA/MSSA - Final Radiography Diagnostic Testing: Radiology Impression Knee X-Ray 04/11/24 12:29 IMPRESSION: Status post right total knee replacement. There is good alignment. Postoperative soft tissue changes. Electronically Signed: Seth Fournier MD at 13:52 EDT , Physical Exam Const alert, oriented x3 and no apparent distress Constitutional Narrative: Pleasant elderly female, obese, sitting up comfortably in bedside chair, conversing normally, no acute distress. General Appearance: cooperative and comfortable HEENT normocephalic, head/scalp atraumatic, hearing grossly normal bilaterally, nasal mucous membranes and turbinates normal and moist oral mucous membranes Eyes PERRL, EOMs intact bilaterally and conjunctivae normal Neck full ROM Chest inspection of chest normal Resp normal respiratory effort, normal air movement, no use of accessory muscles and clear to auscultation bilaterally Cardio regular rate, regular rhythm, no murmurs and peripheral pulses 2+ throughout GI normal to inspection, nondistended, normoactive bowel sounds, soft to palpation, non-tender and non-distended Back/Spine normal ROM Extremity Extremity Narrative: Right knee with dressing and ice pack in place. Skin no rashes or lesions noted Neuro no focal motor deficits and no sensory deficits noted Speech: speech normal Psych mental status grossly normal Assessment & Plan Assessment/Plan (1) Status post total right knee replacement: (2) Osteoarthritis of right knee: PLAN: Plan Patient is an 83-year-old female who presented [facility] on 04/11/2024 for planned right total knee replacement. Medicine consulted postoperatively for medical management. 1. Right knee osteoarthritis ? Orthopedic surgery primary. S/p right total knee arthroplasty on 04/11. Tolerated procedure well, no intraoperative complications. Pain management, bowel regimen and DVT prophylaxis per primary. 2. Acute on chronic debility ?PT/OT/case management following. Patient lives alone in split level home. She was hoping for SNF placement on discharge but had very good therapy scores on postop day 1. If she continues to do well, plan will be for home with outpatient physical therapy on discharge. 3. Mild postoperative hypotension ? Patient noted to be mildly hypotensive on morning of postop day 1. Likely multifactorial from slight dehydration, blood loss from procedure and recent anesthesia. Given small fluid bolus and home medications held with good improvement. If remains stable tomorrow, will resume home hypertension medications. 4. Postoperative blood loss anemia ? Hemoglobin 9.4 postoperatively. Baseline hemoglobin appears to be around 12- 13 with most recent hemoglobin 12.9 on 04/06. Repeat CBC tomorrow. Chronic medical conditions: ? Obesity: BMI 31 on admit. Complicates hospital course, care and prognosis. ? Hypertension: Home regimen of isosorbide mononitrate, spironolactone and irbesartan. Held on postop day 1 as noted above, will resume when able. ? Hyperlipidemia: Continue statin. ? Aortic valve stenosis: Continue home meds as above. ? Small cell lung carcinoma: Ongoing outpatient management. ? Depression: Continue home Wellbutrin. ? Glaucoma: Continue home eyedrops. DVT prophylaxis: Xarelto Total clinical time spent by myself addressing the patient's medical issues, reviewing all the data, and collaborating with patient's care team: 35 minutes. Charges/Coding Visit Charges Inpatient E&M: 43579 [facility] Hosp L1
[2024-04-12] MEDS: oxyCODONE 5 MG Tablet PO ×2 (12:39→16:52)
--- NOTE | 2024-04-12 12:57 | CASEMGMT ---
Spoke with therapy assistants and requested that they work on steps with pt tomorrow as pt lives in a split level. Placed outpt therapy appt on dc plan at this time.
[2024-04-12] MEDS: Pravastatin 40 MG Tablet PO (20:59)
[2024-04-12] MEDS: Cephalexin 250 MG Capsule PO (20:59)
[2024-04-13] VITALS (7 sets, daily range): BP systolic 91–105; BP diastolic 42–69; PULSE 66–93; RESP 16–20; TEMP 36.1–36.9; O2SAT 92–96
[2024-04-13] MEDS: prednisoLONE eye drops (5 mL) 1 DROP OPTH.BTL 1 DRP RIGHT EYE ×3 (05:57→21:01)
[2024-04-13] MEDS: Levothyroxine 88 MCG Tablet PO (05:57)
[2024-04-13] MEDS: Acetaminophen 500 MG Tablet 1000 MG PO ×3 (05:58→21:41)
[2024-04-13] MEDS: oxyCODONE 5 MG Tablet PO ×2 (05:58→13:54)
[2024-04-13] MEDS: Rivaroxaban 10 MG Tablet PO (05:58)
[2024-04-13] MEDS: Lactobacillis Acidophilus 1 CAP PO (09:10)
[2024-04-13] MEDS: Pyridoxine HCl 100 MG Tablet PO (09:11)
[2024-04-13] MEDS: Ascorbic Acid 500 MG Tablet PO (09:11)
[2024-04-13] MEDS: Spironolactone 25 MG Tablet PO (09:11)
[2024-04-13] MEDS: Cholecalciferol (VIT D3) 25 MCG TABLET (1,000 UNITS) 50 MCG PO (09:11)
[2024-04-13] MEDS: Tolterodine Tartrate 2 MG CAP.SA PO (09:12)
[2024-04-13] MEDS: Famotidine 20 MG Tablet PO (09:12)
[2024-04-13] MEDS: Isosorbide Mononitrate 60 MG Tablet PO (09:12)
[2024-04-13] MEDS: Dorzolamide HCL/Timolol 10 ml Bottle 1 DRP OPHTHALMIC ×2 (09:14→20:59)
[2024-04-13] MEDS: buPROPion 75 MG Tablet PO (09:15)
[2024-04-13 09:49] LABS: Hematocrit 27.4 % (37-47); Mean Corp Hgb Conc 32.8 g/dL (32-36); Mean Corpuscular Hgb 32.6 pg (27.0-32.0); Mean Corpuscular Volume 99.3 fL (81-99); Mean Platelet Vol. 9.1 fl (6.2-12.0); Platelet Count 228 K/mm3 (150-450); RBC Distribution Width CV 13.2 % (11.6-14.6); RBC Distribution Width SD 46.9 fl (35.1-43.9); Red Blood Count 2.76 M/mm3 (4.2-5.4); White Blood Count 9.4 K/mm3 (4.4-11.0)
--- NOTE | 2024-04-13 10:34 | CASEMGMT ---
Addendum entered by Ruthie Santana 04/13/24 14:35: Social [facility]. Precert has been started. Pt updated. Plan: [facility], pending precert NISREEN Carter Original Note: Social Work SW spoke with pt, PA and RN. Pt's dgt was in this morning and spoke with nursing. Pt lives in a split level home with 3 steps into the home and steps to bedroom and bathroom once in the home. Pt's dgt lives out of state and is unable to assist. Pt's sons live local but per pt, due to disability, are unable to assist. SW spoke with DIGITAL MARKETING ASSISTANT who confirms pt did not do as well today as she did yesterday and would benefit from short term SNF stay prior to return home to increase safety with stairs, ambulation and ADLS since she will be home alone with no assistance. Pt feels she cannot return home alone at this time and is requesting short term SNF placement. A list of SNF providers including quality and resource use data and consistent with the patient?s preferred geographic region, medical needs, and insurance network were provided from the CarePort Guide. Pt preferred provider is [facility] second choice is [facility]. DC retail assistant store manager updated and to send referral. Pt will need precert prior to discharge to SNF. Plan: [facility], pending acceptance and precert NISREEN Carter
--- NOTE | 2024-04-13 10:58 | CASEMGMT ---
Addendum entered by Twila Fernández 04/15/24 09:01: Updates sent to [facility]. Precert remains pending. Twila Fernández DC Planning Asst. Addendum entered by Twila Fernández 04/13/24 12:51: Requested that [facility] submit for precert. FABBY Montes Planning Asst. Addendum entered by Twila Fernández 04/13/24 12:47: [facility] has accepted. SW updated. Twila Fernández DC Planning Asst. Original Note: Discharge Planning Referral sent to [facility] via careport. FABBY Montes Planning Asst.
--- NOTE | 2024-04-13 11:02 | PCM.PN.HOSP ---
Reason for Visit Reason for Visit: Diagnoses Unilateral primary osteoarthritis, right knee (04/11/24) Encounter for other preprocedural examination (04/11/24) Presence of right artificial knee joint (04/11/24) Subjective Subjective Saw patient at bedside this morning. Patient was sitting up comfortably bedside chair, in no acute distress. Appears similar to yesterday. Continues to report ongoing left knee pain, similar to yesterday. No other new concerns today. Objective Data Objective Data Vital Signs: Vital Signs Temp Pulse Resp BP Pulse Ox O2 Del Method O2 Flow Rate 98.1 F 70 18 105/49 L 96 Room Air 4 04/13/24 03:10 04/13/24 03:10 04/13/24 03:10 04/13/24 03:10 04/13/24 03:10 04/13/24 03:10 04/11/24 12:45 Oxygen Flow Rate (L/min) 4 Oxygen Delivery Method Room Air Weight: 73.4 kg Body Mass Index (BMI) 31.3 Intake & Output: Intake and Output for Last 24 Hours 04/11/24 04/12/24 04/13/24 23:59 23:59 23:59 Intake Total 2862 / 2862 1550 / 1550 Output Total 250 / 450 700 / 700 Balance 2862 / 2862 1300 / 1100 -700 / -700 Lab / Micro Data 04/13/24 09:34 04/12/24 06:49 Labs: Laboratory Results - last 24 hr 04/13/24 09:34: WBC 9.4, RBC 2.76 L, Hgb 9.0 L, Hct 27.4 L, MCV 99.3 H, MCH 32.6 H, MCHC 32.8, RDW Std Deviation 46.9 H, RDW Coeff of Ezekiel 13.2, Plt Count 228, MPV 9.1 Micro: Microbiology 04/06/24 08:05 Swab (Method) Nasal Screen MRSA/MSSA - Final Physical Exam Const alert, oriented x3 and no apparent distress Constitutional Narrative: Pleasant elderly female, obese, sitting up comfortably in bedside chair, conversing normally, no acute distress. Stable. General Appearance: cooperative and comfortable HEENT normocephalic, head/scalp atraumatic, hearing grossly normal bilaterally, nasal mucous membranes and turbinates normal and moist oral mucous membranes Eyes PERRL, EOMs intact bilaterally and conjunctivae normal Neck full ROM Chest inspection of chest normal Resp normal respiratory effort, normal air movement, no use of accessory muscles and clear to auscultation bilaterally Cardio regular rate, regular rhythm, no murmurs and peripheral pulses 2+ throughout GI normal to inspection, nondistended, normoactive bowel sounds, soft to palpation, non-tender and non-distended Back/Spine normal ROM Extremity Extremity Narrative: Right knee with dressing in place. Stable. Skin no rashes or lesions noted Neuro no focal motor deficits and no sensory deficits noted Speech: speech normal Psych mental status grossly normal Assessment & Plan Assessment/Plan (1) Status post total right knee replacement: (2) Osteoarthritis of right knee: PLAN: Plan Patient is an 83-year-old female who presented [facility] on 04/11/2024 for planned right total knee replacement. Medicine consulted postoperatively for medical management. 1. Right knee osteoarthritis ? Orthopedic surgery primary. S/p right total knee arthroplasty on 04/11. Tolerated procedure well, no intraoperative complications. Pain management, bowel regimen and DVT prophylaxis per primary. 2. Acute on chronic debility ? PT/OT/case management following. Patient lives alone in split level home. Patient open for SNF on discharge by therapy scores have been fairly good, unclear if this may include SNF placement. Case management assisting with this. 3. Mild postoperative hypotension ? Patient noted to be mildly hypotensive on morning of postop day 1. Likely multifactorial from slight dehydration, blood loss from procedure and recent anesthesia. Given small fluid bolus and home medications held with some improvement. Tried restarting home spironolactone and isosorbide mononitrate on 04/13 but pressure dropped too low. Given another 500 cc bolus and will hold home blood pressure medications for now. 4. Postoperative blood loss anemia ? Hemoglobin 9.4 postoperatively. Baseline hemoglobin appears to be around 12-13 with most recent hemoglobin 12.9 on 04/06. Repeat hemoglobin 9.0 on 04/13, stable. No need for further CBC checks at this time. Chronic medical conditions: ? Obesity: BMI 31 on admit. Complicates hospital course, care and prognosis. ? Hypertension: Home regimen of isosorbide mononitrate, spironolactone and irbesartan. Held on postop day 1 as noted above, will resume when able. ? Hyperlipidemia: Continue statin. ? Aortic valve stenosis: Continue home meds as above. ? Small cell lung carcinoma: Ongoing outpatient management. ? Depression: Continue home Wellbutrin. ? Glaucoma: Continue home eyedrops. DVT prophylaxis: Xarelto Total clinical time spent by myself addressing the patient's medical issues, reviewing all the data, and collaborating with patient's care team: 25 minutes. Charges/Coding Visit Charges Inpatient E&M: 54935 Subs Hosp L2
--- NOTE | 2024-04-13 11:39 | PCM.PN.ORT ---
Subjective Subjective The patient was sitting in bedside chair upon examination with family present. Patient denies any chest pain, shortness of breath, dizziness, lightheadedness, nausea or vomiting, or calf pain. Patient does report having more pain today. The block has worn off. She does state that physical therapy with much more difficult today than yesterday. Case management is currently on board with appropriate discharge planning. Patient does live home alone and in a two-story house with concern for fall risk. Patient was unsteady with physical therapy. Patient did have some postoperative drainage yesterday and ABDs have been used. Upon examination of her knee there is no active drainage today. Old bloody discharge on the ABD. Objective Data Objective Data Vital Signs: Vital Signs Temp Pulse Resp BP Pulse Ox O2 Del Method O2 Flow Rate 98.1 F 66 16 91/42 L 96 Room Air 4 04/13/24 10:20 04/13/24 10:20 04/13/24 10:20 04/13/24 10:20 04/13/24 10:20 04/13/24 10:20 04/11/24 12:45 Oxygen Flow Rate (L/min) 4 Oxygen Delivery Method Room Air Weight: 73.4 kg Body Mass Index (BMI) 31.3 Intake & Output: Intake and Output for Last 24 Hours 04/11/24 04/12/24 04/13/24 23:59 23:59 23:59 Intake Total 2862 / 2862 1550 / 1550 Output Total 250 / 450 700 / 700 Balance 2862 / 2862 1300 / 1100 -700 / -700 Lab / Micro Data 04/13/24 09:34 04/12/24 06:49 Labs: Laboratory Results - last 24 hr 04/13/24 09:34: WBC 9.4, RBC 2.76 L, Hgb 9.0 L, Hct 27.4 L, MCV 99.3 H, MCH 32.6 H, MCHC 32.8, RDW Std Deviation 46.9 H, RDW Coeff of Ezekiel 13.2, Plt Count 228, MPV 9.1 Micro: Microbiology 04/06/24 08:05 Swab (Method) Nasal Screen MRSA/MSSA - Final Physical Exam Narrative Vital signs stable and afebrile. SCDs and RADHA hose are in place bilaterally Patient is able to plantarflex and dorsiflex actively. Sensation is intact to light touch to saphenous, sural, superficial and deep peroneal, and tibial distribution. ABD was removed and incision is stable with no active drainage. No reactive erythema. Sutures are in place. Negative Homans bilaterally, negative signs and symptoms of DVT. Const alert, oriented x3 and no apparent distress Assessment & Plan Assessment/Plan (1) Status post total right knee replacement: PLAN: 1. S/P robotic assisted right total knee arthroplasty POD #2 2. Continue Pain Medications: Tylenol and oxycodone 3. DVT Prophylaxis: Xarelto 10 mg once daily for 2 weeks postoperatively due to history of cancer. After 2 weeks she will then be placed on aspirin 81 mg twice daily for an additional 2 weeks. Patient denies any personal history of DVT or pulmonary embolism in the past 4. PT/OT: Weightbearing as tolerated. Appreciate recommendations from physical therapy. Patient does live home alone as well as in a two-story house. I am concerned for fall risk at home. 5. H & H: 9.0/27.4, patient has had some mild hypotension in which medicine has been treating her with fluid bolus and holding hypertensive medications. She denies any dizziness or lightheadedness. At this time patient will be placed on ferrous sulfate and folic acid. I did discuss this with the patient and this may need for patient to follow-up with her primary care provider for further treatment. We will continue to monitor with labs while in the hospital and have her repeat labs on discharge. 6. Reactive leukocytosis: This has resolved and currently 9.4. She did receive Decadron intraoperatively. There is no clinical signs of infection. 6. Postoperative drainage: Patient's drainage has stopped and there is no active drainage. We will continue with ABDs while in the hospital and prior to discharge will place a new Mepilex dressing over the incision. 7. Encouraged Incentive Spirometry 8. Patient is aware of postoperative constipation that can occur from 1-3 days postoperatively. Will continue with senna 2 tablets twice daily until first bowel movement. Patient was advised if not having a bowel movement after day 3 she is to contact orthopedics so appropriate change can be made. Patient voiced understanding. 9. Continue postoperative medical treatment per medicine: Appreciate recommendations from medicine with regards to blood pressure and postoperative anemia as well. 10. Disposition: At this time case management is currently involved with appropriate and safe discharge planning. Patient has not done as well with therapy today and she is having more pain as the block has worn off. She did have some unsteadiness with walking. There is concern for going home and we are looking in to patient going to rehab for further therapy. Patient is not ready for discharge at this time. We will continue with above medications and repeat labs tomorrow. Continue recommendations from medicine with regards to her hypertension. I have reviewed the [place] Automated Rx Reporting System (OARRS) report for this patient for refill pattern and other prescriber involvement as part of the appropriate surveillance for the provision of acute and chronic controlled medications. The report was requested and reviewed on the date of this entry and was considered in the prescribing process. This dictation was created using voice recognition software. Phonetic and/or grammatical errors may exist.
[2024-04-13] MEDS: LACTATED RINGERS 500 ML 999 ML IV (11:51)
[2024-04-13] MEDS: Ferrous Sulfate 325 MG Tablet PO ×2 (13:54→18:28)
--- NOTE | 2024-04-13 14:35 | CASEMGMT ---
TC to [employer], spoke with Danyel, cancelled pt appt tomorrow d/t dc plan change.
[2024-04-13] MEDS: Cephalexin 250 MG Capsule PO (21:01)
[2024-04-13] MEDS: Pravastatin 40 MG Tablet PO (21:01)
--- NOTE | 2024-04-13 23:29 | NURSING ---
Oyxir 5 mg wasted with Lewis Burnham RN, a waste notation did not come up on screen to waste med.
[2024-04-14 02:00] VITALS: BP 99/43; PULSE 87; RESP 16; TEMP 36.7; O2SAT 93
[2024-04-14 03:00] VITALS: BP 99/48; PULSE 82; RESP 16; TEMP 36.7; O2SAT 93
[2024-04-14] MEDS: prednisoLONE eye drops (5 mL) 1 DROP OPTH.BTL 1 DRP RIGHT EYE ×3 (05:44→21:16)
[2024-04-14] MEDS: Rivaroxaban 10 MG Tablet PO (05:45)
[2024-04-14] MEDS: Levothyroxine 88 MCG Tablet PO (05:45)
[2024-04-14] MEDS: Acetaminophen 500 MG Tablet 1000 MG PO ×3 (05:45→21:17)
[2024-04-14 06:13] VITALS: BP 133/62; PULSE 91; RESP 15; TEMP 36.8; O2SAT 93
[2024-04-14 07:34] LABS: Mean Corp Hgb Conc 33.3 g/dL (32-36); Mean Corpuscular Hgb 32.5 pg (27.0-32.0); Mean Corpuscular Volume 97.5 fL (81-99); Mean Platelet Vol. 9.4 fl (6.2-12.0); Platelet Count 231 K/mm3 (150-450); Red Blood Count 2.77 M/mm3 (4.2-5.4); White Blood Count 9.7 K/mm3 (4.4-11.0)
[2024-04-14 08:38] VITALS: BP 108/57; PULSE 92; RESP 20; TEMP 36.9; O2SAT 97
[2024-04-14] MEDS: Pyridoxine HCl 100 MG Tablet PO (08:56)
[2024-04-14] MEDS: Folic Acid 1 MG Tablet PO (08:56)
[2024-04-14] MEDS: Lactobacillis Acidophilus 1 CAP PO (08:57)
[2024-04-14] MEDS: oxyCODONE 5 MG Tablet PO ×2 (08:57→20:25)
[2024-04-14] MEDS: Tolterodine Tartrate 2 MG CAP.SA PO (08:58)
[2024-04-14] MEDS: Famotidine 20 MG Tablet PO (08:58)
[2024-04-14] MEDS: Cholecalciferol (VIT D3) 25 MCG TABLET (1,000 UNITS) 50 MCG PO (08:58)
[2024-04-14] MEDS: buPROPion 75 MG Tablet PO (08:59)
[2024-04-14] MEDS: Ascorbic Acid 500 MG Tablet PO (08:59)
[2024-04-14] MEDS: Dorzolamide HCL/Timolol 10 ml Bottle 1 DRP OPHTHALMIC ×2 (09:02→21:17)
--- NOTE | 2024-04-14 12:47 | PCM.PN.HOSP ---
Reason for Visit Reason for Visit: Diagnoses Unilateral primary osteoarthritis, right knee (04/11/24) Encounter for other preprocedural examination (04/11/24) Presence of right artificial knee joint (04/11/24) Subjective Subjective Saw patient at bedside this morning. Patient appeared similar to yesterday, mildly fatigued appearing but otherwise sitting up in bedside chair without significant issue. She did report knee pain, similar to yesterday. Stated the pain medications were mild to moderately helpful for this. Importantly, it appears that when she takes pain medications her blood pressure drops fairly significantly. For this reason, her home blood pressure medications were again held today. No other new concerns today. Objective Data Objective Data Vital Signs: Vital Signs Temp Pulse Resp BP Pulse Ox O2 Del Method O2 Flow Rate 98.4 F 92 20 H 108/57 L 97 Room Air 4 04/14/24 08:38 04/14/24 08:38 04/14/24 08:38 04/14/24 08:38 04/14/24 08:38 04/14/24 08:38 04/11/24 12:45 Oxygen Flow Rate (L/min) 4 Oxygen Delivery Method Room Air Weight: 73.4 kg Body Mass Index (BMI) 31.3 Intake & Output: Intake and Output for Last 24 Hours 04/12/24 04/13/24 04/14/24 23:59 23:59 23:59 Intake Total 1550 / 1550 500 / 500 100 / 100 Output Total 250 / 450 700 / 700 Balance 1300 / 1100 -200 / -200 100 / 100 Lab / Micro Data 04/14/24 06:56 04/12/24 06:49 Labs: Laboratory Results - last 24 hr 04/14/24 06:56: WBC 9.7, RBC 2.77 L, Hgb 9.0 L, Hct 27.0 L, MCV 97.5, MCH 32.5 H, MCHC 33.3, RDW Std Deviation 46.0 H, RDW Coeff of Ezekiel 13.0, Plt Count 231, MPV 9.4 Micro: Microbiology 04/06/24 08:05 Swab (Method) Nasal Screen MRSA/MSSA - Final Physical Exam Const alert, oriented x3 and no apparent distress Constitutional Narrative: Pleasant elderly female, obese, sitting up comfortably in bedside chair, conversing normally, no acute distress. Stable. General Appearance: cooperative and comfortable HEENT normocephalic, head/scalp atraumatic, hearing grossly normal bilaterally, nasal mucous membranes and turbinates normal and moist oral mucous membranes Eyes PERRL, EOMs intact bilaterally and conjunctivae normal Neck full ROM Chest inspection of chest normal Resp normal respiratory effort, normal air movement, no use of accessory muscles and clear to auscultation bilaterally Cardio regular rate, regular rhythm, no murmurs and peripheral pulses 2+ throughout GI normal to inspection, nondistended, normoactive bowel sounds, soft to palpation, non-tender and non-distended Back/Spine normal ROM Extremity Extremity Narrative: Right knee with dressing in place. Stable. Skin no rashes or lesions noted Neuro no focal motor deficits and no sensory deficits noted Speech: speech normal Psych mental status grossly normal Assessment & Plan Assessment/Plan (1) Status post total right knee replacement: (2) Osteoarthritis of right knee: PLAN: Plan Patient is an 83-year-old female who presented [facility] on 04/11/2024 for planned right total knee replacement. Medicine consulted postoperatively for medical management. 1. Right knee osteoarthritis ? Orthopedic surgery primary. S/p right total knee arthroplasty on 04/11. Tolerated procedure well, no intraoperative complications. Pain management, bowel regimen and DVT prophylaxis per primary. 2. Acute on chronic debility ? PT/OT/case management following. Patient lives alone in split level home. Patient with borderline therapy scores postoperatively, planning for SNF on discharge. 3. Mild postoperative hypotension with ongoing episodes of mild hypotension ? Patient noted to be mildly hypotensive on morning of postop day 1. Initially suspected this was due to slight dehydration, blood loss from procedure and anesthesia. Appeared to improve with small fluid bolus. However, patient has continued to have intermittent drops in blood pressure and it seems that these drops correlate well with administration of pain medications for her. Given that she will need pain medications over the neck several days, will plan to hold her home blood pressure medications until she is able to wean off of opiates. 4. Postoperative blood loss anemia ? Hemoglobin 9.4 postoperatively. Baseline hemoglobin appears to be around 12-13 with most recent hemoglobin 12.9 on 04/06. Repeat hemoglobin 9.0 on 04/13, stable. No need for further CBC checks at this time. Chronic medical conditions: ? Obesity: BMI 31 on admit. Complicates hospital course, care and prognosis. ? Hypertension: Home regimen of isosorbide mononitrate, spironolactone and irbesartan. Holding as noted above. ? Hyperlipidemia: Continue statin. ? Aortic valve stenosis: Continue home meds as above. ? Small cell lung carcinoma: Ongoing outpatient management. ? Depression: Continue home Wellbutrin. ? Glaucoma: Continue home eyedrops. DVT prophylaxis: Xarelto Total clinical time spent by myself addressing the patient's medical issues, reviewing all the data, and collaborating with patient's care team: 25 minutes. Charges/Coding Visit Charges Inpatient E&M: 02042 [facility] Hosp L1
--- NOTE | 2024-04-14 13:43 | PN.ORTHO_ITS ---
Subjective Subjective The patient was sitting in bedside chair upon examination. Patient denies any chest pain, shortness of breath, lightheadedness, or calf pain. Patient does report some occasional dizziness. She has had soft blood pressure and medicine has been managing. Pain is controlled on medications. No adverse overnight events. Patient does complain of pain but medications are helpful. She is also getting some intermittent nausea at times. We are awaiting pre-CERT from insurance for discharge to [facility]. [facility] has accepted patient however we are still waiting on pre-CERT. With therapy today patient walked 20 feet but had to take rest. Has increased pain with therapy. Therapy is suggesting additional therapy on discharge Objective Data Objective Data Vital Signs: Vital Signs Temp Pulse Resp BP Pulse Ox O2 Del Method O2 Flow Rate 98.4 F 92 20 H 108/57 L 97 Room Air 4 04/14/24 08:38 04/14/24 08:38 04/14/24 08:38 04/14/24 08:38 04/14/24 08:38 04/14/24 08:45 04/11/24 12:45 Oxygen Flow Rate (L/min) 4 Oxygen Delivery Method Room Air Weight: 73.4 kg Body Mass Index (BMI) 31.3 Intake & Output: Intake and Output for Last 24 Hours 04/12/24 04/13/24 04/14/24 23:59 23:59 23:59 Intake Total 1550 / 1550 500 / 500 100 / 100 Output Total 250 / 450 700 / 700 Balance 1300 / 1100 -200 / -200 100 / 100 Lab / Micro Data 04/14/24 06:56 04/12/24 06:49 Labs: Laboratory Results - last 24 hr 04/14/24 06:56: WBC 9.7, RBC 2.77 L, Hgb 9.0 L, Hct 27.0 L, MCV 97.5, MCH 32.5 H , MCHC 33.3, RDW Std Deviation 46.0 H, RDW Coeff of Ezekiel 13.0, Plt Count 231, MPV 9.4 Micro: Microbiology 04/06/24 08:05 Swab (Method) Nasal Screen MRSA/MSSA - Final Physical Exam Narrative Vital signs stable and afebrile. Patient did have some soft blood pressures. Patient is able to plantarflex and dorsiflex actively. Sensation is intact to light touch to saphenous, sural, superficial and deep peroneal, and tibial distribution. ABDs and compressive Noe wrap in place. No active drainage. Plan will be for placement of Mepilex dressing upon discharge Negative Homans bilaterally, negative signs and symptoms of DVT. Const alert, oriented x3 and no apparent distress Assessment & Plan Assessment/Plan (1) Status post total right knee replacement: PLAN: 1. S/P robotic assisted right total knee arthroplasty POD #3 2. Continue Pain Medications: Tylenol and oxycodone 3. DVT Prophylaxis: Xarelto 10 mg once daily for 2 weeks postoperatively due to history of cancer. After 2 weeks she will then be placed on aspirin 81 mg twice daily for an additional 2 weeks. Patient denies any personal history of DVT or pulmonary embolism in the past 4. PT/OT: Weightbearing as tolerated. Appreciate recommendations from physical therapy. Patient does live home alone as well as in a two-story house. I am concerned for fall risk at home. 5. H & H: Labs have been stable and currently 9.0/27.0, patient has had some mild hypotension in which medicine has been treating her with fluid bolus and holding hypertensive medications. Patient will be placed on ferrous sulfate and folic acid. I did discuss this with the patient and this may need for patient to follow-up with her primary care provider for further treatment. We will continue to monitor with labs while in the hospital and have her repeat labs on discharge. 6. Postoperative drainage: Patient's drainage has stopped and there is no active drainage. We will continue with ABDs while in the hospital and prior to discharge will place a new Mepilex dressing over the incision. 7. Encouraged Incentive Spirometry 8. Patient is aware of postoperative constipation that can occur from 1-3 days postoperatively. Will continue with senna 2 tablets twice daily until first bowel movement. Patient was advised if not having a bowel movement after day 3 she is to contact orthopedics so appropriate change can be made. Patient voiced understanding. 9. Continue postoperative medical treatment per medicine: Appreciate recommendations from medicine with regards to blood pressure and postoperative anemia as well. 10. Disposition: We are currently awaiting pre-CERT from insurance for discharge to [facility]. Patient has struggled with physical therapy with increased pain and has had to take rest. She is only walk 20 feet. We will continue with above pain medications. Continue with the ABD with daily dressing changes until discharge. At time of discharge plan will be to place Mepilex dressing. Still continue appreciate recommendations from medicine with regards to blood pressure. I have reviewed the [place] Automated Rx Reporting System (OARRS) report for this patient for refill pattern and other prescriber involvement as part of the appropriate surveillance for the provision of acute and chronic controlled medications. The report was requested and reviewed on the date of this entry and was considered in the prescribing process. This dictation was created using voice recognition software. Phonetic and/or grammatical errors may exist.
--- NOTE | 2024-04-14 13:54 | CASEMGMT ---
BASIL CM into pt room per request of Zeeshan BALDERRAMA as pt had insurance questions. Pt stated she will have to pay $500 and some for each day she is here. Asked pt if she was told that by her insurance company and she stated she was not but that she used to work with hospitals and insurance and knows how you can get caught up in those things. Pt is aware she can call her insurance company for the best information on her coverage for observations status. Pt denies need for this.
[2024-04-14] MEDS: Ferrous Sulfate 325 MG Tablet PO ×2 (14:03→17:09)
[2024-04-14 14:28] VITALS: BP 133/69; PULSE 82; RESP 17; TEMP 36.9; O2SAT 96
[2024-04-14 20:25] VITALS: BP 114/44; PULSE 79; RESP 18; TEMP 36.3; O2SAT 98
[2024-04-14] MEDS: Pravastatin 40 MG Tablet PO (21:17)
[2024-04-14] MEDS: Cephalexin 250 MG Capsule PO (21:17)
[2024-04-15 03:53] VITALS: BP 125/44; PULSE 72; RESP 18; TEMP 36.6; O2SAT 95
[2024-04-15] MEDS: oxyCODONE 5 MG Tablet PO ×3 (04:12→22:29)
[2024-04-15] MEDS: Rivaroxaban 10 MG Tablet PO (04:13)
[2024-04-15] MEDS: Levothyroxine 88 MCG Tablet PO (04:13)
[2024-04-15] MEDS: Acetaminophen 500 MG Tablet 1000 MG PO ×3 (04:13→19:27)
--- NOTE | 2024-04-15 09:06 | CASEMGMT ---
Discharge Planning A list of?SNF providers including quality and resource use data and consistent with the patient's preferred geographic region, medical needs, and insurance network was created in [employer] Guide.? This list was provided to the SW. Twila Fernández Discharge Planning Asst.
[2024-04-15 09:53] VITALS: BP 115/54; PULSE 67; RESP 14; TEMP 36.8; O2SAT 96
[2024-04-15] MEDS: Ensure Surgery 237 ML LIQUID PO ×2 (11:47→12:07)
[2024-04-15] MEDS: Lactobacillis Acidophilus 1 CAP PO (11:48)
[2024-04-15] MEDS: Folic Acid 1 MG Tablet PO (11:48)
[2024-04-15] MEDS: Dorzolamide HCL/Timolol 10 ml Bottle 1 DRP OPHTHALMIC ×2 (11:49→19:26)
[2024-04-15] MEDS: Tolterodine Tartrate 2 MG CAP.SA PO (11:49)
[2024-04-15] MEDS: prednisoLONE eye drops (5 mL) 1 DROP OPTH.BTL 1 DRP RIGHT EYE ×2 (11:50→19:27)
[2024-04-15] MEDS: Famotidine 20 MG Tablet PO (11:50)
[2024-04-15] MEDS: Pyridoxine HCl 100 MG Tablet PO (11:51)
[2024-04-15] MEDS: buPROPion 75 MG Tablet PO (11:52)
[2024-04-15] MEDS: Cholecalciferol (VIT D3) 25 MCG TABLET (1,000 UNITS) 50 MCG PO (11:52)
[2024-04-15] MEDS: Ferrous Sulfate 325 MG Tablet PO ×2 (11:52→17:25)
[2024-04-15] MEDS: Ascorbic Acid 500 MG Tablet PO (11:52)
--- NOTE | 2024-04-15 11:57 | CASEMGMT ---
Addendum entered by Lu Coles 04/15/24 13:17: Pt approved in peer to peer. Pt advised of pending d/c today. NISREEN Owens Addendum entered by Lu Coles 04/15/24 13:10: Physician set up peer to peer. RNCM advised that pt may need HH. NISREEN Owens Original Note: Social Work- SW called physician medical assistant float to discuss peer to peer request. SW called therapy to request they call physician to discuss pt status. SW called physician and left voicemail with the following information: physician can call by 4:30 pm EST today 04/15/24 and can be done by calling [phone] opt 4. If doing so use ref #[id number] NISREEN Owens?
--- NOTE | 2024-04-15 12:02 | PCM.PN.HOSP ---
Reason for Visit Reason for Visit: Diagnoses Unilateral primary osteoarthritis, right knee (04/11/24) Encounter for other preprocedural examination (04/11/24) Presence of right artificial knee joint (04/11/24) Subjective Subjective Saw patient at bedside this morning. Patient appeared similar today to yesterday. Continue to have knee pain and having some difficulty with ambulation. No other new concerns today. Objective Data Objective Data Vital Signs: Vital Signs Temp Pulse Resp BP Pulse Ox O2 Del Method O2 Flow Rate 97.8 F 72 18 125/44 H 95 Room Air 4 04/15/24 03:53 04/15/24 03:53 04/15/24 03:53 04/15/24 03:53 04/15/24 03:53 04/15/24 03:56 04/11/24 12:45 Oxygen Flow Rate (L/min) 4 Oxygen Delivery Method Room Air Weight: 73.4 kg Body Mass Index (BMI) 31.3 Intake & Output: Intake and Output for Last 24 Hours 04/13/24 04/14/24 04/15/24 23:59 23:59 23:59 Intake Total 500 / 500 880 / 880 Output Total 700 / 700 Balance -200 / -200 880 / 880 Lab / Micro Data 04/14/24 06:56 04/12/24 06:49 Micro: Microbiology 04/06/24 08:05 Swab (Method) Nasal Screen MRSA/MSSA - Final Physical Exam Const alert, oriented x3 and no apparent distress Constitutional Narrative: Pleasant elderly female, obese, sitting up comfortably in bedside chair, conversing normally, no acute distress. Stable. General Appearance: cooperative and comfortable HEENT normocephalic, head/scalp atraumatic, hearing grossly normal bilaterally, nasal mucous membranes and turbinates normal and moist oral mucous membranes Eyes PERRL, EOMs intact bilaterally and conjunctivae normal Neck full ROM Chest inspection of chest normal Resp normal respiratory effort, normal air movement, no use of accessory muscles and clear to auscultation bilaterally Cardio regular rate, regular rhythm, no murmurs and peripheral pulses 2+ throughout GI normal to inspection, nondistended, normoactive bowel sounds, soft to palpation, non-tender and non-distended Back/Spine normal ROM Extremity Extremity Narrative: Right knee with dressing in place. Stable. Skin no rashes or lesions noted Neuro no focal motor deficits and no sensory deficits noted Speech: speech normal Psych mental status grossly normal Assessment & Plan Assessment/Plan (1) Status post total right knee replacement: (2) Osteoarthritis of right knee: PLAN: Plan Patient is an 83-year-old female who presented [facility] on 04/11/2024 for planned right total knee replacement. Medicine consulted postoperatively for medical management. 1. Right knee osteoarthritis ? Orthopedic surgery primary. S/p right total knee arthroplasty on 04/11. Tolerated procedure well, no intraoperative complications. Pain management, bowel regimen and DVT prophylaxis per primary. 2. Acute on chronic debility ? PT/OT/case management following. Patient lives alone in split level home. Patient with borderline therapy scores postoperatively, planning for SNF on discharge. 3. Mild postoperative hypotension with ongoing episodes of mild hypotension ? Patient noted to be mildly hypotensive on morning of postop day 1. Initially suspected this was due to slight dehydration, blood loss from procedure and anesthesia. Appeared to improve with small fluid bolus. However, patient has continued to have intermittent drops in blood pressure and it seems that these drops correlate well with administration of pain medications for her. Given that she will need pain medications over the neck several days, will plan to hold her home blood pressure medications until she is able to wean off of opiates. 4. Postoperative blood loss anemia ? Hemoglobin 9.4 postoperatively. Baseline hemoglobin appears to be around 12-13 with most recent hemoglobin 12.9 on 04/06. Repeat hemoglobin 9.0 on 04/13, stable. No need for further CBC checks at this time. Chronic medical conditions: ? Obesity: BMI 31 on admit. Complicates hospital course, care and prognosis. ? Hypertension: Home regimen of isosorbide mononitrate, spironolactone and irbesartan. Holding as noted above. ? Hyperlipidemia: Continue statin. ? Aortic valve stenosis: Continue home meds as above. ? Small cell lung carcinoma: Ongoing outpatient management. ? Depression: Continue home Wellbutrin. ? Glaucoma: Continue home eyedrops. DVT prophylaxis: Xarelto Total clinical time spent by myself addressing the patient's medical issues, reviewing all the data, and collaborating with patient's care team: 25 minutes. Charges/Coding Visit Charges Inpatient E&M: 54594 [facility] L1
--- NOTE | 2024-04-15 13:18 | CASEMGMT ---
Discharge Planning [employer] has approved after peer to peer. [facility] updated and asked to contact us when they have received auth. Twila Fernández DC Planning Asst.
[2024-04-15] MEDS: Ondansetron 4 MG/2 ML Vial IV (14:31)
[2024-04-15] MEDS: 0.9% Saline Lock 10 ML Syringe IV (14:31)
--- NOTE | 2024-04-15 14:38 | PN.ORTHO_ITS ---
Subjective Subjective Patient doing well today. No acute events overnight. Only able to walk 20 feet with contact-guard assist yesterday with her front wheeled walker. [id number] was performed today. Patient received pre-CERT and approval for [facility]. Objective Data Objective Data Vital Signs: Vital Signs Temp Pulse Resp BP Pulse Ox O2 Del Method O2 Flow Rate 98.3 F 67 14 115/54 L 96 Room Air 4 04/15/24 09:53 04/15/24 09:53 04/15/24 09:53 04/15/24 09:53 04/15/24 09:53 04/15/24 09:53 04/11/24 12:45 Oxygen Flow Rate (L/min) 4 Oxygen Delivery Method Room Air Weight: 161 lb 13.109 oz Body Mass Index (BMI) 31.3 Intake & Output: Intake and Output for Last 24 Hours 04/13/24 04/14/24 04/15/24 23:59 23:59 23:59 Intake Total 500 / 500 880 / 880 952 / 952 Output Total 700 / 700 Balance -200 / -200 880 / 880 952 / 952 Lab / Micro Data Attestation: I reviewed the patient's lab results. 04/14/24 06:56 04/12/24 06:49 Micro: Microbiology 04/06/24 08:05 Swab (Method) Nasal Screen MRSA/MSSA - Final Physical Exam Const alert and oriented x3 Extremity Extremity Narrative: Right lower extremity: Dressing is clean dry and intact dry dressing in place Sensations intact to light touch saphenous, sural, superficial peroneal, deep peroneal, and tibial distributions Motors intact EHL, DF, PF calves are soft and supple Assessment & Plan Assessment/Plan (1) Status post total right knee replacement: PLAN: 1. S/P robotic assisted right total knee arthroplasty POD #4 2. Continue Pain Medications: Tylenol and oxycodone 3. DVT Prophylaxis: Xarelto 10 mg once daily for 2 weeks postoperatively due to history of cancer. After 2 weeks she will then be placed on aspirin 81 mg twice daily for an additional 2 weeks. Patient denies any personal history of DVT or pulmonary embolism in the past 4. PT/OT: Weightbearing as tolerated. Appreciate recommendations from physical therapy. Patient does live home alone as well as in a two-story house. Patient will continue therapy at intermediate facility 5. H & H: Labs have been stable and currently 9.0/27.0, blood pressure currently stable. Patient will be placed on ferrous sulfate and folic acid. I did discuss this with the patient and this may need for patient to follow-up with her primary care provider for further treatment. 6. Postoperative drainage: Patient's drainage has stopped and there is no active drainage. We will continue with ABDs while in the hospital and prior to discharge will place a new Mepilex dressing over the incision and remove 5 days from discharge. 7. Encouraged Incentive Spirometry 8. Patient is aware of postoperative constipation that can occur from 1-3 days postoperatively. Will continue with senna 2 tablets twice daily until first bowel movement. Patient was advised if not having a bowel movement after day 3 she is to contact orthopedics so appropriate change can be made. Patient voiced understanding. 9. Continue postoperative medical treatment per medicine: Appreciate recommendations from medicine with regards to blood pressure and postoperative anemia as well. 10. Disposition: We currently have approval from insurance for discharge to [facility]. Patient has struggled with physical therapy with increased pain and has had to take rest. She is only walk 20 feet. We will continue with above pain medications. I have reviewed the [place] Automated Rx Reporting System (OARRS) report for this patient for refill pattern and other prescriber involvement as part of the appropriate surveillance for the provision of acute and chronic controlled medications. The report was requested and reviewed on the date of this entry and was considered in the prescribing process. This dictation was created using voice recognition software. Phonetic and/or grammatical errors may exist.
--- NOTE | 2024-04-15 14:53 | PCM.TXEXTCAR ---
Diet Diet Order/Speech Therapy: 04/11/24 15:44 Diet: Regular - General Wound(s) R KNEE: Wound Type: Surgical Incision rt distal polanco: Wound Type: Surgical Incision Suggestions for Active Care Change Position every (hours): 2 Hours to sit in a chair: 2 Times a day to sit in chair: 2 Therapies Weight Bearing: Full weight bearing Problem/Diagnosis (1) Status post total right knee replacement: Status: Acute Code(s): Z96.651 - Presence of right artificial knee joint Plan: 1. S/P robotic assisted right total knee arthroplasty POD #4 2. Continue Pain Medications: Tylenol and oxycodone 3. DVT Prophylaxis: Xarelto 10 mg once daily for 2 weeks postoperatively due to history of cancer. After 2 weeks she will then be placed on aspirin 81 mg twice daily for an additional 2 weeks. Patient denies any personal history of DVT or pulmonary embolism in the past 4. PT/OT: Weightbearing as tolerated. Appreciate recommendations from physical therapy. Patient does live home alone as well as in a two-story house. Patient will continue therapy at [facility] facility 5. H & H: Labs have been stable and currently 9.0/27.0, blood pressure currently stable. Patient will be placed on ferrous sulfate and folic acid. I did discuss this with the patient and this may need for patient to follow-up with her primary care provider for further treatment. 6. Postoperative drainage: Patient's drainage has stopped and there is no active drainage. We will continue with ABDs while in the hospital and prior to discharge will place a new Mepilex dressing over the incision and remove 5 days from discharge. 7. Encouraged Incentive Spirometry 8. Patient is aware of postoperative constipation that can occur from 1-3 days postoperatively. Will continue with senna 2 tablets twice daily until first bowel movement. Patient was advised if not having a bowel movement after day 3 she is to contact orthopedics so appropriate change can be made. Patient voiced understanding. 9. Continue postoperative medical treatment per medicine: Appreciate recommendations from medicine with regards to blood pressure and postoperative anemia as well. 10. Disposition: We currently have approval from insurance for discharge to [facility]. Patient has struggled with physical therapy with increased pain and has had to take rest. She is only walk 20 feet. We will continue with above pain medications. I have reviewed the [place] Automated Rx Reporting System (OARRS) report for this patient for refill pattern and other prescriber involvement as part of the appropriate surveillance for the provision of acute and chronic controlled medications. The report was requested and reviewed on the date of this entry and was considered in the prescribing process. This dictation was created using voice recognition software. Phonetic and/or grammatical errors may exist. Allergies/Procedures Done in Hospital Allergies codeine Allergy (Verified 04/11/24 07:55) PT UNSURE OF REACTION losartan Adverse Reaction (Verified 04/11/24 07:55) Unknown quinapril (From Accupril) Adverse Reaction (Verified 04/11/24 07:55) Unknown Sulfa (Sulfonamide Antibiotics) Adverse Reaction (Verified 04/11/24 07:55) unknown disoriented Type of Care/Length of Stay Estimated LOS: Convalescent Care Less Than 30 days Type of Care Needed: Skilled Rehab Potential: Good Prognosis: Good Additional Orders/Day of Discharge Day of Discharge: 04/15/24 Follow Up Care Please follow up with your Primary Care Physician in: 1 week Please Follow Up With: Maribel Orlando PA When: April 25, 2024 at 3:15 PM in [place] office Discharge Plan Admission Admit Date/Time: 04/11/24 07:21 Attending Provider: Jose Loaiza Primary Care Provider: Maria Elena Resendiz Consulting Providers: Malissa Angel; Yonatan Tan Discharge Orders/Prescriptions Prescriptions: New acetaminophen 500 mg Tablet 1,000 mg PO Q8 Qty: 0 0RF famotidine 20 mg Tablet 20 mg PO DAILY Qty: 0 0RF ferrous sulfate [FeroSul] 325 mg (65 mg iron) Tablet 325 mg PO 1200,1700 Qty: 0 0RF folic acid 1 mg Tablet 1 mg PO BREAKFAST Qty: 0 0RF oxycodone 5 mg Tablet 5 - 10 mg PO Q4H PRN PRN (Reason: Pain Score 4-10) 7 Days Qty: 40 0RF Ensure Surgery 0.08-1.4 gram-kcal/mL Liquid 237 ml PO TIDCM Qty: 0 0RF sennosides-docusate sodium [Stimulant Laxative Plus] 8.6-50 mg Tablet 2 tab PO BID PRN PRN (Reason: Constipation) Qty: 0 0RF Xarelto 10 mg Tablet 10 mg PO DAILY@0600 Qty: 0 0RF ondansetron 4 mg tablet,disintegrating 4 mg PO Q8H Qty: 8 0RF Continued pravastatin 40 mg tablet 40 mg PO QHS Qty: 90 3RF bupropion HCl 75 mg tablet 75 mg PO DAILY pyridoxine (vitamin B6) 100 mg tablet 100 mg PO DAILY mecobalamin (vitamin B12) 1,000 mcg tablet,disintegrating 1,000 mcg sublingual DAILY Rx Instructions: place tablet under tongue and allow to dissolve for at least30 secs before swallowing cholecalciferol (vitamin D3) 50 mcg (2,000 unit) capsule 50 mcg PO DAILY calcium carbonate [Tums] 200 mg calcium (500 mg) tablet,chewable 400 mg PO ONCE PRN (Reason: INGESTION) levothyroxine 88 mcg tablet 88 mcg PO QDAY irbesartan 75 mg tablet 150 mg PO DAILY dorzolamide-timolol 22.3-6.8 mg/mL drops 1 drp ophthalmic (eye) Q12H Patient Comments: [NO ORIGINAL SIG] fesoterodine 4 mg tablet extended release 24 hr 4 mg PO DAILY Patient Comments: TAKE 1 TABLET BY MOUTH ONCE DAILY cephalexin 250 mg capsule 250 mg PO QHS isosorbide mononitrate 60 mg tablet extended release 24 hr 60 mg PO DAILY prednisolone acetate 1 % drops,suspension 1 drp ophthalmic (eye) .COMPLEX Rx Instructions: 1 drp into the eye(s); 1 drop left eye TID through 04/14, BID through 04/21, one time a day through 04/28 then stop Probiotic 10 billion cell capsule 20,000 mmu cells PO DAILY ascorbic acid (vitamin C) [Acerola C] 500 mg tablet,chewable 500 mg PO DAILY spironolactone 25 mg tablet 25 mg PO DAILY Evenity 210mg/2.34mL ( 105mg/1.17mLx2) syringe 210 mg subcut QMONTH 360 Days Qty: 28.08 11RF Referrals / Follow Up: Maria Elena Resendiz MD [Primary Care Provider] - Disposition Disposition (needs filled in before D/C Order can be placed): [facility] Facility
--- NOTE | 2024-04-15 14:57 | DS.PCM_ITS ---
Providers Date of Admission: 04/11/24 Primary Care Physician: Dr. Maria Elena Resendiz MD Consultations 04/11/24 07:21 Consult: Hospitalist Routine Consulting Provider: Malissa Angel Reason for Consult: post op med management EMERGENT Consult: No MD Notified: Yes Date Notified: 04/11/24 Time Notified: 16:21 Method of Notification: Text Reason For Visit: Total Knee Replacement Robotic Arm Diagnosis Discharge Diagnosis (1) Status post total right knee replacement: Status: Acute Code(s): Z96.651 - Presence of right artificial knee joint Plan: 1. S/P robotic assisted right total knee arthroplasty POD #4 2. Continue Pain Medications: Tylenol and oxycodone 3. DVT Prophylaxis: Xarelto 10 mg once daily for 2 weeks postoperatively due to history of cancer. After 2 weeks she will then be placed on aspirin 81 mg twice daily for an additional 2 weeks. Patient denies any personal history of DVT or pulmonary embolism in the past 4. PT/OT: Weightbearing as tolerated. Appreciate recommendations from physical therapy. Patient does live home alone as well as in a two-story house. Patient will continue therapy at [facility] 5. H & H: Labs have been stable and currently 9.0/27.0, blood pressure currently stable. Patient will be placed on ferrous sulfate and folic acid. I did discuss this with the patient and this may need for patient to follow-up with her primary care provider for further treatment. 6. Postoperative drainage: Patient's drainage has stopped and there is no active drainage. We will continue with ABDs while in the hospital and prior to discharge will place a new Mepilex dressing over the incision and remove 5 days from discharge. 7. Encouraged Incentive Spirometry 8. Patient is aware of postoperative constipation that can occur from 1-3 days postoperatively. Will continue with senna 2 tablets twice daily until first bowel movement. Patient was advised if not having a bowel movement after day 3 she is to contact orthopedics so appropriate change can be made. Patient voiced understanding. 9. Continue postoperative medical treatment per medicine: Appreciate recommendations from medicine with regards to blood pressure and postoperative anemia as well. 10. Disposition: We currently have approval from insurance for discharge to [facility]. Patient has struggled with physical therapy with increased pain and has had to take rest. She is only walk 20 feet. We will continue with above pain medications. I have reviewed the [place] Automated Rx Reporting System (OARRS) report for this patient for refill pattern and other prescriber involvement as part of the appropriate surveillance for the provision of acute and chronic controlled medications. The report was requested and reviewed on the date of this entry and was considered in the prescribing process. This dictation was created using voice recognition software. Phonetic and/or grammatical errors may exist. Medications at Discharge Home Medications pravastatin 40 mg tablet 40 mg PO QHS #90 tabs 06/27/20 spironolactone 25 mg tablet 25 mg PO DAILY 02/03/22 fesoterodine 4 mg tablet,extended release 24 hr 4 mg PO DAILY 12/28/22 pyridoxine (vitamin B6) 100 mg tablet 100 mg PO DAILY 09/09/23 mecobalamin (vitamin B12) 1,000 mcg disintegrating tablet,sublingual 1,000 mcg sublingual DAILY 09/15/23 cholecalciferol (vitamin D3) 50 mcg (2,000 unit) capsule 50 mcg PO DAILY 10/20/23 calcium carbonate (Tums) 400 mg PO ONCE PRN INGESTION 11/09/23 bupropion HCl 75 mg tablet 75 mg PO DAILY 01/18/24 dorzolamide 22.3 mg-timolol 6.8 mg/mL eye drops 1 drp ophthalmic (eye) Q12H 01/18/24 irbesartan 75 mg tablet 150 mg PO DAILY 01/18/24 levothyroxine 88 mcg tablet 88 mcg PO QDAY 01/18/24 romosozumab-aqqg 210 mg/2.34 mL(105 mg/1.17 mL x2)subcutaneous syringe (Evenity) 210 mg (2.34 mL) subcut QMONTH 12 months #28.08 mL 01/22/24 Lactobacillus acidophilus 10 billion cell capsule (Probiotic) 20,000 mmu cells PO DAILY 03/23/24 ascorbic acid (vitamin C) 500 mg chewable tablet (Acerola C) 500 mg PO DAILY 03/23/24 cephalexin 250 mg capsule 250 mg PO QHS 03/23/24 isosorbide mononitrate 60 mg tablet,extended release 24 hr 60 mg PO DAILY 03/23/24 prednisolone acetate 1 % eye drops,suspension 1 drp ophthalmic (eye) .COMPLEX 03/23/24 acetaminophen 500 mg tablet 1,000 mg (2 x 500 mg) PO Q8 #0 tabs 04/15/24 famotidine 20 mg tablet 20 mg PO DAILY #0 tabs 04/15/24 ferrous sulfate 325 mg (65 mg iron) tablet (FeroSul) 325 mg PO 1200,1700 #0 tabs 04/15/24 folic acid 1 mg tablet 1 mg PO BREAKFAST #0 tabs 04/15/24 nut.tx.comp. immune systm,reg 0.08 gram-1.4 kcal/mL oral liquid (Ensure Surgery) 237 ml PO TIDCM #0 mL 04/15/24 ondansetron 4 mg disintegrating tablet 4 mg PO Q8H #8 tabs 04/15/24 oxycodone 5 mg tablet 5 - 10 mg (1 - 2 x 5 mg) PO Q4H PRN PRN Pain Score 4-10 7 days #40 tabs 04/15/24 rivaroxaban 10 mg tablet (Xarelto) 10 mg PO DAILY@0600 #0 tabs 04/15/24 sennosides 8.6 mg-docusate sodium 50 mg tablet (Stimulant Laxative Plus) 2 tab PO BID PRN PRN Constipation #0 tabs 04/15/24 Hospital Course Summary of Care Provided Hospital Course: Patient was brought to the hospital on 04/11/2024. She received a right total knee replacement. She had uneventful postoperative course however she was struggling with physical therapy walking 20 feet with contact-guard assistance. She obtained precertification for discharge [facility] facility. On postoperative course she was discharged to [facility] facility. Weight / BMI Weight Weight: 161 lb 13.109 oz Body Mass Index (BMI) 31.3 ABG / Lab / Microbiology Data 04/14/24 06:56 04/12/24 06:49 Microbiology: Microbiology 04/06/24 08:05 Swab (Method) Nasal Screen MRSA/MSSA - Final D/C Instructions Discharge Diet: No restrictions Discharge Activity: May Not Drive May shower in (days): 1 (With back to shower) May resume sexual activity in: 6-8 weeks Ice area for (Minutes): 20 (every hour while awake.) Weight Bearing Status: Weight bearing as tolerated Keep extremity elevated above heart level: Operative Extremity Additional Activity Instructions: Wear elastic stockings for 2 weeks after your surgery. Call your doctor if your incision/area has: Continuous Slow Oozing, Sudden Increased Bleeding, Increased Pain/ Swelling, Increased Redness and Foul Smelling Discharge Call your doctor if you observe: Fever of 101 or Higher, Coldness, Increased Pain, Numbness or Tingling, Change in Color, Calf discomfort and Uncontrolled pain Change Dressing in: do not change dressing (and daily as needed.) Remove Dressing in: 5 days Additional Dressing/Incision Instructions: If incision is clean dry and intact may leave the wound open to air and continue showering. If there is continued drainage continue daily dry dressing changes and keep incision clean dry and intact until there is no drainage. Please Follow Up With: Maribel Orlando PA When: 12/06/2020 Meaningful Use Info Meaningful Use Meaningful Use Diagnoses (Choose all that apply): None applicable Ischemic Stroke Statin Dosing Therapy Reference: STATIN DOSE THERAPY REFERENCE: * Patients > 75 years receive moderate or high dose statin therapy. * Patients 75 years or YOUNGER should receive HIGH intensity statin dose unless contraindicated. You will be required to document reason for non-treatment if statin daily dose does not meet guidelines. HIGH DOSE STATIN THERAPY DAILY Atorvastatin > than or = to 40 mg Rosuvastatin > than or = to 20 mg Amlodipine + Atorvastatin > than or = to 2.5/40 mg Ezetimibe + Simvastatin 10/80 mg Simvastatin 80mg Discharge Plan Admission Admit Date/Time: 04/11/24 07:21 Attending Provider: Jose Loaiza Primary Care Provider: Maria Elena Resendiz Consulting Providers: Malissa Angel; Yonatan Tan Discharge Orders/Prescriptions Prescriptions: New acetaminophen 500 mg Tablet 1,000 mg PO Q8 Qty: 0 0RF famotidine 20 mg Tablet 20 mg PO DAILY Qty: 0 0RF ferrous sulfate [FeroSul] 325 mg (65 mg iron) Tablet 325 mg PO 1200,1700 Qty: 0 0RF folic acid 1 mg Tablet 1 mg PO BREAKFAST Qty: 0 0RF oxycodone 5 mg Tablet 5 - 10 mg PO Q4H PRN PRN (Reason: Pain Score 4-10) 7 Days Qty: 40 0RF Ensure Surgery 0.08-1.4 gram-kcal/mL Liquid 237 ml PO TIDCM Qty: 0 0RF sennosides-docusate sodium [Stimulant Laxative Plus] 8.6-50 mg Tablet 2 tab PO BID PRN PRN (Reason: Constipation) Qty: 0 0RF Xarelto 10 mg Tablet 10 mg PO DAILY@0600 Qty: 0 0RF ondansetron 4 mg tablet,disintegrating 4 mg PO Q8H Qty: 8 0RF Continued pravastatin 40 mg tablet 40 mg PO QHS Qty: 90 3RF bupropion HCl 75 mg tablet 75 mg PO DAILY pyridoxine (vitamin B6) 100 mg tablet 100 mg PO DAILY mecobalamin (vitamin B12) 1,000 mcg tablet,disintegrating 1,000 mcg sublingual DAILY Rx Instructions: place tablet under tongue and allow to dissolve for at least30 secs before swallowing cholecalciferol (vitamin D3) 50 mcg (2,000 unit) capsule 50 mcg PO DAILY calcium carbonate [Tums] 200 mg calcium (500 mg) tablet,chewable 400 mg PO ONCE PRN (Reason: INGESTION) levothyroxine 88 mcg tablet 88 mcg PO QDAY irbesartan 75 mg tablet 150 mg PO DAILY dorzolamide-timolol 22.3-6.8 mg/mL drops 1 drp ophthalmic (eye) Q12H Patient Comments: [NO ORIGINAL SIG] fesoterodine 4 mg tablet extended release 24 hr 4 mg PO DAILY Patient Comments: TAKE 1 TABLET BY MOUTH ONCE DAILY cephalexin 250 mg capsule 250 mg PO QHS isosorbide mononitrate 60 mg tablet extended release 24 hr 60 mg PO DAILY prednisolone acetate 1 % drops,suspension 1 drp ophthalmic (eye) .COMPLEX Rx Instructions: 1 drp into the eye(s); 1 drop left eye TID through 04/14, BID through 04/21, one time a day through 04/28 then stop Probiotic 10 billion cell capsule 20,000 mmu cells PO DAILY ascorbic acid (vitamin C) [Acerola C] 500 mg tablet,chewable 500 mg PO DAILY spironolactone 25 mg tablet 25 mg PO DAILY Evenity 210mg/2.34mL ( 105mg/1.17mLx2) syringe 210 mg subcut QMONTH 360 Days Qty: 28.08 11RF Referrals / Follow Up: Maria Elena Resendiz MD [Primary Care Provider] - Disposition Disposition (needs filled in before D/C Order can be placed): Assisted Facility
--- NOTE | 2024-04-15 15:26 | CASEMGMT ---
Social Work Precert has been obtained.?Physician updated and pt is ready for discharge today.?[facility] advised that pt is ready for d/c. Disposition:[facility], skilled level of care. NISREEN Owens
[2024-04-15 15:53] VITALS: BP 102/51; PULSE 80; RESP 16; TEMP 36.8; O2SAT 96
--- NOTE | 2024-04-15 16:20 | CASEMGMT ---
Discharge Planning Discharge orders, signed med list, and transport time sent to [facility] via [facility]. Physicians will transport patient by wheelchair at 8p. Nursing, SW, patient, and her son (Fred) updated. Twila Fernández DC Planning Asst.
[2024-04-15] MEDS: Latanoprost 0.005% 1 Bottle 1 DRP OPHTHALMIC (19:26)
[2024-04-15] MEDS: Pravastatin 40 MG Tablet PO (19:27)
[2024-04-15] MEDS: Cephalexin 250 MG Capsule PO (19:28)
== END 2024-04-15 23:45 | disposition skilled nursing facility (03) ==
LOC: SDC 15:52 → MS3 15:52
PROVIDERS: Anesthesiology; Physician Assistant Surgical; Admitting Provider Specialist; PCP Internal Medicine; Referring Provider Specialist; Visit Provider Specialist
PROC: 0SRC0JZ Replacement of Right Knee Joint with Synthetic Substitute, Open Approach (ICD-10-PCS; CPT 27447; principal; 2024-04-11 09:00)
DX: M17.11 Unilateral primary osteoarthritis, right knee (principal); C34.11 Malignant neoplasm of upper lobe, right bronchus or lung; F32.A Depression, unspecified; I10 Essential (primary) hypertension; E66.9 Obesity, unspecified; H40.9 Unspecified glaucoma; E78.5 Hyperlipidemia, unspecified; Z68.31 Body mass index [BMI] 31.0-31.9, adult; Z79.899 Other long term (current) drug therapy; Z79.890 Hormone replacement therapy; R30.0 Dysuria; R60.0 Localized edema; N39.46 Mixed incontinence; K21.9 Gastro-esophageal reflux disease without esophagitis; E03.9 Hypothyroidism, unspecified; D62 Acute posthemorrhagic anemia
CPT/HCPCS: 27447; S2900; 01402; 36415; 73560; 80048; 81001; 82040; 82962; 83735; 84443; 85025; 85027; 87081; 88305; 88311; 93005; 94668; 96361; 96365; 96366; 96375; 97110; 97116; 97162; 97166; 97530; 97535; 99221; 99252; C1776; J7120; A4216; G0378; G0463; J2405; J3475

== ENCOUNTER → 2024-05-26 | Outpatient (CLI) | payer MEDICARE, SELFPAY ==
--- NOTE | 2024-05-26 08:20 | CT_ITS ---
INDICATION: follow up treated primary lung cancer -- please compare to prior EXAMINATION: CT CHEST WITHOUT CONTRAST - CT Chest W/O Contrast Injection TECHNIQUE: Helically acquired images were obtained of the chest. A radiation dose optimization technique was used for this scan. IV Contrast dosage and agent: None. COMPARISON: 02/22/2024 FINDINGS: Left axillary lymphadenopathy measuring 1.5 x 3.0 cm. LUNGS, PLEURA AND LARGE AIRWAYS: Some scarring in the area anterior subpleural right upper lobe. No pleural effusion or thickening. No pneumothorax. THYROID: No thyroid lesions. HEART AND PERICARDIUM: Heart size is normal. No pericardial effusion. CORONARY ARTERIES: Coronary artery calcification is seen. VESSELS: Thoracic aorta is not dilated. MEDIASTINUM AND LAINEY: No mediastinal or hilar adenopathy. Esophagus is unremarkable. Large hiatal hernia. UPPER ABDOMEN: No acute pathology. BONES: Mild dextro scoliosis thoracic spine with degenerative disc disease. Increased kyphosis of the thoracic spine. CT/Chest without Contrast IMPRESSION: Right upper lobe scarring. Left axillary lymphadenopathy. Large hiatal hernia. Electronically Signed: Derek Valdez MD at 14:09 EDT ,
== END | disposition home or self-care (01) ==
LOC: CT 08:14
PROVIDERS: PCP Internal Medicine; Referring Provider Student in an Organized Health Care Education/Training Program; Visit Provider Student in an Organized Health Care Education/Training Program
DX: C34.11 Malignant neoplasm of upper lobe, right bronchus or lung (principal)
CPT/HCPCS: 71250

== ENCOUNTER → 2024-06-13 | Outpatient (CLI) | payer MEDICARE, SELFPAY ==
--- NOTE | 2024-06-13 10:33 | US_ITS ---
STUDY: SUPERFICIAL ULTRASOUND - LEFT AXILLA REASON FOR EXAM: Female, 84 years old. left axillary/lateral breast lesion TECHNIQUE: A superficial ultrasound was performed with real-time and static knight-scale imaging. COMPARISON: CT scan 05/26/2024. FINDINGS: Lobulated mass seen in the left axilla measuring 3.2 x 2.2 x 1.7 cm. The mass is well-defined. It is very low echogenicity but not fluid. There is internal vascularity. Findings suggest adenopathy. Image guided biopsy should be considered. US/Ext Non Vasc Limited/Soft Tiss IMPRESSION: Findings suggestive of 3.2 cm adenopathy. Image guided biopsy should be considered. Electronically Signed: Vidal Saleem MD at 16:35 EST ,
== END | disposition home or self-care (01) ==
PROVIDERS: PCP Internal Medicine; Referring Provider Student in an Organized Health Care Education/Training Program; Visit Provider Student in an Organized Health Care Education/Training Program
DX: C34.11 Malignant neoplasm of upper lobe, right bronchus or lung (principal); R59.0 Localized enlarged lymph nodes
CPT/HCPCS: 76882

== ENCOUNTER → 2024-06-17 | Outpatient (CLI) | payer MEDICARE, SELFPAY ==
--- NOTE | 2024-06-17 | IMM_PTH ---
PATIENT: FRANCIS CROFT LOC: [facility] U#:[id number] AGE/SX: 84/F ROOM: RE06/17/[address]: Dr. Fred Mason MD : 1940 BED: DIS: 06/17/2024 SPEC #: [id number] RECD: 06/21/24 10:58 STATUS: LUISITO REQ #: [id number] DURGA: 06/17/24 00:[address]: Fred Mason DEPT: IMMUNOHISTOCHEMISTRY RECD BY: Jose Raza ENTERED: 06/21/24 10:59 SP TYPE: IMMUNO OTHR DR: Dr. Maria Elena Resendiz MD Tissues: Axillary lymph node, NOS Procedures: RCC (add) NAPSIN A (add) CA-125 (add) CEA (add) CK20 (add) CK5-6 (add) CK7 (add) CK8 (add) HEP PAR (add) KI-67 (add) P53 (add) NJ (add) TTF1 (add) Vimentin (add) 34BE12 (add) Pankeratin (add) P40 (add) CDX2 (add) ER (initial) S-100 (add) PHYSICIAN & INSTITUTION [place] [id number] SPECIMEN INFORMATION: Tissue Source: Left axilla mass Clinical Info: Left axilla mass Specimen Number: [id number] CPT code: 42541,[id number] METHODOLOGY: Deparaffinized sections of prefer/formalin-fixed tissue or PAP/DQ stained slides are incubated with monoclonal/polyclonal antibodies/oligonucleotide probes. Localization is made via biotin free immunoperoxidase method. Appropriate controls are performed and reacted as expected. Results on target cell population are indicated in the following table: RESULTS: ANTIBODY / CLONE RESULT ER (6F11) negative NJ (1E2) negative AE1-3 (AE1/AE3/PCK26) positive CK7 (OV-TL12/30) positive CK8 (25lehzY75) positive CK20 (KS20.8) negative CDX2 (RBK8542S) negative Vimentin (V9) negative 34BE12 (34BE12) positive S-100 (4C4.9) negative TTF-1 (8G7G3/1) negative Napsin A (Rabbit Polyclonal) negative HepPar (OCh1E5) negative RCC (PN-15) negative CK5-6 (D5 & 1684) positive P40 (BC28) negative CEA (11-7/TF-3HB-1) negative CA125 (OC125) positive, rare P53 (DO-7) positive, missense type Ki-67 (30-9) positive, 85% These tests were developed and their performance characteristics determined by [facility]. They may not have been cleared or approved by the U.S. Food and Drug Administration. The FDA has determined that such clearance or approval is not necessary. The above immunohistochemical/dualISH markers are ordered and reviewed by the Pathologist. INTERPRETATION: Left axilla mass, core biopsy: Non-small cell carcinoma with squamoid features. AM.mr 06/22/2024
--- NOTE | 2024-06-17 14:00 | AXNB_PTH ---
PATIENT: FRANCIS CROFT LOC: [facility] U#:[id number] AGE/SX: 84/F ROOM: RE06/17/[address]: Dr. Fred Mason MD : 1940 BED: DIS: 06/17/2024 SPEC #: [id number] RECD: 06/17/24 15:12 STATUS: LUISITO REManuel #: [id number] DURGA: 06/17/24 14:[address]: Fred Mason DEPT: SURGICAL PATHOLOGY RECD BY: Rocio De La Rosa ENTERED: 06/20/24 11:02 SP TYPE: AX NODE BX OTHR DR: Dr. 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 See comment. AM. 06/21/2024 COMMENT Immunohistochemistry ([id number]) supports the above diagnosis. MICROSCOPIC DESCRIPTION Slides are reviewed. GROSS DESCRIPTION Received in fixative is one container labeled with the patient's name and designated Left axilla. The specimen consists of two cores of st tissue measuring in aggregate 2.0 x 1.5 x 0.2cm. The specimen is submitted in its entirety in one cassette. AM. 06/20/2024 TC:0 CPT:57287 ADDENDUM ADDENDUM ADDENDUM ADDENDUM ADDENDUM ADDENDUM ADDENDUM ADDENDUM ADDENDUM ADDENDUM 08/30/2024 10:42 ADDENDUM 08/30/2024 10:42 ADDENDUM 08/30/2024 10:42 ADDENDUM 08/30/2024 10:42 ADDENDUM 08/30/2024 10:42 This addendum is added to incorporate an outside pathology consultation report. The case was examined at [facility] (#[id number]) and the following diagnosis was rendered. Left axilla mass, core biopsy: Poorly differentiated carcinoma. Please see complete above mentioned consultation report in EMR
== END | disposition home or self-care (01) ==
LOC: LABSPEC 15:21
PROVIDERS: PCP Internal Medicine; Referring Provider Surgery; Visit Provider Surgery
DX: C76.1 Malignant neoplasm of thorax (principal)
CPT/HCPCS: 88305; 88341; 88342

== ENCOUNTER 2024-07-09 17:29 | Emergency (ER) | payer MEDICARE, SELFPAY ==
[2024-07-09 17:31] VITALS: BP 155/78; PULSE 90; RESP 20; TEMP 36.2; O2SAT 94
--- NOTE | 2024-07-09 17:50 | CT_ITS ---
STUDY: CT BRAIN WITHOUT CONTRAST REASON FOR EXAM: Female, 84 years old. fall, head injury, L superior orbit pain RADIATION DOSAGE (If Supplied By Facility): CTDIvol = ( 44.99 ) mGy, DLP = ( 812.98 ) mGycm TECHNIQUE: Transaxial CT imaging of the brain was performed without administration of intravenous contrast material. Individualized dose optimization techniques were used for this CT. COMPARISON: No relevant priors. FINDINGS: Normal soft tissue structures. Normal calvarium. Calcific plaquing of the cavernous carotids Mild atrophy and moderate periventricular white matter ischemic changes. Normal basal ganglia and thalami. Normal brainstem. Normal cerebellum. There is no intracranial hemorrhage. There are no findings of an acute ischemic infarction. Normal visualized paranasal sinuses. Postsurgical changes of the orbits CT/Brain/Head without Contrast IMPRESSION: Mild atrophy and moderate periventricular white matter ischemic change No acute intracranial bleed. Electronically Signed: Jaime Gerard MD at 18:49 EST ,
--- NOTE | 2024-07-09 17:53 | EX.ED.GENINJ ---
HPI <CONCHIS Tobias - Last Filed: 07/09/24 19:48> History of Present Illness Chief Complaint: Fall Narrative Narrative: Patient presenting today due to a head injury that occurred this afternoon. She was walking in her garage when she tripped and fell forward, hitting her head on the ground. She has a laceration on the left side of her forehead. Tetanus is not up-to-date. She denies any LOC or use of blood thinners. She denies pain in her neck, extremities, or back. PFSH <CONCHIS Tobias - Last Filed: 07/09/24 19:48> [facility] Medical History History of ESBL Klebsiella pneumoniae infection Wears glasses Cancer Alcohol use Thyroid disease Ambulates with cane Bladder disease Low iron High cholesterol Gastric reflux Chronic cough Former smoker History of irregular heartbeat History of edema Cardiology follow-up encounter Hypertension History of stress test History of echocardiogram LVH (left ventricular hypertrophy) Obesity Essential hypertension Non-rheumatic aortic stenosis Asymmetric septal hypertrophy Osteopenia Diverticulosis Anemia Hyperlipidemia Glaucoma Hypothyroidism Lichen sclerosus Home Medications ?Medication ?Instructions ?Recorded ?Last Taken ?Type spironolactone 25 mg tablet 25 mg PO DAILY 02/03/22 04/10/24 History fesoterodine 4 mg tablet,extended 4 mg PO DAILY 12/28/22 04/10/24 History release 24 hr cholecalciferol (vitamin D3) 50 50 mcg PO DAILY 10/20/23 04/06/24 History mcg (2,000 unit) capsule calcium carbonate (Tums) 400 mg PO ONCE PRN INGESTION 11/09/23 04/10/24 History bupropion HCl 75 mg tablet 75 mg PO DAILY 01/18/24 04/10/24 History dorzolamide 22.3 mg-timolol 6.8 1 drp ophthalmic (eye) Q12H 01/18/24 04/10/24 History mg/mL eye drops irbesartan 75 mg tablet 150 mg PO DAILY 01/18/24 04/10/24 History levothyroxine 88 mcg tablet 88 mcg PO QDAY 01/18/24 04/10/24 History romosozumab-aqqg 210 mg/2.34 210 mg (2.34 mL) subcut QMONTH 12 01/22/24 Unknown Rx mL(105 mg/1.17 mL x2)subcutaneous months #28.08 mL syringe (Evenity) Lactobacillus acidophilus 10 20,000 mmu cells PO DAILY 03/23/24 04/06/24 History billion cell capsule (Probiotic) ascorbic acid (vitamin C) 500 mg 500 mg PO DAILY 03/23/24 04/06/24 History chewable tablet (Acerola C) cephalexin 250 mg capsule 250 mg PO QHS 03/23/24 04/10/24 History isosorbide mononitrate 60 mg 60 mg PO DAILY 03/23/24 04/10/24 History tablet,extended release 24 hr prednisolone acetate 1 % eye 1 drp ophthalmic (eye) .COMPLEX 03/23/24 04/10/24 History drops,suspension acetaminophen 500 mg tablet 1,000 mg (2 x 500 mg) PO Q8 #0 tabs 04/15/24 Unknown Rx famotidine 20 mg tablet 20 mg PO DAILY #0 tabs 04/15/24 Unknown Rx ferrous sulfate 325 mg (65 mg 325 mg PO 1200,1700 #0 tabs 04/15/24 Unknown Rx iron) tablet (FeroSul) folic acid 1 mg tablet 1 mg PO BREAKFAST #0 tabs 04/15/24 Unknown Rx ondansetron 4 mg disintegrating 4 mg PO Q8H #8 tabs 04/15/24 Unknown Rx tablet sennosides 8.6 mg-docusate sodium 2 tab PO BID PRN PRN Constipation 04/15/24 Unknown Rx 50 mg tablet (Stimulant Laxative #0 tabs Plus) atorvastatin 10 mg tablet 10 mg PO QHS 05/30/24 Unknown History Allergy/AdvReac Type Severity Reaction Status Date / Time codeine Allergy PT UNSURE Verified 07/04/24 16:26 OF REACTION losartan AdvReac Unknown Verified 07/04/24 16:26 quinapril (From Accupril) AdvReac Unknown Verified 07/04/24 16:26 Sulfa (Sulfonamide AdvReac unknown Verified 07/04/24 16:26 Antibiotics) Family History Mother Heart disease Hypoactive thyroid Father Heart disease Myocardial infarction from [place] age 67 Other CVA (cerebral vascular accident) Surgical History Total knee replacement status History of cataract surgery left foot surgery History of tubal ligation History of appendectomy History of inguinal hernia repair Social History Smoking Status: Former smoker quit date: 07/27/84 pack-years: 48 alcohol intake: current details: social substance use type: does not use caffeine: No what type of physical activity do you participate in: walking seatbelt use: always do you feel safe at home: Yes additional social history: Derek- Both are retired ROS <CONCHIS Tobias - Last Filed: 07/09/24 19:48> ROS ED Constitutional Constitutional ED: Denies chills or fever(s) Cardiovascular Cardiovascular: Denies chest pain Respiratory/Chest Respiratory/Chest: Denies dyspnea Gastrointestinal Gastrointestinal: Denies abdominal pain, nausea or vomiting Musculoskeletal Musculoskeletal: Denies arthralgias, back pain, myalgias or neck pain Integumentary Reports laceration Neurologic Neurologic: Denies headache(s), paresthesias or weakness EXAM <CONCHIS Tobias - Last Filed: 07/09/24 19:48> Physical Exam Const Vital Signs: 07/09/24 17:31 07/09/24 19:23 Temperature 97.2 F L 98.2 F Temperature Source Temporal Pulse Rate 90 77 Respiratory Rate 20 H 16 Blood Pressure 155/78 H 155/78 H Blood Pressure Mean 103 103 Pulse Ox 94 97 Oxygen Delivery Method Room Air Positive well nourished, well developed and no apparent distress General Appearance ED: well developed HEENT Reports normocephalic and head/scalp atraumatic HEENT Narrative: 1 cm full-thickness linear laceration above the left eyebrow. Minimal left superior orbital tenderness without step-offs. Mouth ED: Yes moist mucous membranes normal Eyes PERRL and EOMs intact bilaterally Neck full ROM and supple Neck Narrative: No midline cervical tenderness. Chest Wall inspection of chest normal Chest Narrative: No chest wall tenderness on exam Resp normal respiratory effort and clear to auscultation bilaterally Cardio regular rate and regular rhythm GI soft to palpation, non-tender, non-distended and no masses Back/Spine normal ROM and normal to inspection Extremity normal to inspection and full ROM Extremity Narrative: No pain to palpation along the upper and lower extremities, no pain to the bilateral hips. Neuro oriented x3, CN's II-XII intact bilaterally, moves all extremities, no focal motor deficits and no sensory deficits noted Sensorium / Orientation: awake and alert Psych mental status grossly normal and thought process normal Skin Skin Narrative: Aside from the forehead laceration, no other rashes or lesions noted. <Dr. Jose Cardenas MD - Last Filed: 07/09/24 23:32> Physical Exam Const Vital Signs: 07/09/24 17:31 07/09/24 19:23 Temperature 97.2 F L 98.2 F Temperature Source Temporal Pulse Rate 90 77 Respiratory Rate 20 H 16 Blood Pressure 155/78 H 155/78 H Blood Pressure Mean 103 103 Pulse Ox 94 97 Oxygen Delivery Method Room Air PROC <CONCHIS Tobias - Last Filed: 07/09/24 19:48> Procedures Lacerations Laceration: Length: 1 cm Depth: Sub Q Shape: Linear Prep: Chlorhexadine Laceration repair: Irrigated, Lidocaine with epi and Skin sutures Number of Sutures/Yuliana: 3 Suture Information: Ethilon, Simple and 6-0 MDM <CONCHIS Tobias - Last Filed: 07/09/24 19:48> MDM MDM Narrative Medical decision making narrative: Patient presenting today with a mechanical fall that occurred this evening. She tripped in the garage and fell forward, hitting her head on the ground. No LOC occurred. Head CT will be obtained to rule out intracranial bleed. She does have about a 1 cm full-thickness linear laceration above her left eyebrow that will require suture repair. Tetanus will be updated. She was given Tylenol for pain. CT negative for acute findings. Pelvic x-ray was obtained as she did have minimal tenderness to her left ASIS on the attending's exam, this is negative for fracture. Laceration was repaired, bacitracin ointment applied to the area. She is to have sutures removed in 5 days. She tolerated procedure well. Wound care instructions were discussed. Patient discharged home in stable condition. Radiography Diagnostic Testing: Clinical Impression(s) from Imaging Studies Brain CT 07/09/24 17:50 IMPRESSION: Mild atrophy and moderate periventricular white matter ischemic change No acute intracranial bleed. Electronically Signed: Jaime Gerard MD at 18:49 EST , Pelvis X-Ray 07/09/24 18:10 IMPRESSION: Postsurgical changes left lower quadrant. No other acute abnormality Electronically Signed: Jaime Gerard MD at 18:47 EST Reading Location ID and State: [address] [place] [address] Tel [phone], Service support , <Dr. Jose Cardenas MD - Last Filed: 07/09/24 23:32> MDM Radiography Diagnostic Testing: Clinical Impression(s) from Imaging Studies Brain CT 07/09/24 17:50 IMPRESSION: Mild atrophy and moderate periventricular white matter ischemic change No acute intracranial bleed. Electronically Signed: Jaime Gerard MD at 18:49 EST Reading Location ID and State: [address] [place] [address] Tel [phone], Service support , Pelvis X-Ray 07/09/24 18:10 IMPRESSION: Postsurgical changes left lower quadrant. No other acute abnormality Electronically Signed: Jaime Gerard MD at 18:47 EST Reading Location ID and State: [address] [place] [address] Tel [phone], Service support , Treatment and Re-Evaluation Narrative: I have personally performed a face to face assessment of the patient and have reviewed the CHARISSE Note. I performed a substantive portion of the visit including all aspects of the following. My mondragon findings include: History is knee replacement supposed to be using a cane. She had her hands full walking up an incline in her garage, that she lost her balance without any dizziness or other prodromal symptoms at all, falling to her left side injuring mostly her head. Exam is GCS 15 keenly alert. Tenderness contusion laceration left temporal area no crepitance or depression. No signs of basilar skull fracture. Neck nontender throughout, full range of motion without any pain or limitation. All 4 extremities move fully without apparent pain or limitation. There is mild tenderness at the left ASIS, the pelvis is stable to AP compression there is no rib cage pain or tenderness. No abdominal tenderness. Medical Decison Making CT head images reviewed, on my interpretation negative for acute intracranial injury. 1 view pelvis x-ray negative for my interpretation. lac repaired, see proc note. discharged w/ family. Other additions or changes: [None] Discharge Plan Triage Chief Complaint: Fall ED Midlevel Provider: Argenis Gao ED Provider: Jose Cardenas Dx/Rx/DC Orders Clinical Impression: Facial laceration, Head injury, Fall, Contusion of hip, left Instructions: ED Head Injury (Adult), ED Laceration, All Closures Prescriptions: No Action bupropion HCl 75 mg tablet 75 mg PO DAILY cholecalciferol (vitamin D3) 50 mcg (2,000 unit) capsule 50 mcg PO DAILY calcium carbonate [Tums] 200 mg calcium (500 mg) tablet,chewable 400 mg PO ONCE PRN (Reason: INGESTION) levothyroxine 88 mcg tablet 88 mcg PO QDAY irbesartan 75 mg tablet 150 mg PO DAILY dorzolamide-timolol 22.3-6.8 mg/mL drops 1 drp ophthalmic (eye) Q12H Patient Comments: [NO ORIGINAL SIG] atorvastatin 10 mg tablet 10 mg PO QHS fesoterodine 4 mg tablet extended release 24 hr 4 mg PO DAILY Patient Comments: TAKE 1 TABLET BY MOUTH ONCE DAILY cephalexin 250 mg capsule 250 mg PO QHS isosorbide mononitrate 60 mg tablet extended release 24 hr 60 mg PO DAILY prednisolone acetate 1 % drops,suspension 1 drp ophthalmic (eye) .COMPLEX Rx Instructions: 1 drp into the eye(s); 1 drop left eye TID through 04/14, BID through 04/21, one time a day through 04/28 then stop Probiotic 10 billion cell capsule 20,000 mmu cells PO DAILY ascorbic acid (vitamin C) [Acerola C] 500 mg tablet,chewable 500 mg PO DAILY acetaminophen 500 mg Tablet 1,000 mg PO Q8 Qty: 0 0RF famotidine 20 mg Tablet 20 mg PO DAILY Qty: 0 0RF ferrous sulfate [FeroSul] 325 mg (65 mg iron) Tablet 325 mg PO 1200,1700 Qty: 0 0RF folic acid 1 mg Tablet 1 mg PO BREAKFAST Qty: 0 0RF sennosides-docusate sodium [Stimulant Laxative Plus] 8.6-50 mg Tablet 2 tab PO BID PRN PRN (Reason: Constipation) Qty: 0 0RF ondansetron 4 mg tablet,disintegrating 4 mg PO Q8H Qty: 8 0RF spironolactone 25 mg tablet 25 mg PO DAILY Evenity 210mg/2.34mL ( 105mg/1.17mLx2) syringe 210 mg subcut QMONTH 360 Days Qty: 28.08 11RF Primary Care Provider: Maria Elena Resendiz Referrals: Maria Elena Resendiz MD [Primary Care Provider] - 5 Days for suture removal Activity Restrictions/Additional Instructions: Follow-up with your PCP to have sutures removed in 5 days. Return for any other concerns. Print Language: Danish Disposition Disposition: Home, Self Care Discharge Date/Time: 07/09/24 19:24
--- NOTE | 2024-07-09 18:10 | RAD_ITS ---
STUDY: X-RAY - PELVIS REASON FOR EXAM: Female, 84 years old. L pelvic pain TECHNIQUE: One view of the pelvis was obtained. COMPARISON: None. FINDINGS: There is a non-specific bowel gas pattern. Multiple surgical clips seen in the left lower quadrant of the abdomen. Normal bilateral iliac wings, sacroiliac joints and visualized sacrum. Normal visualized bilateral superior and inferior pubic rami. Normal pubic symphysis. Normal ischial tuberosities. Lumbar spine demonstrates degenerative change Normal visualized right femoral head. Normal right acetabulum. Normal right hip joint. Normal visualized left femoral head. Normal left acetabulum. Normal left hip joint. RAD/Pelvis 1 or 2 Views IMPRESSION: Postsurgical changes left lower quadrant. No other acute abnormality Electronically Signed: Jaime Gerard MD at 18:47 EST ,
[2024-07-09] MEDS: Acetaminophen 325 MG Tablet 650 MG PO (18:31)
[2024-07-09] MEDS: Diphth,Pertuss(Acell),Tet Vac 0.5 ML Vial IM (18:31)
[2024-07-09 19:23] VITALS: BP 155/78; PULSE 77; RESP 16; TEMP 36.8; O2SAT 97
== END 2024-07-09 19:24 | disposition home or self-care (01) ==
PROVIDERS: Emergency Provider Emergency Medicine; PCP Internal Medicine; Visit Provider Emergency Medicine
DX: S01.112A Laceration without foreign body of left eyelid and periocular area, initial encounter (principal); E78.00 Pure hypercholesterolemia, unspecified; I10 Essential (primary) hypertension; S70.02XA Contusion of left hip, initial encounter; Z87.891 Personal history of nicotine dependence; S09.90XA Unspecified injury of head, initial encounter; K21.9 Gastro-esophageal reflux disease without esophagitis; Z98.890 Other specified postprocedural states; W01.0XXA Fall on same level from slipping, tripping and stumbling without subsequent striking against object, initial encounter
CPT/HCPCS: 12011; 70450; 72170; 90715; 99282

== ENCOUNTER → 2024-07-28 | Outpatient (CLI) | payer MEDICARE, SELFPAY ==
--- NOTE | 2024-07-28 09:06 | BI_ITS ---
MAMMOGRAPHY - BILATERAL DIAGNOSTIC REASON FOR EXAM: Female, 84 years old. Abnormal mammogram, personal history of lung cancer with positive biopsy of a left axillary lymph node PERTINENT HISTORY: No personal or family history of breast cancer TECHNIQUE: Digital examination. Mediolateral oblique (MLO) and craniocaudad (CC) views of both breasts were obtained, along with 3-D tomograms. CAD: CAD was performed on this study. COMPARISON: 2021 FINDINGS: Breast Composition: There are scattered areas of fibroglandular density. Stable benign-appearing vascular, lucent centered and punctate calcifications in both breasts. The right breast is free of mammographic abnormality. However, in the left breast in the retroareolar region and in the lateral aspect of the left breast there are 2 separate asymmetries that need further evaluation with ultrasound. One is in the retroareolar region, one is in the lateral anterior left breast. Both have been marked on the CC view. There is an abnormal appearing large dense left axillary lymph node but this has been biopsied, no further evaluation of this is needed BI/DIAG MAMM W/CAD, BILAT IMPRESSION: Further ultrasonographic evaluation recommended, as described above. Recall Side: Left Breast ASSESSMENT CATEGORY: BIRADS Category 0: Incomplete. Need additional imaging evaluation. A letter regarding these results will be sent to the patient by the facility within 30 days. FOLLOW UP RECOMMENDATION: Ultrasound Recommended. (I) Approximately 10% of breast cancers are not detected by mammography. A normal mammogram should not delay biopsy of a clinically suspicious abnormality. Electronically Signed: Irving Bliss MD at 9:59 EST ,
--- NOTE | 2024-07-28 09:06 | US_ITS ---
STUDY: ULTRASOUND BREAST - LEFT REASON FOR EXAM: Female, 84 years old. Abnormal mammogram TECHNIQUE: Axial and longitudinal images of the LEFT breast were performed with a high resolution ultrasound transducer. # OF IMAGES: 46 COMPARISON: Mammogram from earlier today FINDINGS: LEFT Breast: Patient has recent diagnosis of left breast cancer with a positive left axillary lymph node biopsy. Focused sonographic evaluation of the left breast performed. The retroareolar mass is hypoechoic, solid than wide, with indistinct and irregular borders. It measures 0.8 x 0.7 x 1 cm. This needs further evaluation with biopsy which could be performed under sonographic guidance. The second area of concern at 2:00, 7 cm from the nipple is a well-defined hypoechoic nodule with fatty hilum consistent with a small physiologic lymph node. It measures 1.0 x 0.8 x 0.4 cm. This does not need further imaging or sampling. US/Breast Limited Unilateral IMPRESSION: Suspicious retroareolar mass needs further evaluation with biopsy. ASSESSMENT CATEGORY: BIRADS Category 4: Suspicious - Biopsy Should Be Considered. A letter regarding these results will be sent to the patient by the facility within 30 days. Electronically Signed: Irving Bliss MD at 10:54 EST ,
== END | disposition home or self-care (01) ==
LOC: OPBI 09:06
PROVIDERS: PCP Internal Medicine; Referring Provider Internal Medicine Medical Oncology; Visit Provider Internal Medicine Medical Oncology
DX: R92.8 Other abnormal and inconclusive findings on diagnostic imaging of breast (principal); C79.9 Secondary malignant neoplasm of unspecified site; R59.0 Localized enlarged lymph nodes; N63.20 Unspecified lump in the left breast, unspecified quadrant
CPT/HCPCS: 76642; 77062; 77066; G0279

== ENCOUNTER → 2024-08-01 | Outpatient (CLI) | payer MEDICARE, SELFPAY ==
--- NOTE | 2024-08-01 | IMM_PTH ---
PATIENT: FRANCIS CROFT LOC: [facility] U#:[id number] AGE/SX: 84/F ROOM: RE08/01/[address]: Dr. Fred Mason MD : 1940 BED: DIS: 08/01/2024 SPEC #: [id number] RECD: 08/02/24 11:49 STATUS: LUISITO REQ #: [id number] DURGA: 08/01/24 00:[address]: Fred Mason DEPT: IMMUNOHISTOCHEMISTRY RECD BY: Jose Raza ENTERED: 08/02/24 11:51 SP TYPE: IMMUNO OTHR DR: Dr. Maria Elena Resendiz MD Tissues: Left breast, NOS Procedures: E-CAD (initial) CALPONIN-1 (add) CK5-6 (add) CK8 (add) HER2 LY (add) KI-67 (add) P53 (add) AZ (add) P40 (add) ER (initial) PHYSICIAN & INSTITUTION [address] [address] SPECIMEN INFORMATION: Tissue Source: Left breast tissue Clinical Info: Left breast mass Specimen Number: [id number] CPT code: 29490,[id number] METHODOLOGY: Deparaffinized sections of prefer/formalin-fixed tissue or PAP/DQ stained slides are incubated with monoclonal/polyclonal antibodies/oligonucleotide probes. Localization is made via biotin free immunoperoxidase method. Appropriate controls are performed and reacted as expected. Results on target cell population are indicated in the following table: RESULTS: ANTIBODY / CLONE RESULT E-Cad (ECH-6) positive CK8 (68zbxsS40) positive Calponin-1 (VG483C) negative CK5-6 (D5 & 1684) positive P40 (BC28) negative P53 (DO-7) positive, missense mutation pattern Ki-67 (30-9) positive, high, >95% MORPHOMETRIC ANALYSIS ER (clone 6F11) 0% AZ (clone 16/1E2) 0% Her-2Neu (clone CB11) 1+ The prognostic test for HER2 is performed on formalin-fixed paraffin embedded tissue. A 3+ (positive) staining pattern is defined as intense, homogeneous, complete, circumferential membranous staining in >10% of contiguous tumor cells. A similar weak (2+) staining pattern is interpreted as equivocal. AMAN follow-up testing is recommended for all equivocal cases. Positivity/negativity for ER/AZ is reported if > or < 1% of the tumor cells are immuno- reactive, respectively. The ASCO/CAP criteria is used for scoring. Reference: Journal of Clinical Oncology, 2013; 31:0562-8910 & 2010; 16:5392-6044. Ischemic time: Less than one hour. Duration of fixation: 12 Hrs; Sample Adequate: Yes. These assays have not been validated on decalcified tissues. Results should be interpreted with caution given the likelihood of false negativity on decalcified specimens or fixation greater than 72 hours. Alternative testing methods (FISH/dualISH for Her2; gene expression for ER) are recommended, if applicable. Please notify the laboratory if additional testing is required. These tests were developed and their performance characteristics determined by [facility]. They may not have been cleared or approved by the U.S. Food and Drug Administration. The FDA has determined that such clearance or approval is not necessary. The above immunohistochemical/dualISH markers are ordered and reviewed by the Pathologist. INTERPRETATION: Left breast tissue, biopsy: Invasive ductal carcinoma. Negative for estrogen receptors (unfavorable prognostic indicator). Negative for progesterone receptors (unfavorable prognostic indicator). Negative for overexpression of GYA0pmq. See comment. COMMENT: The tumor shows basal like morphology by IHC. SJ.mr 08/03/2024
--- NOTE | 2024-08-01 08:30 | BRBX_PTH ---
PATIENT: FRANCIS CROFT LOC: [facility] U#:[id number] AGE/SX: 84/F ROOM: RE08/01/[address]: Dr. Fred Mason MD : 1940 BED: DIS: 08/01/2024 SPEC #: [id number] RECD: 08/01/24 09:11 STATUS: LUISITO CASE #: [id number] DURGA: 08/01/24 08:[address]: Fred Mason DEPT: SURGICAL PATHOLOGY RECD BY: Rocio De La Rosa ENTERED: 08/01/24 10:26 SP TYPE: BREAST BX OTHR DR: Dr. Maria Elena Resendiz MD Tissues: Left breast, NOS Procedures: Surgery Specimen Level IV HEADER OPERATION: Left breast biopsy PRE-OP DIAGNOSIS: Left breast mass TISSUE SUBMITTED: Left breast tissue - retroareolar mass Ischemic Time: 1 minute Fixation Time: 12 hours MICROSCOPIC DIAGNOSIS Left breast mass, core biopsy: Invasive ductal carcinoma. See cancer summary in the comment section. SJ.mr 08/02/2024 COMMENT INVASIVE BREAST CANCER SUMMARY: Procedure: Needle core biopsy Specimen Laterality: Left Tumor site: Retroareolar Histologic type: Invasive ductal carcinoma (tumor shows basal like morphology by IHC). Provisional Histologic grade: Glandular/tubule Differentiation Score: 3 Nuclear Pleomorphism Score: 3 Mitotic Rate Score:3 Overall grade: Grade 3 (score of 9) Tumor Size (greatest dimension): 0.4cm in greatest length Ductal Carcinoma Insitu: Not identified Angiolymphatic Invasion: Not identified Microcalcifications: Not identified Additional Findings: Tumor shows extensive necrosis. Breast Marker Study: [id number] ER: negative (0%) RI: negative (0%) Her2: negative (1+) Ki67: positive, high, >95% Fcl1QiorhPM: not applicable The above summary is in compliance with [employer] of [place] [employer] (CAP) Cancer Protocols Checklist and [place] Joint Committee on Cancer (AJCC), Staging Manual, 8th Ed. 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 The slides of previous two cases are reviewed, and all three cases show similar morphologic features. Case has been reviewed in consultation with Dr. Tom who concurs with the above diagnosis. IDC: JS Correlation with clinical findings and appropriate follow up are necessary. MICROSCOPIC DESCRIPTION Slides are reviewed. GROSS DESCRIPTION Received in fixative is one container labeled with the patient's name and designated Left breast biopsy. The specimen consists of multiple irregular fragments of st-yellow fibroadipose tissue that in aggregate measure 1.6 x 0.6 x 0.1 cm. The specimen is totally submitted in one cassette. 08/01/2024 TC:0 CPT:92903 ADDENDUM ADDENDUM ADDENDUM ADDENDUM ADDENDUM ADDENDUM 08/25/2024 13:22 ADDENDUM 08/25/2024 13:22 ADDENDUM 08/25/2024 13:22 ADDENDUM 08/25/2024 13:22 ADDENDUM 08/25/2024 13:22 ADDENDUM 09/08/2024 13:27 PD-L1 (KEYTRUDA) IMMUNOHISTOCHEMICAL ANALYSIS FROM [place] RESULTS: Tumor proportion score: 5-10% / POSITIVE Please see complete report in e-chart or EMR This addendum is added to incorporate an outside pathology consultation report. The case was examined at [facility] (#[id number]) and the following diagnosis was rendered. A. Breast, left, core biopsy: Poorly-differentiated carcinoma. See comment. COMMENT: Sections show fibroadipose tissue involved by sheets of malignant cells with nuclear pleomorphism, nuclear enlargement, and hyperchromasia. Necrosis and scattered mitotic figures are present. Background benign breast epithelium is not identified. Immunohistochemical stains performed at your institution were reviewed. The lesion is positive for CK8 and CK5/6. It is negative for p40, estrogen receptor, and progesterone receptor. This is a challenging diagnostic program. Overall, the findings are best described as poorly-differentiated carcinoma. The distinction between a lung and breast primary cannot reliably be made based upon the morphology and immunohistochemical profile. Clinical and radiologic correlation is recommended. Please see complete above mentioned consultation report in EMR
== END | disposition home or self-care (01) ==
LOC: LABSPEC 09:28
PROVIDERS: PCP Internal Medicine; Referring Provider Surgery; Visit Provider Surgery
DX: C50.012 Malignant neoplasm of nipple and areola, left female breast (principal)
CPT/HCPCS: 88305; 88341; 88342

== ENCOUNTER → 2024-08-26 | Outpatient (CLI) | payer MEDICARE, SELFPAY ==
--- NOTE | 2024-08-26 07:57 | CT_ITS ---
PROCEDURE: CHEST WITHOUT CONTRAST REASON FOR EXAM: Radiation following lung cancer TECHNIQUE: Chest CT without contrast. COMPARISON: Multiple priors most recently 05/26/2024. FINDINGS: Hardware: None. Lymph nodes: Again seen is a prominent left axillary lymph node measuring up to 3 cm. Heart and Vasculature: Normal heart size. No pericardial effusion. Thoracic aorta and pulmonary arteries have normal contours; noncontrast technique limits evaluation. Coronary Artery Calcifications: Present Lungs and Airways: Stable patchy nodularity in the right upper lobe essentially unchanged in appearance in conspicuity as well as in the right middle lobe compared to prior exams. Left base atelectasis. Pleura: No pleural effusion. No pneumothorax. Upper Abdomen: Large hiatal hernia again seen. Bones: Bone windows are unremarkable. CT/Chest without Contrast IMPRESSION: Stable pleural-parenchymal findings as described above, without new suspicious nodule or intrathoracic CT process. Stable abnormal left axillary lymph node. One or more dose reduction techniques were used (e.g., Automated exposure contr ol, adjustment of the mA and/or kV according to patient size, use of iterative reconstruction technique). Reading Location: [facility]
== END | disposition home or self-care (01) ==
LOC: CT 07:47
PROVIDERS: PCP Internal Medicine; Referring Provider Student in an Organized Health Care Education/Training Program; Visit Provider Student in an Organized Health Care Education/Training Program
DX: C34.11 Malignant neoplasm of upper lobe, right bronchus or lung (principal)
CPT/HCPCS: 71250

== ENCOUNTER 2024-12-08 15:37 | Observation (INO) | payer MEDICARE, SELFPAY ==
[2024-12-08] VITALS (7 sets, daily range): BP systolic 116–139; BP diastolic 53–74; PULSE 81–95; RESP 17–27; TEMP 36.1–37; O2SAT 95–96; BMI 31.8; BMI 30.5
--- NOTE | 2024-12-08 18:05 | ED.RN ---
REGISTRATION IN ROOM TO REGISTER PT, SON STATES THEY MAKE SURE THAT GET THERE MONEY.
--- NOTE | 2024-12-08 18:28 | CT_ITS ---
PROCEDURE: SPINE CERVICAL WITHOUT CONTRAS 12/08/2024 REASON FOR EXAM: TRAUMA TECHNIQUE: Cervical spine CT without contrast. Coronal and Sagittal reconstruction series were provided. One or more dose reduction techniques were used (e.g., Automated exposure control, adjustment of the mA and/or kV according to patient size, use of iterative reconstruction technique RADIATION DOSE SUMMARY: CTDlvol: 20.7 mGy DLP: 482.6 mGycm COMPARISON: PET-CT on 07/12/2024 FINDINGS: Minimal anterolisthesis of C5 on C6 measuring 2 mm. Vertebral body heights are maintained. No displaced fracture. There are multilevel degenerative changes to include disc space narrowing, uncovertebral and facet arthropathy, which are most pronounced at C4-5. Aortic and carotid atherosclerosis. Linear scarring or atelectasis in the right upper lobe. There is a nodular appearance of consolidation in the anterior aspect of the right upper lobe (series 6, image 159) measuring approximately 1.1 x 0.7 cm, which is increased in conspicuity from 07/12/2024. There is slight mosaic attenuation throughout the upper lobes, [id number]. CT/Spine Cervical without Contras IMPRESSION: 1. No displaced fracture or traumatic malalignment of the cervical spine. Min imal anterolisthesis of C5 on C6 is favored to be degenerative. 2. Nodular focus of consolidation in the peripheral right upper lobe, increase d in conspicuity since 07/12/2024. Recommend comparison with prior imaging if available, and consider a nonemergent chest CT if not recently performed for further evaluation in this patient with a reported history of malignancy. Reading Location: [facility]
--- NOTE | 2024-12-08 18:28 | CT_ITS ---
PROCEDURE: BRAIN/HEAD WITHOUT CONTRAST 12/08/2024 REASON FOR EXAM: TRAUMA TECHNIQUE: Head CT without intravenous contrast. Coronal and Sagittal reconstruction series were provided. One or more dose reduction techniques were used (e.g., Automated exposure control, adjustment of the mA and/or kV according to patient size, use of iterative reconstruction technique. COMPARISON: None FINDINGS: No acute intracranial hemorrhage, mass, mass effect, midline shift or pathologic extra-axial fluid collection. Mild parenchymal atrophy with commensurate increase in CSF containing spaces. Patchy white matter hypodensities, patient demographics favor chronic microvascular ischemic changes. Paranasal sinuses and mastoid air cells are clear. The calvarium is grossly intact. CT/Brain/Head without Contrast IMPRESSION: No acute intracranial abnormality. Chronic microvascular ischemia and involutional changes. Reading Location: [facility]
--- NOTE | 2024-12-08 18:32 | EKG12_ITS ---
Test Reason : Blood Pressure : */* mmHG Vent. Rate : 90 BPM Atrial Rate : 90 BPM P-R Int : 180 ms QRS Dur : 78 ms QT Int : 374 ms P-R-T Axes : 43 11 47 degrees QTcB Int : 457 ms Normal sinus rhythm Normal ECG Confirmed by SAV CORREA, SAIMA ([id number]), news copy editor GEOFFREY CORTES ([id number]) on 12/12/2024 8:40:59 AM Referred By: Confirmed By: SAIMA ANG MD
--- NOTE | 2024-12-08 18:40 | RAD_ITS ---
PROCEDURE: CHEST 1 VIEW (PORTABLE) 12/08/2024 REASON FOR EXAM: CHEST PAIN TECHNIQUE: Frontal view of the chest. COMPARISON: CT chest on 08/26/2024, chest radiographs 10/02/2023 FINDINGS: No focal consolidation, pleural effusion, or pneumothorax. Cardiomediastinal silhouette is unchanged. Aortic atherosclerosis. Surgical clips in the left axilla. Hiatal hernia. No displaced rib fracture on this limited single view evaluation. RAD/Chest 1 View (Portable) IMPRESSION: No acute cardiopulmonary abnormality. Reading Location: [id number]
--- NOTE | 2024-12-08 19:29 | ED.VIS.FALL ---
HPI HPI - Fall History of Present Illness Chief Complaint: Fall Informant: patient and family Narrative Narrative: 84-year-old female presenting to the emergency room with head neck injury. Patient had taken a shower bleeding of the shower when she states her legs gave out. She is unsure if she lost consciousness or not. She notes injury to the right periorbital region and was to her neck. She notes no arm symptoms she notes that the right knee is a little sore and she has had prior knee replacement on that side. The patient was on the ground for an unknown amount of time. Patient reports recently undergoing 20 radiation treatments of the chest. She states that her right arm has been sore but has not been sore today. 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 Metastatic carcinoma History of ESBL Klebsiella pneumoniae infection Wears glasses Cancer Alcohol use Thyroid disease Ambulates with cane Bladder disease Low iron High cholesterol Gastric reflux Chronic cough Former smoker History of irregular heartbeat History of edema Cardiology follow-up encounter Hypertension History of stress test History of echocardiogram LVH (left ventricular hypertrophy) Obesity Essential hypertension Non-rheumatic aortic stenosis Asymmetric septal hypertrophy Osteopenia Diverticulosis Anemia Hyperlipidemia Glaucoma Hypothyroidism Lichen sclerosus Home Medications ?Medication ?Instructions ?Recorded ?Last Taken ?Type spironolactone 25 mg tablet 25 mg PO DAILY 02/03/22 04/10/24 History cholecalciferol (vitamin D3) 50 50 mcg PO DAILY 10/20/23 04/06/24 History mcg (2,000 unit) capsule calcium carbonate (Tums) 400 mg PO ONCE PRN INGESTION 11/09/23 04/10/24 History bupropion HCl 75 mg tablet 75 mg PO DAILY 01/18/24 04/10/24 History dorzolamide 22.3 mg-timolol 6.8 1 drp ophthalmic (eye) Q12H 01/18/24 04/10/24 History mg/mL eye drops levothyroxine 88 mcg tablet 88 mcg PO QDAY 01/18/24 04/10/24 History romosozumab-aqqg 210 mg/2.34 210 mg (2.34 mL) subcut QMONTH 12 01/22/24 Unknown Rx mL(105 mg/1.17 mL x2)subcutaneous months #28.08 mL syringe ([facility]) Lactobacillus acidophilus 10 20,000 mmu cells PO DAILY 03/23/24 04/06/24 History billion cell capsule (Probiotic) ascorbic acid (vitamin C) 500 mg 500 mg PO DAILY 03/23/24 04/06/24 History chewable tablet (Acerola C) isosorbide mononitrate 60 mg 60 mg PO DAILY 03/23/24 04/10/24 History tablet,extended release 24 hr famotidine 20 mg tablet 20 mg PO DAILY #0 tabs 04/15/24 Unknown Rx folic acid 1 mg tablet 1 mg PO BREAKFAST #0 tabs 04/15/24 Unknown Rx ondansetron 4 mg disintegrating 4 mg PO Q8H #8 tabs 04/15/24 Unknown Rx tablet sennosides 8.6 mg-docusate sodium 2 tab PO BID PRN PRN Constipation 04/15/24 Unknown Rx 50 mg tablet (Stimulant Laxative #0 tabs Plus) atorvastatin 10 mg tablet 10 mg PO QHS 05/30/24 Unknown History magnesium 200 mg tablet 200 mg PO QDAY 08/18/24 Unknown History mecobalamin (vitamin B12) 1,000 1,000 mcg PO QDAY 08/18/24 Unknown History mcg chewable tablet melatonin 5 mg tablet 5 mg PO HS 08/18/24 Unknown History pyridoxine (vitamin B6) 100 mg 100 mg PO QDAY 08/18/24 Unknown History tablet fluoride (sodium) 1.1 % dental applic PO UD 12/08/24 Unknown History cream (Denta 5000 Plus) Allergy/AdvReac Type Severity Reaction Status Date / Time codeine Allergy PT UNSURE Verified 12/08/24 15:44 OF REACTION losartan AdvReac Unknown Verified 12/08/24 15:44 quinapril (From Accupril) AdvReac Unknown Verified 12/08/24 15:44 Sulfa (Sulfonamide AdvReac unknown Verified 12/08/24 15:44 Antibiotics) Family History Mother Heart disease Hypoactive thyroid Father Heart disease Myocardial infarction from CT age 68 Other CVA (cerebral vascular accident) Surgical History Total knee replacement status History of cataract surgery left foot surgery History of tubal ligation History of appendectomy History of inguinal hernia repair Social History Smoking Status: Former smoker quit date: 07/27/84 pack-years: 48 alcohol intake: current details: social substance use type: does not use caffeine: No what type of physical activity do you participate in: walking seatbelt use: always do you feel safe at home: Yes additional social history: Antwon Moran are retired ROS ROS ED Constitutional Constitutional ED: Denies chills, fever(s) or weight loss Eyes Eyes: Denies change in vision or diplopia ENT ENT ED: Denies ear pain, rhinorrhea or sore throat Cardiovascular Cardiovascular: Denies chest pain, orthopnea, palpitations or racing heartbeat Respiratory/Chest Respiratory/Chest: Denies cough, dyspnea or orthopnea Gastrointestinal Gastrointestinal: Denies abdominal pain, diarrhea, nausea or vomiting Genitourinary Genitourinary ED: Denies dysuria, hematuria or urinary frequency Musculoskeletal Musculoskeletal: Reports neck pain and other Details: See history of present illness ; Denies arthralgias, back pain or myalgias Integumentary Reports Abrasions; Denies abscess or rash Neurologic Neurologic: Reports headache(s); Denies weakness Psychiatric Psychiatric: Denies anxiety, depression, suicidal ideation or suicidal thoughts Endocrine Endocrinology: Denies polydipsia, polyphagia or polyuria Allergic/Immunologic Allergic/Immunologic ED: Denies mouth swelling, tongue swelling or urticaria EXAM Physical Exam Const Vital Signs: 12/08/24 15:39 12/08/24 18:00 12/08/24 18:17 Temperature 97.0 F L Temperature Source Temporal Pulse Rate 95 94 Respiratory Rate 17 20 H Respiratory Effort Normal Non-Labored Blood Pressure 122/54 H 139/71 H Blood Pressure Mean 76 93 Pulse Ox 95 96 Oxygen Delivery Method Room Air Oxygen Flow Rate (L/min) 96 12/08/24 19:00 12/08/24 20:00 12/08/24 20:44 Temperature 98 F Temperature Source Pulse Rate 85 81 Respiratory Rate 24 H 19 H Respiratory Effort Blood Pressure 135/72 H 125/65 H Blood Pressure Mean 93 85 Pulse Ox 96 95 Oxygen Delivery Method Room Air Room Air Oxygen Flow Rate (L/min) 12/08/24 22:00 Temperature Temperature Source Pulse Rate 82 Respiratory Rate 25 H Respiratory Effort Blood Pressure 126/66 H Blood Pressure Mean 86 Pulse Ox 96 Oxygen Delivery Method Room Air Oxygen Flow Rate (L/min) Positive well nourished and well developed General Appearance ED: well developed and NAD HEENT Reports normocephalic, head/scalp atraumatic and moist mucous membranes Eyes PERRL and EOMs intact bilaterally Neck no lymphadenopathy, supple and no JVD Neck Narrative: C-collar in place generally tender to palpation throughout the posterior neck musculature Resp normal respiratory effort and clear to auscultation bilaterally Cardio regular rate, regular rhythm and no murmurs GI normal to inspection, nondistended, normoactive bowel sounds and non-tender Palpation: soft Back/Spine no CVA tenderness and normal ROM Extremity normal to inspection General Extremety ED: Negative for edema General Extremity: Negative for edema Neuro oriented x3 and CN's II-XII intact bilaterally Sensorium / Orientation: alert Motor Exam: strength 5/5 throughout Psych mental status grossly normal Mood & Affect: Negative for depressed or tearful Skin no rashes or lesions noted and no wounds MDM MDM MDM Narrative Medical decision making narrative: Differential diagnosis includes but not limited to intracranial hemorrhage skull fracture cervical spine fracture cardiac syncope electrolyte abnormalities dehydration rhabdomyolysis CT of the brain and cervical spine were read by radiology and reviewed by myself. No obvious fracture or intracranial hemorrhage is noted. Local wound care provided to the contusion/abrasion by nursing with bacitracin. My independent interpretation of the chest x-ray is no acute process. Basic blood work was obtained which shows a potassium of 2.5 calcium of 5.5 magnesium 2.1 CPK was not significantly elevated. Glucose noted to be 84 creatinine 0.32 BUN of 12. EKG shows sinus rhythm at a rate of 90. It was noted on the patient's BMP that her CO2 was 11.9. An ABG was obtained which demonstrates a pH of 7.54PCO 224.7 HCO3 21.2. Patient received supplemental potassium both p.o. and IV. As well as calcium. Given the syncope and the electrolyte abnormalities plan of care will be admission in the hospital tonight. We were able to obtain a urine specimen from the patient. This is demonstrating infection with greater than 100 white blood cells positive nitrates 4+ bacteria. She has a history of ESBL on her last urine culture. Therefore I gave her ertapenem. History & Record Review Discussion w/independent historian: Patient and Family Additional record(s) reviewed:: Prior inpatient record, Prior outpatient record, Prior ED visit and Prior labs Lab Data Attestation: I reviewed the patient's lab results. Labs: Laboratory Results - last 24 hr 12/08/24 12/08/24 12/08/24 19:05 19:05 20:00 WBC Cancelled Corrected WBC Cancelled RBC Cancelled Hgb Cancelled Hct Cancelled MCV Cancelled MCH Cancelled MCHC Cancelled RDW Std Deviation Cancelled RDW Coeff of Ezekiel Cancelled Plt Count Cancelled MPV Cancelled Immature Gran % (Auto) Cancelled Neut % (Auto) Cancelled Lymph % (Auto) Cancelled Edmunds % (Auto) Cancelled Eos % (Auto) Cancelled Baso % (Auto) Cancelled Absolute Neuts (auto) Cancelled Absolute Lymphs (auto) Cancelled Total Counted Cancelled Neutrophils % (Manual) Cancelled Band Neutrophils % Cancelled Lymphocytes % (Manual) Cancelled Monocytes % (Manual) Cancelled Eosinophils % (Manual) Cancelled Basophils % (Manual) Cancelled Metamyelocytes % Cancelled Myelocytes % Cancelled Promyelocytes % Cancelled Blast Cells % Cancelled Plasma Cell % (Manual) Cancelled Other Cells % Cancelled Nucleated RBC % Cancelled Nucleated RBCs/100 WBC Cancelled Differential Comment Cancelled Diff Path Review Cancelled Hypersegmented Neuts Cancelled Atypical Lymphocytes Cancelled Reactive Lymphocytes Cancelled Smudge Cells Cancelled Toxic Granulation Cancelled Toxic Vacuolation Cancelled Dohle Bodies Cancelled Elizabeth Rods Cancelled Platelet Estimate Cancelled Plt Morphology Comment Cancelled RBC Morphology Cancelled Cancelled Polychromasia Cancelled Hypochromasia Cancelled Basophilic Stippling Cancelled Anisocytosis Cancelled Microcytosis Cancelled Macrocytosis Cancelled Spherocytes Cancelled Sickle Cells Cancelled Target Cells Cancelled Tear Drop Cells Cancelled Ovalocytes Cancelled Stomatocytes Cancelled Garces-Cabery Bodies Cancelled Bettye Cells Cancelled Bite Cells Cancelled Crenated Cell Cancelled Acanthocytes (Spur) Cancelled Rouleaux Cancelled Schistocytes Cancelled Sodium 140 Potassium 2.5 L* Chloride 119 H Carbon Dioxide 11.9 L Anion Gap 9 BUN 12 Creatinine 0.32 L Estim Creat Clear Calc 47.89 L Est GFR (MDRD) Non-Af 103 BUN/Creatinine Ratio 35.5 H Glucose 84 Calcium 5.5 L* Magnesium Total Bilirubin 0.55 AST 19 ALT 7 Alkaline Phosphatase 53 Total Creatine Kinase 146 Troponin T High Sens 26 H Troponin T Hi Sens 2 Hr Total Protein 4.1 L Albumin 2.5 L Globulin 1.7 L Albumin/Globulin Ratio 1.5 Urine Color Yellow Urine Clarity Cloudy Urine pH 5.0 Ur Specific [place] 1.020 Urine Protein 30 H Urine Glucose (UA) Normal Urine Ketones 5 H Urine Occult Blood 50 H Urine Nitrite Positive H Urine Bilirubin Negative Urine Urobilinogen Normal Ur Leukocyte Esterase 500 H Urine RBC 10-25 SEEN Urine WBC >100 SEEN Ur Squamous Epith Cells 5-10 SEEN Ur Transition Epith Cell 0-5 SEEN Amorphous Sediment 1+ Urine Bacteria 4+ Urine Mucus 0 SEEN 12/08/24 20:10 WBC 12.7 H Corrected WBC RBC 3.92 L Hgb 13.1 Hct 37.8 MCV 96.4 MCH 33.4 H MCHC 34.7 RDW Std Deviation 48.0 H RDW Coeff of Ezekiel 13.6 Plt Count 243 MPV 9.1 Immature Gran % (Auto) 0.600 Neut % (Auto) 79.3 H Lymph % (Auto) 6.1 L Edmunds % (Auto) 13.8 H Eos % (Auto) 0.0 Baso % (Auto) 0.2 Absolute Neuts (auto) 10.1 H Absolute Lymphs (auto) 0.77 L Total Counted Neutrophils % (Manual) Band Neutrophils % Lymphocytes % (Manual) Monocytes % (Manual) Eosinophils % (Manual) Basophils % (Manual) Metamyelocytes % Myelocytes % Promyelocytes % Blast Cells % Plasma Cell % (Manual) Other Cells % Nucleated RBC % 0 Nucleated RBCs/100 WBC Differential Comment Diff Path Review Hypersegmented Neuts Atypical Lymphocytes Reactive Lymphocytes Smudge Cells Toxic Granulation Toxic Vacuolation Dohle Bodies Elizabeth Rods Platelet Estimate ADEQUATE Plt Morphology Comment RBC Morphology Polychromasia Hypochromasia Basophilic Stippling Anisocytosis Microcytosis Macrocytosis Spherocytes Sickle Cells Target Cells Tear Drop Cells Ovalocytes Stomatocytes Garces-Cabery Bodies [place] Cells Bite Cells Crenated Cell Acanthocytes (Spur) Rouleaux Schistocytes Sodium Potassium Chloride Carbon Dioxide Anion Gap BUN Creatinine Estim Creat Clear Calc Est GFR (MDRD) Non-Af BUN/Creatinine Ratio Glucose Calcium Magnesium 2.1 Total Bilirubin AST ALT Alkaline Phosphatase Total Creatine Kinase Troponin T High Sens Troponin T Hi Sens 2 Hr 37 H Total Protein Albumin Globulin Albumin/Globulin Ratio Urine Color Urine Clarity Urine pH Ur Specific [place] Urine Protein Urine Glucose (UA) Urine Ketones Urine Occult Blood Urine Nitrite Urine Bilirubin Urine Urobilinogen Ur Leukocyte Esterase Urine RBC Urine WBC Ur Squamous Epith Cells Ur Transition Epith Cell Amorphous Sediment Urine Bacteria Urine Mucus ABG Data ABG results: ABG 12/08/24 20:21 Specimen Type ART Sample Site L Radial pH 7.54 H Bicarbonate Actual 21.2 L Total CO2 22 Base Excess -1 O2 Saturation 97 O2 % 21.0 ABG pCO2 24.7 L ABG pO2 80 Maxim Test Positive O2 Delivery Device Room Air Vent Mode Not entered Radiography Diagnostic Testing: Clinical Impression(s) from Imaging Studies Brain CT 12/08/24 18:28 IMPRESSION: No acute intracranial abnormality. Chronic microvascular ischemia and involutional changes. Reading [facility] Cervical Spine CT 12/08/24 18:28 IMPRESSION: 1. No displaced fracture or traumatic malalignment of the cervical spine. Minimal anterolisthesis of C5 on C6 is favored to be degenerative. 2. Nodular focus of consolidation in the peripheral right upper lobe, increased in conspicuity since 07/12/2024. Recommend comparison with prior imaging if available, and consider a nonemergent chest CT if not recently performed for further evaluation in this patient with a reported history of malignancy. Reading Location: [id number] Chest X-Ray 12/08/24 18:40 IMPRESSION: No acute cardiopulmonary abnormality. Reading Location: [id number] EKG Initial EKG: Attestation: I personally reviewed and interpreted this EKG as follows: Comments: Normal sinus rhythm ventricular rate of 90 bpm Management Discussion w/another healthcare provider: Hospitalist (Dr [place]) Discharge Plan Dx/Rx/DC Orders Clinical Impression: Acute hypokalemia, Hypocalcemia, Syncope, Contusion of face, Abrasion of face, Acute UTI Disposition Disposition: [facility]
[2024-12-08 19:46] LABS: Troponin T High Sensitivity 26 ng/L (<=14)
[2024-12-08 19:52] LABS: ALB/GLOB Ratio 1.5 RATIO (0.9-2.4); AST(SGOT) 19 U/L (<=31); Alanine Aminotransfer ALT/SGPT 7 U/L (<=34); Albumin, Serum 2.5 g/dL (3.4-4.8); Alkaline Phosphatase 53 U/L (35-104); Anion Gap 9 (5-15); BUN 12 mg/dL (4-19); BUN/Creat Ratio 35.5 RATIO (10-20); Carbon Dioxide 11.9 mmol/L (21.0-32.0); Chloride 119 mmol/L (98-108); Creatinine, Serum 0.32 mg/dL (0.70-1.20); EST Glomerular Filtration Rate 103 (>60); Estimated Creatinine Clearance 47.89 ml/min (50-250); Globulin 1.7 g/dL (2.2-4.2); Glucose 84 mg/dL (70-99); Potassium 2.5 mmol/L (3.3-5.1); Protein, Total 4.1 g/dL (5.9-8.4); Sodium Level 140 mmol/L (133-145); Total Bilirubin 0.55 mg/dL (0.00-1.30)
[2024-12-08 19:58] LABS: Calcium,Total 5.5 mg/dL (7.6-11.0)
[2024-12-08 20:00] LABS: CPK Total, Creatine Kinase 146 U/L (24-195)
[2024-12-08 20:24] LABS: Allen Test Positive; Base Excess -1 mmol/L (-2 to +2); Bicarbonate 21.2 mmol/L (22-26); Blood Gas Specimen Type ART; Mode Not entered; O2 Delivery Device Room Air; PO2 80 mmHG (75-100); SITE L Radial; SO2 97 % (95-99); Total Carbon Dioxide 22 mmol/L; pCO2 24.7 mmHg (35-45); pH 7.54 (7.35-7.45)
[2024-12-08] MEDS: 0.9% Normal Saline (1000mL) 1,000 ML 999 ML IV (20:35)
[2024-12-08 20:37] LABS: Absolute Lymphocyte Count 0.77 X10^3/uL (0.83-4.51); Absolute Neutrophil Count 10.1 X10^3/uL (2.0-7.7); Basophil# 0.03 X10^3/uL; Basophil% 0.2 % (0-1); Hematocrit 37.8 % (37-47); Hemoglobin 13.1 g/dL (12.0-15.0); Lymphocyte # 0.77 X10^3/ul (0.83-4.51); Lymphocyte % 6.1 % (19-41); Mean Corp Hgb Conc 34.7 g/dL (32-36); Mean Corpuscular Hgb 33.4 pg (27.0-32.0); Mean Corpuscular Volume 96.4 fL (81-99); Mean Platelet Vol. 9.1 fl (6.2-12.0); Monocyte# 1.75 X10^3/uL; Monocyte% 13.8 % (0-10); NRBC Flagged by Analyzer 0 % (0-5); Neutrophil # 10.07 X10^3/uL (2.7-7.7); Neutrophil % 79.3 % (47-70); POSITIVE DIFFERENTIAL YES; Platelet Count 243 K/mm3 (150-450); RBC Distribution Width CV 13.6 % (11.6-14.6); Red Blood Count 3.92 M/mm3 (4.2-5.4); White Blood Count 12.7 K/mm3 (4.4-11.0)
[2024-12-08] MEDS: Potassium Chloride Oral Tablet 20 MEQ PO (20:37)
[2024-12-08] MEDS: Calcium Gluconate 1 GM/10 ML Vial IVP (20:37)
[2024-12-08 20:39] LABS: Differential Indicated SCAN CRITERIA MET
[2024-12-08 20:39] LABS: Mucous, Urine 0 SEEN /hpf (<or=2+)
[2024-12-08] MEDS: Potassium Chloride 10mEq/100mL 10 MEQ/100 ML IV.SOLN. 100 MEQ IV BOLUS ×2 (20:49→21:56)
[2024-12-08 21:01] LABS: Color, Urine Yellow (Yellow); Glucose, Dipstick Normal (Normal); Ketone-Dipstick 5 mg/dl (Negative); Leukocyte Esterase-Dipstick 500 /ul (Negative); Nitrite-Dipstick Positive (Negative); Occult Blood-Urine 50 /ul (Negative); Protein-Dipstick 30 mg/dl (Negative); Urine Bilirubin Dipstick Negative (Negative); Urine Clarity Cloudy (Clear); Urine Urobilinogen Normal (Normal)
[2024-12-08 21:18] LABS: Magnesium 2.1 mg/dL (1.5-2.2)
[2024-12-08 21:31] LABS: Ionized Calcium Order ORDER TUBE
[2024-12-08 21:34] LABS: Troponin T High Sens 2 HR 37 ng/L (<=14)
[2024-12-08 21:35] LABS: Platelet Estimate ADEQUATE (ADEQ)
[2024-12-08 22:07] LABS: Bacteria 4+ /hpf (None Seen); White Blood Cells >100 SEEN /hpf (0-5)
[2024-12-08 22:08] LABS: Red Blood Cells-Urine 10-25 SEEN /hpf (0-5)
[2024-12-08 22:09] LABS: Amorphous Sediment 1+; Squamous Epithelial Cells - UA 5-10 SEEN /hpf (5-10); Transitional Epithelial - Ur 0-5 SEEN /hpf (0-5)
[2024-12-08] MEDS: Ertapenem Sod 1 GM in 0.9% Normal Saline (50mL MB+) 50 ML IV (22:57)
--- NOTE | 2024-12-08 23:25 | PCM.HP.STD ---
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 Per the patient, she was trying to sit down after her shower in order where her clothes when her legs gave up on her and she fell down and could not get up again. This has happened previously in the past, there was no blackout sensation, no palpitations, no dizziness. No associated nausea or vomiting. Her son noted that she was febrile this morning and also more lethargic than usual. At the time of evaluation in the ED, blood pressure 132/74, pulse 82, respiratory 27, temperature 98.6 WBC 12.7, hemoglobin 13.1, platelet 243. pH was 7.5 with a bicarb of 21.2 and pCO2 of 22. She was noted to have a potassium of 2.5, creatinine 0.3 and a calcium of 5.5. Albumin 2.5 with a total protein of 4.1. Urinalysis showed protein of 30 with 50 occult blood, positive nitrate, leuk esterase with more than 100 WBCs and 4+ bacteria [facility] Medical History Abnormal mammogram of left breast Lymphadenopathy, axillary Squamous cell carcinoma of upper lobe of right lung Metastatic carcinoma History of ESBL Klebsiella pneumoniae infection Wears glasses Cancer Alcohol use Thyroid disease Ambulates with cane Bladder disease Low iron High cholesterol Gastric reflux Chronic cough Former smoker History of irregular heartbeat History of edema Cardiology follow-up encounter Hypertension History of stress test History of echocardiogram LVH (left ventricular hypertrophy) Obesity Essential hypertension Non-rheumatic aortic stenosis Asymmetric septal hypertrophy Osteopenia Diverticulosis Anemia Hyperlipidemia Glaucoma Hypothyroidism Lichen sclerosus Home Medications ?Medication ?Instructions ?Recorded ?Last Taken ?Type spironolactone 25 mg tablet 25 mg PO DAILY 02/03/22 04/10/24 History cholecalciferol (vitamin D3) 50 50 mcg PO DAILY 10/20/23 04/06/24 History mcg (2,000 unit) capsule calcium carbonate (Tums) 400 mg PO ONCE PRN INGESTION 11/09/23 04/10/24 History bupropion HCl 75 mg tablet 75 mg PO DAILY 01/18/24 04/10/24 History dorzolamide 22.3 mg-timolol 6.8 1 drp ophthalmic (eye) Q12H 01/18/24 04/10/24 History mg/mL eye drops levothyroxine 88 mcg tablet 88 mcg PO QDAY 01/18/24 04/10/24 History romosozumab-aqqg 210 mg/2.34 210 mg (2.34 mL) subcut QMONTH 12 01/22/24 Unknown Rx mL(105 mg/1.17 mL x2)subcutaneous months #28.08 mL syringe (Evenity) Lactobacillus acidophilus 10 20,000 mmu cells PO DAILY 03/23/24 04/06/24 History billion cell capsule (Probiotic) ascorbic acid (vitamin C) 500 mg 500 mg PO DAILY 03/23/24 04/06/24 History chewable tablet (Acerola C) isosorbide mononitrate 60 mg 60 mg PO DAILY 03/23/24 04/10/24 History tablet,extended release 24 hr famotidine 20 mg tablet 20 mg PO DAILY #0 tabs 04/15/24 Unknown Rx folic acid 1 mg tablet 1 mg PO BREAKFAST #0 tabs 04/15/24 Unknown Rx ondansetron 4 mg disintegrating 4 mg PO Q8H #8 tabs 04/15/24 Unknown Rx tablet sennosides 8.6 mg-docusate sodium 2 tab PO BID PRN PRN Constipation 04/15/24 Unknown Rx 50 mg tablet (Stimulant Laxative #0 tabs Plus) atorvastatin 10 mg tablet 10 mg PO QHS 05/30/24 Unknown History magnesium 200 mg tablet 200 mg PO QDAY 08/18/24 Unknown History mecobalamin (vitamin B12) 1,000 1,000 mcg PO QDAY 08/18/24 Unknown History mcg chewable tablet melatonin 5 mg tablet 5 mg PO HS 08/18/24 Unknown History pyridoxine (vitamin B6) 100 mg 100 mg PO QDAY 08/18/24 Unknown History tablet fluoride (sodium) 1.1 % dental applic PO UD 12/08/24 Unknown History cream (Denta 5000 Plus) Allergy/AdvReac Type Severity Reaction Status Date / Time codeine Allergy PT UNSURE Verified 12/08/24 15:44 OF REACTION losartan AdvReac Unknown Verified 12/08/24 15:44 quinapril (From Accupril) AdvReac Unknown Verified 12/08/24 15:44 Sulfa (Sulfonamide AdvReac unknown Verified 12/08/24 15:44 Antibiotics) Family History Mother Heart disease Hypoactive thyroid Father Heart disease Myocardial infarction from [place] 67 Other CVA (cerebral vascular accident) Surgical History Total knee replacement status History of cataract surgery left foot surgery History of tubal ligation History of appendectomy History of inguinal hernia repair Social History Smoking Status: Former smoker quit date: 07/27/84 pack-years: 48 alcohol intake: current details: social substance use type: does not use caffeine: No what type of physical activity do you participate in: walking seatbelt use: always do you feel safe at home: Yes additional social history: Derek- Both are retired ROS Review of Systems ROS Unobtainable: Denies due to encephalopathy, due to endotracheal tube, due to mental condition, due to mental status or other Constitutional Constitutional: Reports chills, fatigue and fever(s) Eyes Eyes: Denies blurry vision, change in eye color, change in vision, discharge from eye(s), double vision, erythema, eye pain, loss of vision or other ENT HEENT: Denies abnormal hearing, dysphagia, ear pain, epistaxis, headache(s), hearing loss, nasal congestion, nasal discharge, post nasal drip, sinus pressure, sore throat or other Cardiovascular Cardiovascular: Denies chest pain, claudication, dyspnea on exertion, edema, lightheadedness, orthopnea, palpitations, paroxysmal nocturnal dyspnea, rapid heart rate, syncope or other Respiratory/Chest Respiratory/Chest: Denies cough, dyspnea, excessive phlegm production, hemoptysis, productive cough, shortness of breath at rest, shortness of breath with exertion, wheezing or other Gastrointestinal Gastrointestinal: Denies abdominal pain, coffee ground emesis, constipation, diarrhea, dyspepsia, hematemesis, hematochezia, loose stools, melena, nausea, vomiting or other Genitourinary Genitourinary: Denies burning urination, difficulty urinating, dysuria, hematuria, nocturia, urinary frequency, urinary hesitancy, urinary incontinence, urinary urgency or other Musculoskeletal Musculoskeletal: Denies arthralgias, back pain, joint pain, joint stiffness, joint swelling, myalgias, neck pain or other Neurologic Neurologic: Denies abnormal gait, abnormal speech, confusion, disequilibrium, dizziness, focal weakness, headache(s), numbness, paresthesias, seizure-like activity, seizures, syncope, tingling, tremor(s) or other Psychiatric Psychiatric: Denies anxiety, depression, homicidal ideation, suicidal ideation or other Endocrine Endocrinology: Denies change in body appearance, cold intolerance, excessive sweating, heat intolerance, polydipsia, polyuria or other Hematologic/Lymphatic Hematologic/Lymphatic: Denies anemia, easy bleeding, easy bruising, lymphadenopathy or other Allergic/Immunologic Allergic/Immunologic: Denies rhinitis, hives, eczemia, asthma or other Vital Signs Vital Signs Vital Signs: 12/08/24 15:39 12/08/24 18:00 12/08/24 18:17 Temperature 97.0 F L Temperature Source Temporal Pulse Rate 95 94 Respiratory Rate 17 20 H Respiratory Effort Normal Non-Labored Blood Pressure 122/54 H 139/71 H Blood Pressure Mean 76 93 Pulse Ox 95 96 Oxygen Delivery Method Room Air Oxygen Flow Rate (L/min) 96 12/08/24 19:00 12/08/24 20:00 12/08/24 20:44 Temperature 98 F Temperature Source Pulse Rate 85 81 Respiratory Rate 24 H 19 H Respiratory Effort Blood Pressure 135/72 H 125/65 H Blood Pressure Mean 93 85 Pulse Ox 96 95 Oxygen Delivery Method Room Air Room Air Oxygen Flow Rate (L/min) 12/08/24 22:00 12/08/24 22:59 Temperature 98.6 F Temperature Source Oral Pulse Rate 82 82 Respiratory Rate 25 H 27 H Respiratory Effort Blood Pressure 126/66 H 132/74 H Blood Pressure Mean 86 93 Pulse Ox 96 96 Oxygen Delivery Method Room Air Room Air Oxygen Flow Rate (L/min) Weight Weight: 163 lb 5.8 oz Body Mass Index (BMI) 31.8 Physical Exam Const alert, oriented x3 and no apparent distress HEENT normocephalic HEENT Narrative: Bruise present over the right side of her face Neck no lymphadenopathy Resp normal respiratory effort and no retractions Cardio regular rate and regular rhythm GI normal to inspection, nondistended, normoactive bowel sounds Extremity normal to inspection and full ROM Neuro oriented x3, CN's II-XII intact bilaterally, moves all extremities and no focal motor deficits Psych affect normal Results Medical Records Data Attestation: I reviewed the patient's medical records Lab / Micro Data Attestation: I reviewed the patient's lab results. 12/08/24 20:10 12/08/24 19:05 Labs: Laboratory Results - last 24 hr 12/08/24 19:05: WBC Cancelled, Corrected WBC Cancelled, RBC Cancelled, Hgb Cancelled, Hct Cancelled, MCV Cancelled, MCH Cancelled, MCHC Cancelled, RDW Std Deviation Cancelled, RDW Coeff of Ezekiel Cancelled, Plt Count Cancelled, MPV Cancelled, Immature Gran % (Auto) Cancelled, Neut % (Auto) Cancelled, Lymph % (Auto) Cancelled, Carver % (Auto) Cancelled, Eos % (Auto) Cancelled, Baso % (Auto) Cancelled, Absolute Neuts (auto) Cancelled, Absolute Lymphs (auto) Cancelled, Total Counted Cancelled, Neutrophils % (Manual) Cancelled, Band Neutrophils % Cancelled, Lymphocytes % (Manual) Cancelled, Monocytes % (Manual) Cancelled, Eosinophils % (Manual) Cancelled, Basophils % (Manual) Cancelled, Metamyelocytes % Cancelled, Myelocytes % Cancelled, Promyelocytes % Cancelled, Blast Cells % Cancelled, Plasma Cell % (Manual) Cancelled, Other Cells % Cancelled, Nucleated RBC % Cancelled, Nucleated RBCs/100 WBC Cancelled, Differential Comment Cancelled, Diff Path Review Cancelled, Hypersegmented Neuts Cancelled, Atypical Lymphocytes Cancelled, Reactive Lymphocytes Cancelled, Smudge Cells Cancelled, Toxic Granulation Cancelled, Toxic Vacuolation Cancelled, Dohle Bodies Cancelled, Elizabeth Rods Cancelled, Platelet Estimate Cancelled, Plt Morphology Comment Cancelled, RBC Morphology Cancelled 12/08/24 19:05: RBC Morphology Cancelled, Polychromasia Cancelled, Hypochromasia Cancelled, Basophilic Stippling Cancelled, Anisocytosis Cancelled, Microcytosis Cancelled, Macrocytosis Cancelled, Spherocytes Cancelled, Sickle Cells Cancelled, Target Cells Cancelled, Tear Drop Cells Cancelled, Ovalocytes Cancelled, Stomatocytes Cancelled, Garces-Murillo Bodies Cancelled, [place] Cells Cancelled, Bite Cells Cancelled, Crenated Cell Cancelled, Acanthocytes (Spur) Cancelled, Rouleaux Cancelled, Schistocytes Cancelled, Sodium 140, Potassium 2.5 L*, Chloride 119 H, Carbon Dioxide 11.9 L, Anion Gap 9, BUN 12, Creatinine 0.32 L, Estim Creat Clear Calc 47.89 L, Est GFR (MDRD) Non-Af 103, BUN/Creatinine Ratio 35.5 H, Glucose 84, Calcium 5.5 L*, Total Bilirubin 0.55, AST 19, ALT 7, Alkaline Phosphatase 53, Total Creatine Kinase 146, Troponin T High Sens 26 H, Total Protein 4.1 L, Albumin 2.5 L, Globulin 1.7 L, Albumin/Globulin Ratio 1.5 12/08/24 20:00: Urine Color Yellow, Urine Clarity Cloudy, Urine pH 5.0, Ur Specific [place] 1.020, Urine Protein 30 H, Urine Glucose (UA) Normal, Urine Ketones 5 H, Urine Occult Blood 50 H, Urine Nitrite Positive H, Urine Bilirubin Negative, Urine Urobilinogen Normal, Ur Leukocyte Esterase 500 H, Urine RBC 10-25 SEEN, Urine WBC >100 SEEN, Ur Squamous Epith Cells 5-10 SEEN, Ur Transition Epith Cell 0-5 SEEN, Amorphous Sediment 1+, Urine Bacteria 4+, Urine Mucus 0 SEEN 12/08/24 20:10: WBC 12.7 H, RBC 3.92 L, Hgb 13.1, Hct 37.8, MCV 96.4, MCH 33.4 H, MCHC 34.7, RDW Std Deviation 48.0 H, RDW Coeff of Ezekiel 13.6, Plt Count 243, MPV 9.1, Immature Gran % (Auto) 0.600, Neut % (Auto) 79.3 H, Lymph % (Auto) 6.1 L, Carver % (Auto) 13.8 H, Eos % (Auto) 0.0, Baso % (Auto) 0.2, Absolute Neuts (auto) 10.1 H, Absolute Lymphs (auto) 0.77 L, Nucleated RBC % 0, Platelet Estimate ADEQUATE, Magnesium 2.1, Troponin T Hi Sens 2 Hr 37 H ABG Data ABG results: ABG 12/08/24 20:21 Specimen Type ART Sample Site L Radial pH 7.54 H Bicarbonate Actual 21.2 L Total CO2 22 Base Excess -1 O2 Saturation 97 O2 % 21.0 ABG pCO2 24.7 L ABG pO2 80 Maxim Test Positive O2 Delivery Device Room Air Vent Mode Not entered Imaging Radiology Impression Brain CT 12/08/24 18:28 IMPRESSION: No acute intracranial abnormality. Chronic microvascular ischemia and involutional changes. [facility] 12/08/24 18:28 IMPRESSION: 1. No displaced fracture or traumatic malalignment of the cervical spine. Minimal anterolisthesis of C5 on C6 is favored to be degenerative. 2. Nodular focus of consolidation in the peripheral right upper lobe, increased in conspicuity since 07/12/2024. Recommend comparison with prior imaging if available, and consider a nonemergent chest CT if not recently performed for further evaluation in this patient with a reported history of malignancy. Reading Location: [id number] Chest X-Ray 12/08/24 18:40 IMPRESSION: No acute cardiopulmonary abnormality. Reading Location: [id number] Assessment & Plan Assessment/Plan (1) Acute UTI: PLAN: Plan 84 yes okay perfect female is being admitted for evaluation following a fall this morning and was noted to have urinary tract infection, with severe hypokalemia. She is being admitted for observation regarding any arrhythmia and will be in the PCU for telemetry, she has a history of prior ESBL UTI and we will start her on ertapenem. # Fall - There was no associated syncopal episode, and had a sensation of feet not working - PT OT evaluation for balance and strength assessment - Admit to PCU for arrhythmia evaluation and monitoring # Urinary tract infection - Likely reason for her fevers - Will start ertapenem given the history of ESBL - Urine culture sent from the ED #Hypokalemia - Likely nutrition associated -follow-up after correction in the ED -Follow-up on magnesium levels and TSH with a.m. labs #Hypocalcemia - Currently calcium is around 6.2 - Patient is severely hypocalcemic, will start oral supplementation - Nutritional evaluation for p.o. intake #Squamous cell carcinoma of the right upper lung # cT1b cN0 Mo - Recently missed her follow-up appointment - Continue to monitor and follow-up as an outpatient with radiation oncology # Facial bruise - No underlying fracture - NSAID based pain control as high risk of delirium I will avoid opioids at this time #Symmetric septal hypertrophy #Nonrheumatic aortic stenosis - Asymptomatic at this time - Continue to monitor #Hypertension Continue home medications with spironolactone and irbesartan # Hypothyroidism - Continue home medication with levothyroxine #DVT prophylaxis: Enoxaparin #Code discussion: Full code
[2024-12-08 23:27] LABS: Troponin T High Sens 4 HR 35 ng/L (<=14)
[2024-12-09 00:15] LABS: Anion Gap 11 (5-15); BUN 15 mg/dL (4-19); BUN/Creat Ratio 26.3 RATIO (10-20); Calcium,Total 8.7 mg/dL (7.6-11.0); Chloride 104 mmol/L (98-108); Creatinine, Serum 0.58 mg/dL (0.70-1.20); EST Glomerular Filtration Rate 90 (>60); Estimated Creatinine Clearance 46.85 ml/min (50-250); Glucose 102 mg/dL (70-99); Potassium 4.2 mmol/L (3.3-5.1); Sodium Level 135 mmol/L (133-145)
[2024-12-09] MEDS: MELATONIN 10 MG TABLET 5 MG PO (00:25)
[2024-12-09] MEDS: Ondansetron ODT 4 MG Tablet PO ×3 (00:26→13:41)
--- NOTE | 2024-12-09 00:40 | NURSING ---
pt came in w/ $54 on admission, pt requested to lock it in med drawer and son will be in later to pick it up. Mcbirde is locked in the room in med drawer, discharge rn is aware.
[2024-12-09] MEDS: 0.9% Saline Lock 10 ML Syringe IV (00:56)
[2024-12-09] MEDS: Acetaminophen 325 MG Tablet 650 MG PO (01:14)
[2024-12-09 05:06] LABS: Absolute Lymphocyte Count 0.68 X10^3/uL (0.83-4.51); Basophil# 0.03 X10^3/uL; Basophil% 0.4 % (0-1); Eosinophil# 0.04 X10^3/uL; Eosinophils% 0.5 % (0-5); Hemoglobin 10.4 g/dL (12.0-15.0); Lymphocyte # 0.68 X10^3/ul (0.83-4.51); Lymphocyte % 8.3 % (19-41); Mean Corp Hgb Conc 33.5 g/dL (32-36); Mean Corpuscular Hgb 32.8 pg (27.0-32.0); Mean Corpuscular Volume 97.8 fL (81-99); Mean Platelet Vol. 9.5 fl (6.2-12.0); Monocyte# 1.44 X10^3/uL; Monocyte% 17.6 % (0-10); NRBC Flagged by Analyzer 0 % (0-5); Neutrophil # 5.97 X10^3/uL (2.7-7.7); Neutrophil % 72.8 % (47-70); Platelet Count 202 K/mm3 (150-450); RBC Distribution Width CV 13.6 % (11.6-14.6); RBC Distribution Width SD 48.5 fl (35.1-43.9); Red Blood Count 3.17 M/mm3 (4.2-5.4); White Blood Count 8.2 K/mm3 (4.4-11.0)
[2024-12-09 05:28] LABS: International Normalized Ratio 1.2; Prothrombin Time (Protime)PT. 15.6 SECONDS (11.7-14.9)
[2024-12-09 05:32] LABS: ALB/GLOB Ratio 1.7 RATIO (0.9-2.4); AST(SGOT) 22 U/L (<=31); Alanine Aminotransfer ALT/SGPT 11 U/L (<=34); Albumin, Serum 3.4 g/dL (3.4-4.8); Alkaline Phosphatase 69 U/L (35-104); Anion Gap 9 (5-15); BUN 15 mg/dL (4-19); BUN/Creat Ratio 28.4 RATIO (10-20); Bilirubin, Direct 0.36 mg/dL (0.00-0.30); Calcium,Total 8.7 mg/dL (7.6-11.0); Carbon Dioxide 20.6 mmol/L (21.0-32.0); Chloride 107 mmol/L (98-108); Creatinine, Serum 0.51 mg/dL (0.70-1.20); EST Glomerular Filtration Rate 92 (>60); Estimated Creatinine Clearance 46.85 ml/min (50-250); Globulin 2.1 g/dL (2.2-4.2); Glucose 96 mg/dL (70-99); Magnesium 2.1 mg/dL (1.5-2.2); Phosphorus 3.3 mg/dL (2.7-4.5); Potassium 4.3 mmol/L (3.3-5.1); Protein, Total 5.4 g/dL (5.9-8.4); Sodium Level 136 mmol/L (133-145); Total Bilirubin 0.76 mg/dL (0.00-1.30)
[2024-12-09 05:40] VITALS: BP 101/41; PULSE 71; RESP 18; TEMP 36.5; O2SAT 96
[2024-12-09] MEDS: Levothyroxine 88 MCG Tablet PO (05:46)
[2024-12-09 06:47] VITALS: BP 103/59; PULSE 81
[2024-12-09] MEDS: Calcium Carb/Vitamin D 1 TABLET Tablet PO (10:09)
[2024-12-09] MEDS: Pyridoxine HCl 100 MG Tablet PO (10:10)
[2024-12-09] MEDS: Enoxaparin 40 MG/0.4 ML Syringe SC (10:10)
[2024-12-09] MEDS: Folic Acid 1 MG Tablet PO (10:10)
[2024-12-09] MEDS: Isosorbide Mononitrate 60 MG Tablet PO (10:10)
[2024-12-09] MEDS: Magnesium Chloride 64 MG Delay Rel.Tablet PO (10:10)
[2024-12-09] MEDS: buPROPion 75 MG Tablet PO (10:10)
[2024-12-09] MEDS: Cyanocobalamin 500 MCG Tablet 1000 MCG PO (10:10)
[2024-12-09 10:20] VITALS: BP 96/54; PULSE 66; RESP 18; TEMP 36.9; O2SAT 97
--- NOTE | 2024-12-09 11:05 | CASEMGMT ---
Addendum entered by Milka Lopez 12/09/24 12:33: Collaborated with PT who states OP therapy would be beneficial for pt. TC to [facility], set up appt for 12/20 at 9am, placed on dc instructions and notified pt. Original Note: BASIL BAKER into pt room, pt sitting up in chair in no distress. Pt states she lives with her son and dtr in law in a two story home with 2-3 steps to enter without rails. Pt uses first floor only. Pt states typically she is I in ADL/IADLs and drives. Pt states she fell in the home as she was having a hard time getting my legs to work. Pt states she fell one other time approx a month ago. Pt typically uses a cane but her goal is to not have to use it. Pt does have a walker at home as well. Pt states she needs some therapy for her balance. She is interested in outpt therapy at [facility]. Pt states that this BASIL BAKER can schedule for her as she prefers an appt at 9 or 10am. Pt is aware that once therapy works with her, BASIL BAKER will set up appt if appropriate. Pt agreeable to this. She denies any further homegoing needs at this time. Pt is anxious to be allowed to drive.
[2024-12-09 12:00] VITALS: BP 101/41; PULSE 71; RESP 18; TEMP 36.5; O2SAT 96
--- NOTE | 2024-12-09 15:22 | DCINST_ITS ---
Discharge Instructions Diet Discharge Diet: No restrictions DC O2, CPAP, BIPAP needs Home O2 Discharge instructions: No Dressing / Incision Discharge Activity: Return to Normal Activity Weight Bearing Status: Full weight bearing Follow Up Care Test Results: Test results from this visit will be discussed in further detail at your follow- up appointment, if applicable. Discharge Plan Admission Admit Date/Time: 12/08/24 23:21 Primary Reason for Your Visit: Acute cystitis, hypokalemia Attending Provider: Yury Muhammad Primary Care Provider: Maria Elena Resendiz Consulting Providers: Lachelle Canaad Discharge Orders/Prescriptions Prescriptions: New nitrofurantoin monohyd/m-cryst [Macrobid] 100 mg capsule 100 mg PO BID Qty: 20 0RF Rx Instructions: must administer with a meal/food Continued bupropion HCl 75 mg tablet 75 mg PO DAILY cholecalciferol (vitamin D3) 50 mcg (2,000 unit) capsule 50 mcg PO DAILY calcium carbonate [Tums] 200 mg calcium (500 mg) tablet,chewable 400 mg PO ONCE PRN (Reason: INGESTION) levothyroxine 88 mcg tablet 88 mcg PO QDAY dorzolamide-timolol 22.3-6.8 mg/mL drops 1 drp ophthalmic (eye) Q12H Patient Comments: [NO ORIGINAL SIG] atorvastatin 10 mg tablet 10 mg PO QHS pyridoxine (vitamin B6) 100 mg tablet 100 mg PO QDAY melatonin 5 mg tablet 5 mg PO HS mecobalamin (vitamin B12) 1,000 mcg tablet,chewable 1,000 mcg PO QDAY magnesium 200 mg tablet 200 mg PO QDAY isosorbide mononitrate 60 mg tablet extended release 24 hr 60 mg PO DAILY Probiotic 10 billion cell capsule 20,000 mmu cells PO DAILY famotidine 20 mg Tablet 20 mg PO DAILY Qty: 0 0RF folic acid 1 mg Tablet 1 mg PO BREAKFAST Qty: 0 0RF sennosides-docusate sodium [Stimulant Laxative Plus] 8.6-50 mg Tablet 2 tab PO BID PRN PRN (Reason: Constipation) Qty: 0 0RF ondansetron 4 mg tablet,disintegrating 4 mg PO Q8H Qty: 8 0RF fluoride (sodium) [Denta 5000 Plus] 1.1 % cream PO UD spironolactone 25 mg tablet 25 mg PO DAILY Evenity 210mg/2.34mL ( 105mg/1.17mLx2) syringe 210 mg subcut QMONTH 360 Days Qty: 28.08 11RF Discontinued ascorbic acid (vitamin C) [Acerola C] 500 mg tablet,chewable 500 mg PO DAILY Referrals / Follow Up: Maria Elena Resendiz MD [Primary Care Provider] - Disposition Disposition (needs filled in before D/C Order can be placed): Home, Self Care
--- NOTE | 2024-12-09 15:30 | PCM.DC.SUM ---
Providers Date of Admission: 12/08/24 Date of Discharge: 12/09/24 Primary Care Physician: Dr. Maria Elena Resendiz MD Reason For Visit: FALL Diagnosis Discharge Diagnosis (1) Acute UTI: Status: Acute Code(s): N39.0 - Urinary tract infection, site not specified Plan 1. Hypokalemia #2 acute cystitis #3 acute debility #4 hypocalcemia Medications at Discharge Home Medications spironolactone 25 mg tablet 25 mg PO DAILY diuretic 02/03/22 cholecalciferol (vitamin D3) 50 mcg (2,000 unit) capsule 50 mcg PO DAILY vitamin 10/20/23 calcium carbonate (Tums) 400 mg PO ONCE PRN INGESTION 11/09/23 bupropion HCl 75 mg tablet 75 mg PO DAILY mental health 01/18/24 dorzolamide 22.3 mg-timolol 6.8 mg/mL eye drops 1 drp ophthalmic (eye) Q12H eye health 01/18/24 levothyroxine 88 mcg tablet 88 mcg PO QDAY thyroid 01/18/24 romosozumab-aqqg 210 mg/2.34 mL(105 mg/1.17 mL x2)subcutaneous syringe (Evenity) 210 mg (2.34 mL) subcut QMONTH 12 months #28.08 mL 01/22/24 Lactobacillus acidophilus 10 billion cell capsule (Probiotic) 20,000 mmu cells PO DAILY 03/23/24 isosorbide mononitrate 60 mg tablet,extended release 24 hr 60 mg PO DAILY heart health 03/23/24 famotidine 20 mg tablet 20 mg PO DAILY reflux #0 tabs 04/15/24 folic acid 1 mg tablet 1 mg PO BREAKFAST supplement #0 tabs 04/15/24 ondansetron 4 mg disintegrating tablet 4 mg PO Q8H #8 tabs 04/15/24 sennosides 8.6 mg-docusate sodium 50 mg tablet (Stimulant Laxative Plus) 2 tab PO BID PRN PRN Constipation #0 tabs 04/15/24 atorvastatin 10 mg tablet 10 mg PO QHS cholesterol 05/30/24 magnesium 200 mg tablet 200 mg PO QDAY 08/18/24 mecobalamin (vitamin B12) 1,000 mcg chewable tablet 1,000 mcg PO QDAY vitamin 08/18/24 melatonin 5 mg tablet 5 mg PO HS sleep 08/18/24 pyridoxine (vitamin B6) 100 mg tablet 100 mg PO QDAY vitamin 08/18/24 fluoride (sodium) 1.1 % dental cream (Denta 5000 Plus) applic PO UD 12/08/24 nitrofurantoin monohydrate/macrocrystals 100 mg capsule (Macrobid) 100 mg PO BID #20 caps 12/09/24 Hospital Course Operations None Procedures None Summary of Care Provided Minutes Spent on Discharge: 31 Hospital Course: This 84-year-old white female was seen in the emergency room at [facility] after her legs gave out in her shower and she fell, she complained of injury to the right periorbital region and her neck. Workup in the emergency room included labs which showed a low potassium at 2.5, calcium was 5.5, and urinalysis showed 10-25 RBCs, more than 100 WBCs, and +4 bacteria. White blood cell was elevated at 12.7, x-rays did not show evidence of any fractures. Patient was placed in observation status on PCU, she was given potassium replacement, and placed on IV antibiotics. Patient was seen by PT and OT and did well and it was felt that she could be discharged to home. On 12/09/2024, patient was seen and examined: On examination she appeared in good health and spirits, she does not appear to be in any distress. Vital signs as documented. Skin warm and dry and without overt rashes. Neck without JVD, thyroid appears normal, trachea is midline, neck is supple. Lungs clear, normal air movement was noted. Heart exam notable for regular rhythm, normal sounds and absence of murmurs, rubs or gallops. Abdomen unremarkable and without evidence of organomegaly, masses, or abdominal aortic enlargement, bowel sounds are present in all 4 quadrants, no abdominal tenderness was noted. Extremities nonedematous, no cyanosis was noted, no clubbing was noted. Neuro: Cranial nerves II through XII are grossly intact, no focal motor deficits were noted, sensation to light touch and pinprick is intact, motor exam 5/5 throughout. Psych: Patient is alert and oriented x3, she does not appear anxious or depressed, she does not appear agitated. Patient was discharged home in stable condition on 12/09/2024 Weight / BMI Weight Weight: 71 kg Body Mass Index (BMI) 30.5 ABG / Lab / Microbiology Data 12/09/24 04:02 12/09/24 04:02 Laboratory: Laboratory Results - last 24 hr 12/08/24 19:05: WBC Cancelled, Corrected WBC Cancelled, RBC Cancelled, Hgb Cancelled, Hct Cancelled, MCV Cancelled, MCH Cancelled, MCHC Cancelled, RDW Std Deviation Cancelled, RDW Coeff of Ezekiel Cancelled, Plt Count Cancelled, MPV Cancelled, Immature Gran % (Auto) Cancelled, Neut % (Auto) Cancelled, Lymph % (Auto) Cancelled, [place] % (Auto) Cancelled, Eos % (Auto) Cancelled, Baso % (Auto) Cancelled, Absolute Neuts (auto) Cancelled, Absolute Lymphs (auto) Cancelled, Total Counted Cancelled, Neutrophils % (Manual) Cancelled, Band Neutrophils % Cancelled, Lymphocytes % (Manual) Cancelled, Monocytes % (Manual) Cancelled, Eosinophils % (Manual) Cancelled, Basophils % (Manual) Cancelled, Metamyelocytes % Cancelled, Myelocytes % Cancelled, Promyelocytes % Cancelled, Blast Cells % Cancelled, Plasma Cell % (Manual) Cancelled, Other Cells % Cancelled, Nucleated RBC % Cancelled, Nucleated RBCs/100 WBC Cancelled, Differential Comment Cancelled, Diff Path Review Cancelled, Hypersegmented Neuts Cancelled, Atypical Lymphocytes Cancelled, Reactive Lymphocytes Cancelled, Smudge Cells Cancelled, Toxic Granulation Cancelled, Toxic Vacuolation Cancelled, Dohle Bodies Cancelled, Elizabeth Rods Cancelled, Platelet Estimate Cancelled, Plt Morphology Comment Cancelled, RBC Morphology Cancelled 12/08/24 19:05: RBC Morphology Cancelled, Polychromasia Cancelled, Hypochromasia Cancelled, Basophilic Stippling Cancelled, Anisocytosis Cancelled, Microcytosis Cancelled, Macrocytosis Cancelled, Spherocytes Cancelled, Sickle Cells Cancelled, Target Cells Cancelled, Tear Drop Cells Cancelled, Ovalocytes Cancelled, Stomatocytes Cancelled, Garces-Gumlog Bodies Cancelled, Bettye Cells Cancelled, Bite Cells Cancelled, Crenated Cell Cancelled, Acanthocytes (Spur) Cancelled, Rouleaux Cancelled, Schistocytes Cancelled, Sodium 140, Potassium 2.5 L*, Chloride 119 H, Carbon Dioxide 11.9 L, Anion Gap 9, BUN 12, Creatinine 0.32 L, Estim Creat Clear Calc 47.89 L, Est GFR (MDRD) Non-Af 103, BUN/Creatinine Ratio 35.5 H, Glucose 84, Calcium 5.5 L*, Total Bilirubin 0.55, AST 19, ALT 7, Alkaline Phosphatase 53, Total Creatine Kinase 146, Troponin T High Sens 26 H, Total Protein 4.1 L, Albumin 2.5 L, Globulin 1.7 L, Albumin/Globulin Ratio 1.5 12/08/24 20:00: Urine Color Yellow, Urine Clarity Cloudy, Urine pH 5.0, Ur Specific [place] 1.020, Urine Protein 30 H, Urine Glucose (UA) Normal, Urine Ketones 5 H, Urine Occult Blood 50 H, Urine Nitrite Positive H, Urine Bilirubin Negative, Urine Urobilinogen Normal, Ur Leukocyte Esterase 500 H, Urine RBC 10-25 SEEN, Urine WBC >100 SEEN, Ur Squamous Epith Cells 5-10 SEEN, Ur Transition Epith Cell 0-5 SEEN, Amorphous Sediment 1+, Urine Bacteria 4+, Urine Mucus 0 SEEN 12/08/24 20:10: WBC 12.7 H, RBC 3.92 L, Hgb 13.1, Hct 37.8, MCV 96.4, MCH 33.4 H, MCHC 34.7, RDW Std Deviation 48.0 H, RDW Coeff of Ezekiel 13.6, Plt Count 243, MPV 9.1, Immature Gran % (Auto) 0.600, Neut % (Auto) 79.3 H, Lymph % (Auto) 6.1 L, [place] % (Auto) 13.8 H, Eos % (Auto) 0.0, Baso % (Auto) 0.2, Absolute Neuts (auto) 10.1 H, Absolute Lymphs (auto) 0.77 L, Nucleated RBC % 0, Platelet Estimate ADEQUATE, Magnesium 2.1, Troponin T Hi Sens 2 Hr 37 H 12/08/24 23:00: Troponin T Hi Sens 4Hr 35 H 12/08/24 23:07: Sodium 135, Potassium 4.2, Chloride 104, Carbon Dioxide 20.0 L, Anion Gap 11, BUN 15, Creatinine 0.58 L, Estim Creat Clear Calc 46.85 L, Est GFR (MDRD) Non-Af 90, BUN/Creatinine Ratio 26.3 H, Glucose 102 H, Calcium 8.7 12/09/24 04:02: WBC 8.2, RBC 3.17 L, Hgb 10.4 L, Hct 31.0 L, MCV 97.8, MCH 32.8 H, MCHC 33.5, RDW Std Deviation 48.5 H, RDW Coeff of Ezekiel 13.6, Plt Count 202, MPV 9.5, Immature Gran % (Auto) 0.400, Neut % (Auto) 72.8 H, Lymph % (Auto) 8.3 L, [place] % (Auto) 17.6 H, Eos % (Auto) 0.5, Baso % (Auto) 0.4, Absolute Neuts (auto) 6.0, Absolute Lymphs (auto) 0.68 L, Nucleated RBC % 0, PT 15.6 H, INR 1.2, Sodium 136, Potassium 4.3, Chloride 107, Carbon Dioxide 20.6 L, Anion Gap 9, BUN 15, Creatinine 0.51 L, Estim Creat Clear Calc 46.85 L, Est GFR (MDRD) Non-Af 92, BUN/Creatinine Ratio 28.4 H, Glucose 96, Calcium 8.7, Phosphorus 3.3, Magnesium 2.1, Total Bilirubin 0.76, Direct Bilirubin 0.36 H, AST 22, ALT 11, Alkaline Phosphatase 69, Total Protein 5.4 L, Albumin 3.4, Globulin 2.1 L, Albumin/Globulin Ratio 1.7, TSH 1.020 Microbiology: Microbiology 12/08/24 20:00 Urine, Clean Catch Urine Culture - Preliminary Presumptive E. coli ABG: ABG 12/08/24 20:21 Specimen Type ART Sample Site L Radial pH 7.54 H Bicarbonate Actual 21.2 L Total CO2 22 Base Excess -1 O2 Saturation 97 O2 % 21.0 ABG pCO2 24.7 L ABG pO2 80 Maxim Test Positive O2 Delivery Device Room Air Vent Mode Not entered Radiography Diagnostic Testing: Radiology Impression Brain CT 12/08/24 18:28 IMPRESSION: No acute intracranial abnormality. Chronic microvascular ischemia and involutional changes. [facility] 12/08/24 18:28 IMPRESSION: 1. No displaced fracture or traumatic malalignment of the cervical spine. Minimal anterolisthesis of C5 on C6 is favored to be degenerative. 2. Nodular focus of consolidation in the peripheral right upper lobe, increased in conspicuity since 07/12/2024. Recommend comparison with prior imaging if available, and consider a nonemergent chest CT if not recently performed for further evaluation in this patient with a reported history of malignancy. Reading Location: [facility] Chest X-Ray 12/08/24 18:40 IMPRESSION: No acute cardiopulmonary abnormality. Reading Location: [facility] D/C Instructions Discharge Diet: No restrictions Weight Bearing Status: Full weight bearing DC O2, CPAP, BIPAP Needs Home O2 Discharge instructions: No Meaningful Use Info Meaningful Use Meaningful Use Diagnoses (Choose all that apply): None applicable Ischemic Stroke Statin Dosing Therapy Reference: STATIN DOSE THERAPY REFERENCE: * Patients > 75 years receive moderate or high dose statin therapy. * Patients 75 years or YOUNGER should receive HIGH intensity statin dose unless contraindicated. You will be required to document reason for non-treatment if statin daily dose does not meet guidelines. HIGH DOSE STATIN THERAPY DAILY Atorvastatin > than or = to 40 mg Rosuvastatin > than or = to 20 mg Amlodipine + Atorvastatin > than or = to 2.5/40 mg Ezetimibe + Simvastatin 10/80 mg Simvastatin 80mg Discharge Plan Admission Admit Date/Time: 12/08/24 23:21 Primary Reason for Your Visit: Acute cystitis, hypokalemia Attending Provider: Yury Muhammad Primary Care Provider: Maria Elena Resendiz Consulting Providers: Lachelle [place] Discharge Orders/Prescriptions Prescriptions: New nitrofurantoin monohyd/m-cryst [Macrobid] 100 mg capsule 100 mg PO BID Qty: 20 0RF Rx Instructions: must administer with a meal/food Continued bupropion HCl 75 mg tablet 75 mg PO DAILY cholecalciferol (vitamin D3) 50 mcg (2,000 unit) capsule 50 mcg PO DAILY calcium carbonate [Tums] 200 mg calcium (500 mg) tablet,chewable 400 mg PO ONCE PRN (Reason: INGESTION) levothyroxine 88 mcg tablet 88 mcg PO QDAY dorzolamide-timolol 22.3-6.8 mg/mL drops 1 drp ophthalmic (eye) Q12H Patient Comments: [NO ORIGINAL SIG] atorvastatin 10 mg tablet 10 mg PO QHS pyridoxine (vitamin B6) 100 mg tablet 100 mg PO QDAY melatonin 5 mg tablet 5 mg PO HS mecobalamin (vitamin B12) 1,000 mcg tablet,chewable 1,000 mcg PO QDAY magnesium 200 mg tablet 200 mg PO QDAY isosorbide mononitrate 60 mg tablet extended release 24 hr 60 mg PO DAILY Probiotic 10 billion cell capsule 20,000 mmu cells PO DAILY famotidine 20 mg Tablet 20 mg PO DAILY Qty: 0 0RF folic acid 1 mg Tablet 1 mg PO BREAKFAST Qty: 0 0RF sennosides-docusate sodium [Stimulant Laxative Plus] 8.6-50 mg Tablet 2 tab PO BID PRN PRN (Reason: Constipation) Qty: 0 0RF ondansetron 4 mg tablet,disintegrating 4 mg PO Q8H Qty: 8 0RF fluoride (sodium) [Denta 5000 Plus] 1.1 % cream PO UD spironolactone 25 mg tablet 25 mg PO DAILY Evenity 210mg/2.34mL ( 105mg/1.17mLx2) syringe 210 mg subcut QMONTH 360 Days Qty: 28.08 11RF Discontinued ascorbic acid (vitamin C) [Acerola C] 500 mg tablet,chewable 500 mg PO DAILY Referrals / Follow Up: Maria Elena Resendiz MD [Primary Care Provider] - Disposition Disposition (needs filled in before D/C Order can be placed): Home, Self Care Charges/Coding Visit Charges Inpatient E&M: 16388 Disch Hosp >30min
--- NOTE | 2024-12-09 15:34 | CHAPLAIN ---
Type of Pastoral Visit _x__ Initial Visit ___ Follow-up Visit ___ On-call Visit ___ General Patient Visit ___ Spiritual Assessment ___ Family Conference ___ Bereavement ___ Rapid Response ___ Code Blue ___ Other (describe below) Pastoral Care Referral From _x__ Patient _x__ Family ___ Nurse ___ Physician ___ Sap Basis ___ [place]ander ___ Other (describe below) Sacrament/Intervention _x__ Active listening ___ Anointing ___ Congregational ___ Bereavement ___ Communion ___ Deborah exploration ___ _x__ Life review _x__ Prayer ___ Reconciliation ___ Sacrament of Sick ___ Supportive presence ___ Wedding ___ Other (describe below) Pastoral Comments patient believes that she is going home today but has not heard for sure and is waiting; two sons are with her; pt is adamant that she is going to do as she pleases, especially continuing to drive; sons are not enthusiastic and say so; pt agrees that a prayer would be helpful for her recovery and release; supportive listening
[2024-12-09 15:37] VITALS: BP 96/54; PULSE 66; RESP 18; TEMP 36.9; O2SAT 97
--- NOTE | 2024-12-09 16:25 | PHA.DC.MC.R ---
Pharmacy [facility] has performed discharge medication reconciliation and counseling for this patient. The patient's discharge medication list was reviewed for discrepancies and discrepancies were resolved. The patient was counseled on the following discharge medications and changes in medications for homegoing were reviewed. The Reason for Use, instructions for use, and potential side effects were reviewed for all new medications. The patient's questions regarding all of their medications were answered. 1. Nitrofurantoin 100 mg PO BID x 10 days The patient was able to verbally demonstrate an understanding of their discharge medications. Medications at Discharge Home Medications spironolactone 25 mg tablet 25 mg PO DAILY diuretic 02/03/22 cholecalciferol (vitamin D3) 50 mcg (2,000 unit) capsule 50 mcg PO DAILY vitamin 10/20/23 calcium carbonate (Tums) 400 mg PO ONCE PRN INGESTION 11/09/23 bupropion HCl 75 mg tablet 75 mg PO DAILY mental health 01/18/24 dorzolamide 22.3 mg-timolol 6.8 mg/mL eye drops 1 drp ophthalmic (eye) Q12H eye health 01/18/24 levothyroxine 88 mcg tablet 88 mcg PO QDAY thyroid 01/18/24 romosozumab-aqqg 210 mg/2.34 mL(105 mg/1.17 mL x2)subcutaneous syringe (Evenity) 210 mg (2.34 mL) subcut QMONTH 12 months #28.08 mL 01/22/24 Lactobacillus acidophilus 10 billion cell capsule (Probiotic) 20,000 mmu cells PO DAILY 03/23/24 isosorbide mononitrate 60 mg tablet,extended release 24 hr 60 mg PO DAILY heart health 03/23/24 famotidine 20 mg tablet 20 mg PO DAILY reflux #0 tabs 04/15/24 folic acid 1 mg tablet 1 mg PO BREAKFAST supplement #0 tabs 04/15/24 ondansetron 4 mg disintegrating tablet 4 mg PO Q8H #8 tabs 04/15/24 sennosides 8.6 mg-docusate sodium 50 mg tablet (Stimulant Laxative Plus) 2 tab PO BID PRN PRN Constipation #0 tabs 04/15/24 atorvastatin 10 mg tablet 10 mg PO QHS cholesterol 05/30/24 magnesium 200 mg tablet 200 mg PO QDAY 08/18/24 mecobalamin (vitamin B12) 1,000 mcg chewable tablet 1,000 mcg PO QDAY vitamin 08/18/24 melatonin 5 mg tablet 5 mg PO HS sleep 08/18/24 pyridoxine (vitamin B6) 100 mg tablet 100 mg PO QDAY vitamin 08/18/24 fluoride (sodium) 1.1 % dental cream (Denta 5000 Plus) applic PO UD 12/08/24 nitrofurantoin monohydrate/macrocrystals 100 mg capsule (Macrobid) 100 mg PO BID #20 caps 12/09/24
== END 2024-12-09 15:30 | disposition home or self-care (01) ==
LOC: ED 20:17 → PCU 23:34
PROVIDERS: Admitting Provider Internal Medicine; Emergency Provider Emergency Medicine; PCP Internal Medicine; Visit Provider Internal Medicine
DX: N39.0 Urinary tract infection, site not specified (principal); C34.11 Malignant neoplasm of upper lobe, right bronchus or lung; S00.83XA Contusion of other part of head, initial encounter; M81.0 Age-related osteoporosis without current pathological fracture; E78.00 Pure hypercholesterolemia, unspecified; R55 Syncope and collapse; I10 Essential (primary) hypertension; Z87.891 Personal history of nicotine dependence; E87.6 Hypokalemia; E83.51 Hypocalcemia; Z92.3 Personal history of irradiation; E03.9 Hypothyroidism, unspecified; Z79.899 Other long term (current) drug therapy; Z79.890 Hormone replacement therapy; W18.30XA Fall on same level, unspecified, initial encounter; Y93.E1 Activity, personal bathing and showering; Y92.9 Unspecified place or not applicable
CPT/HCPCS: 36415; 36600; 70450; 71045; 72125; 80048; 80053; 80076; 81001; 82330; 82550; 82803; 83735; 84100; 84443; 84484; 85025; 85610; 87040; 87086; 87088; 87186; 93005; 96365; 96366; 96367; 96372; 96375; 97162; 97166; 99221; 99285; A4216; G0378; J0612

== ENCOUNTER 2025-02-16 08:00 | Outpatient (RCR) | payer MEDICARE, SELFPAY ==
--- NOTE | 2024-12-20 09:59 | HP.PTEVAL ---
Patient's Visit Information Visit Information Visit Information: FRANCIS CROFT is a 84 year old F referred to Physical Therapy by Dr. Yury Muhammad DO with a diagnosis of Debility and Falls. Date of Evaluation: 12/20/24 Physical Therapist: Torrie Cunningham DPT Visit Plan Frequency: 2x /Week Duration: 4 Weeks Plan: Focus on Balance and Gait HEP Given IE: Standing marching, HR/TR, Hip abd/add/flexion/extn, sit to stands- at counter Subjective Subjective: Patient reports that she was in the ER a week ago due to a fall at home- they recommended she come to therapy for her balance. She has had her right knee replaced. She is temporarily living at her son's house because they don't want her to be home alone. The fall was due to low potassium and calcium. In the last two months she has fallen 2x. She lives on a first floor. She is hopeful to get back home- once they feel comfortable with her mobility. She lives in a split level at her own home. She has been at her son's home since April. Currently they are doing the meals and grocery shopping. She uses a cane on uneven surfaces and carries it on even surfaces incase she needs it. She has a walker but she uses it as a towel bar. There are three stairs to navigate into the house but she has no issue navigating them- no handrails. She has pain in her shoulder blades but none in her back or legs. No N/T in her legs. PMHx/Meds: no changes since at the hospital. Would like to get back into a home exercise program Objective Objective: Posture: forward head, rounded shoulders- has a hard time correcting with verbal cues. Gait: antalgic- decreased stance on the left LE with poor heel toe- occasional step to pattern on left- straight cane- increased trunk rotation and sway HR/TR: able with UE A Sit to Stand: able without UE A but requires significant momentum and SBA for safety Stairs: asc/desc 8 recip with 2 HR- poor control with descent Balance: see FGA and CATSIB Strength: Core: poor, Left: Hip: 4-/5 throughout, Knee: Flexion: 4-/5 Extn: 3+/5, Ankle: 4/5 Right: Hip: 4/5, Knee: 4/5, Ankle/: 4+/5 Sensation: WNL to gross touch bilateral LE Balance/Special Test Scores Functional Gait Assessment Score: 16 % Disability: 46.6700 CATSIB Score (Max score 120 seconds): 31 Lower Extremity Functional Score: 32 30 Second Chair Rise Test Seconds: 3 Goals Goal 1:: Patient will be I with HEP and progression Goal Time Frame: 4-6 Weeks Goal 2:: Patient will improve sit to stands to 8 in 30 seconds Goal Time Frame: 4-6 Weeks Goal 3:: Patient will improved FGA by 5 points Goal Time Frame: 4-6 Weeks Goal 4:: Patient will report 80% improvement Goal Time Frame: 4-6 Weeks Rehabilitation Potential Physical Therapy Diagnosis: Patient presents with decreased strength, proprioception and muscular endurance leading to falls and decreased ability to perform ADL;s. Rehabilitation Potential: Good Anticipated Interventions Patient/Client Instruction: Educate patient on: Benefits of Fitness Program For the Purpose of:: To improve muscle performance and motor function Therapeutic Exercise to Include: Strength training, Endurance training, Balance training, Agility training, Body mechanics, Postural training, Flexibilty training, Gait and locomotor training, Neuromotor development, Dynamic Lumbar Stabilization and Scapular Strength/Stabilization For the Purpose of:: To improve muscle performance and motor function Text: Thank you for the opportunity to evaluate your patient. For Medicare and Medicare HMO plans, please review the plan of care and approve it. It will need to be FAXED BACK to us at [phone] for Medicare purposes. For Medicare only, by signing this I certify the plan of care. Please let me know if there are questions or concerns regarding this plan of care. Physician Signature: Date:
--- NOTE | 2025-01-19 14:48 | HP.PTREVAL ---
Re-Evaluation Intro: Dr. Yury Muhammad, DO, It has been my pleasure to treat FRANCIS CROFT over the last 10 visits for Debility and Falls. Please see the progress note below for an update on the physical therapy plan of care! Subjective Subjective: Patient feels like she has improved- she can walk around the house without the cane. She is doing light house duties now- vacuuming and cleaning bathrooms. No falls. Objective Objective/Function: Posture: forward head, rounded shoulders- has a hard time correcting with verbal cues. Gait: antalgic- decreased stance on the left LE with poor heel toe- occasional step to pattern on left- straight cane- increased trunk rotation and sway HR/TR: able with UE A Sit to Stand: able without UE A but requires significant momentum and SBA for safety Stairs: asc/desc 8 recip with 2 HR- poor control with descent Balance: see FGA Strength: Core: poor, Left: Hip: 4/5 throughout, Knee: Flexion: 4/5 Extn: 4/5, Ankle: 4/5 Right: Hip: 4/5, Knee: 4/5, Ankle/: 4+/5 Sensation: WNL to gross touch bilateral LE Plan Plan Plan: 01/19/2025- Continue 2x a week for 4 weeks to continue on Balance and Gait Balance/Gait/Functional tests Balance/Special Test Scores Functional Gait Assessment Score: 13 % Disability: 56.6700 CATSIB Score (Max score 120 seconds): 31 Lower Extremity Functional Score: 43 Tug Test: <20 sec.=mostly independent 30 Second Chair Rise Test Seconds: 3 Goals Goals Goal 1:: Patient will be I with HEP and progression Goal Time Frame: 4-6 Weeks Goal Progress: Progressing Goal 2:: Patient will improve sit to stands to 8 in 30 seconds Goal Time Frame: 4-6 Weeks Goal Progress: Progressing Goal 3:: Patient will improved FGA by 5 points Goal Time Frame: 4-6 Weeks Goal Progress: Progressing Goal 4:: Patient will report 80% improvement Goal Time Frame: 4-6 Weeks Goal Progress: Progressing Anticipated Interventions Anticipated Interventions Patient/Client Instruction: Educate patient on: Benefits of Fitness Program For the Purpose of:: To improve muscle performance and motor function Therapeutic Exercise to Include: Strength training, Endurance training, Balance training, Agility training, Body mechanics, Postural training, Flexibilty training, Gait and locomotor training, Neuromotor development, Dynamic Lumbar Stabilization and Scapular Strength/Stabilization For the Purpose of:: To improve muscle performance and motor function Re-Evaluation Ending Re-evaluation ending: Please do not hesitate to contact me at [phone] by phone or if you have questions or concerns regarding this new plan of care! Sincerely, JESSA LópezT
--- NOTE | 2025-02-16 08:42 | HP.PTDCSUM ---
Discharge Summary D/C summary: It has been my pleasure to treat FRANCIS CROFT referred by Dr. Yury Muhammad DO, with the diagnosis of Debility and Falls for a total of 21 visit(s). Discharge Date: Please see the following information for a summary of their discharge status. Subjective Subjective: Patient reports that stairs are better she was able to do them 3x a last week. She still feels her balance isnt as good as she wants it. Pain L knee: Pain Intensity (Out of 10): 0 Overall Improvement % Improvement: 65 Objective Objective/Function: Posture: forward head, rounded shoulders- has a hard time correcting with verbal cues. Gait: antalgic- forward posture- straight cane HR/TR: able with UE A Sit to Stand: able without UE A but safer with UE A Stairs: asc/desc 8 recip with 1 HR Balance: see FGA Strength: Core: Fair, Left: Hip: 4+/5 throughout, Knee: Flexion: 4+/5 Extn: 4+/5, Ankle: 4+/5 Right: Hip: 4+/5, Knee: 4+/5, Ankle: 4+/5 Sensation: WNL to gross touch bilateral LE Goals Goal 1:: Patient will be I with HEP and progression Goal Progress: Progressing Goal 2:: Patient will improve sit to stands to 8 in 30 seconds Goal Progress: Progressing Goal 3:: Patient will improved FGA by 5 points Goal Progress: Progressing Goal 4:: Patient will report 80% improvement Goal Progress: Progressing Plan Plan: Discharge to I APRIL and luz salvador D/C Information d/c sentence: If there are questions or concerns regarding this patient's physical therapy, please feel free to call me at [phone]. Thank you for the referral of this patient. Sincerely, Torrie Cunningham, DPT Balance/Gait/Functional tests Balance/Special Test Scores Functional Gait Assessment Score: 13 % Disability: 56.6700 CATSIB Score (Max score 120 seconds): 31 Lower Extremity Functional Score: 41 Tug Test: <20 sec.=mostly independent 30 Second Chair Rise Test Seconds: 3 Improvement % Improvement: 65
== END 2025-02-16 14:58 | disposition home or self-care (01) ==
LOC: PT 08:00
PROVIDERS: PCP Internal Medicine; Referring Provider Internal Medicine; Visit Provider Internal Medicine
DX: R53.83 Other fatigue (principal); R29.6 Repeated falls
CPT/HCPCS: 97110; 97112; 97116; 97162; 97164; 97530

== ENCOUNTER → 2025-03-17 | Outpatient (CLI) | payer MEDICARE, SELFPAY ==
--- NOTE | 2025-03-17 13:56 | ECHOD_ITS ---
Reason For Study Reason For Study: AORTIC STENOSIS Procedure This was a 2D Doppler, Color Flow transthoracic echocardiogram. Exam performed in department. Left Ventricle Normal LV size. Left ventricular systolic function is normal. The left ventricular ejection fraction is 70 %. Stage 1 diastolic dysfunction. No regional wall motion abnormalities noted. Right Ventricle Normal RV size. Normal systolic function. Mitral Valve There is moderate mitral annular calcification. Tricuspid Valve Normal tricuspid valve. Mild tricuspid valve insufficiency. Pulmonary artery systolic pressure is 26 mmHg. Aortic Valve Trisinus/trileaflet aortic valve. Moderate focal aortic valve calcification. Peak aortic valve gradient 57 mmHg. Mean aortic valve gradient 34 mmHg. Moderate aortic stenosis. Mild (1+) aortic valve insufficiency. Pulmonic Valve Normal pulmonic valve. Great Vessels Normal aortic root. The pulmonary artery is normal size. Normal inferior vena cava. Pericardium/Pleural No pericardial effusion. MMode/2D Measurements & Calculations LVIDd: 3.6 cm IVSd: 1.3 cm LVOT diam: 2.0 cm LVIDs: 2.3 cm LVPWd: 1.1 cm LVOT area: 3.2 cm2 RVDd: 3.3 cm FS: 36.3 % Ao root diam: 2.8 cm LAV(MOD-bp): 42.0 ml LVAd ap4: 19.8 cm2 LAV(MOD-bp) Indexed: 24.8 ml/m2 LVLd ap4: 6.5 cm LAV(MOD-sp2): 39.2 ml EDV(MOD-sp4): 48.2 ml LAV(MOD-sp4): 44.8 ml EDV(sp4-el): 51.0 ml LVAs ap4: 9.8 cm2 LVLs ap4: 5.5 cm ESV(MOD-sp4): 15.9 ml ESV(sp4-el): 14.9 ml EF(MOD-sp4): 67.0 % EF(sp4-el): 70.9 % SV(MOD-sp4): 32.3 ml SV(sp4-el): 36.1 ml LA A4 area: 16.8 cm2 SI(MOD-sp4): 19.0 ml/m2 LA dimension(2D): 3.4 cm RA A4 area: 12.3 cm2 TAPSE: 2.0 cm Time Measurements MV dec time: 0.18 sec Doppler Measurements & Calculations MV E max ryland: 88.4 cm/sec Lat Peak E' Ryland: 4.7 cm/sec Med Peak E' Ryland: 4.9 cm/sec MV A max ryland: 157.0 cm/sec E/E' lat: 18.9 E/E' med: 18.1 MV E/A: 0.56 MV V2 max: 179.9 cm/sec Ao V2 max: 376.2 cm/sec AI max ryland: 453.2 cm/sec MV max P.9 mmHg Ao max P.7 mmHg AI max P.2 mmHg MV V2 mean: 104.8 cm/sec Ao V2 mean: 278.0 cm/sec MV mean P.2 mmHg Ao mean P.9 mmHg AI dec slope: 555.7 cm/sec2 MV V2 VTI: 29.9 cm Ao V2 VTI: 83.5 cm AI P1/2t: 238.9 msec AV (velocity ratio): 0.31 MVA(VTI): 2.8 cm2 LES(I,D): 1.0 cm2 LES(V,D): 1.0 cm2 LV V1 max: 118.7 cm/sec SV(LVOT): 83.9 ml PA V2 max: 105.1 cm/sec LV V1 max P.6 mmHg LV V1 mean P.2 mmHg LV V1 mean: 85.0 cm/sec LV V1 VTI: 25.9 cm TR max ryland: 237.2 cm/sec TR max P.5 mmHg ECHO/Echo Complete Interpretation Summary Normal LV size. Left ventricular systolic function is normal. The left ventricular ejection fraction is 70 %. Stage 1 diastolic dysfunction. Mean aortic valve gradient 34 mmHg. Moderate aortic stenosis. Ordering Physician: Leanna Cooper Referring Physician: REAGAN ARELLANO Performed By: Diana Herr RDCS
== END | disposition home or self-care (01) ==
LOC: CVS 13:53
PROVIDERS: PCP Internal Medicine; Referring Provider Physician Assistant Medical; Visit Provider Physician Assistant Medical
DX: I42.2 Other hypertrophic cardiomyopathy (principal)
CPT/HCPCS: 93306